=== PATIENT | male | born 1970 | race Caucasian/White ===

== ENCOUNTER 2017-03-19 20:51 | Observation (INO) | payer OTHER ==
[~2017-03-19] VITALS: Ht 180.3 cm; Wt 92.6 kg
[~2017-03-19 20:51] MED LIST: AMOX500C2; CLON0.1T; CYCL10TA9 PO; DULO30CA3; DULO30CA48; HYDR12.5; LEVO50TA6; NAPR500T4 PO; PRD20T
--- OUTSIDE RECORDS SUMMARY | 2017-03-19 20:56 | XMS REPORT ---
Author JESSICA Carreon Organization [employer] Address Unknown Phone Unavailable Care Team Providers Care Butcher Head Name Role Phone JESSICA BARBA CP Unavailable Allergies No Known Allergies Problems Problem Type Condition Code Onset Dates Condition Status Problem Hypothyroidism, unspecified type E03.9 Active Problem High blood pressure I10 Active Problem Mixed hyperlipidemia E78.2 Active Assessment Edema R60.9 Active Problem Anxiety F41.9 Active Problem Alcohol use F10.99 Active Medications Medication Code System Code Instructions Start Date End Date Status Dosage Hydrochlorothiazide [facility] [address]-97 12.5 MG Orally Once a day November 13, 2015 1 tablet Procedures Procedure Coding System Code Date Office Visit, Est Pt., Level 2 CPT-4 04487 November 13, 2015 Vital Signs Date/Time: November 13, 2015 Cardiac Monitoring Heart Rate 88 bpm Weight 198 lbs Height 71 in BMI 27.61 Index Blood Pressure Diastolic 80 mmHg Blood Pressure Systolic 110 mmHg Results No Known Results Summary Purpose eClinicalWorks Submission
--- OUTSIDE RECORDS SUMMARY | 2017-03-19 20:57 | XMS REPORT ---
Author SIERRA Kulkarni Organization [employer] Address Unknown Phone Unavailable Care Team Providers Care Rn Dialysis Name Role Phone SIERRA VANN CP Unavailable Allergies No Known Allergies Problems Problem Type Condition Code Onset Dates Condition Status Problem Anxiety F41.9 Active Problem Alcohol use F10.99 Active Problem High blood pressure I10 Active Medications No Known Medications Results No Known Results Summary Purpose [employer]ClinicalWorks Submission
--- OUTSIDE RECORDS SUMMARY | 2017-03-19 20:57 | XMS REPORT ---
Author SIERRA Kulkarni [employer] Address Unknown Phone Unavailable Care Team Providers Care Pipe Organ Technician Name Role Phone SIERRA VANN CP Unavailable Allergies, Adverse Reactions, Alerts Substance Reaction Event Type N.K.D.A. Info Not Available Non Drug Allergy Problems Problem Type Condition Code Onset Dates Condition Status Problem Anxiety F41.9 Active Problem Alcohol use F10.99 Active Problem High blood pressure I10 Active Assessment Physical exam Z00.00 Active Assessment Anxiety F41.9 Active Assessment Alcohol use F10.99 Active Medications Medication Code System Code Instructions Start Date End Date Status Dosage Clonidine HCl [facility] [address]-41 0.1 MG Orally 2 times a day as needed for anxiety 1 tablet Cymbalta [facility] [address]-25 30 MG Orally Once a day for anxiety/depression 1 capsule Procedures Procedure Coding System Code Date COMPREHEN METABOLIC PANEL CPT-4 84883 Aug 03, 2015 ASSAY THYROID STIM HORMONE CPT-4 13907 Aug 03, 2015 COMPLETE CBC W/AUTO DIFF WBC CPT-4 61089 Aug 03, 2015 VENIPUNCT, ROUTINE* CPT-4 53366 Aug 03, 2015 LIPID PANEL CPT-4 90623 Aug 03, 2015 Office Visit, Est Pt., Level 3 CPT-4 13986 Aug 03, 2015 Vital Signs Date/Time: Aug 03, 2015 Temperature 97.4 F Weight 200.2 lbs Height 71 in BMI 27.92 Index Blood Pressure Diastolic 82; repeated 134 mmHg Blood Pressure Systolic 138 mmHg Cardiac Monitoring Heart Rate 100 bpm Results Name Result Date Reference Range Unit Abnormality Flag CBC ----Lymphs 11 23009912 % ----Neutrophils 79 40249326 % ----Baso (Absolute) 0.0 20150803 0.0-0.2 x10E3/uL ----Hemoglobin 17.2 20150803 12.6-17.7 g/dL ----Eos (Absolute) 0.1 20150803 0.0-0.4 x10E3/uL ----Hematocrit 47.4 88618756 37.5-51.0 % ----Monocytes(Absolute) 0.6 15138756 0.1-0.9 x10E3/uL ----MCV 89 98897951 79-97 fL ----Lymphs (Absolute) 0.8 64552852 0.7-3.1 x10E3/uL ----MCH 32.4 73080100 26.6-33.0 pg ----Neutrophils (Absolute) 5.9 11706144 1.4-7.0 x10E3/uL ----MCHC 36.3 76001303 31.5-35.7 g/dL H ----Immature Granulocytes 0 50760599 % ----Basos 1 44217629 % ----RDW 13.3 40253146 12.3-15.4 % ----Immature Grans (Abs) 0.0 69106134 0.0-0.1 x10E3/uL ----WBC 7.5 22088317 3.4-10.8 x10E3/uL ----Platelets 233 24356378 150-379 x10E3/uL ----Eos 1 98102564 % ----RBC 5.31 29459666 4.14-5.80 x10E6/uL ----Monocytes 8 22777827 % LIPID PANEL ----LDL Cholesterol Calc 108 99250815 0-99 mg/dL H ----VLDL Cholesterol Partha 13 12046590 5-40 mg/dL ----Cholesterol, Total 259 62054207 100-199 mg/dL H ----HDL Cholesterol 138 49732144 >39 mg/dL ----Triglycerides 67 20402295 0-149 mg/dL ROUTINE VENIPUNCTURE TSH ----TSH 4.620 04619967 0.450-4.500 uIU/mL H CMP ----Potassium, Serum 3.9 21838141 3.5-5.2 mmol/L ----Sodium, Serum 136 95843371 134-144 mmol/L ----BUN/Creatinine Ratio 5 20150803 9-20 L ----eGFR If Africn Am 100 76202904 >59 mL/min/1.73 ----eGFR If NonAfricn Am 87 20150803 >59 mL/min/1.73 ----Creatinine, Serum 1.05 00783425 0.76-1.27 mg/dL ----BUN 5 20150803 6-24 mg/dL L ----Glucose, Serum 103 20150803 65-99 mg/dL H ----AST (SGOT) 88 20150803 0-40 IU/L H ----Globulin, Total 2.7 20150803 1.5-4.5 g/dL ----ALT (SGPT) 105 20150803 0-44 IU/L H ----A/G Ratio 1.7 20150803 1.1-2.5 ----Bilirubin, Total 1.1 20150803 0.0-1.2 mg/dL ----Alkaline Phosphatase, S 72 20150803 39-117 IU/L ----Carbon Dioxide, Total 25 20150803 18-29 mmol/L ----Calcium, Serum 9.4 20150803 8.7-10.2 mg/dL ----Protein, Total, Serum 7.3 20150803 6.0-8.5 g/dL ----Albumin, Serum 4.6 20150803 3.5-5.5 g/dL ----Chloride, Serum 92 20150803 97-108 mmol/L L Summary Purpose eClinicalWorks Submission
--- OUTSIDE RECORDS SUMMARY | 2017-03-19 20:57 | XMS REPORT ---
Author SIERRA Kulkarni Organization [employer] Address Unknown Phone Unavailable Care Team Providers Care Solar Energy Consultant And Designer Name Role Phone SIERRA VANN CP Unavailable Allergies, Adverse Reactions, Alerts Substance Reaction Event Type N.K.D.A. Info Not Available Non Drug Allergy Problems Problem Type Condition Code Onset Dates Condition Status Problem Anxiety F41.9 Active Problem Alcohol use F10.99 Active Problem High blood pressure I10 Active Assessment Alcohol use F10.99 Active Assessment Anxiety F41.9 Active Assessment High blood pressure I10 Active Medications Medication Code System Code Instructions Start Date End Date Status Dosage Cymbalta [facility] [address]-60 30 MG Orally Once a day for anxiety/depression 1 capsule Clonidine HCl [facility] [address]-55 0.1 MG Orally 2 times a day as needed for anxiety Jun 21, 2015 1 tablet Procedures Procedure Coding System Code Date Office Visit, Est Pt., Level 3 CPT-4 38459 Jun 21, 2015 Vital Signs Date/Time: Jun 21, 2015 Temperature 98.4 F Weight 199.1 lbs Height 71 in BMI 27.77 Index Blood Pressure Diastolic 98 mmHg Blood Pressure Systolic 130 mmHg Cardiac Monitoring Heart Rate 92 bpm Results No Known Results Summary Purpose eClinicalWorks Submission
--- OUTSIDE RECORDS SUMMARY | 2017-03-19 20:57 | XMS REPORT ---
Author JESSICA Carreon Organization [employer] Address Unknown Phone Unavailable Care Team Providers Care Ict Support And Test Engineers Name Role Phone JESSICA BARBA CP Unavailable Allergies No Known Allergies Problems Problem Type Condition Code Onset Dates Condition Status Problem Hypothyroidism, unspecified type E03.9 Active Problem High blood pressure I10 Active Problem Mixed hyperlipidemia E78.2 Active Assessment Anxiety F41.9 Active Problem Anxiety F41.9 Active Problem Alcohol use F10.99 Active Medications No Known Medications Results No Known Results Summary Purpose eClinicalWorks Submission
--- OUTSIDE RECORDS SUMMARY | 2017-03-19 20:57 | XMS REPORT ---
Author SIERRA Kulkarni Organization [employer] Address Unknown Phone Unavailable Care Team Providers Care Rn Clinical Appeals Name Role Phone SIERRA VANN CP Unavailable Allergies No Known Allergies Problems Problem Type Condition Code Onset Dates Condition Status Problem Hypothyroidism, unspecified type E03.9 Active Problem High blood pressure I10 Active Problem Mixed hyperlipidemia E78.2 Active Assessment Mixed hyperlipidemia E78.2 Active Assessment Hypothyroidism, unspecified type E03.9 Active Problem Anxiety F41.9 Active Problem Alcohol use F10.99 Active Medications Medication Code System Code Instructions Start Date End Date Status Dosage Fish Oil [facility] [address]-30 1000 MG Orally 2 times a day Aug 07, 2015 1 capsule Levothyroxine Sodium [facility] [address]-25 50 MCG Orally Once a day Aug 07, 2015 1 tablet Results No Known Results Summary Purpose eClinicalWorks Submission
--- OUTSIDE RECORDS SUMMARY | 2017-03-19 20:57 | XMS REPORT ---
Author SIERRA Kulkarni Organization [employer] Address Unknown Phone Unavailable Care Team Providers Care Drop Pit Worker Name Role Phone SIERRA VANN CP Unavailable Allergies No Known Allergies Problems Problem Type Condition Code Onset Dates Condition Status Problem Anxiety F41.9 Active Problem Alcohol use F10.99 Active Problem High blood pressure I10 Active Medications Medication Code System Code Instructions Start Date End Date Status Dosage Clonidine HCl [facility] [address]-29 0.1 MG Orally 2 times a day as needed for anxiety Jun 21, 2015 1 tablet Results No Known Results Summary Purpose eClinicalWorks Submission
[2017-03-19] MEDS ORDERED: LACTATED RINGERS 1,000 ML IV ONE (21:05)
[2017-03-19 21:09] LABS: BASOPHILS % (AUTO) 0 % (0-10); EOSINOPHILS # (AUTO) 0.1 10^3/uL (0.0-0.3); EOSINOPHILS % (AUTO) 2 % (0-10); LYMPHOCYTES % (AUTO) 13 % (12-44); MEAN CORPUSCULAR HEMOGLOBIN 32 PG (25-34); MEAN CORPUSCULAR HGB CONC 37 G/DL (32-36); MEAN CORPUSCULAR VOLUME 86 FL (80-99); MEAN PLATELET VOLUME 9.3 FL (7.4-10.4); MONOCYTES # (AUTO) 0.7 X 10^3 (0.0-1.0); MONOCYTES % (AUTO) 9 % (0-12); NEUTROPHILS # (AUTO) 5.9 X 10^3 (1.8-7.8); NEUTROPHILS % (AUTO) 76 % (42-75); PLATELET COUNT 250 10^3/uL (130-400); RED BLOOD COUNT 5.05 10^6/uL (4.35-5.85); RED CELL DISTRIBUTION WIDTH 11.8 % (10.0-14.5); WHITE BLOOD COUNT 7.7 10^3/uL (4.3-11.0)
--- NOTE | 2017-03-19 21:13 | ED General ---
General Stated Complaint: CHEST PAIN Source of Information: Patient, EMS History of Present Illness Time Seen by Provider: 20:52 Initial Comments PT ARRIVES VIA EMS FROM HOME CALLED EMS FOR CHEST PAIN THAT BEGAN 20 MINUTES PRIOR TO CALLING EMS AROUND 1948 --WHILE SITTING IN A CHAIR AT HOME PT ACTUALLY WITH MULTIPLE COMPLAINTS PT IS ALCOHOLIC AND DRINKS A MINIMUM OF 12 PACK A DAY WAS STARTED ON ANTABUSE 3-4 DAYS AGO BY TATE BARBA AT [facility] ( NO INPATIENT OR OUTPATIENT ALCOHOL TREATMENT, NO ALCOHOLICS ANONYMOUS, ETC. ), AND TOOK 1 DOSE THIS AM PT STATES HE HAD NOT HAD ANY ALCOHOL FOR 2 DAYS, BUT HAS HAD 6 BEERS TODAY PT C/O FEELING CLAMMY, SWEATY, HAVING THE SHAKES, NAUSEATED/DRY HEAVES. STATES THIS IS ACTUALLY THE MAIN REASON HE CALLED EMS PT STATES HE HAS HAD THESE SAME SYMPTOMS WHEN HE HAS TRIED TO STOP DRINKING IN THE PAST PT HAS NOT HAD ANY FOOD INTAKE SINCE 2129 LAST PM AND MINIMAL FLUID INTAKE HAS ONLY VOIDED X 1 TODAY AND WAS A SMALL AMOUNT LAST BM WAS 2 DAYS AGO DOES NOT HAVE PAIN IN CHEST NOW ( WAS 4/10 FOR EMS) STATES PAIN HAS MOVED TO THE BACK OF HIS NECK AND IN HIS RIGHT ARM ALSO NOW HAS PAIN IN EPIGASTRIC AREA STATES HE FELT "LIKE HIS HEART WAS GOING TO JUMP OUT OF HIS CHEST" THEN STARTED FEELING NUMB AND TINGLY ALL OVER, WHICH HAS GOTTEN BETTER FEELING VERY ANXIOUS NO PRIOR HISTORY OF CHEST PAIN OR CARDIAC PROBLEMS. PCP: [facility], TATE BARBA Allergies and Home Medications Allergies Coded Allergies: No Known Drug Allergies (Unverified , 01/07/16) Home Medications Clonidine HCl 0.1 Mg Tablet, #28 (Reported) Cyclobenzaprine HCl 10 Mg Tablet, 10 MG PO Q8H, #10 Prescribed by: GONZALO UMAÑA on 01/24/16 0024 Duloxetine HCl 30 Mg Capsule., #90 (Reported) Levothyroxine Sodium 50 Mcg Tablet, #14 (Reported) Constitutional: see HPI, No chills, diaphoresis, dizziness, No fever, weakness EENTM: no symptoms reported Respiratory: No cough, short of breath Cardiovascular: chest pain, No edema, palpitations, No syncope, No vascular heart diseas Gastrointestinal: see HPI, abdominal pain, constipation, loss of appetite, nausea, vomiting (DRY HEAVES) Genitourinary: see HPI, decreased output Musculoskeletal: see HPI Skin: no symptoms reported Psychiatric/Neurological: See HPI, Anxiety, Denies Headache, Paresthesia, Tingling, Denies Weakness Hematologic/Lymphatic: No Symptoms Reported Immunological/Allergic: no symptoms reported Past Nrfriya-Irkfyv-Mhzqbx Hx Patient Social History Alcohol Use: Regular Use (AT LEAST A 12 PACK OF BEER A DAY) Alcohol Beverage of Choice: Beer Recreational Drug Use: No Type Used: Smokeless Tobacco (CHEWS TOBACCO DAILY) Recent Hopitalizations: No Seasonal Allergies Seasonal Allergies: No Surgeries History of Surgeries: No Respiratory History of Respiratory Disorde: No Cardiovascular History of Cardiac Disorders: Yes Cardiac Disorders: Hypertension Neurological History of Neurological Disord: No Reproductive System Hx Reproductive Disorders: No Genitourinary History of Genitourinary Disor: No Gastrointestinal History of Gastrointestinal Di: Yes ("ULCERS" WHEN YOUNG--NO TESTS DONE) Gastrointestinal Disorders: Polyps Musculoskeletal History of Musculoskeletal Dis: Yes Musculoskeletal Disorders: Chronic Back Pain Endocrine History of Endocrine Disorders: Yes Endocrine Disorders: Hypothyroidsim HEENT History of HEENT Disorders: No Cancer History of Cancer: No Psychosocial History of Psychiatric Problem: Yes (ALCOHOLISM) Behavioral Health Disorders: Anxiety Integumentary History of Skin or Integumenta: No Blood Transfusions History of Blood Disorders: No Physical Exam Vital Signs Vital Sign - Last 12Hours 03/19/17 20:55 Temp 98.6 Pulse 86 Resp 14 B/P (MAP) 144/106 Pulse Ox 98 O2 Delivery Room Air Capillary Refill : General Appearance: WD/WN, Anxious, Other (TENSING BODY, KEEPS EYES TIGHTLY SHUT, PALE, CLAMMY. STRONG ODOR OF ETOH. SPEECH CLEAR. ) HEENT: PERRL/EOMI Neck: Full Range of Motion, Normal Inspection, Non Tender, Supple Respiratory: Normal Breath Sounds, No Accessory Muscle Use, No Respiratory Distress Cardiovascular: Regular Rate, Rhythm, No Edema, No JVD, No Murmur, Normal Peripheral Pulses Gastrointestinal: Normal Bowel Sounds, No Organomegaly, No Pulsatile Mass, Soft , Tenderness (MILD EPIGASTRIC TENDERNESS) Back: No CVA Tenderness Extremity: Normal Capillary Refill, Normal Inspection, Normal Range of Motion, Non Tender, No Calf Tenderness, No Pedal Edema Neurologic/Psychiatric: Alert, Oriented x3, No Motor/Sensory Deficits, 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 II- XII Norm as Tested Skin: Damp, Pallor, Tattoos/Piercings (TATTOOS) Progress/Results/Core Measures Results/Orders Lab Results Laboratory Tests Test 03/19/17 20:57 03/19/17 22:35 03/20/17 04:57 Range/Units White Blood Count 7.7 6.1 4.3-11.0 10^3/uL Red Blood Count 5.05 4.59 4.35-5.85 10^6/uL Hemoglobin 16.0 14.8 13.3-17.7 G/DL Hematocrit 44 41 40-54 % Mean Corpuscular Volume 86 89 80-99 FL Mean Corpuscular Hemoglobin 32 32 25-34 PG Mean Corpuscular Hemoglobin Concent 37 H 36 32-36 G/DL Red Cell Distribution Width 11.8 11.9 10.0-14.5 % Platelet Count 250 220 130-400 10^3/uL Mean Platelet Volume 9.3 9.2 7.4-10.4 FL Neutrophils (%) (Auto) 76 H 64 42-75 % Lymphocytes (%) (Auto) 13 21 12-44 % Monocytes (%) (Auto) 9 10 0-12 % Eosinophils (%) (Auto) 2 5 0-10 % Basophils (%) (Auto) 0 0 0-10 % Neutrophils # (Auto) 5.9 3.9 1.8-7.8 X 10^3 Lymphocytes # (Auto) 1.0 1.3 1.0-4.0 X 10^3 Monocytes # (Auto) 0.7 0.6 0.0-1.0 X 10^3 Eosinophils # (Auto) 0.1 0.3 0.0-0.3 10^3/uL Basophils # (Auto) 0.0 0.0 0.0-0.1 10^3/uL Prothrombin Time 12.0 L 12.2-14.7 SEC INR Comment 0.9 0.8-1.4 Activated Partial Thromboplast Time 28 24-35 SEC Sodium Level 128 L 138 135-145 MMOL/L Potassium Level 2.4 *L 4.8 3.6-5.0 MMOL/L Chloride Level 96 L 108 H 98-107 MMOL/L Carbon Dioxide Level 17 L 21 21-32 MMOL/L Anion Gap 15 H 9 5-14 MMOL/L Blood Urea Nitrogen 4 L 2 L 7-18 MG/DL Creatinine 0.75 0.70 0.60-1.30 MG/DL Estimat Glomerular Filtration Rate > 60 > 60 BUN/Creatinine Ratio 5 3 Glucose Level 134 H 104 70-105 MG/DL Calcium Level 8.8 8.4 L 8.5-10.1 MG/DL Magnesium Level 1.6 L 2.3 1.8-2.4 MG/DL Total Bilirubin 1.1 H 1.0 0.1-1.0 MG/DL Aspartate Amino Transf (AST/SGOT) 57 H 45 H 5-34 U/L Alanine Aminotransferase (ALT/SGPT) 47 39 0-55 U/L Alkaline Phosphatase 64 51 40-136 U/L Total Creatine Kinase 56 30-200 U/L Creatine Kinase MB 0.5 <6.6 NG/ML Troponin I < 0.30 < 0.30 <0.30 NG/ML B-Type Natriuretic Peptide 14.5 <100.0 PG/ML Total Protein 6.5 5.8 L 6.4-8.2 GM/DL Albumin 3.7 3.2 3.2-4.5 GM/DL Amylase Level 78 25-125 U/L Lipase 39 8-78 U/L TSH [facility] Testing 1.05 0.35-4.94 UIU/ML Serum Alcohol 90 H <10 MG/DL Urine Color YELLOW Urine Clarity CLEAR Urine pH 7 5-9 Urine Specific [place] 1.015 L 1.016-1.022 Urine Protein 2+ H NEGATIVE Urine Glucose (UA) 2+ H NEGATIVE Urine Ketones 2+ H NEGATIVE Urine Nitrite NEGATIVE NEGATIVE Urine Bilirubin NEGATIVE NEGATIVE Urine Urobilinogen 1 NORMAL MG/DL Urine Leukocyte Esterase NEGATIVE NEGATIVE Urine RBC (Auto) NEGATIVE NEGATIVE Urine RBC RARE /HPF Urine WBC RARE /HPF Urine Crystals NONE /LPF Urine Bacteria NEGATIVE /HPF Urine Casts NONE /LPF Urine Mucus MODERATE H /LPF Urine Other FEW SPERM H /HPF Urine Culture Indicated NO Urine Opiates Screen NEGATIVE NEGATIVE Urine Oxycodone Screen NEGATIVE NEGATIVE Urine Methadone Screen NEGATIVE NEGATIVE Urine Propoxyphene Screen NEGATIVE NEGATIVE Urine Barbiturates Screen NEGATIVE NEGATIVE Ur Tricyclic Antidepressants Screen NEGATIVE NEGATIVE Urine Phencyclidine Screen NEGATIVE NEGATIVE Urine Amphetamines Screen NEGATIVE NEGATIVE Urine Methamphetamines Screen NEGATIVE NEGATIVE Urine Benzodiazepines Screen NEGATIVE NEGATIVE Urine Cocaine Screen NEGATIVE NEGATIVE Urine Cannabinoids Screen NEGATIVE NEGATIVE My Orders Orders - GONZALO UMAÑA DO Saline Lock/Iv-Start (03/19/17 21:02) Ekg Tracing (03/19/17 21:02) Monitor-Rhythm Ecg Trace Only (03/19/17 21:02) Alcohol (03/19/17 21:02) Amylase (03/19/17 21:02) BNP (03/19/17 21:02) Cbc With Automated Diff (03/19/17:02) Comprehensive Metabolic Panel (03/19/17 21:02) Creatine Kinase (03/19/17:02) Creatine Kinase Mb (03/19/17:02) Drug Screen Stat (Urine) (03/19/17 21:02) Lipase (03/19/17 21:02) Magnesium (03/19/17:02) Protime With Inr (03/19/17:) Partial Thromboplastin Time (03/19/17:) Thyroid Analyzer (03/19/17 21:) Troponin I (03/19/17:02) Ua Culture If Indicated (03/19/17:) Chest 1 View, Ap/Pa Only (03/19/17 21:02) Saline Lock/Iv-Start (03/19/17 21:02) Ondansetron Injection (Zofran Injectio (03/19/17 21:15) Saline Lock/Iv-Start (03/19/17 21:05) Lactated Ringers (Lr 1000 Ml Iv Solution (03/19/17 21:05) Pantoprazole Injection (Protonix Injecti (03/19/17 21:15) Lorazepam Injection (Ativan Injection) (03/19/17 21:15) Ekg Tracing (03/19/17 21:21) Magnesium 1 Gm/100 Ml Ivpb (Magnesium Ortega (03/19/17 22:15) Saline Lock/Iv-Start (03/19/17 22:01) Ns Iv 1000 Ml (Sodium Chloride 0.9%) (03/19/17 22:01) Ns W/Kcl 40 Meq/L (Ns Iv W/Kcl 40 Meq/L) (03/19/17 22:30) Medications Given in ED Current Medications Medications Dose Ordered Sig/Kenneth Route Start Time Stop Time Status Last Admin Dose Admin Lactated Ringer's 1,000 ml @ 0 mls/hr Q0M ONCE IV 03/19/17 21:05 03/19/17 21:07 DC 03/19/17 21:29 0 MLS/HR Lorazepam 2 mg ONCE ONCE IVP 03/19/17 21:15 03/19/17 21:21 DC 03/19/17 21:38 2 MG Ondansetron HCl 4 mg ONCE ONCE IVP 03/19/17 21:15 03/19/17 21:21 DC 03/19/17 21:29 4 MG Pantoprazole 40 mg ONCE ONCE IV 03/19/17 21:15 03/19/17 21:21 DC 03/19/17 21:29 40 MG Sodium Chloride 1,000 ml @ 0 mls/hr Q0M ONCE IV 03/19/17 22:01 03/19/17 22:02 DC 03/19/17 22:20 0 MLS/HR Vital Signs/I&O Vital Sign - Last 12Hours 03/19/17 03/19/17 03/20/17 03/20/17 20:55 23:42 00:05 00:15 Temp 98.6 Pulse 86 65 64 Resp 14 14 12 B/P (MAP) 144/106 115/93 Pulse Ox 98 98 99 96 O2 Delivery Room Air Room Air Room Air Room Air 03/20/17 03/20/17 03/20/17 03/20/17 00:30 01:00 01:00 02:00 Temp 97.7 Pulse 64 67 64 73 Resp 9 11 10 B/P (MAP) 109/89 131/99 130/97 Pulse Ox 96 94 97 O2 Delivery Room Air Room Air Room Air 03/20/17 03/20/17 03/20/17 03/20/17 03:00 04:00 04:00 05:00 Pulse 70 64 58 Resp 13 15 14 B/P (MAP) 138/104 155/115 155/113 Pulse Ox 97 99 98 99 O2 Delivery Room Air Room Air Room Air Room Air 03/20/17 03/20/17 03/20/17 03/20/17 06:00 07:00 07:00 07:54 Temp 97.2 Pulse 84 78 81 73 Resp 14 15 17 B/P (MAP) 114/83 107/74 121/85 Pulse Ox 100 98 99 O2 Delivery Room Air Room Air Room Air Progress Note : Progress Note NO CHEST PAIN ON ARRIVAL TO ER PT FELL ASLEEP SHORTLY AFTER ARRIVAL AND PRIOR TO BEING GIVEN ATIVAN SLEPT FOR REMAINDER OF ER STAY NO DETERIORATION IN PT'S CONDITION DURING ER STAY ECG Initial ECG Impression Time: 20:55 Initial ECG Rate: 65 Initial ECG Impression: Nonspecific Changes (ARTIFACT FROM PT MOVEMENT) Initial ECG Comparisson: No Previous ECG Available EKG : EKG Time: 21:53 Rate: 64 Rhythm: Normal Sinus Intervals: Normal Diagnostic Imaging Comments CXR--NO ACUTE PROCESS, PER RADIOLOGIST REPORT @ 2145 Reviewed: Reviewed by Me Departure Communication (PCP) [id number]--SPOKE WITH DR. HOLCOMB, ACCEPTS PT FOR ADMIT. WILL CONSULT SEAL DELIVERY VEHICLE TEAM TECHNICIAN FOR ASSISTANCE IN ARRANGING FOR ALCOHOL ABUSE TREATMENT /COUNSELING, ETC. Impression Impression: Primary Impression: Alcohol withdrawal Additional Impressions: Dehydration Electrolyte imbalance Chest pain Anxiety Alcohol abuse ANTABUSE THERAPY Hypomagnesemia Disposition: ADMITTED INPATIENT Condition: Stable Admissions Decision to Admit Reason: Admit from ER (General) Decision to Admit/Date: Mar 19, 2017 Time/Decision to Admit Time: 22:35 Departure-Patient Inst. Referrals: [facility] (PCP/Family) Primary Care Physician GONZALO UMAÑA DO Mar 19, 2017 21:13
[2017-03-19] MEDS ORDERED: PANTOPRAZOLE 40 MG/10 ML (PROTONIX) VIAL IV ONE (21:15)
[2017-03-19] MEDS ORDERED: LORazepam INJ 2 MG/ML (ATIVAN) VIAL IVP ONE (21:15)
[2017-03-19] MEDS ORDERED: ONDANSETRON 4 MG/2 ML (SDV) Z0FRAN IVP ONE (21:15)
[2017-03-19 21:18] LABS: INR 0.9 (0.8-1.4)
--- NOTE | 2017-03-19 21:28 | Diagnostic Imaging Report ---
INDICATION: Chest pain COMPARISON: No previous study is available for comparison at this time. FINDINGS: Heart size and pulmonary vasculature are within normal limits, and the lungs are clear, bilaterally. IMPRESSION: Unremarkable chest. Dictated by: Dictated on workstation # [id number]
[2017-03-19 21:49] LABS: ALANINE AMINOTRANSFERASE 47 U/L (0-55); ALBUMIN 3.7 GM/DL (3.2-4.5); ALCOHOL 90 MG/DL (<10); AMYLASE 78 U/L (25-125); ANION GAP 15 MMOL/L (5-14); ASPARTATE AMINO TRANSFERASE 57 U/L (5-34); BILIRUBIN,TOTAL 1.1 MG/DL (0.1-1.0); BLOOD UREA NITROGEN 4 MG/DL (7-18); BUN/CREATININE RATIO 5; CALCIUM 8.8 MG/DL (8.5-10.1); CARBON DIOXIDE 17 MMOL/L (21-32); CHLORIDE 96 MMOL/L (98-107); CREATINE KINASE 56 U/L (30-200); CREATININE SERUM 0.75 MG/DL (0.60-1.30); GFR ESTIMATED > 60; GLUCOSE 134 MG/DL (70-105); LIPASE 39 U/L (8-78); MAGNESIUM 1.6 MG/DL (1.8-2.4); SODIUM 128 MMOL/L (135-145); TOTAL PROTEIN 6.5 GM/DL (6.4-8.2)
[2017-03-19] MEDS ORDERED: NS IV 1000 ML 1,000 ML IV ONE (22:01)
[2017-03-19] MEDS: MAGNESIUM 1 GM/100 ML IVPB 100 ML IV SCH (22:20)
[2017-03-19 22:21] LABS: POTASSIUM 2.4 MMOL/L (3.6-5.0)
[2017-03-19] MEDS ORDERED: NS W/KCL 40 MEQ/L 1,000 ML IV SCH (22:30)
[2017-03-19 22:33] LABS: TROPONIN I < 0.30 NG/ML (<0.30)
[2017-03-19 22:51] LABS: BILIRUBIN,URINE NEGATIVE (NEGATIVE); KETONES,URINE 2+ (NEGATIVE); LEUKOCYTE ESTERASE ,URINE NEGATIVE (NEGATIVE); NITRITE,URINE NEGATIVE (NEGATIVE); PH,URINE 7 (5-9); PROTEIN,URINE 2+ (NEGATIVE); UROBILINOGEN,URINE 1 MG/DL (NORMAL)
[2017-03-19 22:56] LABS: WBC,URINE RARE /HPF
[2017-03-20] VITALS (15 sets, daily range): BP systolic 107–155; BP diastolic 74–115
[2017-03-20] MEDS ORDERED: D5 NS W/KCL 20 MEQ/L 0 ML IV ONE (00:09)
[2017-03-20] MEDS ORDERED: D5 1/2 NS W/KCL 20 MEQ/L 1,000 ML IV ONE (00:10)
[2017-03-20] MEDS: MAGNESIUM 1 GM/100 ML IVPB 100 ML IV SCH (00:45)
[2017-03-20] MEDS: POTASSIUM CL 10MEQ/50ML IVPB 50 ML IV SCH ×5 (01:28→05:10)
[2017-03-20] MEDS ORDERED: LORazepam INJ 2 MG/ML (ATIVAN) VIAL IM PRN (03:45)
[2017-03-20] MEDS ORDERED: SENNA W/DOCUSATE (SENOKOT S) TABLET PO PRN (03:45)
[2017-03-20] MEDS ORDERED: LORazepam 1 MG (ATIVAN) TAB PO PRN ×3 (03:45→04:00)
[2017-03-20] MEDS ORDERED: ANTACID SUSP 30 ML UDC (MYLANTA) PO PRN (03:45)
[2017-03-20] MEDS ORDERED: ONDANSETRON 4 MG/2 ML (SDV) Z0FRAN IV PRN (03:45)
[2017-03-20] MEDS ORDERED: LORazepam INJ 2 MG/ML (ATIVAN) VIAL IV PRN ×4 (03:45)
[2017-03-20 05:08] LABS: BASOPHILS % (AUTO) 0 % (0-10); EOSINOPHILS # (AUTO) 0.3 10^3/uL (0.0-0.3); EOSINOPHILS % (AUTO) 5 % (0-10); LYMPHOCYTES # (AUTO) 1.3 X 10^3 (1.0-4.0); LYMPHOCYTES % (AUTO) 21 % (12-44); MEAN CORPUSCULAR HEMOGLOBIN 32 PG (25-34); MEAN CORPUSCULAR HGB CONC 36 G/DL (32-36); MEAN CORPUSCULAR VOLUME 89 FL (80-99); MEAN PLATELET VOLUME 9.2 FL (7.4-10.4); MONOCYTES # (AUTO) 0.6 X 10^3 (0.0-1.0); MONOCYTES % (AUTO) 10 % (0-12); NEUTROPHILS # (AUTO) 3.9 X 10^3 (1.8-7.8); NEUTROPHILS % (AUTO) 64 % (42-75); PLATELET COUNT 220 10^3/uL (130-400); RED BLOOD COUNT 4.59 10^6/uL (4.35-5.85); RED CELL DISTRIBUTION WIDTH 11.9 % (10.0-14.5); WHITE BLOOD COUNT 6.1 10^3/uL (4.3-11.0)
[2017-03-20] MEDS ORDERED: cloNIDine 0.1 MG (CATAPRES) TAB ONE (05:29)
[2017-03-20] MEDS ORDERED: hydrALAZINE (APESOLINE) 20 MG/ML VIAL ONE (05:29)
[2017-03-20 05:37] LABS: ALANINE AMINOTRANSFERASE 39 U/L (0-55); ALBUMIN 3.2 GM/DL (3.2-4.5); ANION GAP 9 MMOL/L (5-14); ASPARTATE AMINO TRANSFERASE 45 U/L (5-34); BLOOD UREA NITROGEN 2 MG/DL (7-18); BUN/CREATININE RATIO 3; CALCIUM 8.4 MG/DL (8.5-10.1); CARBON DIOXIDE 21 MMOL/L (21-32); CHLORIDE 108 MMOL/L (98-107); GFR ESTIMATED > 60; GLUCOSE 104 MG/DL (70-105); MAGNESIUM 2.3 MG/DL (1.8-2.4); POTASSIUM 4.8 MMOL/L (3.6-5.0); SODIUM 138 MMOL/L (135-145); TOTAL PROTEIN 5.8 GM/DL (6.4-8.2)
[2017-03-20 05:43] LABS: TROPONIN I < 0.30 NG/ML (<0.30)
[2017-03-20] MEDS ORDERED: MAGNESIUM 1 GM/100 ML IVPB 100 ML IV SCH (06:00)
[2017-03-20] MEDS ORDERED: KCL 20 MEQ TAB (K-DUR) PO SCH (06:00)
[2017-03-20] MEDS ORDERED: POTASSIUM CL 10MEQ/50ML IVPB 50 ML IV SCH (06:00)
[2017-03-20] MEDS ORDERED: NS IV 1000 ML 1,000 ML IV SCH (07:00)
[2017-03-20] MEDS ORDERED: LEVO25TA5 PO (08:32)
[2017-03-20] MEDS ORDERED: [UNRECOGNIZED DRUG - CODE] PO (08:32)
[2017-03-20] MEDS ORDERED: DULO60CA58 PO (08:32)
[2017-03-20] MEDS ORDERED: THIAMINE INJECTION 100 MG, FOLIC ACID INJECTION 1 MG, VITAMIN MULTI INJECTION 10 ML, MA... IV SCH ×5 (09:00)
[2017-03-20] MEDS ORDERED: PANTOPRAZOLE 40 MG/10 ML (PROTONIX) VIAL IV SCH (09:00)
[2017-03-20] MEDS ORDERED: LEVOTHYROXINE 25 MCG (LEVOTHROID) TAB PO SCH (10:09)
[2017-03-20] MEDS ORDERED: DULoxetine 30 MG (CYMBALTA) CAP PO SCH (10:10)
--- NOTE | 2017-03-20 11:50 | Discharge Instructions ---
Discharge Inst-[facility] Discharge Medications Continued Medications: Duloxetine HCl (Duloxetine HCl) 60 Mg Capsule.dr 60 MG PO DAILY, CAP Levothyroxine Sodium (Levothyroxine Sodium) 25 Mcg Tablet 25 MCG PO DAILY, TAB Discontinued Medications: Disulfiram (Disulfiram) 500 Mg Tablet 500 MG PO DAILY, TAB Patient Instructions Goal/Follow Up Appt: Follow up at [facility] with Taylor at 2:30 pm for intake visit for addiction treatment. Follow up with Alex Johns APRN on 04/06 at 4 pm. Return to [facility] For: Inability to keep down liquids, seizure activity, confusion Activity & Diet Discharge Diet: No Restrictions Activity as Tolerated: Yes Orders-Post D/C & Referrals Pneu Vac Indicated: Yes Copy Copies To 1: HEATHER Warren BETHANY N MD Mar 20, 2017 11:50 am
--- NOTE | 2017-03-20 11:56 | Short Stay Summary ---
HPI History of Present Illness: 46 yo male presented to ER with complaint of heart palpitations, pounding heart in his chest and not feeling well. He notes that he started taking disulfiram about 2 weeks ago, however, he has drank every day since then except for one. He also has a cough which is productive of clear sputum. He denies dizziness, confusion, hallucinations or tremor. Date seen by provider: Mar 20, 2017 Time Seen by Provider: 10:30 Attending Physician Jaz Sanford MD [place] [facility] [place] Date of Admission Mar 19, 2017 at 10:35 pm Home Medications Home Medications Reviewed patient Home Medication Reconciliation Form Allergies Coded Allergies: No Known Drug Allergies (Unverified , 01/07/16) QVH-Lusyjg-Mxniex Hx Patient Social History Alcohol Use: Regular Use Recreational Drug Use: No Type Used: Smokeless Tobacco Recent Foreign Travel: No Contact w/other who traveled: No Recent Hopitalizations: No Recent Infectious Disease Expo: No Physical Abuse Screen: No Sexual Abuse: No Past Medical History PMHx: Hypothyroidism Alcoholism Family Medical History Significant Family History: No Pertinent Family Hx Review of Systems (CHC) Constitutional: No fever EENTM: no symptoms reported Respiratory: cough Cardiovascular: chest pain Gastrointestinal: nausea Genitourinary: no symptoms reported Musculoskeletal: no symptoms reported Skin: no symptoms reported Psychiatric/Neurological: No Symptoms Reported Reviewed Test Results Reviewed Test Results Lab Laboratory Tests Test 03/19/17 20:57 03/19/17 22:35 03/20/17 04:57 Range/Units White Blood Count 7.7 6.1 4.3-11.0 10^3/uL Red Blood Count 5.05 4.59 4.35-5.85 10^6/uL Hemoglobin 16.0 14.8 13.3-17.7 G/DL Hematocrit 44 41 40-54 % Mean Corpuscular Volume 86 89 80-99 FL Mean Corpuscular Hemoglobin 32 32 25-34 PG Mean Corpuscular Hemoglobin Concent 37 H 36 32-36 G/DL Red Cell Distribution Width 11.8 11.9 10.0-14.5 % Platelet Count 250 220 130-400 10^3/uL Mean Platelet Volume 9.3 9.2 7.4-10.4 FL Neutrophils (%) (Auto) 76 H 64 42-75 % Lymphocytes (%) (Auto) 13 21 12-44 % Monocytes (%) (Auto) 9 10 0-12 % Eosinophils (%) (Auto) 2 5 0-10 % Basophils (%) (Auto) 0 0 0-10 % Neutrophils # (Auto) 5.9 3.9 1.8-7.8 X 10^3 Lymphocytes # (Auto) 1.0 1.3 1.0-4.0 X 10^3 Monocytes # (Auto) 0.7 0.6 0.0-1.0 X 10^3 Eosinophils # (Auto) 0.1 0.3 0.0-0.3 10^3/uL Basophils # (Auto) 0.0 0.0 0.0-0.1 10^3/uL Prothrombin Time 12.0 L 12.2-14.7 SEC INR Comment 0.9 0.8-1.4 Activated Partial Thromboplast Time 28 24-35 SEC Sodium Level 128 L 138 135-145 MMOL/L Potassium Level 2.4 *L 4.8 3.6-5.0 MMOL/L Chloride Level 96 L 108 H 98-107 MMOL/L Carbon Dioxide Level 17 L 21 21-32 MMOL/L Anion Gap 15 H 9 5-14 MMOL/L Blood Urea Nitrogen 4 L 2 L 7-18 MG/DL Creatinine 0.75 0.70 0.60-1.30 MG/DL Estimat Glomerular Filtration Rate > 60 > 60 BUN/Creatinine Ratio 5 3 Glucose Level 134 H 104 70-105 MG/DL Calcium Level 8.8 8.4 L 8.5-10.1 MG/DL Magnesium Level 1.6 L 2.3 1.8-2.4 MG/DL Total Bilirubin 1.1 H 1.0 0.1-1.0 MG/DL Aspartate Amino Transf (AST/SGOT) 57 H 45 H 5-34 U/L Alanine Aminotransferase (ALT/SGPT) 47 39 0-55 U/L Alkaline Phosphatase 64 51 40-136 U/L Total Creatine Kinase 56 30-200 U/L Creatine Kinase MB 0.5 <6.6 NG/ML Troponin I < 0.30 < 0.30 <0.30 NG/ML B-Type Natriuretic Peptide 14.5 <100.0 PG/ML Total Protein 6.5 5.8 L 6.4-8.2 GM/DL Albumin 3.7 3.2 3.2-4.5 GM/DL Amylase Level 78 25-125 U/L Lipase 39 8-78 U/L TSH Bradley Testing 1.05 0.35-4.94 UIU/ML Serum Alcohol 90 H <10 MG/DL Urine Color YELLOW Urine Clarity CLEAR Urine pH 7 5-9 Urine Specific Williams 1.015 L 1.016-1.022 Urine Protein 2+ H NEGATIVE Urine Glucose (UA) 2+ H NEGATIVE Urine Ketones 2+ H NEGATIVE Urine Nitrite NEGATIVE NEGATIVE Urine Bilirubin NEGATIVE NEGATIVE Urine Urobilinogen 1 NORMAL MG/DL Urine Leukocyte Esterase NEGATIVE NEGATIVE Urine RBC (Auto) NEGATIVE NEGATIVE Urine RBC RARE /HPF Urine WBC RARE /HPF Urine Crystals NONE /LPF Urine Bacteria NEGATIVE /HPF Urine Casts NONE /LPF Urine Mucus MODERATE H /LPF Urine Other FEW SPERM H /HPF Urine Culture Indicated NO Urine Opiates Screen NEGATIVE NEGATIVE Urine Oxycodone Screen NEGATIVE NEGATIVE Urine Methadone Screen NEGATIVE NEGATIVE Urine Propoxyphene Screen NEGATIVE NEGATIVE Urine Barbiturates Screen NEGATIVE NEGATIVE Ur Tricyclic Antidepressants Screen NEGATIVE NEGATIVE Urine Phencyclidine Screen NEGATIVE NEGATIVE Urine Amphetamines Screen NEGATIVE NEGATIVE Urine Methamphetamines Screen NEGATIVE NEGATIVE Urine Benzodiazepines Screen NEGATIVE NEGATIVE Urine Cocaine Screen NEGATIVE NEGATIVE Urine Cannabinoids Screen NEGATIVE NEGATIVE Radiology CXR 03/19 Unremarkable Physical Exam-(CHC) Physical Exam Vital Signs VS - Last 72 Hours, by Label 03/19/17 03/19/17 03/20/17 03/20/17 20:55 23:42 00:05 00:15 Temp 98.6 Pulse 86 65 64 Resp 14 14 12 B/P (MAP) 144/106 115/93 Pulse Ox 98 98 99 96 O2 Delivery Room Air Room Air Room Air Room Air 03/20/17 03/20/17 03/20/17 03/20/17 00:30 01:00 01:00 02:00 Temp 97.7 Pulse 64 67 64 73 Resp 9 11 10 B/P (MAP) 109/89 131/99 130/97 Pulse Ox 96 94 97 O2 Delivery Room Air Room Air Room Air 03/20/17 03/20/17 03/20/17 03/20/17 03:00 04:00 04:00 05:00 Pulse 70 64 58 Resp 13 15 14 B/P (MAP) 138/104 155/115 155/113 Pulse Ox 97 99 98 99 O2 Delivery Room Air Room Air Room Air Room Air 03/20/17 03/20/17 03/20/17 03/20/17 06:00 07:00 07:00 07:54 Temp 97.2 Pulse 84 78 81 73 Resp 14 15 17 B/P (MAP) 114/83 107/74 121/85 Pulse Ox 100 98 99 O2 Delivery Room Air Room Air Room Air 03/20/17 03/20/17 03/20/17 03/20/17 08:00 09:00 10:00 11:00 Pulse 80 81 84 Resp 17 20 16 B/P (MAP) 131/105 132/100 111/87 Pulse Ox 99 100 94 97 O2 Delivery Room Air Room Air Room Air 03/20/17 11:44 Pulse Ox 99 O2 Delivery Room Air Capillary Refill : Less Than 3 Seconds General Appearance: WD/WN, no apparent distress Respiratory: lungs clear, normal breath sounds Cardiovascular: regular rate, rhythm, no murmur Gastrointestinal: normal bowel sounds, non tender, soft Extremities: no pedal edema Neurologic/Psychiatric: alert Skin: normal color, warm/dry Short Stay Diagnosis Discharge Diagnosis-Short Stay Admission Diagnosis Alcohol abuse while taking disulfiram Hyponatremia Hypokalemia Hypomagnesemia Transaminitis/elevated bilirubin Alcoholic ketoacidosis Final Discharge Diagnosis Alcohol abuse while taking disulfiram Hyponatremia Hypokalemia Hypomagnesemia Transaminitis/elevated bilirubin Alcoholic ketoacidosis Conclusion Plan Alcohol abuse while taking disulfiram- discussed with patient that alcohol cannot be used when taking disulfiram, and he states that while he is interested in quitting, he does not feel he is ready at this time, so we will discontinue his disulfiram and he will meet with substance abuse counselor to consider further options, but he does not require inpatient stay for detox as he is not planning to stop drinking at this time Electrolyte abnormalities: Hyponatremia, Hypokalemia, Hypomagnesemia, alcoholic ketoacidosis -Resolved with IVF and replacement overnight Transaminitis/elevated bilirubin- possibly alcohol related, check hepatitis panel (results pending at d/c) Clinical Quality Measures DVT/VTE Risk/Contraindication: Risk Factor Score Per Nursin RFS Level Per Nursing on Admit: 1=Low/No VTE PPX Copy Copies To 1: HEATHER Warren BETHANY N MD Mar 20, 2017 11:56 am
== END 2017-03-20 11:48 | disposition home or self-care (01) ==
LOC: EDUNIT# 20:51 → ER 20:52 → UNDOADMOB 22:35 → ICU 22:35 → UNDODISOB 03-20 13:25
PROVIDERS: ADMIT Family Medicine; ATTEND Family Medicine
DX: F10.10 Alcohol abuse, uncomplicated (principal); E87.1 Hypo-osmolality and hyponatremia; E87.6 Hypokalemia; E83.42 Hypomagnesemia; R74.0 Nonspecific elevation of levels of transaminase and lactic acid dehydrogenase [LDH]; E80.7 Disorder of bilirubin metabolism, unspecified; E87.2 Acidosis; I10 Essential (primary) hypertension; F41.9 Anxiety disorder, unspecified; Y90.4 Blood alcohol level of 80-99 mg/100 ml; F17.220 Nicotine dependence, chewing tobacco, uncomplicated; Z79.899 Other long term (current) drug therapy
CPT/HCPCS: 36415; 71010; 80053; 80074; 80306; 80320; 81000; 82150; 82550; 82553; 83690; 83735; 83880; 84443; 84484; 85025; 85610; 85730; 87081; 93005; 93041; 96361; 96365; 96375; G0378

== ENCOUNTER 2017-04-25 19:44 | Emergency (ER) | payer SELFPAY ==
[~2017-04-25] VITALS: Ht 180.3 cm; Wt 88.0 kg
[~2017-04-25 19:44] MED LIST changes: +DULO60CA58 PO; +LEVO25TA5 PO; +NAPR500T3 PO; -NAPR500T4 PO; +[UNRECOGNIZED DRUG - CODE] PO
[2017-04-25] MEDS ORDERED: KETOROLAC 60 MG/2 ML VIAL IM STA (21:43)
--- NOTE | 2017-04-25 21:51 | ED Upper Extremity ---
General Chief Complaint: Upper Extremity Stated Complaint: SHOULDER PAIN Nursing Triage Note: pt c/o R shoulder pain x1 month, states he was seen at [facility] and had an xray done "never heard back" but is still having pain. Nursing Sepsis Screen: No Definite Risk Source: patient Exam Limitations: no limitations History of Present Illness Time seen by provider: 21:35 Initial Comments Here with report of right shoulder pain is been going on for about a month. Unsure of exact cause but states it may have been when he was helping a friend with some work and he was doing some heavy lifting. Did have evaluation at about a month ago and had an x-ray done but hasn't heard any results. Denies weakness or numbness. Does get position of comfort by relaxing the arm and the internally rotated and elbow flexed position like he would be in a sling. Pain is to the anterior and posterior portion of the shoulder but not so much on the lateral aspect. Pain is worse when arm is forward flexed and pronated and when lifting arm above head. Onset: other (one month) Severity: moderate Pain/Injury Location: right shoulder Method of Injury: unknown Modifying Factors: Improves With Immobilization, Worse With Movement Allergies and Home Medications Allergies Coded Allergies: No Known Drug Allergies (Unverified , 01/07/16) Home Medications Duloxetine HCl 60 Mg Capsule.dr, 60 MG PO DAILY, (Reported) Levothyroxine Sodium 25 Mcg Tablet, 25 MCG PO DAILY, (Reported) Constitutional: see HPI, No chills, No fever Respiratory: no symptoms reported Cardiovascular: no symptoms reported Musculoskeletal: see HPI, joint pain, muscle pain Skin: no symptoms reported Psychiatric/Neurological: No Symptoms Reported Past Sidwdik-Ugfoan-Paxhbd Hx Patient Social History Alcohol Use: Regular Use Number of Drinks Today: 5 Alcohol Beverage of Choice: Beer Recreational Drug Use: No Smoking Status: Never a Smoker Type Used: Smokeless Tobacco Recent Foreign Travel: No Contact w/Someone Who Travel: No Recent Infectious Disease Expo: No Recent Hopitalizations: No Physical Abuse: No Sexual Abuse: No Immunizations Up To Date Tetanus Booster (TDap): Unknown PED Vaccines UTD: No Seasonal Allergies Seasonal Allergies: No Surgeries History of Surgeries: No Respiratory History of Respiratory Disorde: No Cardiovascular History of Cardiac Disorders: Yes Cardiac Disorders: Hypertension Neurological History of Neurological Disord: No Reproductive System Hx Reproductive Disorders: No Genitourinary History of Genitourinary Disor: No Gastrointestinal History of Gastrointestinal Di: Yes ("ULCERS" WHEN YOUNG--NO TESTS DONE) Gastrointestinal Disorders: Polyps Musculoskeletal History of Musculoskeletal Dis: Yes Musculoskeletal Disorders: Chronic Back Pain Endocrine History of Endocrine Disorders: Yes Endocrine Disorders: Hypothyroidsim HEENT History of HEENT Disorders: No Cancer History of Cancer: No Psychosocial History of Psychiatric Problem: Yes (ALCOHOLISM) Behavioral Health Disorders: Anxiety Suicide Risk Score: 0 Integumentary History of Skin or Integumenta: No Blood Transfusions History of Blood Disorders: No Reviewed Nursing Assessment Reviewed/Agree w Nursing PMH: Yes Family Medical History Significant Family History: No Pertinent Family Hx Family Medial History: Patient reports no known family medical history. Physical Exam Vital Signs Vital Sign - Last 12Hours 04/25/17 20:35 Temp 98.0 Pulse 106 Resp 15 B/P (MAP) 122/82 Pulse Ox 96 O2 Delivery Room Air Capillary Refill : Less Than 3 Seconds General Appearance: WD/WN, no apparent distress Cardiovascular: regular rate, rhythm, no murmur Respiratory: lungs clear, normal breath sounds Shoulder: normal ROM, pain (pain with forward flexion and pronation and when lifting her arm above head. Tenderness noted to the anterior posterior aspect of the shoulder joint.), soft tissue tenderness Hand: normal ROM, Bilateral Neurologic/Tendon: normal sensation, normal motor functions, normal tendon functions Neurologic/Psychiatric: alert, oriented x 3 Skin: normal color, warm/dry Progress/Results/Core Measures Results/Orders My Orders Orders - CARON DEE MD Ketorolac Injection (Toradol Injection) (04/25/17 21:43) Shoulder, Right, 3 Views (04/25/17 21:43) Sling (04/25/17 21:43) Vital Signs/I&O Vital Sign - Last 12Hours 04/25/17 20:35 Temp 98.0 Pulse 106 Resp 15 B/P (MAP) 122/82 Pulse Ox 96 O2 Delivery Room Air Blood Pressure Mean: 95 Progress Note : Progress Note Seen and evaluated. No obvious injury or deformity. X-ray right shoulder ordered. Toradol 60 mg IM and sling ordered. 2207: No acute findings. Discharged home with return precautions. Patient verbalize understanding instructions and agreement with plan. Diagnostic Imaging Diagonstic Imaging: Xray Plain Films/CT/US/NM/MRI: other (right shoulder) Comments Right shoulder 3 view shows no acute fracture or other abnormality. Reviewed: Reviewed by Me Departure Impression Impression: Primary Impression: Right shoulder pain Qualified Codes: M25.511 - Pain in right shoulder Disposition: 01 HOME, SELF-CARE Condition: Improved Departure-Patient Inst. Decision time for Depature: 21:50 Referrals: [facility] (PCP/Family) Primary Care Physician Patient Instructions: Shoulder Sprain (DC), Shoulder Tendinopathy (DC) Add. Discharge Instructions: All discharge instructions reviewed with patient and/or family. Voiced understanding. You may take ibuprofen 800 mg every 8 hours as needed for pain. You may use the sling for the next few days to rest the shoulder and decreased pain as needed. Follow-up with your doctor for further evaluation and referral for possible orthopedic evaluation for concerns of rotator cuff injury or other internal derangement of the shoulder. Return for worse pain, weakness, swelling , numbness or other concerns as needed. CARON DEE MD Apr 25, 2017 21:51
[2017-04-25 22:13] VITALS: BP 125/85
--- NOTE | 2017-04-26 07:09 | Diagnostic Imaging Report ---
EXAMINATION: Right shoulder, 3 views. COMPARISON: None. HISTORY: 46-year-old male, right shoulder pain. FINDINGS: The acromioclavicular joint is normally aligned. There are no prominent acromioclavicular degenerative changes. The humeral head is normally positioned relative to the glenoid. Unremarkable appearance of the glenohumeral joint. There is no identified acute fracture. IMPRESSION: Unremarkable radiographs of the right shoulder. Dictated by: Dictated on workstation # [id number]
== END 2017-04-25 22:12 | disposition home or self-care (01) ==
LOC: EDUNIT# 19:44 → ER 19:47
DX: M25.511 Pain in right shoulder (principal); F41.9 Anxiety disorder, unspecified; E03.9 Hypothyroidism, unspecified; I10 Essential (primary) hypertension; F10.20 Alcohol dependence, uncomplicated
CPT/HCPCS: 73030; 96372; 99284

== ENCOUNTER 2018-05-16 00:28 | Emergency (ER) | payer OTHER ==
[~2018-05-16] VITALS: Ht 175.3 cm; Wt 90.7 kg
[~2018-05-16 00:28] MED LIST changes: +DISU500T2 PO; +NAPR-915 PO; -NAPR500T3 PO; -[UNRECOGNIZED DRUG - CODE] PO
[2018-05-16] MEDS ORDERED: LACTATED RINGERS 1,000 ML IV ONE (00:48)
[2018-05-16 01:00] LABS: BASOPHILS % (AUTO) 1 % (0-10); EOSINOPHILS # (AUTO) 0.4 10^3/uL (0.0-0.3); EOSINOPHILS % (AUTO) 6 % (0-10); HEMATOCRIT 39 % (40-54); HEMOGLOBIN 14.1 G/DL (13.3-17.7); LYMPHOCYTES # (AUTO) 1.9 X 10^3 (1.0-4.0); LYMPHOCYTES % (AUTO) 28 % (12-44); MEAN CORPUSCULAR HEMOGLOBIN 30 PG (25-34); MEAN CORPUSCULAR HGB CONC 37 G/DL (32-36); MEAN CORPUSCULAR VOLUME 83 FL (80-99); MEAN PLATELET VOLUME 9.8 FL (7.4-10.4); MONOCYTES # (AUTO) 0.4 X 10^3 (0.0-1.0); MONOCYTES % (AUTO) 7 % (0-12); NEUTROPHILS % (AUTO) 59 % (42-75); PLATELET COUNT 169 10^3/uL (130-400); RED BLOOD COUNT 4.66 10^6/uL (4.35-5.85); RED CELL DISTRIBUTION WIDTH 12.1 % (10.0-14.5); WHITE BLOOD COUNT 6.7 10^3/uL (4.3-11.0)
[2018-05-16] MEDS ORDERED: TETANUS,DIPTH,PERTUSS P/F (BOOSTRIX) 0.5 ML VIAL IM ONE (01:00)
[2018-05-16 01:11] LABS: INR 0.9 (0.8-1.4); PROTHROMBIN TIME PATIENT 12.6 SEC (12.2-14.7)
[2018-05-16 01:17] LABS: ALANINE AMINOTRANSFERASE 19 U/L (0-55); ALBUMIN 4.2 GM/DL (3.2-4.5); ALKALINE PHOSPHATASE 53 U/L (40-136); BILIRUBIN,TOTAL 0.7 MG/DL (0.1-1.0); BUN/CREATININE RATIO 10; CALCIUM 9.3 MG/DL (8.5-10.1); CARBON DIOXIDE 23 MMOL/L (21-32); CHLORIDE 95 MMOL/L (98-107); CREATININE SERUM 0.88 MG/DL (0.60-1.30); GFR ESTIMATED > 60; GLUCOSE 85 MG/DL (70-105); POTASSIUM 3.5 MMOL/L (3.6-5.0); SODIUM 129 MMOL/L (135-145); TOTAL PROTEIN 6.9 GM/DL (6.4-8.2)
[2018-05-16 01:45] LABS: AMPHETAMINE SCREEN, URINE NEGATIVE (NEGATIVE); BARBITURATE SCREEN URINE NEGATIVE (NEGATIVE); BENZODIAZEPINES SCREEN URINE NEGATIVE (NEGATIVE); CANNABINOID SCREEN, URINE NEGATIVE (NEGATIVE); COCAINE SCREEN URINE NEGATIVE (NEGATIVE); METHADONE STAT NEGATIVE (NEGATIVE); METHAMPHETAMINE SCREEN URINE S NEGATIVE (NEGATIVE); OPIATE SCREEN URINE NEGATIVE (NEGATIVE); OXYCODONE STAT NEGATIVE (NEGATIVE); PROPOXYPHENE STAT NEGATIVE (NEGATIVE); TRICYCLIC ANTIDEPRESSANTS SCRE NEGATIVE (NEGATIVE)
[2018-05-16] MEDS ORDERED: LIDOCAINE/EPI 2% 1:100,00 (XYLOCAINE) 20 ML VIAL ONE (01:56)
[2018-05-16] MEDS ORDERED: RX-TRIMETH/SULFA. 160-800 MG (BACTRIM DS) TAB PPK#2 PO STA (02:11)
[2018-05-16] MEDS ORDERED: ACETAMINOPHEN 500 MG TAB (TYLENOL) PO ONE (02:15)
[2018-05-16] MEDS ORDERED: SULF1TAB35 PO (02:16)
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
[2018-05-16 05:54] VITALS: BP 146/97
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
== END 2018-05-16 03:00 ==
LOC: EDUNIT# 00:28 → ER 00:29
DX: S09.90XA Unspecified injury of head, initial encounter (principal); S01.01XA Laceration without foreign body of scalp, initial encounter; I10 Essential (primary) hypertension; E03.9 Hypothyroidism, unspecified; F41.9 Anxiety disorder, unspecified; F32.9 Major depressive disorder, single episode, unspecified; F10.20 Alcohol dependence, uncomplicated; F17.220 Nicotine dependence, chewing tobacco, uncomplicated; R40.2142 Coma scale, eyes open, spontaneous, at arrival to emergency department; R40.2252 Coma scale, best verbal response, oriented, at arrival to emergency department; R40.2362 Coma scale, best motor response, obeys commands, at arrival to emergency department; Z23 Encounter for immunization; W01.0XXA Fall on same level from slipping, tripping and stumbling without subsequent striking against object, initial encounter; Y92.149 Unspecified place in prison as the place of occurrence of the external cause
CPT/HCPCS: 12002; 36415; 70450; 72125; 80053; 80306; 80320; 85025; 85610; 85730; 90715; 93041

== ENCOUNTER → 2018-08-23 | Outpatient (CLI) | payer SELFPAY ==
[~2018-08-23] MED LIST changes: +CATHETER FLUSH 10 ML SYR IV PRN; +IOHEXOL 350 MG/ML 100 ML (OMNIPAQUE 350) VIAL IV ONE; +NS 100 ML (IVPB) BAG IV ONE; +RECEIVED CONTRAST (Hold Metformin) IV SCH; +SULF1TAB35 PO
--- NOTE | 2018-08-23 14:28 | Diagnostic Imaging Report ---
INDICATION: Parietal headaches. Dizziness. Blurred vision. Dysphagia. TECHNIQUE: Routine pre- and postcontrast, chronic small-enhanced axial images were obtained from the skull base to the vertex. COMPARISON: 05/08/2018 FINDINGS: The ventricles and cortical sulci are stable in size and contour. Postcontrast images show no abnormal areas of enhancement There is no midline shift or mass-effect. No acute intra-axial hemorrhage is seen. There are no abnormal areas of increased or decreased density to suggest acute hemorrhage or edema. No extra-axial masses or collections are present. The bony calvarium is intact. The visualized paranasal sinuses are unremarkable. The mastoid air cells are clear. IMPRESSION: 1. No acute intracranial abnormality. No CT evidence of mass, acute infarct or intracranial hemorrhage. Dictated by: Dictated on workstation # [id number]
== END ==
LOC: RAD 13:39
PROVIDERS: ATTEND Nurse Practitioner Community Health
DX: R51 Headache (principal); R41.3 Other amnesia; R55 Syncope and collapse; F68.8 Other specified disorders of adult personality and behavior
CPT/HCPCS: 70470

== ENCOUNTER 2019-01-18 10:44 | Inpatient (IN) | payer OTHER ==
[2019-01-18] VITALS (10 sets, daily range): BP systolic 122–169; BP diastolic 83–120
[~2019-01-18] VITALS: Ht 165.1 cm; Wt 103.5 kg
[~2019-01-18 10:44] MED LIST changes: -CATHETER FLUSH 10 ML SYR IV PRN; -IOHEXOL 350 MG/ML 100 ML (OMNIPAQUE 350) VIAL IV ONE; -NS 100 ML (IVPB) BAG IV ONE; -RECEIVED CONTRAST (Hold Metformin) IV SCH
[2019-01-18] MEDS ORDERED: ONDANSETRON 4 MG/2 ML (SDV) Z0FRAN ONE (10:52)
[2019-01-18] MEDS ORDERED: LORazepam INJ 2 MG/ML (ATIVAN) VIAL ONE (10:53)
--- NOTE | 2019-01-18 10:56 | ED General ---
General Stated Complaint: AMS Source of Information: EMS Exam Limitations: No Limitations History of Present Illness Date Seen by Provider: Jan 18, 2019 Time Seen by Provider: 10:52 Initial Comments To ER per EMS from home with reports of unstable A. fib. EMS was initially called by the patient's with reports of alcohol abuse and syncope. Upon EMS arrival he was noted to be unresponsive very diaphoretic and with a poorly palpable radial pulse. EKG confirms a narrow complex regular rate in the 170s with a blood pressure of 70 systolic. He was defibrillated at 50 J with quick improvement in blood pressure and mentation and diaphoresis. On arrival to the emergency room patient denies any chest pain or shortness of breath. He states that he has no history of cardiac disease that he is aware of. Last thing he can remember is awakening this morning and then being in the ambulance. At this time he feels generally weak and nauseous. He does drink 10-12 beers daily. Timing/Duration: 1-2 Days Severity: Moderate Associated Systoms: Weakness Allergies and Home Medications Allergies Coded Allergies: No Known Drug Allergies (Unverified , 01/07/16) Home Medications Clonidine HCl 0.2 Mg Tablet, 0.2 MG PO BID, (Reported) Levothyroxine Sodium 25 Mcg Tablet, 25 MCG PO DAILY, (Reported) Patient Home Medication List Home Medication List Reviewed: Yes Review of Systems Review of Systems Constitutional: see HPI, diaphoresis, weakness EENTM: see HPI Respiratory: no symptoms reported; No short of breath Cardiovascular: see HPI; No chest pain; palpitations, syncope Genitourinary: no symptoms reported Musculoskeletal: no symptoms reported Skin: no symptoms reported Psychiatric/Neurological: No Symptoms Reported Hematologic/Lymphatic: No Symptoms Reported Immunological/Allergic: no symptoms reported Past Xzbhzce-Penkdz-Eenbrn Hx Patient Social History Alcohol Beverage of Choice: Beer Type Used: Smokeless Tobacco 2nd Hand Smoke Exposure: No Recent Hopitalizations: No Immunizations Up To Date Tetanus Booster (TDap): Unknown PED Vaccines UTD: No Seasonal Allergies Seasonal Allergies: No Past Medical History Surgeries: No Respiratory: No Cardiac: Yes Hypertension Neurological: No Reproductive Disorders: No Genitourinary: No Gastrointestinal: Yes ("ULCERS" WHEN YOUNG--NO TESTS DONE) Polyps Musculoskeletal: Yes (CHRONIC NECK PAIN ) Chronic Back Pain Endocrine: Yes Hypothyroidsim HEENT: No Cancer: No Psychosocial: Yes (ALCOHOLISM) Anxiety, Depression Integumentary: No Blood Disorders: No Family Medical History Patient reports no known family medical history. No Pertinent Family Hx Physical Exam Vital Signs Vital Signs - First Documented Capillary Refill : Height, Weight, BMI Height: 5'9.00" Weight: 200lbs. 4.0oz. 90.858427es; 28.2 BMI Method:Stated General Appearance: No Apparent Distress, WD/WN Eyes: Bilateral Eye Normal Inspection, Bilateral Eye PERRL, Bilateral Eye EOMI HEENT: PERRL/EOMI Neck: Full Range of Motion, Normal Inspection Respiratory: No Accessory Muscle Use, No Respiratory Distress Cardiovascular: Tachycardia (heart rate 130 no complex regular with preceding P waves before each QRS. Blood pressure 122/96. O2 sat 89% on 2 L. He denies shortness of breath. He is still diaphoretic and pale with delayed capillary refill of the skin) Gastrointestinal: Non Tender, Soft Extremity: No Pedal Edema, Slow Capillary Refill Neurologic/Psychiatric: Alert, Other (alert, answers questions appropriately) Skin: Cool Focused Exam Lactate Level 01/18/19 11:25: Lactic Acid Level 5.91*H Lactic Acid Level Laboratory Tests Test 01/18/19 11:25 Lactic Acid Level 5.91 MMOL/L (0.50-2.00) *H Progress/Results/Core Measures Suspected Sepsis SIRS Temperature: Pulse: Respiratory Rate: Laboratory Tests 01/18/19 10:53: White Blood Count 14.9H Blood Pressure / Mean: 01/18/19 11:25: Lactic Acid Level 5.91*H Laboratory Tests 01/18/19 10:53: INR Comment 1.1, Platelet Count 94L 01/18/19 11:25: Creatinine 1.38H, Total Bilirubin 0.5 01/18/19 11:42: Platelet Count 139 Results/Orders Lab Results Laboratory Tests Test 01/18/19 10:53 01/18/19 11:19 01/18/19 11:25 01/18/19 11:42 Range/Units White Blood Count 14.9 H 4.3-11.0 10^3/uL Red Blood Count 6.14 H 4.35-5.85 10^6/uL Hemoglobin 18.8 H 13.3-17.7 G/DL Hematocrit 55 H 40-54 % Mean Corpuscular Volume 89 80-99 FL Mean Corpuscular Hemoglobin 31 25-34 PG Mean Corpuscular Hemoglobin Concent 34 32-36 G/DL Red Cell Distribution Width 15.2 H 10.0-14.5 % Platelet Count 94 L 139 130-400 10^3/uL Mean Platelet Volume 10.8 H 7.4-10.4 FL Neutrophils (%) (Auto) 67 42-75 % Lymphocytes (%) (Auto) 24 12-44 % Monocytes (%) (Auto) 5 0-12 % Eosinophils (%) (Auto) 4 0-10 % Basophils (%) (Auto) 1 0-10 % Neutrophils # (Auto) 10.0 H 1.8-7.8 X 10^3 Lymphocytes # (Auto) 3.5 1.0-4.0 X 10^3 Monocytes # (Auto) 0.7 0.0-1.0 X 10^3 Eosinophils # (Auto) 0.6 H 0.0-0.3 10^3/uL Basophils # (Auto) 0.1 0.0-0.1 10^3/uL Neutrophils % (Manual) 75 % Lymphocytes % (Manual) 18 % Monocytes % (Manual) 4 % Eosinophils % (Manual) 2 % Basophils % (Manual) 0 % Band Neutrophils 1 % Clumped Platelets SLIGHT Prothrombin Time 14.5 12.2-14.7 SEC INR Comment 1.1 0.8-1.4 Activated Partial Thromboplast Time 24 24-35 SEC B-Type Natriuretic Peptide 15.4 <100.0 PG/ML Blood Gas Puncture Site LEFT RADIAL Blood Gas Patient Temperature 95.9 Arterial Blood pH 7.32 *L 7.37-7.43 Arterial Blood Partial Pressure CO2 32 L 35-45 MMHG Arterial Blood Partial Pressure O2 58 L 79-93 MMHG Arterial Blood HCO3 16 *L 23-27 MMOL/L Arterial Blood Total CO2 17.5 L 21.0-31.0 MMOL/L Arterial Blood Oxygen Saturation 88 L 94-100 % Arterial Blood Base Excess -8.8 L -2.5-2.5 MMOL/L Joe Test POSITIVE Blood Gas Ventilator Setting NO Blood Gas Inspired Oxygen 3 L Sodium Level 142 135-145 MMOL/L Potassium Level 4.4 3.6-5.0 MMOL/L Chloride Level 104 98-107 MMOL/L Carbon Dioxide Level 17 L 21-32 MMOL/L Anion Gap 21 H 5-14 MMOL/L Blood Urea Nitrogen 9 7-18 MG/DL Creatinine 1.38 H 0.60-1.30 MG/DL Estimat Glomerular Filtration Rate 55 BUN/Creatinine Ratio 7 Glucose Level 104 70-105 MG/DL Lactic Acid Level 5.91 *H 0.50-2.00 MMOL/L Calcium Level 9.2 8.5-10.1 MG/DL Corrected Calcium 9.1 8.5-10.1 MG/DL Magnesium Level 2.6 H 1.8-2.4 MG/DL Total Bilirubin 0.5 0.1-1.0 MG/DL Aspartate Amino Transf (AST/SGOT) 49 H 5-34 U/L Alanine Aminotransferase (ALT/SGPT) 37 0-55 U/L Alkaline Phosphatase 86 40-136 U/L Myoglobin 51.1 10.0-92.0 NG/ML Troponin I 0.085 H <0.028 NG/ML Total Protein 7.6 6.4-8.2 GM/DL Albumin 4.1 3.2-4.5 GM/DL Thyroid Stimulating Hormone (TSH) 1.55 0.35-4.94 UIU/ML Free Thyroxine 0.80 0.70-1.48 NG/DL Serum Alcohol 34 H <10 MG/DL My Orders Orders - MARNIE BRYSON [place] TILE FLOOR LAYER Cbc With Automated Diff (01/18/19 10:51) Magnesium (01/18/19 10:51) Chest 1 View, Ap/Pa Only (01/18/19 10:51) Ekg Tracing (01/18/19 10:51) Cardiac Profile 1 (01/18/19 10:51) Comprehensive Metabolic Panel (01/18/19 10:51) Myoglobin Serum (01/18/19 10:51) Protime With Inr (01/18/19 10:51) Partial Thromboplastin Time (01/18/19 10:51) O2 (01/18/19 10:51) Monitor-Rhythm Ecg Trace Only (01/18/19 10:51) Lipid Panel (01/19/19 06:00) Ed Iv/Invasive Line Start (01/18/19 10:51) BNP (01/18/19 10:51) Aspirin Chewable Tablet (Baby Aspirin Ch (01/18/19 11:00) Diltiazem Injection (Cardizem Injection) (01/18/19 11:00) Lactated Ringers (Lr 1000 Ml Iv Solution (01/18/19 11:00) Alcohol (01/18/19 10:51) Drug Screen Stat (Urine) (01/18/19 10:51) Thyroid Stimulating Hormone (01/18/19 10:51) Free T4 (Free Thyroxine) (01/18/19 10:51) Ondansetron Injection (Zofran Injectio (01/18/19 11:00) Lorazepam Injection (Ativan Injection) (01/18/19 11:00) Ondansetron Injection (Zofran Injectio (01/18/19 10:52) Lorazepam Injection (Ativan Injection) (01/18/19 10:53) Ct Angio Chest W (01/18/19 11:00) Manual Differential (01/18/19 10:53) Iohexol Injection (Omnipaque 350 Mg/Ml 1 (01/18/19 11:15) Received Contrast (Hold Metformin- Contr (01/18/19 11:15) Ns (Ivpb) (Sodium Chloride 0.9% Ivpb Bag (01/18/19 11:15) Blood Culture (01/18/19 11:17) Lactic Acid Analyzer (01/18/19 11:17) Arterial Blood Gas (01/18/19 11:20) Arterial Blood Draw (01/18/19 ) Platelet Count (01/18/19 11:33) Ct Head Wo-R/O Stroke (01/18/19 11:42) Alteplase (Activase) (Activase Injection (01/18/19 12:30) Post Thrombolytic Adminstratio (01/18/19 12:20) Medications Given in ED Current Medications Medications Dose Ordered Sig/Kenneth Route Start Time Stop Time Status Last Admin Dose Admin Aspirin 324 mg ONCE ONCE PO 01/18/19 11:00 01/18/19 11:01 DC 01/18/19 11:08 324 MG Iohexol 150 ml ONCE ONCE IV 01/18/19 11:15 01/18/19 11:16 DC 01/18/19 11:38 125 ML Lorazepam 1 mg ONCE PRN IVP 01/18/19 11:00 01/18/19 11:08 1 MG Ondansetron HCl 4 mg ONCE ONCE IVP 01/18/19 11:00 01/18/19 11:01 DC 01/18/19 11:09 4 MG Sodium Chloride 100 ml ONCE ONCE IV 01/18/19 11:15 01/18/19 11:16 DC 01/18/19 11:38 80 ML Vital Signs/I&O 01/18/19 01/18/19 10:46 10:46 Temp 95.9 Pulse 131 Resp 24 B/P (MAP) 122/96 (105) Pulse Ox 90 88 O2 Delivery Nasal Cannula Nasal Cannula O2 Flow Rate 3.00 2.00 Capillary Refill : Diagnostic Imaging Diagonstic Imaging: Xray, CT Comments NAME: LASHAWN ASHBY [facility] REC#: [id number] PT STATUS: REG ER : 1970 PHYSICIAN: MARNIE BRYSON APRN ADMIT DATE: 01/18/19/ER Draft Date of Exam:01/18/19 CHEST 1 VIEW, AP/PA ONLY INDICATION: Shortness of air, altered mental status. TECHNIQUE: Single frontal view of the chest. COMPARISON: 03/19/2017 FINDINGS: Lung volumes are normal. No focal consolidation is seen. There is no pleural effusion or pneumothorax. The cardiomediastinal silhouette is normal in size and contour. IMPRESSION: No acute pulmonary abnormality is seen. Dictated on workstation # [id number] Dict: 01/18/19 1124 Trans: 01/18/19 1129 [id number] Interpreted by: LIANET ACEVEDO MD Electronically signed by: NAME: LASHAWN ASHBY [facility] REC#: [id number] PT STATUS: REG ER : 1970 PHYSICIAN: MARNIE BRYSON APRN ADMIT DATE: 01/18/19/ER Draft Date of Exam:01/18/19 CT ANGIO CHEST W PROCEDURE: CT angiography of the chest with contrast. TECHNIQUE: Multiple contiguous axial images were obtained through the chest after uneventful bolus administration of intravenous contrast. Reconstructed CTA MIP acquisitions were also performed. Auto Exposure Controls were utilized during the CT exam to meet ALARA standards for radiation dose reduction. INDICATION: Dyspnea. COMPARISON: None available. Vasculature: Extensive bilateral acute pulmonary emboli are present. This involves a thin saddle embolus seen across the right and left pulmonary trunks. There is a large volume of thrombus extending into the lobar pulmonary arteries involving both sides. Pulmonary trunk is mildly dilated measuring 3.0 cm. Additionally, there is mild flattening of the interventricular septum suggestive of right-sided heart strain. Normal-caliber thoracic aorta without features of dissection. Heart and mediastinum: Visualized thyroid is normal. No supraclavicular, axillary, or intra-thoracic lymphadenopathy. No pericardial effusion. Pleura: No pleural effusion or pneumothorax. Lungs and airway: No endoluminal lesion in the trachea or central bronchi. No pulmonary mass or consolidation. There are scattered ground-glass opacities within the lung bases and left upper lobe. Upper abdomen: Allowing for the phase of contrast, no acute abnormality in the upper abdomen is seen. Musculoskeletal: No concerning osseous lesion. IMPRESSION: 1. Large burden of acute bilateral pulmonary emboli with a small saddle embolus present and emboli extending to all five lobes. Additionally, there are features of pulmonary hypertension and right ventricular strain. 2. Scattered ground-glass attenuation within the lungs could be due to atelectasis. Developing pulmonary infarcts could potentially have this appearance. The above critical findings were called to Marnie Bryson APRN by Dr. Abhi Saavedra at 11:57 a.m. on 01/18/2019. CRITICAL FINDINGS Dictated on workstation # [id number] Dict: 01/18/19 1153 Trans: 01/18/19 1206 [id number] Interpreted by: ABHI SAAVEDRA MD Electronically signed by: NAME: ISMALASHAWN Solis [facility] REC#: [id number] PT STATUS: REG ER : 1970 PHYSICIAN: MARNIE BRYSON APRN ADMIT DATE: 01/18/19/ER Draft Date of Exam:01/18/19 CT HEAD WO-R/O STROKE INDICATION: Seizure and altered mental status. TECHNIQUE: A noncontrast brain CT was performed. FINDINGS: There are no extra-axial fluid collections. No intracranial hemorrhage. No intracranial mass or mass effect. No midline shift. The ventricles are normal in size and position. There is contrast present from a recent CT chest. The calvarial windows appear unremarkable. IMPRESSION: No acute intracranial abnormality. Dictated on workstation # [id number] Dict: 01/18/19 1217 Trans: 01/18/19 1220 [id number] Interpreted by: CORINNE ANN MD Electronically signed by: Departure Communication (Admissions) Time/Spoke to Admitting Phy: 12:31 Time/Spoke to Consulting Phy: 12:02 1230-I discussed the risks administration of TPA including intracranial, GI or bleeding with the patient and his and mother. Also discussed the risks of not giving this including right heart strain, pulmonary hypertension, arrhythmia and . They agree to proceed with TPA administration. 12 PM-I discussed the case with Dr. Watts who has come down to see the patient. The CT scan per the radiologist shows extensive clot burden with a small saddle pulmonary embolus. Pulmonary trunk is dilated, interventricular septum is flattened suggestive of right heart strain. 119/90 blood pressure, O2 95% on 15 L nonrebreather, heart rate 130s sinus. Discussed with the , the patient has fallen and struck his head so we'll get a CT head without contrast but then we intend to proceed with TPA 100 mg over 2 hours after obtaining consent from the patient and and ensuring that he does not meet any of the exclusion criteria. Impression Primary Impression: Saddle pulmonary embolus Qualified Codes: I26.02 - Saddle embolus of pulmonary artery with acute cor pulmonale Disposition: ADMITTED INPATIENT Condition: Critical Admissions Decision to Admit Reason: Admit from ER (General) Decision to Admit/Date: Jan 18, 2019 Time/Decision to Admit Time: 12:02 Departure-Patient Inst. Referrals: [facility] (PCP/Family) Primary Care Physician MARNIE BRYSON APRN Jan 18, 2019 10:56
[2019-01-18] MEDS ORDERED: ASPIRIN 81 MG CHEW (CHILDREN'S ASA) PO ONE (11:00)
[2019-01-18] MEDS ORDERED: LACTATED RINGERS 1,000 ML IV SCH (11:00)
[2019-01-18] MEDS ORDERED: DILTIAZEM 25 MG/5 ML INJ (CARDIZEM) VIAL IVP ONE (11:00)
[2019-01-18] MEDS ORDERED: ONDANSETRON 4 MG/2 ML (SDV) Z0FRAN IVP ONE (11:00)
[2019-01-18] MEDS ORDERED: LORazepam INJ 2 MG/ML (ATIVAN) VIAL IVP PRN (11:00)
[2019-01-18 11:02] LABS: BASOPHILS # (AUTO) 0.1 10^3/uL (0.0-0.1); BASOPHILS % (AUTO) 1 % (0-10); EOSINOPHILS # (AUTO) 0.6 10^3/uL (0.0-0.3); EOSINOPHILS % (AUTO) 4 % (0-10); HEMATOCRIT 55 % (40-54); HEMOGLOBIN 18.8 G/DL (13.3-17.7); LYMPHOCYTES # (AUTO) 3.5 X 10^3 (1.0-4.0); LYMPHOCYTES % (AUTO) 24 % (12-44); MEAN CORPUSCULAR HEMOGLOBIN 31 PG (25-34); MEAN CORPUSCULAR HGB CONC 34 G/DL (32-36); MEAN CORPUSCULAR VOLUME 89 FL (80-99); MEAN PLATELET VOLUME 10.8 FL (7.4-10.4); MONOCYTES # (AUTO) 0.7 X 10^3 (0.0-1.0); MONOCYTES % (AUTO) 5 % (0-12); NEUTROPHILS % (AUTO) 67 % (42-75); PLATELET COUNT 94 10^3/uL (130-400); RED CELL DISTRIBUTION WIDTH 15.2 % (10.0-14.5); WHITE BLOOD COUNT 14.9 10^3/uL (4.3-11.0)
[2019-01-18] MEDS ORDERED: HOLD METFORMIN - RECEIVED CONTRAST 20 ML VIAL IV SCH (11:15)
[2019-01-18] MEDS ORDERED: IOHEXOL 350 MG/ML 150 ML (OMNIPAQUE 350) VIAL IV ONE (11:15)
[2019-01-18] MEDS ORDERED: NS 100 ML (IVPB) BAG IV ONE (11:15)
[2019-01-18 11:23] LABS: INR 1.1 (0.8-1.4); PROTHROMBIN TIME PATIENT 14.5 SEC (12.2-14.7)
[2019-01-18 11:26] LABS: ABG BASE EXCESS -8.8 MMOL/L (-2.5-2.5); ABG OXYGEN SATURATION 88 % (94-100); ABG PCO2 32 MMHG (35-45); ABG PO2 58 MMHG (79-93); ABG TCO2 17.5 MMOL/L (21.0-31.0)
[2019-01-18 11:26] LABS: BAND NEUTROPHILS 1 %; LYMPHOCYTES % (MANUAL) 18 %; MONOCYTES % (MANUAL) 4 %; NEUTROPHILS % (MANUAL) 75 %
[2019-01-18 11:27] LABS: BASOPHILS % (MANUAL) 0 %; EOSINOPHILS % (MANUAL) 2 %; PLATELET CLUMPS SLIGHT
[2019-01-18 11:27] LABS: ABG PH 7.32 (7.37-7.43)
[2019-01-18 11:28] LABS: ALLENS TEST POSITIVE; INSPIRED O2 3 L; PATIENT TEMP 95.9; VENTILATOR NO
--- NOTE | 2019-01-18 11:30 | Diagnostic Imaging Report ---
INDICATION: Shortness of air, altered mental status. TECHNIQUE: Single frontal view of the chest. COMPARISON: 03/19/2017 FINDINGS: Lung volumes are normal. No focal consolidation is seen. There is no pleural effusion or pneumothorax. The cardiomediastinal silhouette is normal in size and contour. IMPRESSION: No acute pulmonary abnormality is seen. Dictated by: Dictated on workstation # [id number]
[2019-01-18] MEDS ORDERED: QUET25TA73 PO (11:38)
[2019-01-18] MEDS ORDERED: CLON0.2T PO (11:38)
[2019-01-18] MEDS ORDERED: DULO20CA PO (11:38)
--- NOTE | 2019-01-18 11:50 | NUR ---
DR PHILIPPE HERE TO SPEAK WITH PT AND .
[2019-01-18 12:02] LABS: ALBUMIN 4.1 GM/DL (3.2-4.5); BILIRUBIN,TOTAL 0.5 MG/DL (0.1-1.0); CALCIUM 9.2 MG/DL (8.5-10.1); CREATININE SERUM 1.38 MG/DL (0.60-1.30); MAGNESIUM 2.6 MG/DL (1.8-2.4); POTASSIUM 4.4 MMOL/L (3.6-5.0); TOTAL PROTEIN 7.6 GM/DL (6.4-8.2)
--- NOTE | 2019-01-18 12:06 | Diagnostic Imaging Report ---
PROCEDURE: CT angiography of the chest with contrast. TECHNIQUE: Multiple contiguous axial images were obtained through the chest after uneventful bolus administration of intravenous contrast. Reconstructed CTA MIP acquisitions were also performed. Auto Exposure Controls were utilized during the CT exam to meet ALARA standards for radiation dose reduction. INDICATION: Dyspnea. COMPARISON: None available. Vasculature: Extensive bilateral acute pulmonary emboli are present. This involves a thin saddle embolus seen across the right and left pulmonary trunks. There is a large volume of thrombus extending into the lobar pulmonary arteries involving both sides. Pulmonary trunk is mildly dilated measuring 3.0 cm. Additionally, there is mild flattening of the interventricular septum suggestive of right-sided heart strain. Normal-caliber thoracic aorta without features of dissection. Heart and mediastinum: Visualized thyroid is normal. No supraclavicular, axillary, or intra-thoracic lymphadenopathy. No pericardial effusion. Pleura: No pleural effusion or pneumothorax. Lungs and airway: No endoluminal lesion in the trachea or central bronchi. No pulmonary mass or consolidation. There are scattered ground-glass opacities within the lung bases and left upper lobe. Upper abdomen: Allowing for the phase of contrast, no acute abnormality in the upper abdomen is seen. Musculoskeletal: No concerning osseous lesion. IMPRESSION: 1. Large burden of acute bilateral pulmonary emboli with a small saddle embolus present and emboli extending to all five lobes. Additionally, there are features of pulmonary hypertension and right ventricular strain. 2. Scattered ground-glass attenuation within the lungs could be due to atelectasis. Developing pulmonary infarcts could potentially have this appearance. The above critical findings were called to César Bryson APRN by Dr. Abhi Saavedra at 11:57 a.m. on 01/18/2019. CRITICAL FINDINGS Dictated by: Dictated on workstation # [id number]
--- NOTE | 2019-01-18 12:20 | Diagnostic Imaging Report ---
INDICATION: Seizure and altered mental status. TECHNIQUE: A noncontrast brain CT was performed. FINDINGS: There are no extra-axial fluid collections. No intracranial hemorrhage. No intracranial mass or mass effect. No midline shift. The ventricles are normal in size and position. There is contrast present from a recent CT chest. The calvarial windows appear unremarkable. IMPRESSION: No acute intracranial abnormality. Dictated by: Dictated on workstation # [id number]
[2019-01-18 12:23] LABS: FREE T4 (FREE THYROXINE) 0.8 NG/DL (0.70-1.48)
[2019-01-18] MEDS ORDERED: ALTEPLASE 100 MG/VIAL (ACTIVASE) IV ONE (12:30)
--- NOTE | 2019-01-18 13:50 | NUR ---
LASHAWN ASHBY admitted to room CU7-1, with an admitting diagnosis of SADDLE PE W/ ACUTE COR PULMONALE, on 01/18/19 from ER via [facility], accompanied by STAFF.LASHAWN ASHBY introduced to surroundings, call light, bed controls, phone, TV, temperature control, lights, meal times, smoking policy, visitor policy, side rail policy, bathrooms and showers. Patient Rights given to patient in the handbook. LASHAWN ASHBY verbalizes understanding that [facility] is not responsible for the loss or damage to any personal effects or valuables that are kept in the patients posession during their hospitalization. The following Patient Care Plans were discussed with the PT: Discharge Planning, IMPAIRED GAS EXCHANGE,HIGH RISK BLEEDING, and ANXIETY. LASHAWN ASHBY verbalizes understanding of Interdisciplinary Patient Education. Patient and family were informed about the Rapid Response Team and its purpose.
[2019-01-18] MEDS ORDERED: DULO60CA58 PO (14:45)
[2019-01-18] MEDS ORDERED: CYCL10TA9 PO ×2 (14:46)
[2019-01-18] MEDS ORDERED: IBUP-2055 PO (14:46)
--- NOTE | 2019-01-18 14:50 | NUR ---
SPOKE WITH PT (HE ALSO HAD HIS BOTTLE WITH HIM) AND WAS ABLE TO COMPLETE THE MED REC. ALL FILL DATES WERE WITHIN A TIME PERIOD THAT SHOWS COMPLIANCE. OTC MEDICATIONS: IBUPROFEN 400MG Q 6 H PRN
--- NOTE | 2019-01-18 15:03 | Consultation-Cardiology ---
HPI-Cardiology Cardiology Consultation: Date of Consultation 01/18/19 Time Seen by a Provider: 15:00 Date of Admission 01-17-19 Attending Physician Saloni Henderson DO Admitting Physician [place] Consulting Physician Amarjit Bermudez MD HPI: Chief Complaint: Saddle PE VWY-Bwfifb-Orjnmq Hx Patient Social History Alcohol Use: Regular Use Recreational Drug Use: No Smoking Status: Never a Smoker Type Used: Smokeless Tobacco 2nd Hand Smoke Exposure: No Recent Foreign Travel: No Recent Infectious Disease Expo: No Hospitalization with Isolation: Denies Immunizations Up To Date Tetanus Booster (TDap): Unknown Past Medical History PMH As described under Assessment. Family Medical History Family History: Patient reports no known family medical history. Allergies and Home Medications Allergies Coded Allergies: No Known Drug Allergies (Unverified , 01/07/16) Home Medications Clonidine HCl 0.2 Mg Tablet, 0.1 MG PO BID, (Reported) Cyclobenzaprine HCl 10 Mg Tablet, 10 MG PO DAILY PRN for MUSCLE SPASMS, (Reported) Cyclobenzaprine HCl 10 Mg Tablet, 20 MG PO HS PRN for MUSCLE SPASMS, (Reported) Duloxetine HCl 60 Mg Capsule.dr, 120 MG PO DAILY, (Reported) Ibuprofen 200 Mg Tablet, 400 MG PO Q6H PRN for PAIN-MILD, (Reported) Levothyroxine Sodium 25 Mcg Tablet, 25 MCG PO DAILY, (Reported) Quetiapine Fumarate 25 Mg Tablet, 25 MG PO BID, (Reported) Physical Exam-Cardiology Physical Exam Vital Signs/I&O 01/24/19 01/24/19 01/24/19 01/24/19 19:49 20:00 20:00 20:00 Temp 97.5 Pulse 110 Resp 17 B/P (MAP) 119/64 120/65 (83) Pulse Ox 96 O2 Delivery Mechanical Ventilator Mechanical Ventilator O2 Flow Rate 50.00 FiO2 60 01/24/19 01/24/19 01/24/19 01/24/19 21:00 22:00 22:29 22:34 Pulse 107 98 101 109 Resp 13 14 26 18 B/P (MAP) 124/63 (83) 122/63 (82) 116/70 (85) Pulse Ox 99 100 100 100 O2 Delivery Mechanical Ventilator Mechanical Ventilator Mechanical Ventilator O2 Flow Rate 50.00 50.00 40.00 FiO2 50 7/8/01/24/19 01/24/19 01/24/19 22:37 23:00 23:20 23:54 Temp 97.4 Pulse 102 Resp 11 B/P (MAP) 129/68 123/66 (85) Pulse Ox 100 O2 Delivery Mechanical Ventilator Mechanical Ventilator O2 Flow Rate 40.00 FiO2 40 01/25/19 01/25/19 01/25/19 01/25/19 00:00 01:00 01:00 02:00 Pulse 98 95 95 110 Resp 10 16 14 B/P (MAP) 134/72 (92) 101/64 (76) 113/63 (80) Pulse Ox 100 98 98 O2 Delivery Mechanical Ventilator Mechanical Ventilator Mechanical Ventilator O2 Flow Rate 40.00 40.00 40.00 01/25/19 01/25/19 01/25/19 01/25/19 02:33 02:36 03:00 03:46 Temp 97.8 Pulse 101 102 Resp 17 17 B/P (MAP) 111/64 110/63 (79) Pulse Ox 99 100 O2 Delivery Mechanical Ventilator O2 Flow Rate 40.00 FiO2 40 01/25/19 01/25/19 01/25/19 01/25/19 04:00 04:00 05:00 06:00 Pulse 100 99 97 Resp 10 18 15 B/P (MAP) 110/66 (81) 101/67 (78) 100/66 (77) Pulse Ox 99 99 98 O2 Delivery Mechanical Ventilator Mechanical Ventilator Mechanical Ventilator Mechanical Ventilator O2 Flow Rate 40.00 40.00 40.00 FiO2 40 01/25/19 07:19 Pulse 87 Resp 18 Pulse Ox 99 FiO2 40 01/25/19 00:00 Intake Total 1155 ml Output Total 2575 ml Balance -1420 ml Capillary Refill : Less Than 3 SecondsGreater Than 3 Seconds Data Review Labs Laboratory Tests 01/24/19 11:24: Glucometer 83 01/24/19 17:29: Glucometer 138H 01/24/19 18:50: Hemoglobin 8.1L, Hematocrit 24L 01/24/19 23:50: Glucometer 99 01/25/19 03:40: White Blood Count 6.7, Red Blood Count 2.51L, Hemoglobin 7.8L, Hematocrit 24L, Mean Corpuscular Volume 94, Mean Corpuscular Hemoglobin 31, Mean Corpuscular H emoglobin Concent 33, Red Cell Distribution Width 14.6H, Platelet Count 255, Mean Platelet Volume 9.6, Neutrophils (%) (Auto) 80H, Lymphocytes (%) (Auto) 12, Monocytes (%) (Auto) 8, Eosinophils (%) (Auto) 0, Basophils (%) (Auto) 0, Neutrophils # (Auto) 5.4, Lymphocytes # (Auto) 0.8L, Monocytes # (Auto) 0.5, Eosinophils # (Auto) 0.0, Basophils # (Auto) 0.0, Activated Partial Thromboplast Time 78H, Blood Gas Puncture Site LEFT RADIAL ARTLINE, Blood Gas Patient Temperature 97.8, Arterial Blood pH 7.42, Arterial Blood Partial Pressure CO2 36, Arterial Blood Partial Pressure O2 82, Arterial Blood HCO3 23, Arterial Blood Total CO2 24.0, Arterial Blood Oxygen Saturation 97, Arterial Blood Base Excess -1.2, Joe Test ARTLINE, Blood Gas Ventilator Setting YES, Blood Gas Inspired Oxygen 40% FIO2, Sodium Level 148H, Potassium Level 2.7L, Chloride Level 114H, Carbon Dioxide Level 22, Anion Gap 12, Blood Urea Nitrogen 7, Creatinine 0.82, Estimat Glomerular Filtration Rate > 60, BUN/Creatinine Ratio 9, Glucose Level 150H, Calcium Level 7.8L, Phosphorus Level 2.8, Magnesium Level 2.0 Microbiology 01/18/19 Blood Culture - Final, Complete Corynebacterium species 01/23/19 Gram Stain - Final, Resulted 01/23/19 Sputum Culture - Preliminary, Resulted Culture In Progress Radiology NAME: LASHAWN ASHBY [facility] REC#: [id number] PT STATUS: REG CLI : 1970 PHYSICIAN: JESSICA BARBA ADMIT DATE: 08/23/18/RAD Signed Date of Exam: 08/23/18 CT HEAD W WO INDICATION: Parietal headaches. Dizziness. Blurred vision. Dysphagia. TECHNIQUE: Routine pre- and postcontrast, chronic small-enhanced axial images were obtained from the skull base to the vertex. COMPARISON: 05/08/2018 FINDINGS: The ventricles and cortical sulci are stable in size and contour. Postcontrast images show no abnormal areas of enhancement There is no midline shift or mass-effect. No acute intra-axial hemorrhage is seen. There are no abnormal areas of increased or decreased density to suggest acute hemorrhage or edema. No extra-axial masses or collections are present. The bony calvarium is intact. The visualized paranasal sinuses are unremarkable. The mastoid air cells are clear. IMPRESSION: 1. No acute intracranial abnormality. No CT evidence of mass, acute infarct or intracranial hemorrhage. Dictated by: Dictated on workstation # [id number] Dict: 08/23/18 1424 Trans: 08/23/18 1649 Interpreted by: MARGARITA FRIEND MD Electronically signed by: MARGARITA FRIEND MD 08/23/18 1649 NAME: ISMALASHAWN Solis [facility] REC#: [id number] PT STATUS: REG ER : 1970 PHYSICIAN: MARNIE BRYSON APRN ADMIT DATE: 01/18/19/ER Signed Date of Exam: 01/18/19 CHEST 1 VIEW, AP/PA ONLY INDICATION: Shortness of air, altered mental status. TECHNIQUE: Single frontal view of the chest. COMPARISON: 03/19/2017 FINDINGS: Lung volumes are normal. No focal consolidation is seen. There is no pleural effusion or pneumothorax. The cardiomediastinal silhouette is normal in size and contour. IMPRESSION: No acute pulmonary abnormality is seen. Dictated by: Dictated on workstation # [id number] Dict: 01/18/19 1124 Trans: 01/18/19 1207 Interpreted by: LIANET ACEVEDO MD Electronically signed by: LIANET ACEVEDO MD 01/18/19 1207 NAME: ISMALASHAWN Will [facility] REC#: [id number] PT STATUS: ADM IN : 1970 PHYSICIAN: MARNIE BRYSON APRN ADMIT DATE: 01/18/19/ICU Signed Date of Exam: 01/18/19 CT ANGIO CHEST W PROCEDURE: CT angiography of the chest with contrast. TECHNIQUE: Multiple contiguous axial images were obtained through the chest after uneventful bolus administration of intravenous contrast. Reconstructed CTA MIP acquisitions were also performed. Auto Exposure Controls were utilized during the CT exam to meet ALARA standards for radiation dose reduction. INDICATION: Dyspnea. COMPARISON: None available. Vasculature: Extensive bilateral acute pulmonary emboli are present. This involves a thin saddle embolus seen across the right and left pulmonary trunks. There is a large volume of thrombus extending into the lobar pulmonary arteries involving both sides. Pulmonary trunk is mildly dilated measuring 3.0 cm. Additionally, there is mild flattening of the interventricular septum suggestive of right-sided heart strain. Normal-caliber thoracic aorta without features of dissection. Heart and mediastinum: Visualized thyroid is normal. No supraclavicular, axillary, or intra-thoracic lymphadenopathy. No pericardial effusion. Pleura: No pleural effusion or pneumothorax. Lungs and airway: No endoluminal lesion in the trachea or central bronchi. No pulmonary mass or consolidation. There are scattered ground-glass opacities within the lung bases and left upper lobe. Upper abdomen: Allowing for the phase of contrast, no acute abnormality in the upper abdomen is seen. Musculoskeletal: No concerning osseous lesion. IMPRESSION: 1. Large burden of acute bilateral pulmonary emboli with a small saddle embolus present and emboli extending to all five lobes. Additionally, there are features of pulmonary hypertension and right ventricular strain. 2. Scattered ground-glass attenuation within the lungs could be due to atelectasis. Developing pulmonary infarcts could potentially have this appearance. The above critical findings were called to Marnie Bryson APRN by Dr. Abhi Baum at 11:57 a.m. on 01/18/2019. CRITICAL FINDINGS Dictated by: Dictated on workstation # [id number] Dict: 01/18/19 1153 Trans: 01/18/19 1308 Interpreted by: ABHI BAUM MD Electronically signed by: ABHI BAUM MD 01/18/19 1308 A/P-Cardiology Assessment/Admission Diagnosis Large burden of acute bilateral pulmonary emboli with a small saddle embolus present and emboli extending to all five lobes. Additionally, there are features of pulmonary hypertension and right ventricular strain. Clinical Quality Measures DVT/VTE Risk/Contraindication: Risk Factor Score Per Nursin RFS Level Per Nursing on Admit: 4+=Very High ALLEGRA HAM Jan 18, 2019 15:03
--- NOTE | 2019-01-18 15:05 | NUR ---
PT PROJECTILE VOMITING BLOODY COFFEE GROUND EMESIS. DR PHILIPPE NOTIFIED. NEW ORDERS RECEIVED TO OBTAIN STAT CXR.
--- NOTE | 2019-01-18 15:16 | Pulmonary Consultation ---
History of Present Illness History of Present Illness Date of Consultation 01/18/19 15:10 Time Seen by Provider: 09:31 Date of Admission History of Present Illness 48 yo presented to ED via EMS after EMS found him poorly responsive , tachycardic, and hypotensive. While in the ED pt was found to have a saddle PE. While pt was in ED I recommended giving TPA if pt consents. Pt then transferred to ICU for close observation. I am consulted for pulmonary/ICU management. Allergies and Home Medications Allergies Coded Allergies: No Known Drug Allergies (Unverified , 01/07/16) Home Medications Cyclobenzaprine HCl 10 Mg Tablet, 10 MG PO DAILY PRN for MUSCLE SPASMS, (Reported) Cyclobenzaprine HCl 10 Mg Tablet, 20 MG PO HS PRN for MUSCLE SPASMS, (Reported) Dabigatran Etexilate Mesylate 150 Mg Capsule, 150 MG PO BID@0700,1900 Prescribed by: ARMIDA DEL CASTILLO on 01/31/19 1039 Duloxetine HCl 60 Mg Capsule.dr, 120 MG PO DAILY, (Reported) Levetiracetam 500 Mg Tablet, 500 MG PO BID Prescribed by: ARMIDA DEL CASTILLO on 01/31/19 1039 Levothyroxine Sodium 25 Mcg Tablet, 25 MCG PO DAILY, (Reported) Pantoprazole Sodium 40 Mg Tablet.dr, 40 MG PO DAILY Prescribed by: ARMIDA DEL CASTILLO on 01/31/19 1039 Quetiapine Fumarate 25 Mg Tablet, 25 MG PO BID, (Reported) Spironolactone 100 Mg Tablet, 100 MG PO DAILY Prescribed by: ARMIDA DEL CASTILLO on 01/31/19 1039 Past Kgjgopx-Dqibyg-Dmsabo Hx Patient Social History Alcohol Use: Regular Use Number of Drinks Today: AA Alcohol Beverage of Choice: Beer Recreational Drug Use: No Smoking Status: Never a Smoker Type Used: Smokeless Tobacco 2nd Hand Smoke Exposure: No Recent Foreign Travel: No Contact w/Someone Who Travel: No Recent Infectious Disease Expo: No Recent Hopitalizations: No Immunizations Up To Date Tetanus Booster (TDap): Unknown PED Vaccines UTD: No Seasonal Allergies Seasonal Allergies: No Past Medical History Surgeries: No Respiratory: No Cardiac: Yes Hypertension Neurological: No Reproductive Disorders: No Genitourinary: No Gastrointestinal: Yes ("ULCERS" WHEN YOUNG--NO TESTS DONE) Polyps Musculoskeletal: Yes (CHRONIC NECK PAIN ) Chronic Back Pain Endocrine: Yes Hypothyroidsim HEENT: No Cancer: No Psychosocial: Yes (ALCOHOLISM) Anxiety, Depression Integumentary: No Blood Disorders: No Family Medical History Patient reports no known family medical history. No Pertinent Family Hx Review of Systems Time Seen by Provider: 09:35 Constitutional: Sweats, Weakness, Malaise; No: Fever, Chills, Other Eyes: No: Pain, Vision change, Conjunctivae inflammation, Eyelid inflammation, Other, Redness ENT: Nose congestion; No: Ear pain, Ear discharge, Nose pain, Nose discharge, Mouth pain, Mouth swelling, Throat pain, Throat swelling, Other Respiratory: Cough, Dry, Shortness of breath, SOB with excertion, Pleuritic Pain; No: Wheezing, Hemoptysis, Sputum, Wheezing, Other Cardiovascular: Palpitations, Paroxysmal Noc. Dyspnea, Lt Headedness; No: Chest Pain, Orthopnea, Edema, Other Sepsis Event Evaluation Height, Weight, BMI Height: 5'5.00" Weight: 222lbs. 0.0oz. 100.323904kx; 36.9 BMI Method:Stated Exam Exam Vital Signs Date Time Temp Pulse Resp B/P (MAP) Pulse Ox O2 Delivery O2 Flow Rate FiO2 01/18/19 14:44 97.1 01/18/19 14:18 98 Non Rebreather 15.00 01/18/19 13:56 124 01/18/19 13:48 125 21 123/87 (99) 98 Non Rebreather 15.00 01/18/19 10:46 88 Nasal Cannula 2.00 01/18/19 10:46 95.9 131 24 122/96 (105) 90 Nasal Cannula 3.00 Height & Weight Height: 5'5.00" Weight: 222lbs. 0.0oz. 100.016576ss; 36.9 BMI Method:Stated General Appearance: No Apparent Distress, WD/WN HEENT: PERRL/EOMI Neck: Full Range of Motion, Normal Inspection Respiratory: No Accessory Muscle Use, No Respiratory Distress Cardiovascular: Tachycardia (heart rate 130 no complex regular with preceding P waves before each QRS. Blood pressure 122/96. O2 sat 89% on 2 L. He denies shortness of breath. He is still diaphoretic and pale with delayed capillary refill of the skin) Capillary Refill: Greater Than 3 Seconds Gastrointestinal: normal bowel sounds, non tender, soft Extremity: No Pedal Edema, Slow Capillary Refill Neurologic/Psychiatric: Alert, Other (alert, answers questions appropriately) Skin: Cool Results Lab Laboratory Tests 01/18/19 10:53 01/18/19 11:25 01/18/19 11:42 Assessment/Plan Assessment/Plan Acute Large PE -I discussed risk and benefits of TPA vs no TPA. César from ER also discussed with patient TPA. -Pt has decided to proceed with TPA and signed consent. He is now s/p TPA and being monitored in ICU Seizure disorder -PRN Ativan Alcohol abuse -Monitor NSTEMI - secondary to PE -Monitor KAYDEN PHILIPPE DO Jan 18, 2019 15:16
[2019-01-18] MEDS ORDERED: 1/2 NS IV SOLUTION 1,000 ML IV PRN (15:24)
[2019-01-18] MEDS ORDERED: ONDANSETRON 4 MG/2 ML (SDV) Z0FRAN IV PRN (15:30)
[2019-01-18] MEDS ORDERED: ONDANSETRON 4 MG (ZOFRAN) ORAL DISSOLVE TAB SL PRN (15:30)
[2019-01-18] MEDS ORDERED: LORazepam INJ 2 MG/ML (ATIVAN) VIAL IM/IV PRN (15:30)
[2019-01-18] MEDS ORDERED: ANTACID SUSP 30 ML UDC (MYLANTA) PO PRN (15:30)
[2019-01-18] MEDS ORDERED: D5 1/2 NS 1000 ML IV SOLUTION 1,000 ML IV PRN (15:30)
[2019-01-18] MEDS ORDERED: SENNA W/DOCUSATE (SENOKOT S) TABLET PO PRN (15:30)
--- NOTE | 2019-01-18 15:32 | Diagnostic Imaging Report ---
INDICATION: Hemoptysis, pulmonary emboli. TECHNIQUE: A frontal chest was obtained at 3:20 PM. COMPARISON: Same day at 11:11 AM. FINDINGS: The heart is normal in size. The mediastinal silhouette is unremarkable. There is minimal central vascular prominence. There is some minimal infiltrate versus atelectasis in the right base. The lungs are otherwise essentially clear. There is no pneumothorax or pleural fluid. IMPRESSION: Minimal infiltrate versus atelectasis in the right medial base; otherwise, negative chest. Dictated by: Dictated on workstation # [id number]
[2019-01-18] MEDS: D5 1/2 NS W/KCL 20 MEQ/L 1,000 ML IV SCH ×2 (15:35→22:59)
[2019-01-18] MEDS ORDERED: CATHETER FLUSH 10 ML SYR IV PRN (15:45)
[2019-01-18] MEDS: THIAMINE INJECTION 100 MG, FOLIC ACID INJECTION 1 MG, MAGNESIUM SULFATE 2 GM, VITAMIN M... IV SCH ×5 (15:49)
--- NOTE | 2019-01-18 16:00 | NUR ---
DR PHILIPPE HERE TO SEE PT. INFORMED OF ELEVATED BP. NO NEW ORDERS RECEIVED.
--- NOTE | 2019-01-18 16:25 | NUR ---
PT VOMITED MODERATE AMT OF BRIGHT RED BLOOD. FAMILY REPORTS INCREASING ABD DISTENTION IN PT FOR APPROX [address] PHILIPPE NOTIFIED.
--- NOTE | 2019-01-18 17:55 | Consultation-Cardiology ---
HPI-Cardiology Cardiology Consultation: Date of Consultation 01/18/19 Time Seen by a Provider: 17:20 Date of Admission Attending Physician Saloni Henderson DO Admitting Physician [place] Consulting Physician NIKOLE MEZA MD, MA, FACP, FACC, [facility] [place], CCDS HPI: Chief Complaint: Reason for consultation: Pulm embolism, tachycardia HPI 48 yo man whose called EMS because he was unresponsive at home. EMS found him poorly responsive and found the the heart rate to be high and bp to be in the 70s; they felt this was hemodynamically significant A Fib and tried to electrically cardiovert and gave iv fluids. Was still tachycardic in ER (sinus tach). A w/u showed large, saddle PE. Dr Watts was consulted. Pt received TPA. Has since felt somewhat better, although has had some hemoptysis/hematemesis. S hortness of breath is improved. Does not currently report cp. Denies palp. Denies leg swelling. Denies fever or chills Review of Systems-Cardiology Review of Systems Constitutional: malaise; No weight loss, No weight gain Eyes: No vision change Ears/Nose/Throat: No ear discharge, No nasal drainage, No recent hearing loss Respiratory: As described under HPI Cardiovascular: As described under HPI Gastrointestinal: No diarrhea, No nausea, No vomiting Genitourinary: No dysuria, No hematuria, No urine frequency changes Musculoskeletal: No back pain, No joint pain Skin: No rash, No ulcerations Psychiatric/Neurological: As described under HPI; No focal weakness Hematologic: As described under HPI EWQ-Ytwskf-Bqrfmk Hx Patient Social History Alcohol Use: Regular Use Recreational Drug Use: No Smoking Status: Never a Smoker Type Used: Smokeless Tobacco 2nd Hand Smoke Exposure: No Recent Foreign Travel: No Recent Infectious Disease Expo: No Hospitalization with Isolation: Denies Immunizations Up To Date Tetanus Booster (TDap): Unknown Past Medical History PMH As described under Assessment. Family Medical History Family Medical History: Does not report fam h/o of early CAD or SCD Family History: Patient reports no known family medical history. Allergies and Home Medications Allergies Coded Allergies: No Known Drug Allergies (Unverified , 01/07/16) Home Medications Clonidine HCl 0.2 Mg Tablet, 0.1 MG PO BID, (Reported) Cyclobenzaprine HCl 10 Mg Tablet, 10 MG PO DAILY PRN for MUSCLE SPASMS, (Reported) Cyclobenzaprine HCl 10 Mg Tablet, 20 MG PO HS PRN for MUSCLE SPASMS, (Reported) Duloxetine HCl 60 Mg Capsule.dr, 120 MG PO DAILY, (Reported) Ibuprofen 200 Mg Tablet, 400 MG PO Q6H PRN for PAIN-MILD, (Reported) Levothyroxine Sodium 25 Mcg Tablet, 25 MCG PO DAILY, (Reported) Quetiapine Fumarate 25 Mg Tablet, 25 MG PO BID, (Reported) Patient Home Medication List Home Medication List Reviewed: Yes Physical Exam-Cardiology Physical Exam Vital Signs/I&O 01/18/19 01/18/19 01/18/19 01/18/19 10:46 10:46 13:00 13:48 Temp 95.9 Pulse 131 124 125 Resp 24 21 B/P (MAP) 122/96 (105) 123/87 (99) Pulse Ox 90 88 98 O2 Delivery Nasal Cannula Nasal Cannula Non Rebreather O2 Flow Rate 3.00 2.00 15.00 01/18/19 01/18/19 01/18/19 01/18/19 13:56 14:00 14:18 14:44 Temp 97.1 Pulse 124 122 Resp 24 B/P (MAP) 132/98 (109) Pulse Ox 98 98 O2 Delivery Room Air Non Rebreather O2 Flow Rate 15.00 01/18/19 01/18/19 01/18/19 01/18/19 15:00 15:47 16:00 16:00 Temp 98.8 Pulse 116 118 Resp 25 27 B/P (MAP) 169/83 (111) 146/120 (129) Pulse Ox 98 96 93 O2 Delivery Room Air Non Rebreather Room Air O2 Flow Rate 15.00 01/18/19 17:00 Pulse 118 Resp 18 B/P (MAP) 141/107 (118) Pulse Ox 95 O2 Delivery Room Air Capillary Refill : Less Than 3 SecondsGreater Than 3 Seconds Constitutional: AAO x 3, well-developed, well-nourished HEENT: PERRL, EOMI, hearing is well preserved; No xanthelasmas are seen Neck: carotid pulses are 2 + bilaterally, with good upstrokes Respiratory: No accessory muscle use; other (fair to good air entry) Cardiovascular: regular rate-rhythm, S1 and S2, systolic murmur (soft EMMANUELLE at card base) Gastrointestinal: No tender; soft; No guarding, No rebound; audible bowel sounds Extremities: No clubbing, No cyanosis, No significant edema Neurologic/Psychiatric: oriented x 3, grossly intact, power is 5/5 both on sides Skin: No rash on exposed areas, No ulcerations on exposed areas Data Review Labs Laboratory Tests 01/18/19 10:53: White Blood Count 14.9H, Red Blood Count 6.14H, Hemoglobin 18.8H, Hematocrit 55H , Mean Corpuscular Volume 89, Mean Corpuscular Hemoglobin 31, Mean Corpuscular Hemoglobin Concent 34, Red Cell Distribution Width 15.2H, Platelet Count 94L, Mean Platelet Volume 10.8H, Neutrophils (%) (Auto) 67, Lymphocytes (%) (Auto) 24, Monocytes (%) (Auto) 5, Eosinophils (%) (Auto) 4, Basophils (%) (Auto) 1, Neutrophils # (Auto) 10.0H, Lymphocytes # (Auto) 3.5, Monocytes # (Auto) 0.7, Eosinophils # (Auto) 0.6H, Basophils # (Auto) 0.1, Neutrophils % (Manual) 75, Lymphocytes % (Manual) 18, Monocytes % (Manual) 4, Eosinophils % (Manual) 2, Basophils % (Manual) 0, Band Neutrophils 1, Clumped Platelets SLIGHT, Prothrombin Time 14.5, INR Comment 1.1, Activated Partial Thromboplast Time 24, B-Type Natriuretic Peptide 15.4 01/18/19 11:19: Blood Gas Puncture Site LEFT RADIAL, Blood Gas Patient Temperature 95.9, Arterial Blood pH 7.32*L, Arterial Blood Partial Pressure CO2 32L, Arterial Blood Partial Pressure O2 58L, Arterial Blood HCO3 16*L, Arterial Blood Total CO 2 17.5L, Arterial Blood Oxygen Saturation 88L, Arterial Blood Base Excess -8.8L, Joe Test POSITIVE, Blood Gas Ventilator Setting NO, Blood Gas Inspired Oxygen 3 L 01/18/19 11:25: Sodium Level 142, Potassium Level 4.4, Chloride Level 104, Carbon Dioxide Level 17L, Anion Gap 21H, Blood Urea Nitrogen 9, Creatinine 1.38H, Estimat Glomerular Filtration Rate 55, BUN/Creatinine Ratio 7, Glucose Level 104, Lactic Acid Level 5.91*H, Calcium Level 9.2, Corrected Calcium 9.1, Magnesium Level 2.6H, Total Bilirubin 0.5, Aspartate Amino Transf (AST/SGOT) 49H, Alanine Aminotransferase (ALT/SGPT) 37, Alkaline Phosphatase 86, Myoglobin 51.1, Troponin I 0.085H, Total Protein 7.6, Albumin 4.1, Thyroid Stimulating Hormone (TSH) 1.55, Free Thyroxine 0.80, Serum Alcohol 34H 01/18/19 11:42: Platelet Count 139 01/18/19 15:18: Activated Partial Thromboplast Time 85H, Lactic Acid Level 5.47*H 01/18/19 17:25: Laboratory Tests 01/18/19 10:53 01/18/19 11:25 01/18/19 11:42 A/P-Cardiology Assessment/Admission Diagnosis Large PE, hemodynamically significant (presented with hypotension) being managed by the ICU Svce Considerable hemoptysis: PE vs TPA (has been treated with TPA) Sinus tach due to PE H/o hypertension H/o heavy alcohol use Discussion and Recomendations * Continue current regimen * iv beta-sheron if bp tolerates * Monitor labs * Prognosis guarded Clinical Quality Measures DVT/VTE Risk/Contraindication: Risk Factor Score Per Nursin RFS Level Per Nursing on Admit: 4+=Very High NIKOLE MEZA MD FACP FAC CCDS Jan 18, 2019 17:55
[2019-01-18 20:59] LABS: BASOPHILS % (AUTO) 0 % (0-10); EOSINOPHILS % (AUTO) 0 % (0-10); HEMATOCRIT 46 % (40-54); HEMOGLOBIN 16.1 G/DL (13.3-17.7); LYMPHOCYTES # (AUTO) 0.7 X 10^3 (1.0-4.0); LYMPHOCYTES % (AUTO) 6 % (12-44); MEAN CORPUSCULAR HEMOGLOBIN 31 PG (25-34); MEAN CORPUSCULAR HGB CONC 35 G/DL (32-36); MEAN CORPUSCULAR VOLUME 89 FL (80-99); MEAN PLATELET VOLUME 9.6 FL (7.4-10.4); MONOCYTES # (AUTO) 0.5 X 10^3 (0.0-1.0); MONOCYTES % (AUTO) 4 % (0-12); NEUTROPHILS # (AUTO) 10.8 X 10^3 (1.8-7.8); NEUTROPHILS % (AUTO) 89 % (42-75); PLATELET COUNT 132 10^3/uL (130-400); RED CELL DISTRIBUTION WIDTH 14.5 % (10.0-14.5); WHITE BLOOD COUNT 12.1 10^3/uL (4.3-11.0)
--- NOTE | 2019-01-18 21:06 | NUR ---
2029: THIS RN CALLED DR. PHILIPPE AT THIS TIME TO REPORT PT'S CONDITION AND ASK FOR CLARIFICATION ON HEPARIN DRIP THAT IS TO BE STARTED. THIS RN REPORTED TACHYCARDIA; 115-120'S, FIRM ABD (DISTENTION THAT THE PT AND HIS FAMILY BELIEVES IS GETTING WORSE), HEMOPTYSIS, AND PROJECTILE VOMITING OF COFFEE GROUNDS ON PREVIOUS SHIFT. THIS RN ALSO REPORTED THAT PT IS A DAILY DRINKER. NEW ORDER RECEIVED FOR STAT CBC, PT WITH INR AND TO NOTIFY E-ICU WITH CONCERNS AND HAVE THEM CONTINUE CARE THE REST OF THE NIGHT. 2044: E-ICU NOTIFIED. 2104: E-ICU DOCTOR CALLED AT THIS TIME. WAITING FOR LAB RESULTS AT TIME.
[2019-01-18 21:11] LABS: INR 1.8 (0.8-1.4); PROTHROMBIN TIME PATIENT 21.7 SEC (12.2-14.7)
--- NOTE | 2019-01-18 22:04 | Diagnostic Imaging Report ---
PROCEDURE: CT abdomen and pelvis without contrast. TECHNIQUE: Multiple contiguous axial images were obtained through the abdomen and pelvis without the use of intravenous contrast. Auto Exposure Controls were utilized during the CT exam to meet ALARA standards for radiation dose reduction. INDICATION: GI bleed. No prior studies are available for comparison. Minimal atelectasis right lower lobe is seen. Fatty density in the dome of the liver measuring 19 mm. No other liver mass is seen. Gallbladder demonstrates some vicarious excretion of contrast from recent procedure. Pancreas and spleen are unremarkable. No adrenal mass is detected. No renal calculi or hydronephrosis is identified. The aorta is non-aneurysmal. Bowel loops are of normal caliber. There is no obstruction. Appendix is unremarkable. No free fluid or fluid collection is seen. There is contrast within the bladder from prior IV contrast procedure. Prostate is unremarkable. Bony structures are unremarkable. IMPRESSION: Unremarkable noncontrast CT of abdomen and pelvis. No acute feature is identified. Dictated by: Dictated on workstation # [id number]
[2019-01-18] MEDS ORDERED: HEParin DRIP 25000 UNIT/500ML 500 ML IV ONE (22:48)
[2019-01-18] MEDS: HEParin DRIP 25000 UNIT/500ML 500 ML IV SCH (23:03)
[2019-01-18] MEDS: PANTOPRAZOLE 40 MG (PROTONIX) VIAL IV SCH (23:05)
[2019-01-18] MEDS: meTOprolol 5 MG/5 ML (LOPRESSOR) VIAL IV SCH (23:06)
[2019-01-18] MEDS ORDERED: CYCLOBENZAPRINE 10 MG (FLEXERIL) TAB ONE (23:53)
[2019-01-19] VITALS (25 sets, daily range): BP systolic 72–145; BP diastolic 40–113
[2019-01-19] MEDS: meTOprolol 5 MG/5 ML (LOPRESSOR) VIAL IV SCH ×7 (00:58→23:33)
[2019-01-19 01:17] LABS: BASOPHILS # (AUTO) 0.1 10^3/uL (0.0-0.1); BASOPHILS % (AUTO) 0 % (0-10); EOSINOPHILS # (AUTO) 0.1 10^3/uL (0.0-0.3); EOSINOPHILS % (AUTO) 1 % (0-10); HEMATOCRIT 44 % (40-54); HEMOGLOBIN 15.4 G/DL (13.3-17.7); LYMPHOCYTES # (AUTO) 1.4 X 10^3 (1.0-4.0); LYMPHOCYTES % (AUTO) 11 % (12-44); MEAN CORPUSCULAR HEMOGLOBIN 32 PG (25-34); MEAN CORPUSCULAR HGB CONC 35 G/DL (32-36); MEAN CORPUSCULAR VOLUME 89 FL (80-99); MEAN PLATELET VOLUME 11.2 FL (7.4-10.4); MONOCYTES # (AUTO) 0.7 X 10^3 (0.0-1.0); MONOCYTES % (AUTO) 6 % (0-12); NEUTROPHILS # (AUTO) 10.1 X 10^3 (1.8-7.8); NEUTROPHILS % (AUTO) 82 % (42-75); PLATELET COUNT 170 10^3/uL (130-400); RED CELL DISTRIBUTION WIDTH 14.7 % (10.0-14.5); WHITE BLOOD COUNT 12.3 10^3/uL (4.3-11.0)
[2019-01-19] MEDS: LORazepam 1 MG (ATIVAN) TAB PO PRN ×4 (03:12→10:50)
[2019-01-19 03:37] LABS: BASOPHILS % (AUTO) 0 % (0-10); EOSINOPHILS # (AUTO) 0.1 10^3/uL (0.0-0.3); EOSINOPHILS % (AUTO) 1 % (0-10); HEMATOCRIT 44 % (40-54); HEMOGLOBIN 15.4 G/DL (13.3-17.7); LYMPHOCYTES # (AUTO) 1.4 X 10^3 (1.0-4.0); LYMPHOCYTES % (AUTO) 11 % (12-44); MEAN CORPUSCULAR HEMOGLOBIN 31 PG (25-34); MEAN CORPUSCULAR HGB CONC 35 G/DL (32-36); MEAN CORPUSCULAR VOLUME 90 FL (80-99); MEAN PLATELET VOLUME 10.1 FL (7.4-10.4); MONOCYTES # (AUTO) 0.7 X 10^3 (0.0-1.0); MONOCYTES % (AUTO) 5 % (0-12); NEUTROPHILS # (AUTO) 10.4 X 10^3 (1.8-7.8); NEUTROPHILS % (AUTO) 83 % (42-75); PLATELET COUNT 154 10^3/uL (130-400); RED CELL DISTRIBUTION WIDTH 14.6 % (10.0-14.5); WHITE BLOOD COUNT 12.6 10^3/uL (4.3-11.0)
[2019-01-19 03:56] LABS: ALANINE AMINOTRANSFERASE 34 U/L (0-55); ALBUMIN 3.7 GM/DL (3.2-4.5); ALKALINE PHOSPHATASE 71 U/L (40-136); BUN/CREATININE RATIO 23; CALCIUM 8.6 MG/DL (8.5-10.1); CARBON DIOXIDE 24 MMOL/L (21-32); CHLORIDE 102 MMOL/L (98-107); CHOLESTEROL 240 MG/DL (< 200); CREATININE SERUM 1.04 MG/DL (0.60-1.30); GFR ESTIMATED > 60; GLUCOSE 104 MG/DL (70-105); HDL CHOLESTEROL 77 MG/DL (40-60); MAGNESIUM 2.7 MG/DL (1.8-2.4); PHOSPHORUS 1.9 MG/DL (2.3-4.7); POTASSIUM 4.5 MMOL/L (3.6-5.0); SODIUM 139 MMOL/L (135-145); TOTAL PROTEIN 6.6 GM/DL (6.4-8.2); TRIGLYCERIDES 69 MG/DL (<150); VLDL CHOLESTEROL 14 MG/DL (5-40)
[2019-01-19] MEDS ORDERED: HEParin 1000 UNIT/ML (10ML VIAL) FOR BOLUS IV ONE (04:15)
[2019-01-19] MEDS: D5 1/2 NS W/KCL 20 MEQ/L 1,000 ML IV SCH ×4 (05:14→23:28)
--- NOTE | 2019-01-19 05:36 | Pulmonary Progress Note ---
Subjective Time Seen by a Provider: 13:51 Subjective/Events-last exam Sedated on vent. OG out put is bloody. Sepsis Event Evaluation Height, Weight, BMI Height: 5'5.00" Weight: 222lbs. 0.0oz. 100.597054ap; 36.9 BMI Method:Stated Focused Exam Lactate Level 01/18/19 11:25: Lactic Acid Level 5.91*H 01/18/19 15:18: Lactic Acid Level 5.47*H Exam Exam Vital Signs Date Time Temp Pulse Resp B/P (MAP) Pulse Ox O2 Delivery O2 Flow Rate FiO2 01/19/19 04:00 115 26 119/97 (104) 98 Room Air 01/19/19 04:00 94 Room Air 01/19/19 03:59 98.3 01/19/19 03:00 114 25 107/69 (82) 95 Room Air 01/19/19 02:00 109 27 126/86 (99) 96 Room Air 01/19/19 01:00 106 29 124/96 (105) 95 Room Air 01/19/19 01:00 103 01/19/19 00:00 95 Room Air 01/19/19 00:00 105 31 131/93 (106) 95 Room Air 01/18/19 23:45 98.8 01/18/19 23:00 115 16 138/92 (107) 95 Room Air 01/18/19 22:00 118 19 139/102 (114) 97 Room Air 01/18/19 21:00 114 16 138/95 (109) 94 Room Air 01/18/19 20:00 121 15 122/87 (99) 95 Room Air 01/18/19 20:00 96 Room Air 01/18/19 19:00 118 01/18/19 19:00 118 30 131/86 (101) 96 Room Air 01/18/19 18:00 125 30 135/98 (110) 94 Room Air 01/18/19 17:00 118 18 141/107 (118) 95 Room Air 01/18/19 16:00 98.8 01/18/19 16:00 118 27 146/120 (129) 93 Room Air 01/18/19 15:47 96 Non Rebreather 15.00 01/18/19 15:00 116 25 169/83 (111) 98 Room Air 01/18/19 14:44 97.1 01/18/19 14:18 98 Non Rebreather 15.00 01/18/19 14:00 122 24 132/98 (109) 98 Room Air 01/18/19 13:56 124 01/18/19 13:48 125 21 123/87 (99) 98 Non Rebreather 15.00 01/18/19 13:00 124 01/18/19 10:46 88 Nasal Cannula 2.00 01/18/19 10:46 95.9 131 24 122/96 (105) 90 Nasal Cannula 3.00 I & O 01/19/19 07:00 Intake Total 3850 ml Output Total 2450 ml Balance 1400 ml Height & Weight Height: 5'5.00" Weight: 222lbs. 0.0oz. 100.766627ic; 36.9 BMI Method:Stated General Appearance: No Apparent Distress, WD/WN HEENT: PERRL/EOMI Neck: Full Range of Motion, Normal Inspection Respiratory: No Accessory Muscle Use, No Respiratory Distress Cardiovascular: Tachycardia (heart rate 130 no complex regular with preceding P waves before each QRS. Blood pressure 122/96. O2 sat 89% on 2 L. He denies shortness of breath. He is still diaphoretic and pale with delayed capillary refill of the skin) Capillary Refill: Greater Than 3 Seconds Extremity: No Pedal Edema, Slow Capillary Refill Neurologic/Psychiatric: Alert, Other (alert, answers questions appropriately) Skin: Cool Results Lab Laboratory Tests 01/18/19 10:53 01/18/19 11:25 01/18/19 11:42 01/18/19 20:45 01/19/19 01:00 01/19/19 03:30 Assessment/Plan Assessment/Plan Acute Large PE -Pt is on RA now -Check Echo today -Continue Heparin and monitor H&H Q 6 Hemoptysis -resolved GIB- Occult -Hb stable -Protonix Q12 IV -Continue Hep for now Seizure disorder -PRN Ativan Alcohol abuse -Monitor NSTEMI - secondary to PE -Monitor Hypophos -Replace KAYDEN PHILIPPE DO Jan 19, 2019 05:36
[2019-01-19] MEDS ORDERED: SODIUM PHOSPHATE INJ 30 MM in NS (IVPB) 250 ML IV ONE (05:45)
[2019-01-19] MEDS: PANTOPRAZOLE 40 MG (PROTONIX) VIAL IV SCH (08:22)
[2019-01-19] MEDS: THIAMINE INJECTION 100 MG, FOLIC ACID INJECTION 1 MG, MAGNESIUM SULFATE 2 GM, VITAMIN M... IV SCH ×5 (08:23)
--- NOTE | 2019-01-19 08:30 | Progress Note - Cardiology ---
Cardiology SOAP Progress Note Subjective: Feels better than at time of presentation. Has gen malaise. Has had blood in sputum. No cp or palp. No recurrence of syncope Objective: I&O/Vital Signs 01/18/19 01/18/19 01/18/19 01/18/19 21:00 22:00 23:00 23:45 Temp 98.8 Pulse 114 118 115 Resp 16 19 16 B/P (MAP) 138/95 (109) 139/102 (114) 138/92 (107) Pulse Ox 94 97 95 O2 Delivery Room Air Room Air Room Air 01/19/19 01/19/19 01/19/19 01/19/19 00:00 00:00 01:00 01:00 Pulse 105 103 106 Resp 31 29 B/P (MAP) 131/93 (106) 124/96 (105) Pulse Ox 95 95 95 O2 Delivery Room Air Room Air Room Air 01/19/19 01/19/19 01/19/19 01/19/19 02:00 03:00 03:59 04:00 Temp 98.3 Pulse 109 114 Resp 27 25 B/P (MAP) 126/86 (99) 107/69 (82) Pulse Ox 96 95 94 O2 Delivery Room Air Room Air Room Air 01/19/19 01/19/19 01/19/19 01/19/19 04:00 05:00 05:45 06:08 Pulse 115 109 112 105 Resp 26 23 10 B/P (MAP) 119/97 (104) 110/88 (95) 127/99 (108) Pulse Ox 98 96 98 O2 Delivery Room Air Room Air Room Air Room Air 01/19/19 01/19/19 01/19/19 07:00 07:00 08:00 Pulse 115 112 109 Resp 19 23 B/P (MAP) 104/73 (83) Pulse Ox 97 O2 Delivery Room Air Room Air 01/19/19 00:00 Intake Total 4600 ml Output Total 1650 ml Balance 2950 ml Weight (Pounds): 224 Weight (Ounces): 4.0 Weight (Calculated Kilograms): 101.886416 Constitutional: AAO x 3, well-developed, well-nourished Respiratory: No accessory muscle use; other (fair to good air entry) Cardiovascular: regular rate-rhythm, S1 and S2, systolic murmur (soft EMMANUELLE at card base) Gastrointestional: No tender; soft; No guarding, No rebound; audible bowel sounds Extremities: No clubbing, No cyanosis, No significant edema Neurologic/Psychiatric: oriented x 3, grossly intact, power is 5/5 both on sides Skin: No rash on exposed areas, No ulcerations on exposed areas Results/Procedures: Labs Laboratory Tests 01/18/19 10:53: White Blood Count 14.9H, Red Blood Count 6.14H, Hemoglobin 18.8H, Hematocrit 55H , Mean Corpuscular Volume 89, Mean Corpuscular Hemoglobin 31, Mean Corpuscular Hemoglobin Concent 34, Red Cell Distribution Width 15.2H, Platelet Count 94L, Mean Platelet Volume 10.8H, Neutrophils (%) (Auto) 67, Lymphocytes (%) (Auto) 24, Monocytes (%) (Auto) 5, Eosinophils (%) (Auto) 4, Basophils (%) (Auto) 1, Neutrophils # (Auto) 10.0H, Lymphocytes # (Auto) 3.5, Monocytes # (Auto) 0.7, Eosinophils # (Auto) 0.6H, Basophils # (Auto) 0.1, Neutrophils % (Manual) 75, Lymphocytes % (Manual) 18, Monocytes % (Manual) 4, Eosinophils % (Manual) 2, Basophils % (Manual) 0, Band Neutrophils 1, Clumped Platelets SLIGHT, Prothrombin Time 14.5, INR Comment 1.1, Activated Partial Thromboplast Time 24, B-Type Natriuretic Peptide 15.4 01/18/19 11:19: Blood Gas Puncture Site LEFT RADIAL, Blood Gas Patient Temperature 95.9, Arterial Blood pH 7.32*L, Arterial Blood Partial Pressure CO2 32L, Arterial Blood Partial Pressure O2 58L, Arterial Blood HCO3 16*L, Arterial Blood Total CO2 17.5L, Arterial Blood Oxygen Saturation 88L, Arterial Blood Base Excess - 8.8L, Joe Test POSITIVE, Blood Gas Ventilator Setting NO, Blood Gas Inspired Oxygen 3 L 01/18/19 11:25: Sodium Level 142, Potassium Level 4.4, Chloride Level 104, Carbon Dioxide Level 17L, Anion Gap 21H, Blood Urea Nitrogen 9, Creatinine 1.38H, Estimat Glomerular Filtration Rate 55, BUN/Creatinine Ratio 7, Glucose Level 104, Lactic Acid Level 5.91*H, Calcium Level 9.2, Corrected Calcium 9.1, Magnesium Level 2.6H, Total Bilirubin 0.5, Aspartate Amino Transf (AST/SGOT) 49H, Alanine Aminotransferase (ALT/SGPT) 37, Alkaline Phosphatase 86, Myoglobin 51.1, Troponin I 0.085H, Total Protein 7.6, Albumin 4.1, Thyroid Stimulating Hormone (TSH) 1.55, Free Thyroxine 0.80, Serum Alcohol 34H 01/18/19 11:42: Platelet Count 139 01/18/19 15:18: Activated Partial Thromboplast Time 85H, Lactic Acid Level 5.47*H 01/18/19 17:25: Activated Partial Thromboplast Time 50H 01/18/19 19:55: Activated Partial Thromboplast Time 38H 01/18/19 20:45: Activated Partial Thromboplast Time 40H, White Blood Count 12.1H, Red Blood Count 5.18, Hemoglobin 16.1, Hematocrit 46, Mean Corpuscular Volume 89, Mean Corpuscular Hemoglobin 31, Mean Corpuscular Hemoglobin Concent 35, Red Cell Distribution Width 14.5, Platelet Count 132, Mean Platelet Volume 9.6, Neutrophils (%) (Auto) 89H, Lymphocytes (%) (Auto) 6L, Monocytes (%) (Auto) 4, Eosinophils (%) (Auto) 0, Basophils (%) (Auto) 0, Neutrophils # (Auto) 10.8H, Lymphocytes # (Auto) 0.7L, Monocytes # (Auto) 0.5, Eosinophils # (Auto) 0.0, Basophils # (Auto) 0.0, Prothrombin Time 21.7H, INR Comment 1.8H 01/19/19 01:00: White Blood Count 12.3H, Red Blood Count 4.88, Hemoglobin 15.4, Hematocrit 44, Mean Corpuscular Volume 89, Mean Corpuscular Hemoglobin 32, Mean Corpuscular Hemoglobin Concent 35, Red Cell Distribution Width 14.7H, Platelet Count 170, Mean Platelet Volume 11.2H, Neutrophils (%) (Auto) 82H, Lymphocytes (%) (Auto) 11L, Monocytes (%) (Auto) 6, Eosinophils (%) (Auto) 1, Basophils (%) (Auto) 0, Neutrophils # (Auto) 10.1H, Lymphocytes # (Auto) 1.4, Monocytes # (Auto) 0.7, Eosinophils # (Auto) 0.1, Basophils # (Auto) 0.1 01/19/19 03:30: White Blood Count 12.6H, Red Blood Count 4.91, Hemoglobin 15.4, Hematocrit 44, Mean Corpuscular Volume 90, Mean Corpuscular Hemoglobin 31, Mean Corpuscular Hemoglobin Concent 35, Red Cell Distribution Width 14.6H, Platelet Count 154, Mean Platelet Volume 10.1, Neutrophils (%) (Auto) 83H, Lymphocytes (%) (Auto) 11L, Monocytes (%) (Auto) 5, Eosinophils (%) (Auto) 1, Basophils (%) (Auto) 0, Neutrophils # (Auto) 10.4H, Lymphocytes # (Auto) 1.4, Monocytes # (Auto) 0.7, Eosinophils # (Auto) 0.1, Basophils # (Auto) 0.0, Activated Partial Thromboplast Time 53H, Sodium Level 139, Potassium Level 4.5, Chloride Level 102, Carbon Dioxide Level 24, Anion Gap 13, Blood Urea Nitrogen 24H, Creatinine 1.04, Estimat Glomerular Filtration Rate > 60, BUN/Creatinine Ratio 23, Glucose Level 104, Calcium Level 8.6, Corrected Calcium 8.8, Phosphorus Level 1.9L, Magnesium Level 2.7H, Total Bilirubin 1.0, Aspartate Amino Transf (AST/SGOT) 49H, Alanine Aminotransferase (ALT/SGPT) 34, Alkaline Phosphatase 71, Total Protein 6.6, Albumin 3.7, Triglycerides Level 69, Cholesterol Level 240H, LDL Cholesterol Direct 164H, VLDL Cholesterol 14, HDL Cholesterol 77H 01/19/19 04:00: Stool Occult Blood Immunoassay POSITIVEH A/P: Assessment: Large PE, hemodynamically significant (presented with hypotension) being managed by the ICU Svce Considerable hemoptysis: PE vs TPA (has been treated with TPA) Sinus tach due to PE H/o hypertension H/o heavy alcohol use Plan: * Continue current regimen * iv beta-sheron if bp tolerates * Monitor labs * Echo * Prognosis guarded NIKOLE MEZA MD FACP FAC CCDS Jan 19, 2019 08:30
--- NOTE | 2019-01-19 08:38 | Diagnostic Imaging Report ---
EXAMINATION: Portable erect AP chest at 3:16 AM. INDICATION: Dyspnea. FINDINGS: There is shallow inspiration when compared to the prior exam of 01/18/2019. Allowing for this technical factor, the heart size is within normal limits and the lungs remain clear. There is no sign of failure, pneumonia, or pleural effusion to indicate an acute abnormality. The mediastinum is not widened. The osseous structures are intact. IMPRESSION: Stable chest. There has been no adverse change since the prior exam. Dictated by: Dictated on workstation # [id number]
[2019-01-19 09:32] LABS: BASOPHILS # (AUTO) 0.1 10^3/uL (0.0-0.1); BASOPHILS % (AUTO) 0 % (0-10); EOSINOPHILS # (AUTO) 0.3 10^3/uL (0.0-0.3); EOSINOPHILS % (AUTO) 2 % (0-10); HEMATOCRIT 43 % (40-54); HEMOGLOBIN 14.8 G/DL (13.3-17.7); LYMPHOCYTES # (AUTO) 2.2 X 10^3 (1.0-4.0); LYMPHOCYTES % (AUTO) 17 % (12-44); MEAN CORPUSCULAR HEMOGLOBIN 31 PG (25-34); MEAN CORPUSCULAR HGB CONC 35 G/DL (32-36); MEAN CORPUSCULAR VOLUME 90 FL (80-99); MEAN PLATELET VOLUME 10.1 FL (7.4-10.4); MONOCYTES # (AUTO) 0.8 X 10^3 (0.0-1.0); MONOCYTES % (AUTO) 6 % (0-12); NEUTROPHILS # (AUTO) 9.6 X 10^3 (1.8-7.8); NEUTROPHILS % (AUTO) 74 % (42-75); PLATELET COUNT 153 10^3/uL (130-400); RED CELL DISTRIBUTION WIDTH 14.5 % (10.0-14.5); WHITE BLOOD COUNT 12.9 10^3/uL (4.3-11.0)
--- NOTE | 2019-01-19 10:14 | Diagnostic Imaging Report ---
PROCEDURE: US Venous Lower Ext Jon. TECHNIQUE: Multiple Real-time grayscale images were obtained over the lower extremities in various projections bilaterally. Additional duplex Doppler and color Doppler images were also obtained. INDICATION: Leg swelling. FINDINGS: The veins in the left leg have good color-filling and compressibility with normal phasic flow and normal augmentation to distal compression. In the right leg, the popliteal vein is noncompressible and has no flow on color Doppler. There is thrombus extending from the popliteal vein into the peroneal and posterior tibial veins. IMPRESSION: There is deep vein thrombosis in the right calf veins extending into the right popliteal vein. CRITICAL FINDING Dictated by: Dictated on workstation # [id number]
--- NOTE | 2019-01-19 10:36 | NUR ---
Dr. Watts notified of ultrasound results. Advised to continue with heparin drip.
--- NOTE | 2019-01-19 11:44 | History & Physical-Hospitalist ---
History of Present Illness HPI/Chief Complaint Chief complaint: Syncope History of present illness: This is a 48-year-old white male clinic patient of [facility] with a history of alcoholism and illicit drug abuse who presents to the ER after paramedics were called due to syncopal episode. Upon evaluation in the ER he was found to have bilateral pulmonary emboli saddle type underwent TPA administration and required cardiology and pulmonology consultati ons. After I assessed him he was in florid alcohol withdrawal requiring intubation due to such [id number]-kr-[id number] behavior placing him at risk for harming himself. He denied any current pain when I was speaking to him and he has been following the protocol with heparin drip without any evidence of bleeding complications from TPA. Source: patient, RN/MD Exam Limitations: no limitations Date Seen 01/19/19 Time Seen by a Provider: 10:15 Attending Physician Saloni Henderson DO [facility] [place] Referring Physician Date of Admission Jan 18, 2019 at 12:51 Home Medications & Allergies Home Medications Reviewed patient Home Medication Reconciliation performed by pharmacy medication reconciliations biometric fingerprinting technician and/or nursing. Patients Allergies have been reviewed. Allergies Allergies Coded Allergies No Known Drug Allergies (Unverified01/07/16) Past Dpdiyhu-Xrqbyq-Twnpxk Hx Past Med/Social Hx: Reviewed Nursing Past Med/Soc Hx, Reviewed and Corrections made Patient Social History Alcohol Use: Regular Use Number of Drinks Today: AA Alcohol Beverage of Choice: Beer Recreational Drug Use: No Smoking Status: Never a Smoker Type Used: Smokeless Tobacco 2nd Hand Smoke Exposure: No Recent Foreign Travel: No Contact w/other who traveled: No Recent Hopitalizations: No Recent Infectious Disease Expo: No Immunizations Up To Date Tetanus Booster (TDap): Unknown Pediatric: No Seasonal Allergies Seasonal Allergies: No Past Medical History Cardiac: Hypertension Reproductive: No Gastrointestinal: Polyps Musculoskeletal: Chronic Back Pain Endocrine: Hypothyroidsim Psychosocial: Anxiety, Depression History of Blood Disorders: No Family History Patient reports no known family medical history. No Pertinent Family Hx Review of Systems Constitutional: see HPI, weakness Psychiatric/Neurological: Anxiety Physical Exam Physical Exam Vital Signs Vital Signs - First Documented 01/19/19 14:15 FiO2 100 Capillary Refill : Less Than 3 SecondsGreater Than 3 Seconds Height, Weight, BMI Height: 5'5.00" Weight: 224lbs. 4.0oz. 101.519216jn; 36.9 BMI Method:Stated General Appearance: WD/WN, Anxious, Chronically ill, Moderate Distress Eyes: Right Eye Normal Inspection, Right Eye PERRL HEENT: PERRL/EOMI, Normal ENT Inspection, Pharynx Normal, Moist Mucous Membranes Neck: Full Range of Motion, Normal Inspection, Non Tender Respiratory: Chest Non Tender, Lungs Clear, Normal Breath Sounds, No Accessory Muscle Use, No Respiratory Distress Cardiovascular: Regular Rate, Rhythm, No Edema, No Gallop, No JVD, No Murmur, Normal Peripheral Pulses Gastrointestinal: Normal Bowel Sounds, No Organomegaly, No Pulsatile Mass, Non Tender, Soft Back: Normal Inspection, No CVA Tenderness, No Vertebral Tenderness Extremity: Normal Capillary Refill, Normal Inspection, Normal Range of Motion, Non Tender, No Calf Tenderness, No Pedal Edema Neurologic/Psychiatric: Alert, Oriented x3, No Motor/Sensory Deficits, Normal Mood/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 Assessment/Plan Admission Diagnosis Assessment: Syncope Bilateral saddle PE s/p TPA ETOH withdrawal severe VDRF Plan: Vent management Appreciate Cardiology and Pulmonology Admission Status: Inpatient Order (span 2 midnights) Reason for Inpatient Admission: PE s/p TPA with ETOH w/d Diagnosis/Problems Diagnosis/Problems (1) Saddle pulmonary embolus Status: Acute Qualifiers: Chronicity: acute Acute cor pulmonale presence: with acute cor pulmonale Qualified Codes: I26.02 - Saddle embolus of pulmonary artery with acute cor pulmonale (2) Received intravenous tissue plasminogen activator (tPA) in emergency department Status: Acute (3) Alcohol withdrawal Status: Acute Qualifiers: Complication of substance-induced condition: with delirium Qualified Codes: F10.231 - Alcohol dependence with withdrawal delirium Clinical Quality Measures DVT/VTE Risk/Contraindication: Risk Factor Score Per Nursin RFS Level Per Nursing on Admit: 4+=Very High SALONI HENDERSON DO Jan 19, 2019 11:44
[2019-01-19] MEDS: LORazepam INJ 2 MG/ML (ATIVAN) VIAL IV PRN (11:47)
--- NOTE | 2019-01-19 11:58 | NUR ---
PT REFUSING TO KEEP ANY MONITORS ON. ATTEMPT TO REDIRECT PT, UNSUCCESSFUL.
--- NOTE | 2019-01-19 12:17 | NUR ---
PT COMBATIVE TOWARDS STAFF. PULLING AT CORDS, IV'S, ATTEMPTING TO GET OUT OF BED UNASSISTED. PT VERY UNSTEADY ON FEET. DR PHILIPPE NOTIFIED, NEW ORDERS RECEIVED.
--- NOTE | 2019-01-19 12:17 | NUR ---
pt combative towards staff, will not stay in bed
[2019-01-19] MEDS ORDERED: NS (IVPB) 50 ML ONE (12:25)
[2019-01-19] MEDS: NICOTINE 21 MG (NICODERM) PATCH TD SCH (12:30)
[2019-01-19] MEDS ORDERED: DEXMEDETOMIDINE INJECTION 200 MCG in NS (IVPB) 50 ML IV SCH (12:30)
[2019-01-19] MEDS ORDERED: morphine INJ 10 MG/ML 1ML (SYR OR VIAL) ONE (12:36)
[2019-01-19] MEDS ORDERED: morphine INJ 10 MG/ML 1ML (SYR OR VIAL) IVP STA (12:44)
[2019-01-19] MEDS ORDERED: HALOPERIDOL 5 MG/ML (HALDOL) AMP ONE (12:44)
[2019-01-19] MEDS ORDERED: LORazepam INJ 2 MG/ML (ATIVAN) VIAL IVP ONE (12:45)
[2019-01-19] MEDS: HALOPERIDOL 5 MG/ML (HALDOL) AMP IV PRN (12:53)
[2019-01-19] MEDS: DEXMEDETOMIDINE INJECTION 1,000 MCG in NS (IVPB) 250 ML IV SCH ×2 (12:54→23:27)
[2019-01-19] MEDS ORDERED: LACTATED RINGERS 1,000 ML IV ONE (13:15)
--- NOTE | 2019-01-19 13:30 | NUR ---
pt now hypotensive. Dr. Watts notified. Orders received to notify anesthesia to intubate and place art. line. 100 of succs given by KAEL Ibrahim. Pt intubated at 1352 by KAEL Ibrahim using size 8 ET tube, 24 at lip. 5 mg of versed given at 1357, followed by 50 of neftali by KAEL. Left radial art line placed by KAEL. OG tube placed without difficulty by nursing staff. Bloody gastric contents returned, Dr. Watts notified, received orders to consult surgery. Dr. Everett then notified.
[2019-01-19] MEDS: LEVETIRACETAM INJECTION 500 MG in NS (IVPB) 100 ML IV SCH ×2 (13:33→22:29)
[2019-01-19] MEDS ORDERED: NS IV 1000 ML 1,000 ML ONE (13:40)
[2019-01-19] MEDS ORDERED: LACTATED RINGERS 1,000 ML IV NR (13:45)
[2019-01-19] MEDS ORDERED: PROPOFOL DRIP (ICU) 100 ML IV ONE (13:51)
[2019-01-19] MEDS: NOREPINEPHRINE 4 MG in NS (IVPB) 250 ML IV SCH (14:09)
--- NOTE | 2019-01-19 14:11 | Diagnostic Imaging Report ---
INDICATION: Respiratory failure Portable chest 2 PM ET tube projecting over the trachea. There are some patchy areas of infiltrate or atelectasis in the perihilar regions of both lungs. There are no effusions or pneumothoraces. IMPRESSION: Perihilar infiltrate versus atelectasis. ET tube projects over the trachea. Dictated by: Dictated on workstation # [id number]
[2019-01-19] MEDS: OCTREOTIDE INJECTION 500 MCG in NS (IVPB) 99 ML IV SCH (14:50)
[2019-01-19 14:56] LABS: ABG BASE EXCESS -1.3 MMOL/L (-2.5-2.5); ABG OXYGEN SATURATION 99 % (94-100); ABG PCO2 53 MMHG (35-45); ABG PO2 179 MMHG (79-93); ABG TCO2 26.2 MMOL/L (21.0-31.0)
[2019-01-19 14:58] LABS: ABG PH 7.28 (7.37-7.43); ALLENS TEST ARTLINE; INSPIRED O2 100%; PATIENT TEMP 98.2; VENTILATOR YES
[2019-01-19 15:03] LABS: BASOPHILS # (AUTO) 0.1 10^3/uL (0.0-0.1); BASOPHILS % (AUTO) 0 % (0-10); EOSINOPHILS # (AUTO) 0.3 10^3/uL (0.0-0.3); EOSINOPHILS % (AUTO) 2 % (0-10); HEMATOCRIT 36 % (40-54); HEMOGLOBIN 12.2 G/DL (13.3-17.7); LYMPHOCYTES # (AUTO) 3.3 X 10^3 (1.0-4.0); LYMPHOCYTES % (AUTO) 27 % (12-44); MEAN CORPUSCULAR HEMOGLOBIN 31 PG (25-34); MEAN CORPUSCULAR HGB CONC 34 G/DL (32-36); MEAN CORPUSCULAR VOLUME 91 FL (80-99); MEAN PLATELET VOLUME 9.8 FL (7.4-10.4); MONOCYTES # (AUTO) 0.7 X 10^3 (0.0-1.0); MONOCYTES % (AUTO) 6 % (0-12); NEUTROPHILS % (AUTO) 65 % (42-75); PLATELET COUNT 152 10^3/uL (130-400); RED CELL DISTRIBUTION WIDTH 14.4 % (10.0-14.5); WHITE BLOOD COUNT 12.3 10^3/uL (4.3-11.0)
[2019-01-19] MEDS: PROPOFOL DRIP (ICU) 100 ML IV SCH ×2 (15:06→22:39)
--- NOTE | 2019-01-19 15:08 | Anesthesia-Procedure Note ---
Procedures/Interventions Procedure Start/Stop/Diagnosis Date of Procedure: Jan 19, 2019 Start Time: 13:49 Referring Physician: Stefanie Brief History Called to ICU for urgent intubation. 8.[address] Watts's request, easily with Versed 5mg and Succs 100mg IV. Aguirre used and grade 1 view present. RT at bedside. Vent settings per Dr. Watts. Also requesting arterial line placement. Rocuronium 50mg IV given as patient was coughing and resisting attempts at arterial line placement. NIBP 70/30. RN started Levophed. 20g arterial line placed in patient's left radial after several attempts in his right radial. Art line secured with opsite. Good waveform noted and correlates with NIBP. Reported off to RN. Stop Time: 14:40 WILL PETERS CRNA Jan 19, 2019 15:08
--- NOTE | 2019-01-19 15:25 | Occ Therapy Progress Note ---
Therapy Progress Note Order received for OT eval and treat. Pt is currently intubated. Will monitor pt status and initiate therapy as appropriate. ARACELI GARCIA OT Jan 19, 2019 15:25
--- NOTE | 2019-01-19 15:45 | Physical Therapy Progress Note ---
Therapy Progress Note PT orders received, patient currently intubated. Will check back once patient is able to participate in physical therapy. DEVAUGHN PACE PT Jan 19, 2019 15:45
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
[2019-01-19 16:24] LABS: HEMOGLOBIN 10.9 G/DL (13.3-17.7)
--- NOTE | 2019-01-19 16:32 | Diagnostic Imaging Report ---
EXAMINATION: Single frontal view of the chest. INDICATION: Central line placement. COMPARISON: Multiple priors, most recent performed earlier today. FINDINGS: Endotracheal tube remains in place, with distal tip approximately 3.9 cm above the sraah. Interval placement of left subclavian central line, with distal tip overlying the SVC, just beyond the junction with the brachiocephalic vein. Enteric tube is unchanged in position, coiled in the proximal stomach with tip in the region of the fundus. Low lung volumes are demonstrated. Scattered areas of linear atelectasis are similar in appearance to prior exam. No pneumothorax or large pleural effusion. The cardiomediastinal silhouette is unchanged. No acute osseous abnormalities appreciated. IMPRESSION: Interval placement of left subclavian central line, with tip projecting over the SVC. Otherwise, no significant change from prior. Dictated by: Dictated on workstation # [id number]
[2019-01-19] MEDS: PANTOPRAZOLE INJECTION 200 MG in NS (IVPB) 100 ML IV SCH (17:33)
[2019-01-19 18:58] LABS: HEMOGLOBIN 11.2 G/DL (13.3-17.7)
--- NOTE | 2019-01-19 20:24 | CONSULTATION REPORT ---
DATE OF SERVICE: 01/19/2019 ADMITTING PHYSICIAN: Saloni Henderson DO. ATTENDING PRIMARY DATABASE ANALYST: [facility]. HISTORY OF PRESENT ILLNESS: The patient is a 48-year-old male who was brought in with acute onset of shortness of breath. A CT scan was performed, which did show a significantly large saddle embolus encompassing all 5 major branches of the pulmonary artery. He has been intubated and sedated and also placed on fibrinolytic therapy. He will need a central venous catheter for multiple IV medications. He also does have blood per nasogastric tube; however, this may be secondary to gastritis as well as the fibrinolytic therapy. He is also currently on a heparin drip. PAST MEDICAL HISTORY: Alcoholism, hypothyroid, anxiety, depression, hypertension, degenerative joint disease. PAST SURGICAL HISTORY: Unknown. ALLERGIES: No known drug allergies. MEDICATIONS: Clonidine 0.2 mg b.i.d., cyclobenzaprine 20 mg p.r.n., duloxetine 60 mg daily, levothyroxine 25 mcg daily, and quetiapine 45 mg b.i.d. SOCIAL HISTORY: Heavy alcohol use. Negative smoke. FAMILY HISTORY: Noncontributory. VITAL SIGNS: Temperature is 97.5, blood pressure 127/90, pulse 88, respirations 20, pulse ox 90% on a CMV ventilator on 100% FiO2. REVIEW OF SYSTEMS: A well-nourished male, intubated and sedated. He has a nasogastric tube which is aspirating dark blood. For the most part, he is unresponsive; however, was initially responsive and then developed worsening shortness of breath and was intubated. PHYSICAL EXAMINATION: CHEST: Scattered rales and rhonchi and decreased breath sounds bilaterally. HEART: Regular, no murmurs. EXTREMITIES: No lower extremity edema, negative Homans sign. HEENT: No scleral icterus. NECK: No cervical lymphadenopathy. ABDOMEN: Soft, nontender, nondistended. SKIN: Warm, dry. LABORATORY DATA: WBC is 12.3, hemoglobin 12.2, hematocrit 36, and platelets 152. Lactic acid is 5.47. BUN is 24, creatinine 1.04. ASSESSMENT AND PLAN: A 48-year-old male with respiratory failure secondary to bilateral pulmonary emboli. He also has a gastrointestinal bleed; however, is currently stable and is on octreotide as well as Protonix 40 mg b.i.d. as well as beta blockade. We will continue to monitor his hemoglobin as well as clinical status. We will also proceed with placement of a central venous catheter. Job ID: [id number] DocumentID: [id number] Dictated Date: 01/19/2019 16:28:47 Cushion Cover Inspector Date: 01/19/2019 20:23:59 Dictated By: LINDSAY PIÑA MD
[2019-01-19 20:28] LABS: BASOPHILS % (AUTO) 0 % (0-10); EOSINOPHILS # (AUTO) 0.3 10^3/uL (0.0-0.3); EOSINOPHILS % (AUTO) 4 % (0-10); HEMATOCRIT 31 % (40-54); HEMOGLOBIN 10.8 G/DL (13.3-17.7); LYMPHOCYTES # (AUTO) 2.4 X 10^3 (1.0-4.0); LYMPHOCYTES % (AUTO) 31 % (12-44); MEAN CORPUSCULAR HEMOGLOBIN 32 PG (25-34); MEAN CORPUSCULAR HGB CONC 35 G/DL (32-36); MEAN CORPUSCULAR VOLUME 91 FL (80-99); MEAN PLATELET VOLUME 9.7 FL (7.4-10.4); MONOCYTES # (AUTO) 0.4 X 10^3 (0.0-1.0); MONOCYTES % (AUTO) 5 % (0-12); NEUTROPHILS # (AUTO) 4.7 X 10^3 (1.8-7.8); NEUTROPHILS % (AUTO) 60 % (42-75); PLATELET COUNT 149 10^3/uL (130-400); RED CELL DISTRIBUTION WIDTH 14.5 % (10.0-14.5); WHITE BLOOD COUNT 7.8 10^3/uL (4.3-11.0)
[2019-01-19] MEDS: HEParin DRIP 25000 UNIT/500ML 500 ML IV SCH (20:34)
[2019-01-19] MEDS: CYCLOBENZAPRINE 10 MG (FLEXERIL) TAB PO SCH (22:29)
[2019-01-20] VITALS (34 sets, daily range): BP systolic 91–144; BP diastolic 7–108
[2019-01-20] MEDS: OCTREOTIDE INJECTION 500 MCG in NS (IVPB) 99 ML IV SCH ×3 (00:15→18:23)
[2019-01-20 00:17] LABS: HEMOGLOBIN 10.4 G/DL (13.3-17.7)
[2019-01-20] MEDS ORDERED: inSUlin ASPART (NovoLOG) 1 UNIT/0.01 ML (CHARGE PER UNIT) ONE (00:21)
[2019-01-20] MEDS: inSUlin ASPART (NovoLOG) 1 UNIT/0.01 ML (CHARGE PER UNIT) SC SCH ×4 (00:27→18:06)
--- NOTE | 2019-01-20 00:30 | OPERATIVE REPORT ---
DATE OF SERVICE: 01/19/2019 ADMITTING PHYSICIAN: Dr. Henderson. ATTENDING PRIMARY CARPET LOOM FIXER: [facility]. PREOPERATIVE DIAGNOSES: Respiratory failure and bilateral massive pulmonary embolism. POSTOPERATIVE DIAGNOSES: Respiratory failure and bilateral massive pulmonary embolism. PROCEDURE: Placement of left subclavian central venous catheter. SURGEON: Lindsay Piña MD ANESTHESIA: Local. ESTIMATED BLOOD LOSS: Minimal. DISPOSITION: The patient tolerated the procedure well. INDICATIONS: The patient is a 48-year-old male brought in with shortness of breath of acute onset. CT scan was performed, which did show significantly sized bilateral pulmonary embolism. He was started on fiber and lytic therapy. Since that time, he has developed respiratory insufficiency, requiring intubation and sedation. He will need multiple drips as well as medications and will require a central venous catheter. DESCRIPTION OF PROCEDURE: The chest and neck were prepped and draped in standard surgical fashion. The left subclavian vein was then drawing of venous blood. A guidewire was then inserted without any resistance. A skin incision was then made using 11 blade and the cannulating needle removed. A tract was then created using a venous dilator. A triple lumen central venous catheter was then placed over the guidewire using the Seldinger technique. The guidewire was removed. All three ports zoraida venous blood and saline pushed in without any resistance. The catheter was then cleaned and covered with Op-Site. The patient tolerated the procedure well. We will get a post-procedure chest x-ray once confirmation of placement of catheter may be used at any time. Job ID: [id number] DocumentID: [id number] Dictated Date: 01/19/2019 16:31:31 Float Nurse Date: 01/20/2019 00:30:18 Dictated By: LINDSAY PIÑA MD [facility]
[2019-01-20] MEDS: NOREPINEPHRINE 4 MG in NS (IVPB) 250 ML IV SCH ×3 (01:19→16:18)
[2019-01-20 02:59] LABS: ABG BASE EXCESS -1.5 MMOL/L (-2.5-2.5); ABG OXYGEN SATURATION 99 % (94-100); ABG PCO2 38 MMHG (35-45); ABG PO2 110 MMHG (79-93); BASOPHILS % (AUTO) 0 % (0-10); EOSINOPHILS # (AUTO) 0.2 10^3/uL (0.0-0.3); EOSINOPHILS % (AUTO) 4 % (0-10); HEMATOCRIT 27 % (40-54); HEMOGLOBIN 8.9 G/DL (13.3-17.7); LYMPHOCYTES # (AUTO) 1.8 X 10^3 (1.0-4.0); LYMPHOCYTES % (AUTO) 31 % (12-44); MEAN CORPUSCULAR HEMOGLOBIN 31 PG (25-34); MEAN CORPUSCULAR HGB CONC 34 G/DL (32-36); MEAN CORPUSCULAR VOLUME 92 FL (80-99); MEAN PLATELET VOLUME 9.5 FL (7.4-10.4); MONOCYTES # (AUTO) 0.3 X 10^3 (0.0-1.0); MONOCYTES % (AUTO) 6 % (0-12); NEUTROPHILS # (AUTO) 3.3 X 10^3 (1.8-7.8); NEUTROPHILS % (AUTO) 58 % (42-75); PLATELET COUNT 120 10^3/uL (130-400); RED CELL DISTRIBUTION WIDTH 14.3 % (10.0-14.5); WHITE BLOOD COUNT 5.7 10^3/uL (4.3-11.0)
[2019-01-20 03:00] LABS: ALLENS TEST ART LINE; INSPIRED O2 60%FIO2; PATIENT TEMP 97.6; VENTILATOR YES
[2019-01-20 03:13] LABS: BUN/CREATININE RATIO 18; CARBON DIOXIDE 18 MMOL/L (21-32); CHLORIDE 115 MMOL/L (98-107); CREATININE SERUM 0.74 MG/DL (0.60-1.30); GFR ESTIMATED > 60; GLUCOSE 135 MG/DL (70-105); MAGNESIUM 1.8 MG/DL (1.8-2.4); PHOSPHORUS 2.2 MG/DL (2.3-4.7); POTASSIUM 3.3 MMOL/L (3.6-5.0); SODIUM 141 MMOL/L (135-145)
[2019-01-20] MEDS: meTOprolol 5 MG/5 ML (LOPRESSOR) VIAL IV SCH ×6 (03:20→23:32)
[2019-01-20 03:22] LABS: CALCIUM 5.9 MG/DL (8.5-10.1)
[2019-01-20] MEDS: POTASSIUM CL 10MEQ/50ML IVPB 50 ML IV SCH ×4 (03:30→04:57)
[2019-01-20] MEDS: LORazepam INJ 2 MG/ML (ATIVAN) VIAL IV PRN ×4 (03:40→19:55)
[2019-01-20] MEDS ORDERED: NS (IVPB) 50 ML ONE (04:00)
[2019-01-20] MEDS ORDERED: CALCIUM GLUCONATE 10% INJ 4.65 MEQ in NS (IVPB) 50 ML IV ONE (04:15)
--- NOTE | 2019-01-20 05:24 | Pulmonary Progress Note ---
Subjective Time Seen by a Provider: 05:27 Subjective/Events-last exam PT is on ventilator Sepsis Event Evaluation Height, Weight, BMI Height: 5'5.00" Weight: 224lbs. 4.0oz. 101.492383ry; 36.9 BMI Method:Stated Focused Exam Lactate Level 01/18/19 11:25: Lactic Acid Level 5.91*H 01/18/19 15:18: Lactic Acid Level 5.47*H Exam Exam Vital Signs Date Time Temp Pulse Resp B/P (MAP) Pulse Ox O2 Delivery O2 Flow Rate FiO2 01/20/19 05:00 82 20 121/93 (102) 97 Mechanical Ventilator 55.00 01/20/19 04:00 97.6 01/20/19 04:00 92 Mechanical Ventilator 40 01/20/19 04:00 87 20 91/74 (80) 91 Mechanical Ventilator 55.00 01/20/19 03:15 Mechanical Ventilator 40.00 01/20/19 03:09 89 20 96 60 01/20/19 03:00 89 20 110/75 (87) 96 Mechanical Ventilator 60.00 01/20/19 02:00 90 19 103/72 (82) 96 Mechanical Ventilator 60.00 01/20/19 01:00 89 01/20/19 01:00 90 20 105/74 (84) 96 Mechanical Ventilator 60.00 01/20/19 00:00 98 Mechanical Ventilator 60 01/20/19 00:00 97.2 01/20/19 00:00 90 20 102/75 (84) 96 Mechanical Ventilator 60.00 01/19/19 23:07 Mechanical Ventilator 60.00 01/19/19 23:03 89 20 98 70 01/19/19 23:00 89 20 102/76 (85) 97 Mechanical Ventilator 70.00 01/19/19 22:39 102/75 01/19/19 22:00 90 19 100/75 (83) 98 Mechanical Ventilator 70.00 01/19/19 21:00 89 20 100/76 (84) 98 Mechanical Ventilator 70.00 01/19/19 20:00 98 Mechanical Ventilator 70 01/19/19 20:00 91 20 103/74 (84) 97 Mechanical Ventilator 70.00 01/19/19 19:50 97.9 01/19/19 19:00 91 01/19/19 19:00 91 20 101/73 (82) 96 Mechanical Ventilator 70.00 01/19/19 19:00 Mechanical Ventilator 70.00 01/19/19 18:50 90 20 98 80 01/19/19 18:00 88 20 116/87 (97) 96 Mechanical Ventilator 80.00 01/19/19 17:56 Mechanical Ventilator 80.00 01/19/19 17:00 88 20 120/88 (99) 96 Mechanical Ventilator 90.00 01/19/19 16:28 Mechanical Ventilator 90.00 01/19/19 16:00 88 20 127/90 (102) 96 Mechanical Ventilator 100.00 01/19/19 16:00 98 Mechanical Ventilator 90 01/19/19 15:55 90 20 96 90 01/19/19 15:30 98.0 01/19/19 15:06 125/91 01/19/19 15:00 92 17 78/52 (61) 100 Mechanical Ventilator 100.00 01/19/19 14:15 92 14 95 100 01/19/19 14:00 78 31 72/40 (51) 93 Room Air 01/19/19 13:02 87 01/19/19 13:00 87 23 86/62 (70) 100 Room Air 01/19/19 12:00 103 137/113 (121) Room Air 01/19/19 12:00 94 Room Air 01/19/19 11:30 97.5 01/19/19 11:00 103 29 96 Room Air 01/19/19 10:00 105 22 Room Air 01/19/19 09:00 105 27 132/88 (103) Room Air 01/19/19 08:00 109 23 Room Air 01/19/19 08:00 94 Room Air 01/19/19 07:00 112 19 104/73 (83) 97 Room Air 01/19/19 07:00 115 01/19/19 06:08 105 10 98 Room Air 01/19/19 05:45 112 127/99 (108) Room Air I & O 01/20/19 07:00 Intake Total 6615.2 ml Output Total 3950 ml Balance 2665.2 ml Height & Weight Height: 5'5.00" Weight: 224lbs. 4.0oz. 101.381004xx; 36.9 BMI Method:Stated General Appearance: WD/WN, Anxious, Chronically ill, Moderate Distress HEENT: PERRL/EOMI, Normal ENT Inspection, Pharynx Normal, Moist Mucous Membranes Neck: Full Range of Motion, Normal Inspection, Non Tender Respiratory: Chest Non Tender, Lungs Clear, Normal Breath Sounds, No Accessory Muscle Use, No Respiratory Distress Cardiovascular: Regular Rate, Rhythm, No Edema, No Gallop, No JVD, No Murmur, Normal Peripheral Pulses Capillary Refill: Greater Than 3 Seconds Extremity: Normal Capillary Refill, Normal Inspection, Normal Range of Motion, Non Tender, No Calf Tenderness, No Pedal Edema Neurologic/Psychiatric: Alert, Oriented x3, No Motor/Sensory Deficits, Normal Mood/Affect, machine hoop maker II-XII Norm as Tested Skin: Normal Color, Warm/Dry Lymphatic: No Adenopathy Results Lab Laboratory Tests 01/18/19 10:53 01/18/19 11:25 01/18/19 11:42 01/18/19 20:45 01/19/19 01:00 01/19/19 03:30 01/19/19 09:10 01/19/19 14:50 01/19/19 16:07 01/19/19 18:47 01/19/19 20:22 01/20/19 00:04 01/20/19 02:40 Assessment/Plan Assessment/Plan Acute respiratory failure secondary to alcohol withdrawal -Pt was intubated yesterday for airway protection Acute Large PE s/p TPA -Echo today - 50-55% - monitor H&H Q 6 -Currently on hep gtt however if repeat h&h is lower will need to stop and ask rafaela to place IVC filter. RLE DVT -IF we have to stop heparin gtt will ask Dr. Everett for IVC filter. Hemoptysis -resolved GIB- Occult -Hb monitor Q 6 -Protonix gtt/Octreotide gtt -Continue Hep for now Hypotensive -Give liter bolus of LR Seizure disorder -PRN Ativan Alcohol withdrawals -LUCINA protocol -Monitor NSTEMI - secondary to PE -Monitor Hypophos, hypokalemia -Replace KAYDEN PHILIPPE DO Jan 20, 2019 05:24
[2019-01-20] MEDS ORDERED: LACTATED RINGERS 1,000 ML IV SCH (05:30)
[2019-01-20] MEDS ORDERED: POTASSIUM PHOSPHATE INJ 30 MM in NS (IVPB) 250 ML IV ONE (05:30)
--- NOTE | 2019-01-20 05:46 | NUR ---
hold heparin drip per dr holloway.
--- NOTE | 2019-01-20 05:48 | NUR ---
Increase Precedex drip to 1.5 mcg/kg/hr per dr holloway
[2019-01-20] MEDS: PROPOFOL DRIP (ICU) 100 ML IV SCH ×3 (05:51→18:23)
[2019-01-20 05:57] LABS: HEMOGLOBIN 9.7 G/DL (13.3-17.7)
[2019-01-20] MEDS: D5 1/2 NS W/KCL 20 MEQ/L 1,000 ML IV SCH ×3 (06:14→19:55)
[2019-01-20] MEDS: NICOTINE PATCH REMOVAL TP SCH ×2 (08:18→08:19)
[2019-01-20] MEDS: LEVETIRACETAM INJECTION 500 MG in NS (IVPB) 100 ML IV SCH ×2 (08:18→20:19)
[2019-01-20] MEDS: THIAMINE INJECTION 100 MG, FOLIC ACID INJECTION 1 MG, MAGNESIUM SULFATE 2 GM, VITAMIN M... IV SCH ×5 (08:18)
[2019-01-20] MEDS: NICOTINE 21 MG (NICODERM) PATCH TD SCH (08:19)
[2019-01-20] MEDS ORDERED: SUCCINYLCHOLINE INJ 100 MG/5 ML SYR INJ ONE (08:29)
[2019-01-20] MEDS ORDERED: ROCURONIUM 10 MG/ML 5 ML SYRINGE IV ONE (08:29)
[2019-01-20] MEDS ORDERED: MIDAZOLAM 5 MG/5 ML (VERSED) VIAL IJ ONE (08:29)
--- NOTE | 2019-01-20 09:51 | Diagnostic Imaging Report ---
EXAM: Portable erect AP chest at 3:50 a.m. INDICATION: Dyspnea FINDINGS: As noted on the prior exam of 01/19/2019, there is shallow inspiration. Allowing for this technical factor, the heart is stable. The alveolar/interstitial infiltrates involving both lungs seen on the prior study are again evident and not significantly changed. The mediastinum is not widened. The osseous structures are intact. The supportive tubes and lines seen previously remain in good position. IMPRESSION: Stable chest. There has been no significant change since the prior exam. Dictated by: Dictated on workstation # [id number]
[2019-01-20] MEDS: DEXMEDETOMIDINE INJECTION 1,000 MCG in NS (IVPB) 250 ML IV SCH ×3 (09:53→23:32)
--- NOTE | 2019-01-20 11:25 | Progress Note - Cardiology ---
Cardiology SOAP Progress Note Subjective: Intubated and on mech vent, unresponsive Objective: I&O/Vital Signs 01/20/19 01/20/19 01/20/19 01/20/19 00:00 00:00 00:00 01:00 Temp 97.2 Pulse 90 90 Resp 20 20 B/P (MAP) 102/75 (84) 105/74 (84) Pulse Ox 96 98 96 O2 Delivery Mechanical Ventilator Mechanical Ventilator Mechanical Ventilator O2 Flow Rate 60.00 60.00 FiO2 60 01/20/19 01/20/19 01/20/19 01/20/19 01:00 02:00 03:00 03:09 Pulse 89 90 89 89 Resp 19 20 20 B/P (MAP) 103/72 (82) 110/75 (87) Pulse Ox 96 96 96 O2 Delivery Mechanical Ventilator Mechanical Ventilator O2 Flow Rate 60.00 60.00 FiO2 60 01/20/19 01/20/19 01/20/19 01/20/19 03:15 04:00 04:00 04:00 Temp 97.6 Pulse 87 Resp 20 B/P (MAP) 91/74 (80) Pulse Ox 91 92 O2 Delivery Mechanical Ventilator Mechanical Ventilator Mechanical Ventilator O2 Flow Rate 40.00 55.00 FiO2 40 01/20/19 01/20/19 01/20/19 01/20/19 05:00 05:51 06:00 06:45 Pulse 82 73 80 Resp 20 19 20 B/P (MAP) 121/93 (102) 140/104 144/108 (120) Pulse Ox 97 97 98 O2 Delivery Mechanical Ventilator Mechanical Ventilator O2 Flow Rate 55.00 55.00 FiO2 40 01/20/19 01/20/19 01/20/19 01/20/19 07:00 07:00 07:50 08:00 Pulse 81 81 79 80 Resp 20 20 19 B/P (MAP) 121/92 (102) 103/76 (85) Pulse Ox 96 96 93 O2 Delivery Mechanical Ventilator Mechanical Ventilator O2 Flow Rate 40.00 40.00 FiO2 30 01/20/19 01/20/19 01/20/19 01/20/19 08:00 09:00 10:00 10:57 Pulse 80 80 80 Resp 20 20 20 B/P (MAP) 103/75 (84) 104/73 (83) Pulse Ox 93 94 94 93 O2 Delivery Mechanical Ventilator Mechanical Ventilator Mechanical Ventilator O2 Flow Rate 40.00 40.00 FiO2 55 30 01/20/19 11:00 Pulse 81 Resp 20 B/P (MAP) 94/68 (77) Pulse Ox 93 O2 Delivery Mechanical Ventilator O2 Flow Rate 40.00 01/20/19 00:00 Intake Total 5805.2 ml Output Total 1600 ml Balance 4205.2 ml Weight (Pounds): 240 Weight (Ounces): 0.0 Weight (Calculated Kilograms): 108.738935 Constitutional: well-developed, well-nourished, other (on mec vent) Respiratory: No accessory muscle use; other (fair to good air entry) Cardiovascular: regular rate-rhythm, S1 and S2, systolic murmur (soft EMMANUELLE at card base) Gastrointestional: No tender; soft; No guarding, No rebound; audible bowel sounds Extremities: No clubbing, No cyanosis, No significant edema Neurologic/Psychiatric: oriented x 3, other (unresponsive, on mech vent) Skin: No rash on exposed areas, No ulcerations on exposed areas Results/Procedures: Labs Laboratory Tests 01/19/19 14:50: White Blood Count 12.3H, Red Blood Count 3.92L, Hemoglobin 12.2L, Hematocrit 36L , Mean Corpuscular Volume 91, Mean Corpuscular Hemoglobin 31, Mean Corpuscular Hemoglobin Concent 34, Red Cell Distribution Width 14.4, Platelet Count 152, Mean Platelet Volume 9.8, Neutrophils (%) (Auto) 65, Lymphocytes (%) (Auto) 27, Monocytes (%) (Auto) 6, Eosinophils (%) (Auto) 2, Basophils (%) (Auto) 0, Ne utrophils # (Auto) 8.0H, Lymphocytes # (Auto) 3.3, Monocytes # (Auto) 0.7, Eosinophils # (Auto) 0.3, Basophils # (Auto) 0.1, Blood Gas Puncture Site L ARTLINE, Blood Gas Patient Temperature 98.2, Arterial Blood pH 7.28*L, Arterial Blood Partial Pressure CO2 53H, Arterial Blood Partial Pressure O2 179H, Arterial Blood HCO3 25, Arterial Blood Total CO2 26.2, Arterial Blood Oxygen Saturation 99, Arterial Blood Base Excess -1.3, Joe Test ARTLINE, Blood Gas Ventilator Setting YES, Blood Gas Inspired Oxygen 100% 01/19/19 16:07: Hemoglobin 10.9L, Hematocrit 32L, Activated Partial Thromboplast Time 112H, Triglycerides Level 136 01/19/19 18:47: Hemoglobin 11.2L, Hematocrit 33L 01/19/19 20:22: White Blood Count 7.8, Red Blood Count 3.42L, Hemoglobin 10.8L, Hematocrit 31L, Mean Corpuscular Volume 91, Mean Corpuscular Hemoglobin 32, Mean Corpuscular Hemoglobin Concent 35, Red Cell Distribution Width 14.5, Platelet Count 149, Mean Platelet Volume 9.7, Neutrophils (%) (Auto) 60, Lymphocytes (%) (Auto) 31, Monocytes (%) (Auto) 5, Eosinophils (%) (Auto) 4, Basophils (%) (Auto) 0, Neutrophils # (Auto) 4.7, Lymphocytes # (Auto) 2.4, Monocytes # (Auto) 0.4, Eos inophils # (Auto) 0.3, Basophils # (Auto) 0.0, Activated Partial Thromboplast Time 126*H 01/20/19 00:04: Hemoglobin 10.4L, Hematocrit 30L 01/20/19 00:07: Glucometer 233H 01/20/19 02:40: Hemoglobin 8.9L, Hematocrit 27L, White Blood Count 5.7, Red Blood Count 2.88L, Mean Corpuscular Volume 92, Mean Corpuscular Hemoglobin 31, Mean Corpuscular Hemoglobin Concent 34, Red Cell Distribution Width 14.3, Platelet Count 120L, Mean Platelet Volume 9.5, Neutrophils (%) (Auto) 58, Lymphocytes (%) (Auto) 31, Monocytes (%) (Auto) 6, Eosinophils (%) (Auto) 4, Basophils (%) (Auto) 0, Neutrophils # (Auto) 3.3, Lymphocytes # (Auto) 1.8, Monocytes # (Auto) 0.3, Eosinophils # (Auto) 0.2, Basophils # (Auto) 0.0, Activated Partial Thromboplast Time 88H, Blood Gas Puncture Site L BRIGIDO, Blood Gas Patient Temperature 97.6, Arterial Blood pH 7.40, Arterial Blood Partial Pressure CO2 38, Arterial Blood Partial Pressure O2 110H, Arterial Blood HCO3 23, Arterial Blood Total CO2 24.0, Arterial Blood Oxygen Saturation 99, Arterial Blood Base Excess -1.5, Joe Test ART LINE, Blood Gas Ventilator Setting YES, Blood Gas Inspired Oxygen 60%FIO2, Sodium Level 141, Potassium Level 3.3L, Chloride Level 115#H, Carbon Dioxide Level 18L, Anion Gap 8, Blood Urea Nitrogen 13, Creatinine 0.74, Estimat Glomerular Filtration Rate > 60, BUN/Creatinine Ratio 18, Glucose Level 135H, Calcium Level 5.9#*L, Phosphorus Level 2.2L, Magnesium Level 1.8 01/20/19 05:43: Hemoglobin 9.7L, Hematocrit 29L, Lactic Acid Level 1.23 Microbiology 01/18/19 Blood Culture - Preliminary, Resulted No growth 01/19/19 Gram Stain - Final, Resulted 01/19/19 Sputum Culture, Resulted Pending Laboratory Tests 01/18/19 11:25 01/18/19 11:42 01/18/19 20:45 01/19/19 01:00 01/19/19 03:30 01/19/19 09:10 01/19/19 14:50 01/19/19 16:07 01/19/19 18:47 01/19/19 20:22 01/20/19 00:04 01/20/19 02:40 01/20/19 05:43 A/P: Assessment: Large PE on 01/18/19, hemodynamically significant (presented with hypotension) treated with thrombolytics and subsequent anticoagulation Ac resp failure on 01/19/19, related to alcohol withdrawal, necessitating intubation and mech vent Considerable hemoptysis post thrombolysis, now subsided H/o hypertension H/o heavy alcohol use Echo of 01/19/19: LVEF 50-55%, reduced RV systolic function, grade 1 randle dysfunction of LV, RVSP 28 mmHg Plan: * Replenish lytes * iv beta-sheron if bp tolerates * Monitor labs * Prognosis guarded NIKOLE MEZA MD [facility] Jan 20, 2019 11:25
--- NOTE | 2019-01-20 11:46 | Progress Note - Hospitalist ---
Subjective HPI/CC On Admission Date Seen by Provider: Jan 20, 2019 Time Seen by Provider: 10:30 Chief complaint: Syncope History of present illness: This is a 48-year-old white male clinic patient of [facility] with a history of alcoholism and illicit drug abuse who presents to the ER after paramedics were called due to syncopal episode. Upon evaluation in the ER he was found to have bilateral pulmonary emboli saddle type underwent TPA administration and required cardiology and pulmonology consultations. After I assessed him he was in florid alcohol withdrawal requiring intubation due to such [id number] behavior placing him at risk for harming himself. He denied any current pain when I was speaking to him and he has been following the protocol with heparin drip without any evidence of bleeding complications from TPA. Subjective/Events-last exam Patient maintain on the vent EGD tomorrow due to hematemesis in the gastric tube Heparin drip held due to the hematemesis Sister at the bedside who I know well Patient stable but critical Focused Exam Lactate Level 01/18/19 11:25: Lactic Acid Level 5.91*H 01/18/19 15:18: Lactic Acid Level 5.47*H 01/20/19 05:43: Lactic Acid Level 1.23 Objective Exam Vital Signs Vital Signs Date Time Temp Pulse Resp B/P (MAP) Pulse Ox O2 Delivery O2 Flow Rate FiO2 01/20/19 12:00 80 20 96/69 (78) 93 Mechanical Ventilator 40.00 01/20/19 10:57 30 01/20/19 04:00 97.6 Capillary Refill : Less Than 3 SecondsGreater Than 3 Seconds General Appearance: WD/WN, Chronically ill, Other (Intubated) Respiratory: Lungs Clear, Normal Breath Sounds, No Accessory Muscle Use, No Respiratory Distress Cardiovascular: Regular Rate, Rhythm, No Edema, No Gallop, No JVD, No Murmur, Normal Peripheral Pulses Gastrointestinal: Normal Bowel Sounds, No Organomegaly, No Pulsatile Mass Back: Normal Inspection Extremity: Normal Capillary Refill, Normal Inspection, Non Tender, No Calf Tenderness, No Pedal Edema Skin: Normal Color, Warm/Dry Lymphatic: No Adenopathy Results/Procedures Lab Laboratory Tests 01/19/19 14:50 01/19/19 16:07 01/19/19 18:47 01/19/19 20:22 01/20/19 00:04 01/20/19 02:40 01/20/19 05:43 01/20/19 12:00 Patient resulted labs reviewed. Assessment/Plan Assessment and Plan Assess & Plan/Chief Complaint Assessment: Syncope Bilateral saddle PE s/p TPA ETOH withdrawal severe VDRF Hematemesis in need of EGD tomorrow Plan: Vent management Appreciate Cardiology and Pulmonology Diagnosis/Problems Diagnosis/Problems (1) Saddle pulmonary embolus Status: Acute Qualifiers: Chronicity: acute Acute cor pulmonale presence: with acute cor pulmonale Qualified Codes: I26.02 - Saddle embolus of pulmonary artery with acute cor pulmonale (2) Received intravenous tissue plasminogen activator (tPA) in emergency department Status: Acute (3) Alcohol withdrawal Status: Acute Qualifiers: Complication of substance-induced condition: with delirium Qualified Codes: F10.231 - Alcohol dependence with withdrawal delirium Clinical Quality Measures DVT/VTE Risk/Contraindication: Risk Factor Score Per Nursin RFS Level Per Nursing on Admit: 4+=Very High ARMIDA DEL CASTILLO DO Jan 20, 2019 11:46
--- NOTE | 2019-01-20 11:47 | Conscious Sedation/ASA ---
Conscious Sedation Pre-Proced Time 11:45 ASA Score 3 For ASA 3 and 4: Consider anesthesia and medical clearance. Also, for patients with a history of failed moderate sedation consider anesthesia. Airway Lungs Heart ASA score ASA 1: a normal healthy patient ASA 2: a patient with a mild systemic disease (mid diabetes, controlled hypertension, obesity ASA 3: a patient with a severe systemic disease that limits activity (angina, COPD, prior Myocardial infarction) ASA 4: a patient with an incapacitating disease that is a constant threat to life (CHF, renal failure) ASA 5: a moribund patient not expected to survive 24 hrs. (ruptured aneurysm) ASA 6: a declared brain- patient whose organs are being harvested. For emergent operations, add the letter E after the classification Mallampati Classification Grade 2 Sedation Plan Analgesia, Amnesia, Plan communicated to team members, Discussed options with patient/fam, Discussed risks with patient/fam The patient is an appropriate candidate to undergo the planned procedure, sedation, and anesthesia. The patient immediately re-assessed prior to indication. LINDSAY PIÑA MD Jan 20, 2019 11:47
--- NOTE | 2019-01-20 11:48 | Progress Note-Pre Operative ---
Pre-Operative Progress Note H&P Reviewed The H&P was reviewed, patient examined and no changes noted. Date Seen by Provider: Jan 20, 2019 Time Seen by Provider: 11:45 Date H&P Reviewed: Jan 19, 2019 Time H&P Reviewed: 11:45 Pre-Operative Diagnosis: PE with UGI bleed LINDSAY PIÑA MD Jan 20, 2019 11:48
--- NOTE | 2019-01-20 11:59 | Physical Therapy Progress Note ---
Therapy Progress Note Orders received for therapy, patient on vent at present time. We will check patient status 01/21/19. ALLAN VICTOR PT Jan 20, 2019 11:59
[2019-01-20 12:18] LABS: HEMOGLOBIN 9.2 G/DL (13.3-17.7)
--- NOTE | 2019-01-20 12:35 | Occ Therapy Progress Note ---
Therapy Progress Note Pt continues on vent. Will follow and evaluate when he is able to participate. GEO ARROYO OT Jan 20, 2019 12:35
[2019-01-20 15:35] LABS: ABG BASE EXCESS -3.4 MMOL/L (-2.5-2.5); ABG OXYGEN SATURATION 94 % (94-100); ABG PCO2 41 MMHG (35-45); ABG PO2 75 MMHG (79-93); ABG TCO2 22.4 MMOL/L (21.0-31.0)
[2019-01-20 15:39] LABS: ABG PH 7.34 (7.37-7.43); ALLENS TEST YES; INSPIRED O2 100%; PATIENT TEMP 99.7; VENTILATOR YES
--- NOTE | 2019-01-20 16:03 | Diagnostic Imaging Report ---
EXAMINATION: Single frontal view of the chest. INDICATION: Intubated. Decreased oxygen saturation. COMPARISON: Multiple priors, most recent performed earlier today. FINDINGS: Distal tip of endotracheal tube is approximately 6.5 cm above the sarah. Left subclavian central venous catheter is unchanged in position, with distal tip overlying the SVC. Low lung volumes are demonstrated. There is improved aeration of the lungs compared to exam performed earlier today. There is mild right bibasilar atelectasis and elevation of the right hemidiaphragm. There is mild prominence of the central pulmonary vasculature, without overt edema. Cardiomediastinal silhouette is unchanged. No pneumothorax or large pleural effusion. No acute osseous abnormality is identified. IMPRESSION: Mild improvement in lung aeration. Mild right basilar atelectasis. Dictated by: Dictated on workstation # [id number]
[2019-01-20] MEDS: PANTOPRAZOLE INJECTION 200 MG in NS (IVPB) 100 ML IV SCH (16:18)
[2019-01-20 18:07] LABS: HEMOGLOBIN 9.4 G/DL (13.3-17.7)
[2019-01-20] MEDS: CYCLOBENZAPRINE 10 MG (FLEXERIL) TAB PO SCH (20:15)
[2019-01-21] VITALS (31 sets, daily range): BP systolic 95–147; BP diastolic 60–105
[2019-01-21] MEDS: PROPOFOL DRIP (ICU) 100 ML IV SCH ×4 (00:15→18:49)
[2019-01-21] MEDS: inSUlin ASPART (NovoLOG) 1 UNIT/0.01 ML (CHARGE PER UNIT) SC SCH ×4 (00:22→18:00)
[2019-01-21] MEDS: LORazepam INJ 2 MG/ML (ATIVAN) VIAL IV PRN ×4 (00:29→14:13)
[2019-01-21 00:34] LABS: HEMOGLOBIN 8.4 G/DL (13.3-17.7)
[2019-01-21] MEDS: NOREPINEPHRINE 4 MG in NS (IVPB) 250 ML IV SCH ×2 (01:22→13:25)
[2019-01-21] MEDS: D5 1/2 NS W/KCL 20 MEQ/L 1,000 ML IV SCH ×4 (02:26→22:13)
[2019-01-21 03:08] LABS: BASOPHILS % (AUTO) 0 % (0-10); EOSINOPHILS # (AUTO) 0.3 10^3/uL (0.0-0.3); EOSINOPHILS % (AUTO) 6 % (0-10); HEMATOCRIT 24 % (40-54); HEMOGLOBIN 8.3 G/DL (13.3-17.7); LYMPHOCYTES # (AUTO) 1.5 X 10^3 (1.0-4.0); LYMPHOCYTES % (AUTO) 29 % (12-44); MEAN CORPUSCULAR HEMOGLOBIN 32 PG (25-34); MEAN CORPUSCULAR HGB CONC 34 G/DL (32-36); MEAN CORPUSCULAR VOLUME 92 FL (80-99); MEAN PLATELET VOLUME 9.5 FL (7.4-10.4); MONOCYTES # (AUTO) 0.2 X 10^3 (0.0-1.0); MONOCYTES % (AUTO) 3 % (0-12); NEUTROPHILS # (AUTO) 3.1 X 10^3 (1.8-7.8); NEUTROPHILS % (AUTO) 62 % (42-75); PLATELET COUNT 106 10^3/uL (130-400); RED CELL DISTRIBUTION WIDTH 13.7 % (10.0-14.5)
[2019-01-21 03:09] LABS: ABG OXYGEN SATURATION 99 % (94-100); ABG PCO2 34 MMHG (35-45); ABG PH 7.39 (7.37-7.43); ABG PO2 105 MMHG (79-93); ABG TCO2 21.4 MMOL/L (21.0-31.0)
[2019-01-21 03:11] LABS: ALLENS TEST POSITIVE; INSPIRED O2 60% VENT; PATIENT TEMP 97.1; VENTILATOR YES
[2019-01-21 03:26] LABS: BUN/CREATININE RATIO 8; CALCIUM 6.4 MG/DL (8.5-10.1); CARBON DIOXIDE 18 MMOL/L (21-32); CHLORIDE 111 MMOL/L (98-107); CREATININE SERUM 0.73 MG/DL (0.60-1.30); GFR ESTIMATED > 60; GLUCOSE 168 MG/DL (70-105); MAGNESIUM 1.7 MG/DL (1.8-2.4); PHOSPHORUS 2.4 MG/DL (2.3-4.7); POTASSIUM 3.5 MMOL/L (3.6-5.0); SODIUM 135 MMOL/L (135-145)
[2019-01-21] MEDS ORDERED: POTASSIUM CL 10MEQ/50ML IVPB 100 ML IV ONE (03:55)
[2019-01-21] MEDS ORDERED: MAGNESIUM 1 GM/100 ML IVPB 200 ML IV ONE (03:55)
[2019-01-21] MEDS: meTOprolol 5 MG/5 ML (LOPRESSOR) VIAL IV SCH ×5 (04:05→20:09)
[2019-01-21] MEDS: OCTREOTIDE INJECTION 500 MCG in NS (IVPB) 99 ML IV SCH ×3 (04:06→22:37)
[2019-01-21] MEDS: POTASSIUM CL 10MEQ/50ML IVPB 50 ML IV SCH ×4 (04:06→06:58)
[2019-01-21] MEDS: MAGNESIUM 1 GM/100 ML IVPB 100 ML IV SCH ×2 (04:06→05:01)
[2019-01-21] MEDS: HEParin DRIP 25000 UNIT/500ML 500 ML IV SCH (05:06)
[2019-01-21 06:30] LABS: HEMOGLOBIN 8.5 G/DL (13.3-17.7)
[2019-01-21] MEDS: DEXMEDETOMIDINE INJECTION 1,000 MCG in NS (IVPB) 250 ML IV SCH ×3 (07:12→20:00)
--- NOTE | 2019-01-21 08:01 | Diagnostic Imaging Report ---
Indication: Shortness of breath. Comparison made with prior examination of 01/20/2019. Findings: There is cardiomegaly. Some right basilar atelectasis and/or pneumonitis. No pleural effusion or pneumothorax. The lines and tubes are in satisfactory position. Impression: There is cardiomegaly and some right basilar atelectasis and/or pneumonitis. Dictated by: Dictated on workstation # [id number]
--- NOTE | 2019-01-21 08:12 | Physical Therapy Progress Note ---
Therapy Progress Note Patient is currently sedated and on mechanical ventilator. PT to assess patient when medically stable and able to actively participate with therapy. EDWINA BARKER PT Jan 21, 2019 08:12
--- NOTE | 2019-01-21 08:34 | Occ Therapy Progress Note ---
Therapy Progress Note Pt currently intubated and sedated. Will continue to follow and initiate therapy evaluation when pt able to participate. ARACELI GARCIA OT Jan 21, 2019 08:34
[2019-01-21] MEDS: NICOTINE 21 MG (NICODERM) PATCH TD SCH (08:57)
[2019-01-21] MEDS: LEVETIRACETAM INJECTION 500 MG in NS (IVPB) 100 ML IV SCH ×2 (08:57→21:42)
[2019-01-21] MEDS: NICOTINE PATCH REMOVAL TP SCH (08:57)
--- NOTE | 2019-01-21 10:00 | NUR ---
CM/SS spoke with patient's (Lorelei) she was concerned of the bills that would be coming from hospital stay. Provided her with a financial assistance application and medicaid application. She felt the MIL had already began filling out the Fin. Assistance application. 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 She discussed that due to her ex- and his financial accounting manager that they are at risk of losing their home. They are working on procuring another house as a rent to own. Patient has family support. Will continue to follow.
[2019-01-21] MEDS ORDERED: fentaNYL INJECTION 100 MCG/2 ML AMP ONE (10:32)
[2019-01-21] MEDS ORDERED: MIDAZOLAM 2 MG/2 ML (VERSED) VIAL ONE ×4 (10:32→10:33)
[2019-01-21] MEDS ORDERED: LIDOCAINE JELLY 2% 6 ML SYRINGE ONE (10:32)
[2019-01-21] MEDS ORDERED: HURRICAINE EXT TUBE (BENZOCAINE) ONE (10:33)
--- NOTE | 2019-01-21 11:05 | NUR ---
Dr. Everett et 2 endo RNs at bedside. EGD performed. Dr. Everett also looked at Lt hand/arm where art line is placed per Dr. Watts's request et did not voice concern.
--- NOTE | 2019-01-21 11:10 | Progress Note-Post Operative ---
Post-Operative Progess Note Surgeon (s)/Sheet Metal Foreman (s) Surgeon LINDSAY PIÑA MD Sheet Metal Foreman: none Pre-Operative Diagnosis PE with UGI bleed Post-Operative Diagnosis grade 2 esophageal varices with previous bleed and overlying clot, mild gastritis. Procedure & Operative Findings Date of Procedure 01/21/19 Procedure Performed/Findings EGD with bx. Anesthesia Type cs Estimated Blood Loss Estimated blood loss (mL): minimal Specimens/Packing Specimens Removed antrum LINDSAY PIÑA MD Jan 21, 2019 11:10
--- NOTE | 2019-01-21 11:28 | Progress Note - Hospitalist ---
Subjective HPI/CC On Admission Date Seen by Provider: Jan 21, 2019 Time Seen by Provider: 10:30 Chief complaint: Syncope History of present illness: This is a 48-year-old white male clinic patient of [facility] with a history of alcoholism and illicit drug abuse who presents to the ER after paramedics were called due to syncopal episode. Upon evaluation in the ER he was found to have bilateral pulmonary emboli saddle type underwent TPA administration and required cardiology and pulmonology consultations. After I assessed him he was in florid alcohol withdrawal requiring intubation due to such [id number] behavior placing him at risk for harming himself. He denied any current pain when I was speaking to him and he has been following the protocol with heparin drip without any evidence of bleeding complications from TPA. Subjective/Events-last exam Patient remains intubated Heparin drip restarted Very dependent on Levophed Only on a small amount of propofol at 20 infusion rate EGD will be at [address] Everett Focused Exam Lactate Level 01/20/19 05:43: Lactic Acid Level 1.23 Objective Exam Vital Signs Vital Signs Date Time Temp Pulse Resp B/P (MAP) Pulse Ox O2 Delivery O2 Flow Rate FiO2 01/21/19 16:00 97 Mechanical Ventilator 50 01/21/19 16:00 73 20 128/88 (101) 50.00 01/21/19 12:00 98.5 Capillary Refill : Less Than 3 SecondsGreater Than 3 Seconds General Appearance: WD/WN, Chronically ill, Other (Intubated) Respiratory: Lungs Clear, Normal Breath Sounds, No Accessory Muscle Use, No Respiratory Distress Cardiovascular: Regular Rate, Rhythm, No Edema, No Gallop, No JVD, No Murmur, Normal Peripheral Pulses Gastrointestinal: Normal Bowel Sounds, No Organomegaly, No Pulsatile Mass Back: Normal Inspection Extremity: Normal Capillary Refill, Normal Inspection, Non Tender, No Calf Tenderness, No Pedal Edema Skin: Normal Color, Warm/Dry Lymphatic: No Adenopathy Results/Procedures Lab Laboratory Tests 01/20/19 17:57 01/21/19 00:23 01/21/19 03:02 01/21/19 06:17 Patient resulted labs reviewed. Assessment/Plan Assessment and Plan Assess & Plan/Chief Complaint Assessment: Syncope Bilateral saddle PE s/p TPA ETOH withdrawal severe VDRF Hematemesis in need of EGD today Hypotension requiring Levophed Plan: Vent management Appreciate Cardiology and Pulmonology Diagnosis/Problems Diagnosis/Problems (1) Saddle pulmonary embolus Status: Acute Qualifiers: Chronicity: acute Acute cor pulmonale presence: with acute cor pulmonale Qualified Codes: I26.02 - Saddle embolus of pulmonary artery with acute cor pulmonale (2) Received intravenous tissue plasminogen activator (tPA) in emergency department Status: Acute (3) Alcohol withdrawal Status: Acute Qualifiers: Complication of substance-induced condition: with delirium Qualified Codes: F10.231 - Alcohol dependence with withdrawal delirium Clinical Quality Measures DVT/VTE Risk/Contraindication: Risk Factor Score Per Nursin RFS Level Per Nursing on Admit: 4+=Very High ARMIDA DEL CASTILLO DO Jan 21, 2019 11:27
--- NOTE | 2019-01-21 12:53 | OPERATIVE REPORT ---
DATE OF SERVICE: 01/21/2019 ADMITTING PHYSICIAN: Dr. Henderson. ATTENDING BRICK OFF BEARER: [facility], [facility]. PREOPERATIVE DIAGNOSES: Extensive pulmonary embolism status post thrombolytic therapy, anticoagulation and upper gastrointestinal bleed. POSTOPERATIVE DIAGNOSES: Grade II esophageal varices with overlying clot and signs of previous bleed; however, no active bleed. Stomach and duodenum were normal. PROCEDURE: EGD with biopsy. SURGEON: Lindsay Piña MD ANESTHESIA: Conscious sedation. ESTIMATED BLOOD LOSS: Minimal. FINDINGS: Reflux grade II esophageal varices with signs of previous bleed with overlying fibrin clot and surrounding blood clot. The blood clot was also noted on the retroflex view. The remainder of the stomach appeared normal with no ulcerations of the stomach and only mild gastritis. The pylorus and duodenum appeared normal with no ulcerations or any bleeding sources. DISPOSITION: The patient tolerated the procedure well. INDICATIONS: The patient is a 48-year-old male who was brought in with acute onset of shortness of breath. A CT scan was performed, which did show significantly large saddle pulmonary embolus encompassing all 5 major branches of the pulmonary artery. He was intubated, sedated and also placed on fibrinolytic therapy as well as anticoagulation. He has had a nasogastric tube placed with previous red blood; however, this has changed to a dark blood. He also has a history of alcoholism. DESCRIPTION OF PROCEDURE: The patient remained in the ICU and intubated and sedated. The endoscope was placed in the mouth, visualizing the pharynx and hypopharyngeal region. Vocal cords, epiglottis and vallecula identified and appeared to be normal. The endoscope was gently intubated the esophageal opening and esophagus insufflated. The endoscope was then advanced to the first, second and third portion of the esophagus. At the level of the GE junction, grade II esophageal varices identified. There was an overlying fibrin clot identified with signs of previous bleed with clotted blood surrounding this region; however, no active bleeding. The endoscope was then slowly advanced in the stomach and endoscope retroflexed, visualizing again clotted blood around the gastroesophageal junction consistent with a previous bleed. The remainder of the stomach appeared normal. The body, fundus, antrum of the stomach appeared normal with mild gastritis. No formal ulcerations or any bleeding identified. A biopsy was taken of the antrum to rule out H. pylori using forceps and electrocautery with visualization of good hemostasis. The endoscope was then advanced to the pylorus and the first and second portion of the duodenum, which appeared normal with no ulcerations or any active bleeding. The endoscope was then slowly withdrawn while taking a second look and suctioning of residual air with no additional findings. The patient tolerated the procedure well. We will recommend on continued conservative therapy with octreotide drip, Protonix drip, permissive hypotension. If he does have a rebleed, he may need portal decompression and in this scenario, we would recommend transfer to a tertiary center. Job ID: [id number] DocumentID: [id number] Dictated Date: 01/21/2019 11:23:53 Street Engineer Date: 01/21/2019 12:52:52 Dictated By: LINDSAY PIÑA MD
[2019-01-21] MEDS: PANTOPRAZOLE INJECTION 200 MG in NS (IVPB) 100 ML IV SCH (13:25)
[2019-01-21] MEDS: HYDROCORTISONE 100 MG/2 ML (Solu-CORTEF) VIAL IV SCH ×2 (13:26→21:42)
--- NOTE | 2019-01-21 16:58 | Progress Note - Cardiology ---
Cardiology SOAP Progress Note Subjective: Intubated and on mech vent at time of my exam today at approx 9:15 am Objective: I&O/Vital Signs 01/21/19 01/21/19 01/21/19 01/21/19 05:00 06:00 06:53 07:00 Pulse 79 78 79 80 Resp 19 19 20 31 B/P (MAP) 101/69 (80) 103/70 (81) 95/64 (74) Pulse Ox 94 95 97 97 O2 Delivery Mechanical Ventilator Mechanical Ventilator Mechanical Ventilator O2 Flow Rate 60.00 60.00 60.00 FiO2 60 01/21/19 01/21/19 01/21/19 01/21/19 07:00 07:38 07:43 07:45 Temp 99.4 Pulse 80 B/P (MAP) 97/66 Pulse Ox 98 O2 Delivery Mechanical Ventilator FiO2 60 01/21/19 01/21/19 01/21/19 01/21/19 08:00 09:00 10:00 10:27 Pulse 80 80 80 81 Resp 19 16 20 21 B/P (MAP) 100/67 (78) 101/68 (79) 102/69 (80) Pulse Ox 97 97 98 95 O2 Delivery Mechanical Ventilator Mechanical Ventilator Mechanical Ventilator O2 Flow Rate 60.00 60.00 60.00 FiO2 60 01/21/19 01/21/19 01/21/19 01/21/19 11:00 12:00 12:00 12:00 Temp 98.5 Pulse 93 81 Resp 32 19 B/P (MAP) 147/98 (114) 110/77 (88) Pulse Ox 100 98 97 O2 Delivery Mechanical Ventilator Mechanical Ventilator Mechanical Ventilator O2 Flow Rate 60.00 60.00 FiO2 60 01/21/19 01/21/19 01/21/19 01/21/19 12:38 13:00 13:24 14:00 Pulse 80 85 78 Resp 27 20 B/P (MAP) 138/85 (102) 113/76 114/79 (91) Pulse Ox 97 97 O2 Delivery Mechanical Ventilator Mechanical Ventilator O2 Flow Rate 60.00 60.00 01/21/19 01/21/19 01/21/19 01/21/19 14:52 15:00 16:00 16:00 Pulse 76 76 73 Resp 20 19 20 B/P (MAP) 122/82 (95) 128/88 (101) Pulse Ox 99 98 97 97 O2 Delivery Mechanical Ventilator Mechanical Ventilator Mechanical Ventilator O2 Flow Rate 60.00 50.00 FiO2 60 50 01/21/19 00:00 Intake Total 2414.2 ml Output Total 1265 ml Balance 1149.2 ml Weight (Pounds): 246 Weight (Ounces): 0.0 Weight (Calculated Kilograms): 111.197283 Constitutional: well-developed, well-nourished, other (on mec vent) Respiratory: No accessory muscle use; other (fair to good air entry) Cardiovascular: regular rate-rhythm, S1 and S2, systolic murmur (soft EMMANUELLE at card base) Gastrointestional: No tender; soft; No guarding, No rebound; audible bowel sounds Extremities: No clubbing, No cyanosis, No significant edema Neurologic/Psychiatric: oriented x 3, other (unresponsive, on mech vent) Skin: No rash on exposed areas, No ulcerations on exposed areas Results/Procedures: Labs Laboratory Tests 01/20/19 17:57: Hemoglobin 9.4L, Hematocrit 28L, Activated Partial Thromboplast Time 47H 01/20/19 18:02: Glucometer 143H 01/21/19 00:22: Glucometer 161H 01/21/19 00:23: Hemoglobin 8.4L, Hematocrit 24L, Activated Partial Thromboplast Time 115*H 01/21/19 03:02: White Blood Count 5.0, Red Blood Count 2.63L, Hemoglobin 8.3L, Hematocrit 24L, Mean Corpuscular Volume 92, Mean Corpuscular Hemoglobin 32, Mean Corpuscular Hemoglobin Concent 34, Red Cell Distribution Width 13.7, Platelet Count 106L, Mean Platelet Volume 9.5, Neutrophils (%) (Auto) 62, Lymphocytes (%) (Auto) 29, Monocytes (%) (Auto) 3, Eosinophils (%) (Auto) 6, Basophils (%) (Auto) 0, Neutrophils # (Auto) 3.1, Lymphocytes # (Auto) 1.5, Monocytes # (Auto) 0.2, Eosinophils # (Auto) 0.3, Basophils # (Auto) 0.0, Blood Gas Puncture Site LEFT RADIAL ARTLINE, Blood Gas Patient Temperature 97.1, Arterial Blood pH 7.39, Arterial Blood Partial Pressure CO2 34L, Arterial Blood Partial Pressure O2 105H , Arterial Blood HCO3 20L, Arterial Blood Total CO2 21.4, Arterial Blood Oxygen Saturation 99, Arterial Blood Base Excess -4.0L, Joe Test POSITIVE, Blood Gas Ventilator Setting YES, Blood Gas Inspired Oxygen 60% VENT, Sodium Level 135, Potassium Level 3.5L, Chloride Level 111H, Carbon Dioxide Level 18L, Anion Gap 6, Blood Urea Nitrogen 6L, Creatinine 0.73, Estimat Glomerular Filtration Rate > 60, BUN/Creatinine Ratio 8, Glucose Level 168H, Calcium Level 6.4L, Phosphorus Level 2.4, Magnesium Level 1.7L 01/21/19 06:17: Hemoglobin 8.5L, Hematocrit 25L, Activated Partial Thromboplast Time 103H, Troponin I 0.037H 01/21/19 11:35: Activated Partial Thromboplast Time 71H 01/21/19 11:41: Glucometer 190H Microbiology 01/18/19 Blood Culture - Preliminary, Resulted Corynebacterium species 01/19/19 Gram Stain - Final, Resulted 01/19/19 Sputum Culture - Preliminary, Resulted Usual upper respiratory josselyn Laboratory Tests 01/19/19 18:47 01/19/19 20:22 01/20/19 00:04 01/20/19 02:40 01/20/19 05:43 01/20/19 12:00 01/20/19 17:57 01/21/19 00:23 01/21/19 03:02 01/21/19 06:17 A/P: Assessment: Large PE on 01/18/19, hemodynamically significant (presented with hypotension) treated with thrombolytics and subsequent anticoagulation Ac resp failure on 01/19/19, related to alcohol withdrawal, necessitating intubation and mech vent Considerable hemoptysis post thrombolysis, now subsided H/o hypertension H/o heavy alcohol use Echo of 01/19/19: LVEF 50-55%, reduced RV systolic function, grade 1 randle dysfunction of LV, RVSP 28 mmHg Plan: * Replenish lytes * iv beta-sheron if bp tolerates * Monitor labs * Prognosis guarded * I answered his 's CV-related questions in detail this morning NIKOLE MEZA MD [facility] CCDS Jan 21, 2019 16:57
[2019-01-21 17:58] LABS: HEMOGLOBIN 9.1 G/DL (13.3-17.7)
[2019-01-21] MEDS: CYCLOBENZAPRINE 10 MG (FLEXERIL) TAB PO SCH (21:42)
[2019-01-22] VITALS (31 sets, daily range): BP systolic 93–144; BP diastolic 49–105
[2019-01-22] MEDS: meTOprolol 5 MG/5 ML (LOPRESSOR) VIAL IV SCH ×6 (00:01→20:42)
[2019-01-22] MEDS: LORazepam INJ 2 MG/ML (ATIVAN) VIAL IV PRN ×3 (00:24→20:42)
[2019-01-22] MEDS: inSUlin ASPART (NovoLOG) 1 UNIT/0.01 ML (CHARGE PER UNIT) SC SCH ×4 (00:50→18:05)
[2019-01-22] MEDS: PROPOFOL DRIP (ICU) 100 ML IV SCH ×3 (02:07→18:05)
[2019-01-22] MEDS: HEParin DRIP 25000 UNIT/500ML 500 ML IV SCH ×2 (02:08→23:32)
[2019-01-22 03:38] LABS: ABG BASE EXCESS -4.8 MMOL/L (-2.5-2.5); ABG OXYGEN SATURATION 99 % (94-100); ABG PCO2 29 MMHG (35-45); ABG PH 7.42 (7.37-7.43); ABG PO2 114 MMHG (79-93); ABG TCO2 19.7 MMOL/L (21.0-31.0); BASOPHILS % (AUTO) 0 % (0-10); EOSINOPHILS # (AUTO) 0.1 10^3/uL (0.0-0.3); EOSINOPHILS % (AUTO) 2 % (0-10); HEMATOCRIT 26 % (40-54); HEMOGLOBIN 8.6 G/DL (13.3-17.7); LYMPHOCYTES # (AUTO) 0.4 X 10^3 (1.0-4.0); LYMPHOCYTES % (AUTO) 7 % (12-44); MEAN CORPUSCULAR HEMOGLOBIN 31 PG (25-34); MEAN CORPUSCULAR HGB CONC 34 G/DL (32-36); MEAN CORPUSCULAR VOLUME 92 FL (80-99); MEAN PLATELET VOLUME 9.9 FL (7.4-10.4); MONOCYTES # (AUTO) 0.2 X 10^3 (0.0-1.0); MONOCYTES % (AUTO) 4 % (0-12); NEUTROPHILS # (AUTO) 4.1 X 10^3 (1.8-7.8); NEUTROPHILS % (AUTO) 87 % (42-75); PLATELET COUNT 118 10^3/uL (130-400); RED CELL DISTRIBUTION WIDTH 13.9 % (10.0-14.5); WHITE BLOOD COUNT 4.7 10^3/uL (4.3-11.0)
[2019-01-22 03:39] LABS: ALLENS TEST POSITIVE; INSPIRED O2 35%; VENTILATOR YES
[2019-01-22 03:54] LABS: BUN/CREATININE RATIO 6; CALCIUM 7.6 MG/DL (8.5-10.1); CARBON DIOXIDE 17 MMOL/L (21-32); CHLORIDE 111 MMOL/L (98-107); GFR ESTIMATED > 60; GLUCOSE 185 MG/DL (70-105); MAGNESIUM 1.9 MG/DL (1.8-2.4); PHOSPHORUS 2.4 MG/DL (2.3-4.7); POTASSIUM 3.8 MMOL/L (3.6-5.0); SODIUM 136 MMOL/L (135-145)
[2019-01-22] MEDS: HYDROCORTISONE 100 MG/2 ML (Solu-CORTEF) VIAL IV SCH ×3 (06:00→22:23)
[2019-01-22] MEDS ORDERED: SODIUM BICARB 8.4% 50 MEQ/50 ML VIAL ONE (06:02)
--- NOTE | 2019-01-22 06:07 | Pulmonary Progress Note ---
Subjective Time Seen by a Provider: 06:10 Subjective/Events-last exam Sedated on vent Sepsis Event Evaluation Height, Weight, BMI Height: 5'5.00" Weight: 246lbs. 0.0oz. 111.253390gn; 36.9 BMI Method:Stated Focused Exam Lactate Level 01/20/19 05:43: Lactic Acid Level 1.23 Exam Exam Vital Signs Date Time Temp Pulse Resp B/P (MAP) Pulse Ox O2 Delivery O2 Flow Rate FiO2 01/22/19 05:00 65 20 112/67 (82) 97 Mechanical Ventilator 35.00 01/22/19 04:00 97 Mechanical Ventilator 35 01/22/19 04:00 62 20 124/75 (91) 97 Mechanical Ventilator 35.00 01/22/19 03:00 67 20 109/67 (81) 96 Mechanical Ventilator 35.00 01/22/19 02:07 71 01/22/19 02:00 70 20 102/63 (76) 97 Mechanical Ventilator 35.00 01/22/19 01:00 71 01/22/19 01:00 69 19 109/68 (82) 97 Mechanical Ventilator 40.00 01/22/19 01:00 71 20 97 40 01/22/19 00:00 69 20 108/68 (81) 97 Mechanical Ventilator 40.00 01/22/19 00:00 97 Mechanical Ventilator 50 01/21/19 23:00 75 20 97/60 (72) 97 Mechanical Ventilator 40.00 01/21/19 22:00 77 20 98/60 (73) 97 Mechanical Ventilator 40.00 01/21/19 21:47 75 20 95 40 01/21/19 21:00 73 20 97/65 (76) 95 Mechanical Ventilator 40.00 01/21/19 20:00 97 Mechanical Ventilator 50 01/21/19 20:00 75 20 99/67 (78) 95 Mechanical Ventilator 40.00 01/21/19 20:00 99.4 01/21/19 19:00 80 01/21/19 19:00 80 19 100/81 (87) 99 Mechanical Ventilator 40.00 01/21/19 18:52 74 20 97 50 01/21/19 18:49 100/74 01/21/19 18:00 73 19 117/86 (96) 97 Mechanical Ventilator 50.00 01/21/19 17:00 70 20 140/86 (104) 98 Mechanical Ventilator 50.00 01/21/19 16:00 97 Mechanical Ventilator 50 01/21/19 16:00 73 20 128/88 (101) 97 Mechanical Ventilator 50.00 01/21/19 15:00 76 19 122/82 (95) 98 Mechanical Ventilator 60.00 01/21/19 14:52 76 20 99 60 01/21/19 14:00 78 20 114/79 (91) 97 Mechanical Ventilator 60.00 01/21/19 13:24 113/76 01/21/19 13:00 85 27 138/85 (102) 97 Mechanical Ventilator 60.00 01/21/19 12:38 80 01/21/19 12:00 98.5 01/21/19 12:00 81 19 110/77 (88) 97 Mechanical Ventilator 60.00 01/21/19 12:00 98 Mechanical Ventilator 60 01/21/19 11:00 93 32 147/98 (114) 100 Mechanical Ventilator 60.00 01/21/19 10:27 81 21 95 60 01/21/19 10:00 80 20 102/69 (80) 98 Mechanical Ventilator 60.00 01/21/19 09:00 80 16 101/68 (79) 97 Mechanical Ventilator 60.00 01/21/19 08:00 80 19 100/67 (78) 97 Mechanical Ventilator 60.00 01/21/19 07:45 98 Mechanical Ventilator 60 01/21/19 07:43 99.4 01/21/19 07:38 97/66 01/21/19 07:00 80 01/21/19 07:00 80 31 95/64 (74) 97 Mechanical Ventilator 60.00 01/21/19 06:53 79 20 97 60 I & O 01/22/19 07:00 Intake Total 3679 ml Output Total 3775 ml Balance -96 ml Height & Weight Height: 5'5.00" Weight: 246lbs. 0.0oz. 111.731148fp; 36.9 BMI Method:Stated General Appearance: WD/WN, Chronically ill, Other (Intubated) Respiratory: Lungs Clear, Normal Breath Sounds, No Accessory Muscle Use, No Respiratory Distress Cardiovascular: Regular Rate, Rhythm, No Edema, No Gallop, No JVD, No Murmur, Normal Peripheral Pulses Capillary Refill: Greater Than 3 Seconds Extremity: Normal Capillary Refill, Normal Inspection, Non Tender, No Calf Tenderness, No Pedal Edema Skin: Normal Color, Warm/Dry Lymphatic: No Adenopathy Results Lab Laboratory Tests 01/20/19 12:00 01/20/19 17:57 01/21/19 00:23 01/21/19 03:02 01/21/19 06:17 01/21/19 17:31 01/22/19 03:30 Assessment/Plan Assessment/Plan Acute respiratory failure secondary to alcohol withdrawal -Pt was intubated yesterday for airway protection -LUCINA protocol -Pt appears to be doing better. Acute Large PE s/p TPA -Echo today - 50-55% RLE DVT -IF we have to stop heparin gtt will ask Dr. Everett for IVC filter. Hemoptysis -resolved Grade II esophageal varices s/p EGD -Continue Hep and Octreotide gtts. -Hb is currently stable GIB- Occult -Hb monitor Q 6 -Protonix gtt/Octreotide gtt -Continue Hep for now Hypotensive -Give liter bolus of LR Seizure disorder -PRN Ativan -Keppra Alcohol withdrawals -LUCINA protocol -Monitor NSTEMI - secondary to PE -Monitor KAYDEN PHILIPPE DO Jan 22, 2019 06:07
[2019-01-22] MEDS ORDERED: LACTATED RINGERS 1,000 ML IV SCH (06:15)
[2019-01-22] MEDS: LACTATED RINGERS 1,000 ML IV SCH ×3 (06:15→18:04)
[2019-01-22] MEDS ORDERED: SODIUM BICARB 8.4% 50 MEQ/50 ML VIAL IV ONE (06:15)
--- NOTE | 2019-01-22 07:36 | Diagnostic Imaging Report ---
Indication: Dyspnea, followup intubation. Comparison: Earlier same date. Discussion: Single portable upright view of the chest was obtained. Endotracheal tube is in good position within the midtrachea. Left-sided central venous catheter with tip in the distal SVC, stable. No pneumothorax. Low lung volumes. Normal heart size. No osseous abnormality. Impression: 1. Endotracheal tube in good position with tip in the mid trachea. Dictated by: Dictated on workstation # [id number]
[2019-01-22] MEDS: DEXMEDETOMIDINE INJECTION 1,000 MCG in NS (IVPB) 250 ML IV SCH ×2 (07:43→18:04)
[2019-01-22] MEDS: OCTREOTIDE INJECTION 500 MCG in NS (IVPB) 99 ML IV SCH ×3 (07:43→23:31)
[2019-01-22] MEDS: LEVETIRACETAM INJECTION 500 MG in NS (IVPB) 100 ML IV SCH ×2 (07:44→20:42)
[2019-01-22] MEDS: NICOTINE 21 MG (NICODERM) PATCH TD SCH (07:45)
[2019-01-22] MEDS: NOREPINEPHRINE 4 MG in NS (IVPB) 250 ML IV SCH (07:45)
[2019-01-22] MEDS: NICOTINE PATCH REMOVAL TP SCH (07:45)
--- NOTE | 2019-01-22 07:55 | Diagnostic Imaging Report ---
INDICATION: Dyspnea. COMPARISON: 01/21/2019. DISCUSSION: Single portable upright view of the chest was obtained. Persistent low lung volumes. Stable endotracheal tube, enteric tube, and left-sided central venous catheter. No pleural fluid or pneumothorax. No consolidation. No osseous abnormality. IMPRESSION: 1. Stable chest. Dictated by: Dictated on workstation # [id number]
--- NOTE | 2019-01-22 10:41 | Occ Therapy Progress Note ---
Therapy Progress Note Pt continue on vent. Will follow. GEO ARROYO OT Jan 22, 2019 10:40
--- NOTE | 2019-01-22 12:41 | Physical Therapy Progress Note ---
Therapy Progress Note Pt remains on the ventilator. Will check pt on Thursday. ELHAM LOFTON PT Jan 22, 2019 12:41
--- NOTE | 2019-01-22 12:48 | Progress Note - Hospitalist ---
Subjective HPI/CC On Admission Date Seen by Provider: Jan 22, 2019 Time Seen by Provider: 11:00 Chief complaint: Syncope History of present illness: This is a 48-year-old white male clinic patient of [facility] with a history of alcoholism and illicit drug abuse who presents to the ER after paramedics were called due to syncopal episode. Upon evaluation in the ER he was found to have bilateral pulmonary emboli saddle type underwent TPA administration and required cardiology and pulmonology consultations. After I assessed him he was in florid alcohol withdrawal requiring intubation due to such [id number] behavior placing him at risk for harming himself. He denied any current pain when I was speaking to him and he has been following the protocol with heparin drip without any evidence of bleeding complications from TPA. Subjective/Events-last exam Remains intubated Off pressor therapy at least so that is improved EGD only showed esophageal varices no intervention required Tube feedings have been started Overall prognosis still guarded Focused Exam Lactate Level 01/20/19 05:43: Lactic Acid Level 1.23 Objective Exam Vital Signs Vital Signs Date Time Temp Pulse Resp B/P (MAP) Pulse Ox O2 Delivery O2 Flow Rate FiO2 01/22/19 16:00 92 Mechanical Ventilator 100 01/22/19 15:30 96.6 01/22/19 15:00 70 22 127/76 (93) 100.00 Capillary Refill : Less Than 3 SecondsGreater Than 3 Seconds General Appearance: WD/WN, Chronically ill, Other (Intubated) Respiratory: Lungs Clear, Normal Breath Sounds, No Accessory Muscle Use, No Re spiratory Distress Cardiovascular: Regular Rate, Rhythm, No Edema, No Gallop, No JVD, No Murmur, Normal Peripheral Pulses Gastrointestinal: Normal Bowel Sounds, No Organomegaly, No Pulsatile Mass Back: Normal Inspection Extremity: Normal Capillary Refill, Normal Inspection, Non Tender, No Calf Tenderness, No Pedal Edema Skin: Normal Color, Warm/Dry Lymphatic: No Adenopathy Results/Procedures Lab Laboratory Tests 01/22/19 03:30 01/22/19 15:06 Patient resulted labs reviewed. Assessment/Plan Assessment and Plan Assess & Plan/Chief Complaint Assessment: Syncope Bilateral saddle PE s/p TPA ETOH withdrawal severe VDRF Hematemesis in need of EGD today Hypotension requiring Levophed now resolved Plan: Vent management Appreciate Cardiology and Pulmonology Critical status Diagnosis/Problems Diagnosis/Problems (1) Saddle pulmonary embolus Status: Acute Qualifiers: Chronicity: acute Acute cor pulmonale presence: with acute cor pulmonale Qualified Codes: I26.02 - Saddle embolus of pulmonary artery with acute cor pulmonale (2) Received intravenous tissue plasminogen activator (tPA) in emergency department Status: Acute (3) Alcohol withdrawal Status: Acute Qualifiers: Complication of substance-induced condition: with delirium Qualified Codes: F10.231 - Alcohol dependence with withdrawal delirium Clinical Quality Measures DVT/VTE Risk/Contraindication: Risk Factor Score Per Nursin RFS Level Per Nursing on Admit: 4+=Very High ARMIDA DEL CASTILLO DO Jan 22, 2019 12:47
--- NOTE | 2019-01-22 13:17 | Progress Note - Cardiology ---
Cardiology SOAP Progress Note Subjective: Intubated, on mech vent, unresponsive Objective: I&O/Vital Signs 01/22/19 01/22/19 01/22/19 01/22/19 02:00 02:07 03:00 04:00 Pulse 70 71 67 62 Resp 20 20 20 B/P (MAP) 102/63 (76) 109/67 (81) 124/75 (91) Pulse Ox 97 96 97 O2 Delivery Mechanical Ventilator Mechanical Ventilator Mechanical Ventilator O2 Flow Rate 35.00 35.00 35.00 01/22/19 01/22/19 01/22/19 01/22/19 04:00 05:00 06:00 06:29 Pulse 65 79 77 Resp 20 20 20 B/P (MAP) 112/67 (82) 125/76 (92) Pulse Ox 97 97 100 90 O2 Delivery Mechanical Ventilator Mechanical Ventilator Mechanical Ventilator O2 Flow Rate 35.00 35.00 FiO2 35 35 01/22/19 01/22/19 01/22/19 01/22/19 07:00 07:00 08:00 08:00 Temp 96.1 Pulse 58 58 Resp 19 B/P (MAP) 137/81 (99) Pulse Ox 96 92 O2 Delivery Mechanical Ventilator Mechanical Ventilator O2 Flow Rate 35.00 FiO2 50 01/22/19 01/22/19 01/22/19 01/22/19 08:00 08:43 09:00 10:00 Pulse 75 68 68 67 Resp 21 22 20 20 B/P (MAP) 94/56 (69) 104/63 (77) 114/70 (85) Pulse Ox 88 91 89 94 O2 Delivery Mechanical Ventilator Mechanical Ventilator Mechanical Ventilator O2 Flow Rate 35.00 35.00 50.00 FiO2 100 01/22/19 01/22/19 01/22/19 01/22/19 10:29 11:00 11:08 11:30 Temp 97.6 Pulse 64 60 60 Resp 20 20 B/P (MAP) 116/70 (85) Pulse Ox 94 93 O2 Delivery Mechanical Ventilator O2 Flow Rate 50.00 FiO2 50 01/22/19 12:00 Pulse 57 Resp 20 B/P (MAP) 111/67 (82) Pulse Ox 94 O2 Delivery Mechanical Ventilator O2 Flow Rate 50.00 01/22/19 00:00 Intake Total 1914 ml Output Total 2825 ml Balance -911 ml Weight (Pounds): 248 Weight (Ounces): 0.0 Weight (Calculated Kilograms): 112.358437 Constitutional: well-developed, well-nourished, other (on mec vent) Respiratory: No accessory muscle use; other (fair to good air entry) Cardiovascular: regular rate-rhythm, S1 and S2, systolic murmur (soft EMMANUELLE at card base) Gastrointestional: No tender; soft; No guarding, No rebound; audible bowel sounds Extremities: No clubbing, No cyanosis, No significant edema Neurologic/Psychiatric: oriented x 3, other (unresponsive, on mech vent) Skin: No rash on exposed areas, No ulcerations on exposed areas Results/Procedures: Labs Laboratory Tests 01/21/19 17:31: Hemoglobin 9.1L, Hematocrit 26L, Troponin I 0.043H, Triglycerides Level 108 01/21/19 17:49: Glucometer 148H 01/22/19 00:07: Glucometer 149H 01/22/19 03:30: Hemoglobin 8.6L, Hematocrit 26L, Troponin I < 0.028, White Blood Count 4.7, Red Blood Count 2.77L, Mean Corpuscular Volume 92, Mean Corpuscular Hemoglobin 31, Mean Corpuscular Hemoglobin Concent 34, Red Cell Distribution Width 13.9, Platelet Count 118L, Mean Platelet Volume 9.9, Neutrophils (%) (Auto) 87H, Lymphocytes (%) (Auto) 7L, Monocytes (%) (Auto) 4, Eosinophils (%) (Auto) 2, Basophils (%) (Auto) 0, Neutrophils # (Auto) 4.1, Lymphocytes # (Auto) 0.4L, Monocytes # (Auto) 0.2, Eosinophils # (Auto) 0.1, Basophils # (Auto) 0.0, Blood Gas Puncture Site ARTLINE, Blood Gas Patient Temperature 99.0, Arterial Blood pH 7.42, Arterial Blood Partial Pressure CO2 29L, Arterial Blood Partial Pressure O2 114H, Arterial Blood HCO3 19L, Arterial Blood Total CO2 19.7L, Arterial Blood Oxygen Saturation 99, Arterial Blood Base Excess -4.8L, Joe Test POSITIVE, Blood Gas Ventilator Setting YES, Blood Gas Inspired Oxygen 35%, Sodium Level 136, Potassium Level 3.8, Chloride Level 111H, Carbon Dioxide Level 17L, Anion Gap 8, Blood Urea Nitrogen 5L, Creatinine 0.80, Estimat Glomerular Filtration Rate > 60, BUN/Creatinine Ratio 6, Glucose Level 185H, Calcium Level 7.6L, Phosphorus Level 2.4, Magnesium Level 1.9 01/22/19 11:30: Activated Partial Thromboplast Time 83H 01/22/19 11:38: Glucometer 141H Microbiology 01/18/19 Blood Culture - Preliminary, Resulted Corynebacterium species 01/19/19 Gram Stain - Final, Resulted 01/19/19 Sputum Culture - Preliminary, Resulted Usual upper respiratory josselyn Laboratory Tests 01/20/19 17:57 01/21/19 00:23 01/21/19 03:02 01/21/19 06:17 01/21/19 17:31 01/22/19 03:30 A/P: Assessment: Large PE on 01/18/19, hemodynamically significant (presented with hypotension) treated with thrombolytics and subsequent anticoagulation Ac resp failure on 01/19/19, related to alcohol withdrawal, necessitating intubation and mech vent, managed by Dr Watts and Dr Henderson H/o hypertension H/o heavy alcohol use Echo of 01/19/19: LVEF 50-55%, reduced RV systolic function, grade 1 randle dysfunction of LV, RVSP 28 mmHg Plan: * iv beta-sheron if bp tolerates * Monitor labs * Prognosis guarded NIKOLE MEZA MD [facility] Jan 22, 2019 13:17
--- NOTE | 2019-01-22 13:42 | Progress Note - Surgery ---
Subjective Time Seen by a Provider: 12:30 Subjective/Events-last exam Pt seen and examined, sedated on vent. Nurse states he has not had any further bleeding and they started TF. Review of Systems Unable to assess, pt sedated on vent. Focused Exam Lactate Level 01/20/19 05:43: Lactic Acid Level 1.23 Objective Exam Vital Signs Date Time Temp Pulse Resp B/P (MAP) Pulse Ox O2 Delivery O2 Flow Rate FiO2 01/22/19 13:00 69 01/22/19 12:00 57 20 111/67 (82) 94 Mechanical Ventilator 50.00 01/22/19 11:30 97.6 01/22/19 11:08 60 01/22/19 11:00 60 20 116/70 (85) 93 Mechanical Ventilator 50.00 01/22/19 10:29 64 20 94 50 01/22/19 10:00 67 20 114/70 (85) 94 Mechanical Ventilator 50.00 01/22/19 09:00 68 20 104/63 (77) 89 Mechanical Ventilator 35.00 01/22/19 08:43 68 22 91 100 01/22/19 08:00 75 21 94/56 (69) 88 Mechanical Ventilator 35.00 01/22/19 08:00 92 Mechanical Ventilator 50 01/22/19 08:00 96.1 01/22/19 07:00 58 01/22/19 07:00 58 19 137/81 (99) 96 Mechanical Ventilator 35.00 01/22/19 06:29 77 20 90 35 01/22/19 06:00 79 20 125/76 (92) 100 Mechanical Ventilator 35.00 01/22/19 05:00 65 20 112/67 (82) 97 Mechanical Ventilator 35.00 01/22/19 04:00 97 Mechanical Ventilator 35 01/22/19 04:00 62 20 124/75 (91) 97 Mechanical Ventilator 35.00 01/22/19 03:00 67 20 109/67 (81) 96 Mechanical Ventilator 35.00 01/22/19 02:07 71 01/22/19 02:00 70 20 102/63 (76) 97 Mechanical Ventilator 35.00 01/22/19 01:00 71 01/22/19 01:00 69 19 109/68 (82) 97 Mechanical Ventilator 40.00 01/22/19 01:00 71 20 97 40 01/22/19 00:00 69 20 108/68 (81) 97 Mechanical Ventilator 40.00 01/22/19 00:00 97 Mechanical Ventilator 50 01/21/19 23:00 75 20 97/60 (72) 97 Mechanical Ventilator 40.00 01/21/19 22:00 77 20 98/60 (73) 97 Mechanical Ventilator 40.00 01/21/19 21:47 75 20 95 40 01/21/19 21:00 73 20 97/65 (76) 95 Mechanical Ventilator 40.00 01/21/19 20:00 97 Mechanical Ventilator 50 01/21/19 20:00 75 20 99/67 (78) 95 Mechanical Ventilator 40.00 01/21/19 20:00 99.4 01/21/19 19:00 80 01/21/19 19:00 80 19 100/81 (87) 99 Mechanical Ventilator 40.00 01/21/19 18:52 74 20 97 50 01/21/19 18:49 100/74 01/21/19 18:00 73 19 117/86 (96) 97 Mechanical Ventilator 50.00 01/21/19 17:00 70 20 140/86 (104) 98 Mechanical Ventilator 50.00 01/21/19 16:00 97 Mechanical Ventilator 50 01/21/19 16:00 73 20 128/88 (101) 97 Mechanical Ventilator 50.00 01/21/19 15:00 76 19 122/82 (95) 98 Mechanical Ventilator 60.00 01/21/19 14:52 76 20 99 60 01/21/19 14:00 78 20 114/79 (91) 97 Mechanical Ventilator 60.00 I & O 01/22/19 07:00 Intake Total 3679 ml Output Total 4825 ml Balance -1146 ml Capillary Refill : Less Than 3 SecondsGreater Than 3 Seconds General Appearance: WD/WN, Chronically ill, Other (Intubated) Respiratory: Lungs Clear, No Accessory Muscle Use, No Respiratory Distress, Decreased Breath Sounds (at bases) Cardiovascular: Regular Rate, Rhythm, No Murmur Gastrointestinal: soft, no organomegaly; No distended Extremity: Other (pt has swelling/edema in his arms and legs; +2) Skin: Normal Color, Warm/Dry Results Lab Laboratory Tests 01/21/19 17:31: Hemoglobin 9.1L, Hematocrit 26L, Troponin I 0.043H, Triglycerides Level 108 01/21/19 17:49: Glucometer 148H 01/22/19 00:07: Glucometer 149H 01/22/19 03:30: Hemoglobin 8.6L, Hematocrit 26L, Troponin I < 0.028, White Blood Count 4.7, Red Blood Count 2.77L, Mean Corpuscular Volume 92, Mean Corpuscular Hemoglobin 31, Mean Corpuscular Hemoglobin Concent 34, Red Cell Distribution Width 13.9, Platelet Count 118L, Mean Platelet Volume 9.9, Neutrophils (%) (Auto) 87H, Lymphocytes (%) (Auto) 7L, Monocytes (%) (Auto) 4, Eosinophils (%) (Auto) 2, Basophils (%) (Auto) 0, Neutrophils # (Auto) 4.1, Lymphocytes # (Auto) 0.4L, Monocytes # (Auto) 0.2, Eosinophils # (Auto) 0.1, Basophils # (Auto) 0.0, Blood Gas Puncture Site ARTLINE, Blood Gas Patient Temperature 99.0, Arterial Blood pH 7.42, Arterial Blood Partial Pressure CO2 29L, Arterial Blood Partial Pressure O2 114H, Arterial Blood HCO3 19L, Arterial Blood Total CO2 19.7L, Arterial Blood Oxygen Saturation 99, Arterial Blood Base Excess -4.8L, Joe Test POSITIVE, Blood Gas Ventilator Setting YES, Blood Gas Inspired Oxygen 35%, Sodium Level 136, Potassium Level 3.8, Chloride Level 111H, Carbon Dioxide Level 17L, Anion Gap 8, Blood Urea Nitrogen 5L, Creatinine 0.80, Estimat Glomerular Filtration Rate > 60, BUN/Creatinine Ratio 6, Glucose Level 185H, Calcium Level 7.6L, Phosphorus Level 2.4, Magnesium Level 1.9 01/22/19 11:30: Activated Partial Thromboplast Time 83H 01/22/19 11:38: Glucometer 141H Microbiology 01/18/19 Blood Culture - Preliminary, Resulted Corynebacterium species 01/19/19 Gram Stain - Final, Complete 01/19/19 Sputum Culture - Final, Complete Usual upper respiratory josselyn Assessment/Plan Assessment/Plan Assessment/Plan GI bleed ?? secondary to Esophageal Varice B/L PE Plan is to monitor pt; H/H and any NGT output for rebleed. Continue supportive care. Does not appear to need EGD at this time; will be available in case this changes. Clinical Quality Measures DVT/VTE Risk/Contraindication: Risk Factor Score Per Nursin RFS Level Per Nursing on Admit: 4+=Very High KAMILLA TEJEDA DO Jan 22, 2019 13:42
[2019-01-22 15:15] LABS: BASOPHILS % (AUTO) 0 % (0-10); EOSINOPHILS % (AUTO) 1 % (0-10); HEMATOCRIT 24 % (40-54); HEMOGLOBIN 8.3 G/DL (13.3-17.7); LYMPHOCYTES # (AUTO) 0.5 X 10^3 (1.0-4.0); LYMPHOCYTES % (AUTO) 11 % (12-44); MEAN CORPUSCULAR HEMOGLOBIN 31 PG (25-34); MEAN CORPUSCULAR HGB CONC 34 G/DL (32-36); MEAN CORPUSCULAR VOLUME 92 FL (80-99); MEAN PLATELET VOLUME 9.7 FL (7.4-10.4); MONOCYTES # (AUTO) 0.2 X 10^3 (0.0-1.0); MONOCYTES % (AUTO) 5 % (0-12); NEUTROPHILS # (AUTO) 3.7 X 10^3 (1.8-7.8); NEUTROPHILS % (AUTO) 83 % (42-75); PLATELET COUNT 131 10^3/uL (130-400); RED CELL DISTRIBUTION WIDTH 13.8 % (10.0-14.5); WHITE BLOOD COUNT 4.4 10^3/uL (4.3-11.0)
[2019-01-22] MEDS: PANTOPRAZOLE INJECTION 200 MG in NS (IVPB) 100 ML IV SCH (15:38)
[2019-01-22 16:52] LABS: ABG BASE EXCESS -1.6 MMOL/L (-2.5-2.5); ABG OXYGEN SATURATION 99 % (94-100); ABG PCO2 36 MMHG (35-45); ABG PO2 127 MMHG (79-93); ABG TCO2 23.8 MMOL/L (21.0-31.0)
[2019-01-22 16:54] LABS: PATIENT TEMP 96.8
--- NOTE | 2019-01-22 16:55 | Diagnostic Imaging Report ---
INDICATION: Worsening dyspnea, choking episode earlier today. COMPARISON: 01/22/2019. DISCUSSION: Single portable upright view of the chest was obtained. Endotracheal tube, enteric tube, and left-sided central venous catheter are stable. Stable normal heart size. Worsening bibasilar infiltrates, pneumonia versus atelectasis. No pleural fluid or pneumothorax. IMPRESSION: 1. Worsening bibasilar infiltrates. Dictated by: Dictated on workstation # [id number]
[2019-01-22] MEDS: CYCLOBENZAPRINE 10 MG (FLEXERIL) TAB PO SCH (20:42)
[2019-01-23] VITALS (32 sets, daily range): BP systolic 87–121; BP diastolic 52–73
[2019-01-23] MEDS: inSUlin ASPART (NovoLOG) 1 UNIT/0.01 ML (CHARGE PER UNIT) SC SCH ×4 (02:20→18:35)
[2019-01-23] MEDS: meTOprolol 5 MG/5 ML (LOPRESSOR) VIAL IV SCH ×6 (02:20→21:43)
[2019-01-23 03:57] LABS: ABG BASE EXCESS -1.3 MMOL/L (-2.5-2.5); ABG OXYGEN SATURATION 97 % (94-100); ABG PCO2 36 MMHG (35-45); ABG PH 7.42 (7.37-7.43); ABG PO2 74 MMHG (79-93); ABG TCO2 23.9 MMOL/L (21.0-31.0); HEMOGLOBIN 8.1 G/DL (13.3-17.7)
[2019-01-23 03:58] LABS: ALLENS TEST POSITIVE; INSPIRED O2 100% VENT; PATIENT TEMP 96.8; VENTILATOR YES
[2019-01-23 04:13] LABS: BUN/CREATININE RATIO 9; CARBON DIOXIDE 22 MMOL/L (21-32); CHLORIDE 112 MMOL/L (98-107); CREATININE SERUM 0.69 MG/DL (0.60-1.30); GFR ESTIMATED > 60; GLUCOSE 130 MG/DL (70-105); MAGNESIUM 1.8 MG/DL (1.8-2.4); PHOSPHORUS 3.1 MG/DL (2.3-4.7); POTASSIUM 3.2 MMOL/L (3.6-5.0); SODIUM 143 MMOL/L (135-145)
[2019-01-23] MEDS: LACTATED RINGERS 1,000 ML IV SCH ×3 (04:23→11:01)
[2019-01-23] MEDS: KCL 20 MEQ TAB (K-DUR) PO SCH (04:30)
[2019-01-23] MEDS: POTASSIUM CL 10MEQ/50ML IVPB 50 ML IV SCH ×3 (04:41→07:33)
[2019-01-23] MEDS: MAGNESIUM 1 GM/100 ML IVPB 100 ML IV SCH (04:42)
[2019-01-23 06:32] LABS: BASOPHILS % (AUTO) 0 % (0-10); EOSINOPHILS # (AUTO) 0.2 10^3/uL (0.0-0.3); EOSINOPHILS % (AUTO) 3 % (0-10); HEMATOCRIT 24 % (40-54); HEMOGLOBIN 8.1 G/DL (13.3-17.7); LYMPHOCYTES # (AUTO) 0.8 X 10^3 (1.0-4.0); LYMPHOCYTES % (AUTO) 17 % (12-44); MEAN CORPUSCULAR HEMOGLOBIN 31 PG (25-34); MEAN CORPUSCULAR HGB CONC 34 G/DL (32-36); MEAN CORPUSCULAR VOLUME 92 FL (80-99); MEAN PLATELET VOLUME 10.5 FL (7.4-10.4); MONOCYTES # (AUTO) 0.4 X 10^3 (0.0-1.0); MONOCYTES % (AUTO) 8 % (0-12); NEUTROPHILS # (AUTO) 3.5 X 10^3 (1.8-7.8); NEUTROPHILS % (AUTO) 73 % (42-75); PLATELET COUNT 134 10^3/uL (130-400); WHITE BLOOD COUNT 4.8 10^3/uL (4.3-11.0)
[2019-01-23] MEDS: HYDROCORTISONE 100 MG/2 ML (Solu-CORTEF) VIAL IV SCH ×3 (07:00→21:40)
[2019-01-23] MEDS ORDERED: PIPERACILLIN/TAZOBACTAM (BULK) 4.5 GM in NS (IVPB) 100 ML IV NR (07:30)
--- NOTE | 2019-01-23 08:11 | Diagnostic Imaging Report ---
Indication: Intubation. Comparison: 01/22/2019. Findings: Stable ET and enteric tubes. Stable left subclavian central venous catheter. Low lung volumes are similar. Basilar bandlike opacities are unchanged and likely due to atelectasis. No pleural effusion or pneumothorax. Stable cardiomediastinal silhouette. Impression: Stable exam without adverse development. Dictated by: Dictated on workstation # [id number]
[2019-01-23] MEDS: LEVETIRACETAM INJECTION 500 MG in NS (IVPB) 100 ML IV SCH ×2 (09:21→21:41)
[2019-01-23] MEDS: LORazepam INJ 2 MG/ML (ATIVAN) VIAL IV PRN (09:21)
[2019-01-23] MEDS: NICOTINE 21 MG (NICODERM) PATCH TD SCH (09:23)
[2019-01-23] MEDS: NICOTINE PATCH REMOVAL TP SCH (09:23)
[2019-01-23] MEDS: DEXMEDETOMIDINE INJECTION 1,000 MCG in NS (IVPB) 250 ML IV SCH ×2 (11:31→18:53)
[2019-01-23] MEDS ORDERED: DEXTROSE 50% 50 ML (IMS) SYR IV ONE (13:00)
[2019-01-23] MEDS ORDERED: DEXTROSE 50% 50 ML (IMS) SYR ONE (13:05)
--- NOTE | 2019-01-23 13:07 | NUR ---
PT BLOOD SUGAR WAS 75 AT 1200 AND IS NOW 67, PT UNABLE TO TAKE PO, WILL GIVE PT 1/2 AMP D50 AND CONTINUE TO MONITOR BLOOD SUGAR.
[2019-01-23] MEDS: PROPOFOL DRIP (ICU) 100 ML IV SCH ×2 (13:12→21:53)
--- NOTE | 2019-01-23 13:41 | Progress Note - Hospitalist ---
Subjective HPI/CC On Admission Date Seen by Provider: Jan 23, 2019 Time Seen by Provider: 12:30 Chief complaint: Syncope History of present illness: This is a 48-year-old white male clinic patient of [facility] with a history of alcoholism and illicit drug abuse who presents to the ER after paramedics were called due to syncopal episode. Upon evaluation in the ER he was found to have bilateral pulmonary emboli saddle type underwent TPA administration and required cardiology and pulmonology consultations. After I assessed him he was in florid alcohol withdrawal requiring intubation due to such lgd-cy-coegkdo behavior placing him at risk for harming himself. He denied any current pain when I was speaking to him and he has been following the protocol with heparin drip without any evidence of bleeding complications from TPA. Subjective/Events-last exam Patient remains intubated Very difficult to ascertain the prognosis considering the saddle pulmonary embolism status post TPA maintain on heparin drip with EGD showing esophageal varices and severe alcoholism and severe alcohol withdrawal may end up being a long-term vent patient Review of Systems General: Fatigue Objective Exam Vital Signs Vital Signs Date Time Temp Pulse Resp B/P (MAP) Pulse Ox O2 Delivery O2 Flow Rate FiO2 01/23/19 18:43 55 20 100 70 01/23/19 18:00 112/67 (82) Mechanical Ventilator 90.00 01/23/19 16:00 97.3 Capillary Refill : Less Than 3 SecondsGreater Than 3 Seconds General Appearance: WD/WN, Chronically ill, Other (Intubated) Respiratory: Lungs Clear, Normal Breath Sounds, No Accessory Muscle Use, No Respiratory Distress Cardiovascular: Regular Rate, Rhythm, No Edema, No Gallop, No JVD, No Murmur, Normal Peripheral Pulses Gastrointestinal: Normal Bowel Sounds, No Organomegaly, No Pulsatile Mass Back: Normal Inspection Extremity: Normal Capillary Refill, Normal Inspection, Non Tender, No Calf Tenderness, No Pedal Edema Skin: Normal Color, Warm/Dry Lymphatic: No Adenopathy Results/Procedures Lab Laboratory Tests 01/23/19 03:30 01/23/19 03:50 01/23/19 17:40 Patient resulted labs reviewed. Assessment/Plan Assessment and Plan Assess & Plan/Chief Complaint Assessment: Syncope Bilateral saddle PE s/p TPA ETOH withdrawal severe VDRF Hematemesis in need of EGD today Hypotension requiring Levophed now resolved Plan: Vent management Appreciate Cardiology and Pulmonology Critical status Diagnosis/Problems Diagnosis/Problems (1) Saddle pulmonary embolus Status: Acute Qualifiers: Chronicity: acute Acute cor pulmonale presence: with acute cor pulmonale Qualified Codes: I26.02 - Saddle embolus of pulmonary artery with acute cor pulmonale (2) Received intravenous tissue plasminogen activator (tPA) in emergency department Status: Acute (3) Alcohol withdrawal Status: Acute Qualifiers: Complication of substance-induced condition: with delirium Qualified Codes: F10.231 - Alcohol dependence with withdrawal delirium Clinical Quality Measures DVT/VTE Risk/Contraindication: Risk Factor Score Per Nursin RFS Level Per Nursing on Admit: 4+=Very High ARMIDA DEL CASTILLO DO Jan 23, 2019 13:41
[2019-01-23] MEDS: PIPERACILLIN/TAZOBACTAM (BULK) 4.5 GM in NS (IVPB) 100 ML IV SCH ×2 (14:37→21:41)
--- NOTE | 2019-01-23 14:38 | Progress Note - Surgery ---
Subjective Time Seen by a Provider: 13:09 Subjective/Events-last exam Pt seen and examined, sedated on vent. Review of Systems Unable to assess, pt sedated on vent. Objective Exam Vital Signs Date Time Temp Pulse Resp B/P (MAP) Pulse Ox O2 Delivery O2 Flow Rate FiO2 01/23/19 13:12 102/65 01/23/19 13:00 61 01/23/19 12:00 93 Mechanical Ventilator 70 01/23/19 11:45 97.6 01/23/19 10:28 64 20 95 70 01/23/19 10:00 70 13 102/62 (75) 93 Mechanical Ventilator 90.00 01/23/19 09:00 68 20 106/69 (81) 95 Mechanical Ventilator 90.00 01/23/19 08:00 96 Mechanical Ventilator 70 01/23/19 08:00 63 20 103/67 (79) 96 Mechanical Ventilator 90.00 01/23/19 08:00 97.4 01/23/19 07:00 57 01/23/19 07:00 57 20 99/64 (76) 95 Mechanical Ventilator 90.00 01/23/19 06:16 55 20 97 90 01/23/19 06:00 56 19 102/63 (76) 97 Mechanical Ventilator 90.00 01/23/19 05:40 Mechanical Ventilator 90.00 01/23/19 05:00 56 19 104/64 (77) 97 Mechanical Ventilator 100.00 01/23/19 04:00 92 Mechanical Ventilator 100 01/23/19 04:00 52 19 101/60 (74) 95 Mechanical Ventilator 100.00 01/23/19 04:00 97.0 01/23/19 03:38 Mechanical Ventilator 100.00 01/23/19 03:00 52 20 108/68 (81) 98 Mechanical Ventilator 55.00 01/23/19 02:16 49 20 99 50 01/23/19 02:00 50 20 111/68 (82) 99 Mechanical Ventilator 55.00 01/23/19 01:11 Mechanical Ventilator 55.00 01/23/19 01:00 51 20 119/73 (88) 100 Mechanical Ventilator 65.00 01/23/19 01:00 51 01/23/19 00:15 51 20 100 65 01/23/19 00:00 49 20 116/70 (85) 99 Mechanical Ventilator 65.00 01/23/19 00:00 92 Mechanical Ventilator 50 01/22/19 23:00 50 20 118/71 (87) 100 Mechanical Ventilator 65.00 01/22/19 22:52 Mechanical Ventilator 65.00 01/22/19 22:40 50 20 100 65 01/22/19 22:00 49 20 117/72 (87) 99 Mechanical Ventilator 75.00 01/22/19 21:00 51 20 116/71 (86) 99 Mechanical Ventilator 75.00 01/22/19 20:18 Mechanical Ventilator 75.00 01/22/19 20:10 57 20 96 75 01/22/19 20:00 92 Mechanical Ventilator 75 01/22/19 20:00 53 20 121/74 (90) 97 Mechanical Ventilator 100.00 01/22/19 19:45 96.4 01/22/19 19:00 61 22 130/76 (94) 95 Mechanical Ventilator 100.00 01/22/19 19:00 61 01/22/19 18:55 57 20 97 80 01/22/19 18:05 61 01/22/19 18:00 61 20 129/78 (95) 97 Mechanical Ventilator 100.00 01/22/19 17:00 61 20 130/81 (97) 96 Mechanical Ventilator 100.00 01/22/19 16:00 92 Mechanical Ventilator 100 01/22/19 16:00 50 20 127/73 (91) 92 Mechanical Ventilator 100.00 01/22/19 15:30 96.6 01/22/19 15:00 70 22 127/76 (93) 89 Mechanical Ventilator 100.00 I & O 01/23/19 07:00 Intake Total 230 ml Output Total 3200 ml Balance -2970 ml Capillary Refill : Less Than 3 SecondsGreater Than 3 Seconds General Appearance: WD/WN, Chronically ill, Other (Intubated) Respiratory: Lungs Clear, Normal Breath Sounds, No Accessory Muscle Use, No Respiratory Distress Cardiovascular: Regular Rate, Rhythm, No Murmur Gastrointestinal: soft, no organomegaly; No distended Extremity: Normal Capillary Refill, Normal Inspection, Other (b/l arms with +2 edema) Skin: Normal Color, Warm/Dry Results Lab Laboratory Tests 01/22/19 15:06: White Blood Count 4.4, Red Blood Count 2.64L, Hemoglobin 8.3L, Hematocrit 24L, Mean Corpuscular Volume 92, Mean Corpuscular Hemoglobin 31, Mean Corpuscular Hemoglobin Concent 34, Red Cell Distribution Width 13.8, Platelet Count 131, Mean Platelet Volume 9.7, Neutrophils (%) (Auto) 83H, Lymphocytes (%) (Auto) 11L , Monocytes (%) (Auto) 5, Eosinophils (%) (Auto) 1, Basophils (%) (Auto) 0, Neutrophils # (Auto) 3.7, Lymphocytes # (Auto) 0.5L, Monocytes # (Auto) 0.2, Eosinophils # (Auto) 0.0, Basophils # (Auto) 0.0 01/22/19 16:46: Blood Gas Puncture Site , Blood Gas Patient Temperature 96.8, Arterial Blood pH 7.40, Arterial Blood Partial Pressure CO2 36, Arterial Blood Partial Pressure O2 127H, Arterial Blood HCO3 23, Arterial Blood Total CO2 23.8, Arterial Blood Oxygen Saturation 99, Arterial Blood Base Excess -1.6, Joe Test , Blood Gas Ventilator Setting NA, Blood Gas Inspired Oxygen 01/22/19 18:05: Glucometer 158H 01/23/19 00:20: Glucometer 151H 01/23/19 03:30: White Blood Count 4.8, Red Blood Count 2.58L, Hemoglobin 8.1L, Hematocrit 24L, Mean Corpuscular Volume 92, Mean Corpuscular Hemoglobin 31, Mean Corpuscular Hemoglobin Concent 34, Red Cell Distribution Width 14.0, Platelet Count 134, Mean Platelet Volume 10.5H, Neutrophils (%) (Auto) 73, Lymphocytes (%) (Auto) 17, Monocytes (%) (Auto) 8, Eosinophils (%) (Auto) 3, Basophils (%) (Auto) 0, Neutrophils # (Auto) 3.5, Lymphocytes # (Auto) 0.8L, Monocytes # (Auto) 0.4, Eosinophils # (Auto) 0.2, Basophils # (Auto) 0.0 01/23/19 03:50: Hemoglobin 8.1L, Hematocrit 24L, Blood Gas Puncture Site ARTLINE, Blood Gas Patient Temperature 96.8, Arterial Blood pH 7.42, Arterial Blood Partial Pressure CO2 36, Arterial Blood Partial Pressure O2 74L, Arterial Blood HCO3 23, Arterial Blood Total CO2 23.9, Arterial Blood Oxygen Saturation 97, Arterial Blood Base Excess -1.3, Joe Test POSITIVE, Blood Gas Ventilator Setting YES, Blood Gas Inspired Oxygen 100% VENT, Sodium Level 143, Potassium Level 3.2L, Chloride Level 112H, Carbon Dioxide Level 22, Anion Gap 9, Blood Urea Nitrogen 6L, Creatinine 0.69, Estimat Glomerular Filtration Rate > 60, BUN/Creatinine Ratio 9, Glucose Level 130H, Calcium Level 8.0L, Phosphorus Level 3.1, Magnesium Level 1.8 01/23/19 03:55: Activated Partial Thromboplast Time 78H 01/23/19 12:00: Glucometer 75 01/23/19 12:59: Glucometer 67L Microbiology 01/18/19 Blood Culture - Preliminary, Resulted Corynebacterium species 01/19/19 Gram Stain - Final, Complete 01/19/19 Sputum Culture - Final, Complete Usual upper respiratory josselyn Assessment/Plan Assessment/Plan Assessment/Plan GI bleed ?? secondary to Esophageal Varice B/L PE Hemoglobin is basically stable; although nurse states they did get dark, possible maroone fluid out. Nothing bright red. will continue to monitor pt; H/H and any NGT output for rebleed. Continue supportive care. Does not appear to need EGD at this time; will be available in case this changes. Clinical Quality Measures DVT/VTE Risk/Contraindication: Risk Factor Score Per Nursin RFS Level Per Nursing on Admit: 4+=Very High KAMILLA TEJEDA DO Jan 23, 2019 14:38
--- NOTE | 2019-01-23 14:45 | NUR ---
PT BLOOD SUGAR RECHECKED WITH RESULTS OF 68, THIS RN NOTIFIED DR PHILIPPE OF PT BLOOD SUGARS SINCE NOON AND 1/2 AMP OF D50 HAD BEEN GIVEN. ORDERS RECEIVED TO CHANGE PT PRIMARY FLUIDS TO D5 1/2NS AT 125ML/HR.
[2019-01-23] MEDS: D5 1/2 NS 1000 ML IV SOLUTION 1,000 ML IV SCH ×2 (15:07→21:42)
[2019-01-23] MEDS: OCTREOTIDE INJECTION 500 MCG in NS (IVPB) 99 ML IV SCH (15:07)
--- NOTE | 2019-01-23 16:17 | Progress Note - Cardiology ---
Cardiology SOAP Progress Note Subjective: Intubated, on mech vent, unresponsive Objective: I&O/Vital Signs 01/23/19 01/23/19 01/23/19 01/23/19 05:00 05:40 06:00 06:16 Pulse 56 56 55 Resp 19 19 20 B/P (MAP) 104/64 (77) 102/63 (76) Pulse Ox 97 97 97 O2 Delivery Mechanical Ventilator Mechanical Ventilator Mechanical Ventilator O2 Flow Rate 100.00 90.00 90.00 FiO2 90 01/23/19 01/23/19 01/23/19 01/23/19 07:00 07:00 08:00 08:00 Temp 97.4 Pulse 57 57 63 Resp 20 20 B/P (MAP) 99/64 (76) 103/67 (79) Pulse Ox 95 96 O2 Delivery Mechanical Ventilator Mechanical Ventilator O2 Flow Rate 90.00 90.00 01/23/19 01/23/19 01/23/19 01/23/19 08:00 09:00 10:00 10:28 Pulse 68 70 64 Resp 20 13 20 B/P (MAP) 106/69 (81) 102/62 (75) Pulse Ox 96 95 93 95 O2 Delivery Mechanical Ventilator Mechanical Ventilator Mechanical Ventilator O2 Flow Rate 90.00 90.00 FiO2 70 70 01/23/19 01/23/19 01/23/19 01/23/19 11:00 11:45 12:00 12:00 Temp 97.6 Pulse 63 64 Resp 20 20 B/P (MAP) 87/52 (64) 95/62 (73) Pulse Ox 95 98 93 O2 Delivery Mechanical Ventilator Mechanical Ventilator Mechanical Ventilator O2 Flow Rate 90.00 90.00 FiO2 70 01/23/19 01/23/19 01/23/19 01/23/19 13:00 13:00 13:12 14:00 Pulse 61 63 61 Resp 20 20 B/P (MAP) 99/69 (79) 102/65 96/66 (76) Pulse Ox 92 90 O2 Delivery Mechanical Ventilator Mechanical Ventilator O2 Flow Rate 90.00 90.00 01/23/19 15:18 Pulse 63 Resp 20 Pulse Ox 96 FiO2 70 01/23/19 00:00 Output Total 1300 ml Balance -1300 ml Weight (Pounds): 266 Weight (Ounces): 0.0 Weight (Calculated Kilograms): 120.123279 Constitutional: well-developed, well-nourished, other (on mech vent) Respiratory: No accessory muscle use; other (fair to good air entry) Cardiovascular: regular rate-rhythm, S1 and S2, systolic murmur (soft EMMANUELLE at card base) Gastrointestional: No tender; soft; No guarding, No rebound; audible bowel so unds Extremities: No clubbing, No cyanosis, No significant edema Neurologic/Psychiatric: oriented x 3, other (unresponsive, on mech vent) Skin: No rash on exposed areas, No ulcerations on exposed areas Results/Procedures: Labs Laboratory Tests 01/22/19 16:46: Blood Gas Puncture Site , Blood Gas Patient Temperature 96.8, Arterial Blood pH 7.40, Arterial Blood Partial Pressure CO2 36, Arterial Blood Partial Pressure O2 127H, Arterial Blood HCO3 23, Arterial Blood Total CO2 23.8, Arterial Blood Oxygen Saturation 99, Arterial Blood Base Excess -1.6, Joe Test , Blood Gas Ventilator Setting NA, Blood Gas Inspired Oxygen 01/22/19 18:05: Glucometer 158H 01/23/19 00:20: Glucometer 151H 01/23/19 03:30: White Blood Count 4.8, Red Blood Count 2.58L, Hemoglobin 8.1L, Hematocrit 24L, Mean Corpuscular Volume 92, Mean Corpuscular Hemoglobin 31, Mean Corpuscular Hemoglobin Concent 34, Red Cell Distribution Width 14.0, Platelet Count 134, Mean Platelet Volume 10.5H, Neutrophils (%) (Auto) 73, Lymphocytes (%) (Auto) 17, Monocytes (%) (Auto) 8, Eosinophils (%) (Auto) 3, Basophils (%) (Auto) 0, Neutrophils # (Auto) 3.5, Lymphocytes # (Auto) 0.8L, Monocytes # (Auto) 0.4, Eosinophils # (Auto) 0.2, Basophils # (Auto) 0.0 01/23/19 03:50: Hemoglobin 8.1L, Hematocrit 24L, Blood Gas Puncture Site ARTLINE, Blood Gas Patient Temperature 96.8, Arterial Blood pH 7.42, Arterial Blood Partial Pressure CO2 36, Arterial Blood Partial Pressure O2 74L, Arterial Blood HCO3 23, Arterial Blood Total CO2 23.9, Arterial Blood Oxygen Saturation 97, Arterial Blood Base Excess -1.3, Joe Test POSITIVE, Blood Gas Ventilator Setting YES, Blood Gas Inspired Oxygen 100% VENT, Sodium Level 143, Potassium Level 3.2L, Chloride Level 112H, Carbon Dioxide Level 22, Anion Gap 9, Blood Urea Nitrogen 6L, Creatinine 0.69, Estimat Glomerular Filtration Rate > 60, BUN/Creatinine Ratio 9, Glucose Level 130H, Calcium Level 8.0L, Phosphorus Level 3.1, Magnesium Level 1.8 01/23/19 03:55: Activated Partial Thromboplast Time 78H 01/23/19 12:00: Glucometer 75 01/23/19 12:59: Glucometer 67L 01/23/19 14:34: Glucometer 68L Microbiology 01/18/19 Blood Culture - Preliminary, Resulted Corynebacterium species 01/19/19 Gram Stain - Final, Complete 01/19/19 Sputum Culture - Final, Complete Usual upper respiratory josselyn Laboratory Tests 01/21/19 17:31 01/22/19 03:30 01/22/19 15:06 01/23/19 03:30 01/23/19 03:50 A/P: Assessment: Large PE on 01/18/19, hemodynamically significant (presented with hypotension) treated with thrombolytics and subsequent anticoagulation Ac resp failure on 01/19/19, related to alcohol withdrawal, necessitating intubation and mech vent, managed by Dr Watts and Dr Henderson H/o hypertension H/o heavy alcohol use Echo of 01/19/19: LVEF 50-55%, reduced RV systolic function, grade 1 randle dysfunction of LV, RVSP 28 mmHg Plan: * Replenish lytes * Monitor labs * Prognosis guarded * I spoke with his today and answered CV-related questions NIKOLE MEZA MD FACP [facility] CCDS Jan 23, 2019 16:17
[2019-01-23] MEDS: PANTOPRAZOLE INJECTION 200 MG in NS (IVPB) 100 ML IV SCH (17:48)
[2019-01-23] MEDS: CYCLOBENZAPRINE 10 MG (FLEXERIL) TAB PO SCH (21:40)
[2019-01-23] MEDS: HEParin DRIP 25000 UNIT/500ML 500 ML IV SCH (21:58)
[2019-01-24] VITALS (33 sets, daily range): BP systolic 99–155; BP diastolic 53–105
[2019-01-24] MEDS: meTOprolol 5 MG/5 ML (LOPRESSOR) VIAL IV SCH (00:14)
[2019-01-24] MEDS: inSUlin ASPART (NovoLOG) 1 UNIT/0.01 ML (CHARGE PER UNIT) SC SCH ×4 (01:21→17:44)
[2019-01-24] MEDS: DEXMEDETOMIDINE INJECTION 1,000 MCG in NS (IVPB) 250 ML IV SCH (02:18)
[2019-01-24 04:27] LABS: ABG BASE EXCESS -2.4 MMOL/L (-2.5-2.5); ABG OXYGEN SATURATION 99 % (94-100); ABG PCO2 32 MMHG (35-45); ABG PH 7.44 (7.37-7.43); ABG PO2 104 MMHG (79-93); ABG TCO2 22.3 MMOL/L (21.0-31.0)
[2019-01-24 04:28] LABS: ALLENS TEST POSITIVE; BASOPHILS % (AUTO) 0 % (0-10); EOSINOPHILS # (AUTO) 0.1 10^3/uL (0.0-0.3); EOSINOPHILS % (AUTO) 1 % (0-10); HEMATOCRIT 25 % (40-54); HEMOGLOBIN 8.2 G/DL (13.3-17.7); INSPIRED O2 50%; LYMPHOCYTES # (AUTO) 0.6 X 10^3 (1.0-4.0); LYMPHOCYTES % (AUTO) 13 % (12-44); MEAN CORPUSCULAR HEMOGLOBIN 31 PG (25-34); MEAN CORPUSCULAR HGB CONC 33 G/DL (32-36); MEAN CORPUSCULAR VOLUME 93 FL (80-99); MEAN PLATELET VOLUME 10.1 FL (7.4-10.4); MONOCYTES # (AUTO) 0.4 X 10^3 (0.0-1.0); MONOCYTES % (AUTO) 9 % (0-12); NEUTROPHILS # (AUTO) 3.5 X 10^3 (1.8-7.8); NEUTROPHILS % (AUTO) 76 % (42-75); PATIENT TEMP 96.9; PLATELET COUNT 163 10^3/uL (130-400); RED CELL DISTRIBUTION WIDTH 14.5 % (10.0-14.5); VENTILATOR YES; WHITE BLOOD COUNT 4.6 10^3/uL (4.3-11.0)
[2019-01-24 04:54] LABS: BUN/CREATININE RATIO 9; CALCIUM 7.7 MG/DL (8.5-10.1); CARBON DIOXIDE 20 MMOL/L (21-32); CHLORIDE 113 MMOL/L (98-107); CREATININE SERUM 0.76 MG/DL (0.60-1.30); GFR ESTIMATED > 60; GLUCOSE 164 MG/DL (70-105); MAGNESIUM 1.8 MG/DL (1.8-2.4); PHOSPHORUS 2.7 MG/DL (2.3-4.7); POTASSIUM 3.2 MMOL/L (3.6-5.0); SODIUM 142 MMOL/L (135-145)
[2019-01-24] MEDS: PIPERACILLIN/TAZOBACTAM (BULK) 4.5 GM in NS (IVPB) 100 ML IV SCH ×3 (05:19→21:42)
[2019-01-24] MEDS: PROPOFOL DRIP (ICU) 100 ML IV SCH ×6 (05:20→22:37)
--- NOTE | 2019-01-24 06:24 | Pulmonary Progress Note ---
Subjective Time Seen by a Provider: 13:47 Subjective/Events-last exam Pt sedated on vent Sepsis Event Evaluation Height, Weight, BMI Height: 5'5.00" Weight: 266lbs. 0.0oz. 120.704285ji; 36.9 BMI Method:Stated Exam Exam Vital Signs Date Time Temp Pulse Resp B/P (MAP) Pulse Ox O2 Delivery O2 Flow Rate FiO2 01/24/19 06:00 44 20 116/81 (93) 97 Mechanical Ventilator 50.00 01/24/19 05:20 96.3 50 20 129/80 92 Mechanical Ventilator 50.00 01/24/19 05:00 51 34 149/85 (106) 94 Mechanical Ventilator 50.00 01/24/19 04:00 49 20 129/79 (96) 93 Mechanical Ventilator 50.00 01/24/19 03:53 53 20 93 50 01/24/19 03:00 45 19 118/73 (88) 96 Mechanical Ventilator 50.00 01/24/19 02:01 52 20 93 50 01/24/19 02:00 57 20 123/75 (91) 96 Mechanical Ventilator 50.00 01/24/19 01:00 48 01/24/19 01:00 48 20 119/74 (89) 96 Mechanical Ventilator 50.00 01/24/19 00:20 95 Mechanical Ventilator 70 01/24/19 00:00 45 20 114/71 (85) 97 Mechanical Ventilator 50.00 01/23/19 23:00 47 20 110/69 (83) 96 Mechanical Ventilator 50.00 01/23/19 22:00 66 23 93/58 (70) Mechanical Ventilator 50.00 01/23/19 21:56 54 20 95 50 01/23/19 21:53 97.0 51 20 116/73 99 Mechanical Ventilator 50.00 01/23/19 21:00 50 19 104/64 (77) 97 Mechanical Ventilator 50.00 01/23/19 20:08 95 Mechanical Ventilator 70 01/23/19 20:07 52 20 97 60 01/23/19 20:00 53 19 107/66 (80) 97 Mechanical Ventilator 50.00 01/23/19 19:30 97.1 01/23/19 19:00 57 01/23/19 19:00 58 19 112/68 (83) 98 Mechanical Ventilator 50.00 01/23/19 18:43 55 20 100 70 01/23/19 18:00 61 20 112/67 (82) 99 Mechanical Ventilator 90.00 01/23/19 17:00 64 22 99/68 (78) 96 Mechanical Ventilator 90.00 01/23/19 16:00 95 Mechanical Ventilator 70 01/23/19 16:00 60 19 90/61 (71) 96 Mechanical Ventilator 90.00 01/23/19 16:00 97.3 01/23/19 15:18 63 20 96 70 01/23/19 15:00 60 19 93/60 (71) 97 Mechanical Ventilator 90.00 01/23/19 14:00 61 20 96/66 (76) 90 Mechanical Ventilator 90.00 01/23/19 13:12 102/65 01/23/19 13:00 63 20 99/69 (79) 92 Mechanical Ventilator 90.00 01/23/19 13:00 61 01/23/19 12:00 93 Mechanical Ventilator 70 01/23/19 12:00 64 20 95/62 (73) 98 Mechanical Ventilator 90.00 01/23/19 11:45 97.6 01/23/19 11:00 63 20 87/52 (64) 95 Mechanical Ventilator 90.00 01/23/19 10:28 64 20 95 70 01/23/19 10:00 70 13 102/62 (75) 93 Mechanical Ventilator 90.00 01/23/19 09:00 68 20 106/69 (81) 95 Mechanical Ventilator 90.00 01/23/19 08:00 96 Mechanical Ventilator 70 01/23/19 08:00 63 20 103/67 (79) 96 Mechanical Ventilator 90.00 01/23/19 08:00 97.4 01/23/19 07:00 57 01/23/19 07:00 57 20 99/64 (76) 95 Mechanical Ventilator 90.00 I & O 01/24/19 07:00 Intake Total 4480 ml Output Total 675 ml Balance 3805 ml Height & Weight Height: 5'5.00" Weight: 266lbs. 0.0oz. 120.398065qf; 36.9 BMI Method:Stated General Appearance: WD/WN, Chronically ill, Other (Intubated) Respiratory: Lungs Clear, Normal Breath Sounds, No Accessory Muscle Use, No Respiratory Distress Cardiovascular: Regular Rate, Rhythm, No Edema, No Gallop, No JVD, No Murmur, Normal Peripheral Pulses Capillary Refill: Greater Than 3 Seconds Gastrointestinal: soft, no organomegaly; No distended Extremity: Normal Capillary Refill, Normal Inspection, Non Tender, No Calf Tenderness, No Pedal Edema Skin: Normal Color, Warm/Dry Lymphatic: No Adenopathy Results Lab Laboratory Tests 01/22/19 15:06 01/23/19 03:30 01/23/19 03:50 01/23/19 17:40 01/24/19 04:17 Assessment/Plan Assessment/Plan Acute respiratory failure secondary to alcohol withdrawal -Pt was intubated yesterday for airway protection -LUCINA protocol Acute Large PE s/p TPA -Echo today - 50-55% RLE DVT -IF we have to stop heparin gtt will ask Dr. Everett for IVC filter. Hemoptysis -resolved Grade II esophageal varices s/p EGD -Continue Hep and Octreotide gtts. -Hb is currently stable GIB- Occult -Hb monitor Q 6 -Protonix gtt/Octreotide gtt -Continue Hep for now Hypotensive -Give liter bolus of LR Seizure disorder -PRN Ativan -Keppra Alcohol withdrawals -LUCINA protocol -Monitor NSTEMI - secondary to PE -Monitor KAYDEN PHILIPPE DO Jan 24, 2019 06:24
[2019-01-24] MEDS ORDERED: RT-ALBUTEROL/IPRATROPIUM 3 ML (DUONEB) VIAL ONE (06:52)
--- NOTE | 2019-01-24 06:59 | Diagnostic Imaging Report ---
INDICATION: OG placement. FINDINGS: The OG catheter cannot be clearly visualized beyond the EG junction. Left PICC line at the SVC. ET tube mid thoracic trachea. There is some perihilar and basilar partial atelectasis, however, this is improved from the study of earlier this same date. IMPRESSION: OG catheter is in the esophagus and its tip cannot be visualized beyond the EG junction but this may be owing to underpenetration. Remaining support apparatus confirmed and stable in good position with improvements in partial atelectasis. Dictated by: Dictated on workstation # [id number]
[2019-01-24] MEDS: HYDROCORTISONE 100 MG/2 ML (Solu-CORTEF) VIAL IV SCH ×3 (07:27→21:42)
[2019-01-24] MEDS: D5 1/2 NS 1000 ML IV SOLUTION 1,000 ML IV SCH (07:34)
[2019-01-24] MEDS: KCL 20 MEQ TAB (K-DUR) PO SCH (07:41)
[2019-01-24] MEDS: MAGNESIUM 1 GM/100 ML IVPB 100 ML IV SCH (07:41)
[2019-01-24] MEDS: POTASSIUM CL 10MEQ/50ML IVPB 50 ML IV SCH ×8 (07:41→12:46)
[2019-01-24 07:42] LABS: ABG BASE EXCESS -2.6 MMOL/L (-2.5-2.5); ABG OXYGEN SATURATION 96 % (94-100); ABG PCO2 42 MMHG (35-45); ABG PO2 82 MMHG (79-93); ABG TCO2 23.7 MMOL/L (21.0-31.0)
[2019-01-24 07:46] LABS: ABG PH 7.34 (7.37-7.43); ALLENS TEST ARTLINE; INSPIRED O2 50; PATIENT TEMP 97.2; VENTILATOR YES
--- NOTE | 2019-01-24 07:57 | Diagnostic Imaging Report ---
PATIENT HISTORY: Ventilator, shortness of air, dyspnea. TECHNIQUE: Single frontal view of the chest. COMPARISON: 01/23/2019 FINDINGS: Lung volumes are low. There are bibasilar airspace opacities, which may represent atelectasis. No significant pleural effusion or pneumothorax is seen. The cardiac silhouette is normal in size. The endotracheal tube measures 5 cm from the sarah. There appears to be an enteric tube seen superiorly projecting over the cervical spine. The tip of the left central line appears stable. IMPRESSION: 1. Low lung volumes with bibasilar airspace opacities, most likely atelectasis. Aeration appears mildly decreased compared to the prior exam. 2. The endotracheal tube is in expected position. A second tube, possibly an enteric tube, is seen projecting over the cervical spine, and may have been retracted. Called and faxed to [facility] at 7:55 a.m. by cvb. Dictated by: Dictated on workstation # [id number]
--- NOTE | 2019-01-24 08:18 | Physical Therapy Progress Note ---
Therapy Progress Note Patient is currently sedated and on mechanical ventilator. PT to evaluate patient when medically stable and able to actively participate with therapy. EDWINA BARKER PT Jan 24, 2019 08:17
--- NOTE | 2019-01-24 09:00 | NUR ---
dr holloway notified of cxr.
--- NOTE | 2019-01-24 09:17 | Progress Note - Cardiology ---
Cardiology SOAP Progress Note Subjective: Intubated, on mech vent, unresponsive Objective: I&O/Vital Signs 01/23/19 01/23/19 01/23/19 01/23/19 21:53 21:56 22:00 23:00 Temp 97.0 Pulse 51 54 66 47 Resp 20 20 23 20 B/P (MAP) 116/73 93/58 (70) 110/69 (83) Pulse Ox 99 95 96 O2 Delivery Mechanical Ventilator Mechanical Ventilator Mechanical Ventilator O2 Flow Rate 50.00 50.00 50.00 FiO2 50 01/24/19 01/24/19 01/24/19 01/24/19 00:00 00:20 01:00 01:00 Pulse 45 48 48 Resp 20 20 B/P (MAP) 114/71 (85) 119/74 (89) Pulse Ox 97 95 96 O2 Delivery Mechanical Ventilator Mechanical Ventilator Mechanical Ventilator O2 Flow Rate 50.00 50.00 FiO2 70 01/24/19 01/24/19 01/24/19 01/24/19 02:00 02:01 03:00 03:53 Pulse 57 52 45 53 Resp 20 20 19 20 B/P (MAP) 123/75 (91) 118/73 (88) Pulse Ox 96 93 96 93 O2 Delivery Mechanical Ventilator Mechanical Ventilator O2 Flow Rate 50.00 50.00 FiO2 50 50 01/24/19 01/24/19 01/24/19 01/24/19 04:00 05:00 05:20 06:00 Temp 96.3 Pulse 49 51 50 44 Resp 20 34 20 20 B/P (MAP) 129/79 (96) 149/85 (106) 129/80 116/81 (93) Pulse Ox 93 94 92 97 O2 Delivery Mechanical Ventilator Mechanical Ventilator Mechanical Ventilator Mechanical Ventilator O2 Flow Rate 50.00 50.00 50.00 50.00 01/24/19 01/24/19 01/24/19 01/24/19 07:00 07:00 07:06 07:34 Temp 97.9 Pulse 46 54 53 88 Resp 16 16 20 B/P (MAP) 99/78 (85) Pulse Ox 99 98 95 O2 Delivery Mechanical Ventilator O2 Flow Rate 50.00 FiO2 50 01/24/19 01/24/19 01/24/19 01/24/19 07:41 08:00 08:30 08:43 Pulse 71 59 Resp 20 16 B/P (MAP) 133/70 (91) Pulse Ox 95 92 86 O2 Delivery Mechanical Ventilator Mechanical Ventilator Mechanical Ventilator O2 Flow Rate 50.00 60.00 FiO2 70 60 01/24/19 09:00 Pulse 62 Resp 21 B/P (MAP) 133/79 (97) Pulse Ox 92 O2 Delivery Mechanical Ventilator O2 Flow Rate 50.00 01/24/19 00:00 Intake Total 2545 ml Output Total 550 ml Balance 1995 ml Weight (Pounds): 267 Weight (Ounces): 8.0 Weight (Calculated Kilograms): 121.223495 Constitutional: well-developed, well-nourished, other (on mech vent) Respiratory: No accessory muscle use; other (fair to good air entry) Cardiovascular: regular rate-rhythm, S1 and S2, systolic murmur (soft EMMANUELLE at card base) Gastrointestional: No tender; soft; No guarding, No rebound; audible bowel sounds Extremities: No clubbing, No cyanosis, No significant edema Neurologic/Psychiatric: oriented x 3, other (unresponsive, on mech vent) Skin: No rash on exposed areas, No ulcerations on exposed areas Results/Procedures: Labs Laboratory Tests 01/23/19 12:00: Glucometer 75 01/23/19 12:59: Glucometer 67L 01/23/19 14:34: Glucometer 68L 01/23/19 17:40: Hemoglobin 8.0L, Hematocrit 24L, Triglycerides Level 127 01/23/19 18:26: Glucometer 153H 01/23/19 18:34: Glucometer 158H 01/24/19 01:15: Glucometer 219H 01/24/19 04:17: White Blood Count 4.6, Red Blood Count 2.65L, Hemoglobin 8.2L, Hematocrit 25L, Mean Corpuscular Volume 93, Mean Corpuscular Hemoglobin 31, Mean Corpuscular Hemoglobin Concent 33, Red Cell Distribution Width 14.5, Platelet Count 163, Me an Platelet Volume 10.1, Neutrophils (%) (Auto) 76H, Lymphocytes (%) (Auto) 13, Monocytes (%) (Auto) 9, Eosinophils (%) (Auto) 1, Basophils (%) (Auto) 0, Neutrophils # (Auto) 3.5, Lymphocytes # (Auto) 0.6L, Monocytes # (Auto) 0.4, Eosinophils # (Auto) 0.1, Basophils # (Auto) 0.0, Activated Partial Thromboplast Time 74H, Blood Gas Puncture Site LEFT ARTERY, Blood Gas Patient Temperature 96.9, Arterial Blood pH 7.44H, Arterial Blood Partial Pressure CO2 32L, Arterial Blood Partial Pressure O2 104H, Arterial Blood HCO3 21L, Arterial Blood Total CO2 22.3, Arterial Blood Oxygen Saturation 99, Arterial Blood Base Excess -2.4, Joe Test POSITIVE, Blood Gas Ventilator Setting YES, Blood Gas Inspired Oxygen 50%, Sodium Level 142, Potassium Level 3.2L, Chloride Level 113H, Carbon Dioxide Level 20L, Anion Gap 9, Blood Urea Nitrogen 7, Creatinine 0.76, Estimat Glomerular Filtration Rate > 60, BUN/Creatinine Ratio 9, Glucose Level 164H, Calcium Level 7.7L, Phosphorus Level 2.7, Magnesium Level 1.8 01/24/19 07:35: Blood Gas Puncture Site L ARTLINE, Blood Gas Patient Temperature 97.2, Arterial Blood pH 7.34*L, Arterial Blood Partial Pressure CO2 42, Arterial Blood Partial Pressure O2 82, Arterial Blood HCO3 22L, Arterial Blood Total CO2 23.7, Arterial Blood Oxygen Saturation 96, Arterial Blood Base Excess -2.6L, Joe Test ARTLINE, Blood Gas Ventilator Setting YES, Blood Gas Inspired Oxygen 50 Microbiology 01/18/19 Blood Culture - Final, Complete Corynebacterium species 01/23/19 Gram Stain - Final, Resulted 01/23/19 Sputum Culture, Resulted Pending Laboratory Tests 01/22/19 15:06 01/23/19 03:30 01/23/19 03:50 01/23/19 17:40 01/24/19 04:17 A/P: Assessment: Large PE on 01/18/19, hemodynamically significant (presented with hypotension) treated with thrombolytics and subsequent anticoagulation Ac resp failure on 01/19/19, related to alcohol withdrawal, necessitating intubation and mech vent, managed by Dr Watts and Dr Henderson H/o hypertension H/o heavy alcohol use Echo of 01/19/19: LVEF 50-55%, reduced RV systolic function, grade 1 randle d ysfunction of LV, RVSP 28 mmHg Plan: * Replenish lytes * Monitor labs * Prognosis guarded * I discussed his case with Dr Watts in person today NIKOLE MEZA MD FACP [facility] CCDS Jan 24, 2019 09:17
[2019-01-24] MEDS: LEVETIRACETAM INJECTION 500 MG in NS (IVPB) 100 ML IV SCH ×2 (09:22→20:47)
[2019-01-24] MEDS: NICOTINE 21 MG (NICODERM) PATCH TD SCH (10:23)
[2019-01-24] MEDS: NICOTINE PATCH REMOVAL TP SCH (10:23)
--- NOTE | 2019-01-24 11:05 | Occ Therapy Progress Note ---
Therapy Progress Note Pt is currently sedated and on mechanical ventilator. OT to evaluate patient when medically stable and able to actively participate with therapy. DINESH WALTON OT Jan 24, 2019 11:05
[2019-01-24] MEDS: RT-ALBUTEROL/IPRATROPIUM 3 ML (DUONEB) VIAL INH SCH ×4 (11:06→22:29)
[2019-01-24] MEDS: OCTREOTIDE INJECTION 500 MCG in NS (IVPB) 97.5 ML IV SCH ×2 (11:36→21:43)
[2019-01-24] MEDS ORDERED: MIDAZOLAM 2 MG/2 ML (VERSED) VIAL ONE ×2 (16:13→16:21)
[2019-01-24] MEDS ORDERED: fentaNYL INJECTION 100 MCG/2 ML AMP ONE (16:13)
[2019-01-24] MEDS ORDERED: fentaNYL INJECTION 5,000 MCG in EMPTY IV BAG (PVC) 1 EA IV SCH (16:15)
[2019-01-24] MEDS ORDERED: MIDAZOLAM 5 MG/5 ML (VERSED) VIAL IVP ONE (16:15)
[2019-01-24] MEDS ORDERED: fentaNYL INJECTION 100 MCG/2 ML AMP IVP ONE ×2 (16:15→17:00)
--- NOTE | 2019-01-24 16:30 | NUR ---
dr holloway at bedside to do bronch. total of 100mcg of fentanyl given and total of 8 mg of versed given during procedure.
[2019-01-24] MEDS ORDERED: MIDAZOLAM 2 MG/2 ML (VERSED) VIAL IVP ONE (17:00)
--- NOTE | 2019-01-24 17:14 | Pulmonary Procedures ---
Pulmonary Procedures Date of Procedure Date of Service: Jan 24, 2019 Bronch Bronchoscopy with bilateral bronchial washes . Preop DX copious amount of sputum Postop DX: same Complications: none After informed consent obtained and formal time out pt was sedated using propofol, Fentanyl and Versed. Bronchoscope was advanced through the ET tube. 1% lidocaine was used to anesthetize sarah, and left/right main stem bronchus. An anatomical tour was undertaken down to the segmental bronchi bilaterally. No endobronchial lesions noted.Bilateral bronchial washes were obtained. Pt tolerated procedure well. No complications noted. Stat CXR is pending. KAYDEN PHILIPPE DO Jan 24, 2019 17:14
[2019-01-24] MEDS: PANTOPRAZOLE INJECTION 200 MG in NS (IVPB) 100 ML IV SCH (17:25)
[2019-01-24] MEDS: HEParin DRIP 25000 UNIT/500ML 500 ML IV SCH (17:40)
[2019-01-24] MEDS: fentaNYL 1,250 MCG/NS 250 ML DRIP IV SCH ×2 (17:41)
--- NOTE | 2019-01-24 17:42 | Diagnostic Imaging Report ---
INDICATION: Post bronchoscopy. COMPARISON STUDY: Chest from this morning. FINDINGS: Supine view of the chest demonstrates an endotracheal tube and left subclavian catheter in good position. An orogastric tube has its tip near the pylorus. Some infiltrates in the right base along the left heart border are a little greater than previously. No pneumothorax or pleural effusion. IMPRESSION: 1. Post bronchoscopy with slight increase of the pulmonary infiltrates. 2. The enteric tube tip is near the pylorus. Dictated by: Dictated on workstation # [id number]
[2019-01-24 19:06] LABS: HEMOGLOBIN 8.1 G/DL (13.3-17.7)
--- NOTE | 2019-01-24 20:08 | Progress Note ---
Subjective Subjective/Events-last exam 48 yo M that presented with shortness of breath found to have large saddle PE. Patient has a history of EtOH abuse and was intubated due to withdraw. Patient currently intubated and comfortable. Had an episode this AM of increased work of breathing and was suctioned with copious amount of secretions and now looks comfortable. Review of Systems Date Seen by Provider: Jan 24, 2019 Time Seen by Provider: 09:30 Unable to perform due to sedation and intubation Objective Exam Last Set of Vital Signs Vital Signs Date Time Temp Pulse Resp B/P (MAP) Pulse Ox O2 Delivery O2 Flow Rate FiO2 01/24/19 19:49 119/64 01/24/19 18:49 Mechanical Ventilator 50.00 01/24/19 18:38 93 22 99 60 01/24/19 16:00 97.2 Capillary Refill : Less Than 3 SecondsGreater Than 3 Seconds I&O Intake and Output 01/24/19 00:00 Intake Total 4230 ml Output Total 1625 ml Balance 2605 ml Intake Oral 0 ml IV Total 4165 ml Tube Feeding 65 ml Output Urine Total 1225 ml Gastric Drainage Total 400 ml General: Other (Intubated and sedated) Lungs: Other (Course breath sounds throughout) Heart: Regular Rate, No Murmurs Abdomen: Normal Bowel Sounds, Soft, No Masses Extremities: Other (3+ pitting edema bilaterally) Results/Procedures Lab Laboratory Tests 01/24/19 01:15: Glucometer 219H 01/24/19 04:17: White Blood Count 4.6, Red Blood Count 2.65L, Hemoglobin 8.2L, Hematocrit 25L, Mean Corpuscular Volume 93, Mean Corpuscular Hemoglobin 31, Mean Corpuscular Hemoglobin Concent 33, Red Cell Distribution Width 14.5, Platelet Count 163, Mean Platelet Volume 10.1, Neutrophils (%) (Auto) 76H, Lymphocytes (%) (Auto) 13, Monocytes (%) (Auto) 9, Eosinophils (%) (Auto) 1, Basophils (%) (Auto) 0, Neutrophils # (Auto) 3.5, Lymphocytes # (Auto) 0.6L, Monocytes # (Auto) 0.4, Eosinophils # (Auto) 0.1, Basophils # (Auto) 0.0, Activated Partial Thromboplast Time 74H, Blood Gas Puncture Site LEFT ARTERY, Blood Gas Patient Temperature 96.9, Arterial Blood pH 7.44H, Arterial Blood Partial Pressure CO2 32L, Arterial Blood Partial Pressure O2 104H, Arterial Blood HCO3 21L, Arterial Blood Total CO2 22.3, Arterial Blood Oxygen Saturation 99, Arterial Blood Base Excess -2.4, Joe Test POSITIVE, Blood Gas Ventilator Setting YES, Blood Gas Inspired Oxygen 50%, Sodium Level 142, Potassium Level 3.2L, Chloride Level 113H, Carbon Dioxide Level 20L, Anion Gap 9, Blood Urea Nitrogen 7, Creatinine 0.76, Estimat Glomeru lar Filtration Rate > 60, BUN/Creatinine Ratio 9, Glucose Level 164H, Calcium Level 7.7L, Phosphorus Level 2.7, Magnesium Level 1.8 01/24/19 07:35: Blood Gas Puncture Site L ARTLINE, Blood Gas Patient Temperature 97.2, Arterial Blood pH 7.34*L, Arterial Blood Partial Pressure CO2 42, Arterial Blood Partial Pressure O2 82, Arterial Blood HCO3 22L, Arterial Blood Total CO2 23.7, Arterial Blood Oxygen Saturation 96, Arterial Blood Base Excess -2.6L, Joe Test ARTLINE, Blood Gas Ventilator Setting YES, Blood Gas Inspired Oxygen 50 01/24/19 11:24: Glucometer 83 01/24/19 17:29: Glucometer 138H 01/24/19 18:50: Hemoglobin 8.1L, Hematocrit 24L Microbiology 01/18/19 Blood Culture - Final, Complete Corynebacterium species 01/23/19 Gram Stain - Final, Resulted 01/23/19 Sputum Culture - Preliminary, Resulted Culture In Progress Radiology NAME: LASHAWN ASHBY [facility] REC#: [id number] PT STATUS: REG CLI : 1970 PHYSICIAN: JESSICA BARBA ADMIT DATE: 08/23/18/RAD Signed Date of Exam: 08/23/18 CT HEAD W WO INDICATION: Parietal headaches. Dizziness. Blurred vision. Dysphagia. TECHNIQUE: Routine pre- and postcontrast, chronic small-enhanced axial images were obtained from the skull base to the vertex. COMPARISON: 05/08/2018 FINDINGS: The ventricles and cortical sulci are stable in size and contour. Postcontrast images show no abnormal areas of enhancement There is no midline shift or mass-effect. No acute intra-axial hemorrhage is seen. There are no abnormal areas of increased or decreased density to suggest acute hemorrhage or edema. No extra-axial masses or collections are present. The bony calvarium is intact. The visualized paranasal sinuses are unremarkable. The mastoid air cells are clear. IMPRESSION: 1. No acute intracranial abnormality. No CT evidence of mass, acute infarct or intracranial hemorrhage. Dictated by: Dictated on workstation # [id number] Dict: 08/23/18 1424 Trans: 08/23/18 1649 Interpreted by: MARGARITA FRIEND MD Electronically signed by: MARGARITA FRIEND MD 08/23/18 1649 NAME: LASHAWN ASHBY [facility] REC#: [id number] PT STATUS: REG ER : 1970 PHYSICIAN: MARNIE BRYSON APRN ADMIT DATE: 01/18/19/ER Signed Date of Exam: 01/18/19 CHEST 1 VIEW, AP/PA ONLY INDICATION: Shortness of air, altered mental status. TECHNIQUE: Single frontal view of the chest. COMPARISON: 03/19/2017 FINDINGS: Lung volumes are normal. No focal consolidation is seen. There is no pleural effusion or pneumothorax. The cardiomediastinal silhouette is normal in size and contour. IMPRESSION: No acute pulmonary abnormality is seen. Dictated by: Dictated on workstation # [id number] Dict: 01/18/19 1124 Trans: 01/18/19 1207 Interpreted by: LIANET ACEVEDO MD Electronically signed by: LIANET ACEVEDO MD 01/18/19 1207 NAME: ISMALASHAWN [facility] REC#: [id number] PT STATUS: ADM IN : 1970 PHYSICIAN: MARNIE BRYSON APRN ADMIT DATE: 01/18/19/ICU Signed Date of Exam: 01/18/19 CT ANGIO CHEST W PROCEDURE: CT angiography of the chest with contrast. TECHNIQUE: Multiple contiguous axial images were obtained through the chest after uneventful bolus administration of intravenous contrast. Reconstructed CTA MIP acquisitions were also performed. Auto Exposure Controls were utilized during the CT exam to meet ALARA standards for radiation dose reduction. INDICATION: Dyspnea. COMPARISON: None available. Vasculature: Extensive bilateral acute pulmonary emboli are present. This involves a thin saddle embolus seen across the right and left pulmonary trunks. There is a large volume of thrombus extending into the lobar pulmonary arteries involving both sides. Pulmonary trunk is mildly dilated measuring 3.0 cm. Additionally, there is mild flattening of the interventricular septum suggestive of right-sided heart strain. Normal-caliber thoracic aorta without features of dissection. Heart and mediastinum: Visualized thyroid is normal. No supraclavicular, axillary, or intra-thoracic lymphadenopathy. No pericardial effusion. Pleura: No pleural effusion or pneumothorax. Lungs and airway: No endoluminal lesion in the trachea or central bronchi. No pulmonary mass or consolidation. There are scattered ground-glass opacities within the lung bases and left upper lobe. Upper abdomen: Allowing for the phase of contrast, no acute abnormality in the upper abdomen is seen. Musculoskeletal: No concerning osseous lesion. IMPRESSION: 1. Large burden of acute bilateral pulmonary emboli with a small saddle embolus present and emboli extending to all five lobes. Additionally, there are features of pulmonary hypertension and right ventricular strain. 2. Scattered ground-glass attenuation within the lungs could be due to atelectasis. Developing pulmonary infarcts could potentially have this appearance. The above critical findings were called to Marnie Bryson APRN by Dr. Abhi Saavedra at 11:57 a.m. on 01/18/2019. CRITICAL FINDINGS Dictated by: Dictated on workstation # [id number] Dict: 01/18/19 1153 Trans: 01/18/19 1308 Interpreted by: ABHI SAAVEDRA MD Electronically signed by: ABHI SAAVEDRA MD 01/18/19 1308 Assessment/Plan Assessment/Plan (1) Saddle pulmonary embolus Status: Acute Assessment & Plan: 01/24: Given tPA in ER, started on heparin, presented with hypotension Qualifiers: Qualified Codes: I26.02 - Saddle embolus of pulmonary artery with acute cor pulmonale (2) Acute respiratory failure with hypoxia Status: Acute Assessment & Plan: 01/24: intubated 2/2 to EtOH withdraw, Dr Watts managing (3) Alcohol withdrawal Status: Acute Assessment & Plan: 01/24: No longer needing Ativan Qualifiers: Qualified Codes: F10.231 - Alcohol dependence with withdrawal delirium (4) Acute upper GI bleed Status: Acute (5) Esophageal varices Status: Acute Assessment & Plan: 01/24: on protonix and Octreotide gtts Qualifiers: Qualified Codes: I85.11 - Secondary esophageal varices with bleeding (6) Right leg DVT Status: Acute Qualifiers: Qualified Codes: I82.401 - Acute embolism and thrombosis of unspecified deep veins of right lower extremity (7) NSTEMI (non-ST elevated myocardial infarction) Status: Acute Assessment & Plan: 01/24: Cardiology following, likely 2/2 large PE (8) Normocytic anemia due to blood loss Status: Acute Assessment & Plan: 01/24: Will continue to monitor as patient is on blood thinners (9) Hypokalemia Status: Acute Assessment & Plan: 01/24: Replace and repeat BMP (10) DVT prophylaxis Status: Acute Assessment & Plan: - Patient on treatment Clinical Quality Measures DVT/VTE Risk/Contraindication: Risk Factor Score Per Nursin RFS Level Per Nursing on Admit: 4+=Very High SCOTT PITTMAN MD Jan 24, 2019 20:08
[2019-01-24] MEDS: LORazepam INJ 2 MG/ML (ATIVAN) VIAL IV PRN (20:47)
[2019-01-24] MEDS: HALOPERIDOL 5 MG/ML (HALDOL) AMP IV PRN (20:47)
[2019-01-24] MEDS: CYCLOBENZAPRINE 10 MG (FLEXERIL) TAB PO SCH (20:47)
[2019-01-25] VITALS (31 sets, daily range): BP systolic 100–187; BP diastolic 63–100
[2019-01-25] MEDS: inSUlin ASPART (NovoLOG) 1 UNIT/0.01 ML (CHARGE PER UNIT) SC SCH ×5 (02:00→23:44)
[2019-01-25] MEDS: LORazepam INJ 2 MG/ML (ATIVAN) VIAL IV PRN (02:02)
[2019-01-25] MEDS: PROPOFOL DRIP (ICU) 100 ML IV SCH ×3 (02:33→19:16)
[2019-01-25] MEDS: D5 1/2 NS 1000 ML IV SOLUTION 1,000 ML IV SCH ×2 (02:35→22:15)
[2019-01-25] MEDS: RT-ALBUTEROL/IPRATROPIUM 3 ML (DUONEB) VIAL INH SCH ×6 (02:36→22:13)
[2019-01-25 03:49] LABS: ABG BASE EXCESS -1.2 MMOL/L (-2.5-2.5); ABG OXYGEN SATURATION 97 % (94-100); ABG PCO2 36 MMHG (35-45); ABG PH 7.42 (7.37-7.43); ABG PO2 82 MMHG (79-93); BASOPHILS % (AUTO) 0 % (0-10); EOSINOPHILS % (AUTO) 0 % (0-10); HEMATOCRIT 24 % (40-54); HEMOGLOBIN 7.8 G/DL (13.3-17.7); LYMPHOCYTES # (AUTO) 0.8 X 10^3 (1.0-4.0); LYMPHOCYTES % (AUTO) 12 % (12-44); MEAN CORPUSCULAR HEMOGLOBIN 31 PG (25-34); MEAN CORPUSCULAR HGB CONC 33 G/DL (32-36); MEAN CORPUSCULAR VOLUME 94 FL (80-99); MEAN PLATELET VOLUME 9.6 FL (7.4-10.4); MONOCYTES # (AUTO) 0.5 X 10^3 (0.0-1.0); MONOCYTES % (AUTO) 8 % (0-12); NEUTROPHILS # (AUTO) 5.4 X 10^3 (1.8-7.8); NEUTROPHILS % (AUTO) 80 % (42-75); PLATELET COUNT 255 10^3/uL (130-400); RED CELL DISTRIBUTION WIDTH 14.6 % (10.0-14.5); WHITE BLOOD COUNT 6.7 10^3/uL (4.3-11.0)
[2019-01-25 03:59] LABS: ALLENS TEST ARTLINE; INSPIRED O2 40% FIO2; PATIENT TEMP 97.8; VENTILATOR YES
[2019-01-25 04:16] LABS: BUN/CREATININE RATIO 9; CALCIUM 7.8 MG/DL (8.5-10.1); CARBON DIOXIDE 22 MMOL/L (21-32); CHLORIDE 114 MMOL/L (98-107); CREATININE SERUM 0.82 MG/DL (0.60-1.30); GFR ESTIMATED > 60; GLUCOSE 150 MG/DL (70-105); PHOSPHORUS 2.8 MG/DL (2.3-4.7); POTASSIUM 2.7 MMOL/L (3.6-5.0); SODIUM 148 MMOL/L (135-145)
[2019-01-25] MEDS: MAGNESIUM 1 GM/100 ML IVPB 100 ML IV SCH (04:29)
[2019-01-25] MEDS: POTASSIUM CL 10MEQ/50ML IVPB 50 ML IV SCH ×14 (04:29→23:45)
[2019-01-25] MEDS: KCL 20 MEQ TAB (K-DUR) PO SCH (04:29)
[2019-01-25] MEDS ORDERED: POTASSIUM CL 10MEQ/50ML IVPB 50 ML IV ONE (04:30)
[2019-01-25] MEDS: PIPERACILLIN/TAZOBACTAM (BULK) 4.5 GM in NS (IVPB) 100 ML IV SCH ×3 (05:17→21:25)
[2019-01-25] MEDS: HYDROCORTISONE 100 MG/2 ML (Solu-CORTEF) VIAL IV SCH ×2 (05:17→13:51)
[2019-01-25] MEDS: OCTREOTIDE INJECTION 500 MCG in NS (IVPB) 97.5 ML IV SCH ×2 (07:51→17:22)
[2019-01-25] MEDS: NICOTINE 21 MG (NICODERM) PATCH TD SCH (08:16)
[2019-01-25] MEDS: LEVETIRACETAM INJECTION 500 MG in NS (IVPB) 100 ML IV SCH ×2 (08:16→20:10)
[2019-01-25] MEDS: NICOTINE PATCH REMOVAL TP SCH (08:16)
--- NOTE | 2019-01-25 08:30 | NUR ---
CM/SS spoke with patient's . She had completed applications for Financial Assistance, requested our financial services to get the application. Faxed Medicaid application in for her.
--- NOTE | 2019-01-25 09:48 | Diagnostic Imaging Report ---
INDICATION: Shortness of air, mechanical ventilation, dyspnea.. TECHNIQUE: Single view chest 3:51 AM. CORRELATION STUDY: 01/24/2019 FINDINGS: Endotracheal tube, gastric tube, left-sided central line all remain in place. Heart size enlarged. Mediastinum prominent. There is limited depth of inspiration. Vascular slightly increased from prior study. Increasing areas of perihilar and basilar atelectasis with likely trace effusions. IMPRESSION: 1. Stable appearance about support lines and tubes. 2. Continued areas of perihilar and basilar atelectasis perhaps slightly increased. Small effusions. Vasculature slightly increased. Dictated by: Dictated on workstation # [id number]
--- NOTE | 2019-01-25 09:54 | Progress Note - Cardiology ---
Cardiology SOAP Progress Note Subjective: Intubated and sedated Objective: I&O/Vital Signs 01/25/19 01/25/19 01/25/19 01/25/19 07:00 07:00 07:19 07:52 Temp 97.8 Pulse 91 97 87 87 Resp 14 18 18 B/P (MAP) 108/69 (82) 137/78 Pulse Ox 98 99 99 O2 Delivery Mechanical Ventilator Mechanical Ventilator O2 Flow Rate 40.00 40.00 FiO2 40 01/25/19 01/25/19 01/25/19 01/25/19 07:55 08:00 09:00 09:46 Pulse 96 101 104 Resp 13 18 24 B/P (MAP) 132/74 (93) 153/87 (109) Pulse Ox 98 100 100 O2 Delivery Mechanical Ventilator Mechanical Ventilator Mechanical Ventilator O2 Flow Rate 40.00 40.00 FiO2 40 40 01/25/19 01/25/19 01/25/19 01/25/19 09:53 10:00 10:58 11:00 Pulse 109 120 114 Resp 36 32 35 B/P (MAP) 154/82 (106) 144/67 (92) Pulse Ox 97 98 93 O2 Delivery Mechanical Ventilator Mechanical Ventilator Mechanical Ventilator O2 Flow Rate 30.00 30.00 30.00 FiO2 40 01/25/19 01/25/19 01/25/19 01/25/19 11:45 12:00 12:07 12:32 Temp 98.2 Pulse 105 103 Resp 16 B/P (MAP) 153/85 (107) Pulse Ox 97 O2 Delivery Mechanical Ventilator Mechanical Ventilator O2 Flow Rate 30.00 FiO2 30 01/25/19 01/25/19 01/25/19 01/25/19 13:00 13:51 14:00 15:00 Pulse 104 101 115 105 Resp 18 29 32 29 B/P (MAP) 144/80 (101) 148/79 (102) 157/86 (109) Pulse Ox 99 100 99 99 O2 Delivery Mechanical Ventilator Mechanical Ventilator Mechanical Ventilator O2 Flow Rate 30.00 30.00 30.00 FiO2 30 01/25/19 01/25/19 01/25/19 01/25/19 15:34 16:00 16:00 16:10 Temp 98.3 Pulse 106 103 Resp 35 22 B/P (MAP) 169/91 (117) Pulse Ox 97 97 O2 Delivery Mechanical Ventilator Mechanical Ventilator O2 Flow Rate 30.00 FiO2 30 30 01/25/19 01/25/19 01/25/19 17:00 17:04 18:00 Pulse 102 108 117 Resp 31 34 25 B/P (MAP) 183/91 (121) 145/76 (99) Pulse Ox 98 98 99 O2 Delivery Mechanical Ventilator Mechanical Ventilator O2 Flow Rate 30.00 30.00 FiO2 30 01/25/19 00:00 Intake Total 1155 ml Output Total 2575 ml Balance -1420 ml Weight (Pounds): 266 Weight (Ounces): 5.0 Weight (Calculated Kilograms): 120.960016 Constitutional: well-developed, well-nourished, other (on mech vent) Respiratory: No accessory muscle use; other (fair to good air entry) Cardiovascular: regular rate-rhythm, S1 and S2, systolic murmur (soft EMMANUELLE at card base) Gastrointestional: No tender; soft; No guarding, No rebound; audible bowel sounds Extremities: No clubbing, No cyanosis, No significant edema Neurologic/Psychiatric: oriented x 3, other (unresponsive, on mech vent) Skin: No rash on exposed areas, No ulcerations on exposed areas Results/Procedures: Labs Laboratory Tests 01/24/19 18:50: Hemoglobin 8.1L, Hematocrit 24L 01/24/19 23:50: Glucometer 99 01/25/19 03:40: Hemoglobin 7.8L, Hematocrit 24L, White Blood Count 6.7, Red Blood Count 2.51L, Mean Corpuscular Volume 94, Mean Corpuscular Hemoglobin 31, Mean Corpuscular Hemoglobin Concent 33, Red Cell Distribution Width 14.6H, Platelet Count 255, Mean Platelet Volume 9.6, Neutrophils (%) (Auto) 80H, Lymphocytes (%) (Auto) 12, Monocytes (%) (Auto) 8, Eosinophils (%) (Auto) 0, Basophils (%) (Auto) 0, Neutrophils # (Auto) 5.4, Lymphocytes # (Auto) 0.8L, Monocytes # (Auto) 0.5, Eosinophils # (Auto) 0.0, Basophils # (Auto) 0.0, Activated Partial Thromboplast Time 78H, Blood Gas Puncture Site LEFT RADIAL ARTLINE, Blood Gas Patient Tem perature 97.8, Arterial Blood pH 7.42, Arterial Blood Partial Pressure CO2 36, Arterial Blood Partial Pressure O2 82, Arterial Blood HCO3 23, Arterial Blood Total CO2 24.0, Arterial Blood Oxygen Saturation 97, Arterial Blood Base Excess -1.2, Joe Test ARTLINE, Blood Gas Ventilator Setting YES, Blood Gas Inspired Oxygen 40% FIO2, Sodium Level 148H, Potassium Level 2.7L, Chloride Level 114H, Carbon Dioxide Level 22, Anion Gap 12, Blood Urea Nitrogen 7, Creatinine 0.82, Estimat Glomerular Filtration Rate > 60, BUN/Creatinine Ratio 9, Glucose Level 150H, Calcium Level 7.8L, Phosphorus Level 2.8, Magnesium Level 2.0 01/25/19 09:45: Sodium Level 147H, Potassium Level 3.0L, Chloride Level 113H, Carbon Dioxide Level 24, Anion Gap 10, Blood Urea Nitrogen 8, Creatinine 0.81, Estimat Glomerular Filtration Rate > 60, BUN/Creatinine Ratio 10, Glucose Level 136H, Calcium Level 7.8L 01/25/19 11:55: Glucometer 121H 01/25/19 16:30: Hemoglobin 8.1L, Hematocrit 25L, Sodium Level 149H, Potassium Level 3.0L, Chloride Level 115H, Carbon Dioxide Level 24, Anion Gap 10, Blood Urea Nitrogen 8, Creatinine 0.83, Estimat Glomerular Filtration Rate > 60, BUN/Creatinine Ratio 10, Glucose Level 116H, Calcium Level 8.1L, Triglycerides Level 82 01/25/19 17:46: Glucometer 101 Microbiology 01/18/19 Blood Culture - Final, Complete Corynebacterium species 01/23/19 Gram Stain - Final, Resulted 01/23/19 Sputum Culture - Preliminary, Resulted Staphylococcus aureus Haemophilus influenza Laboratory Tests 01/24/19 04:17 01/24/19 18:50 01/25/19 03:40 01/25/19 09:45 01/25/19 16:30 A/P: Assessment: Large PE on 01/18/19, hemodynamically significant (presented with hypotension) treated with thrombolytics and subsequent anticoagulation Ac resp failure on 01/19/19, related to alcohol withdrawal, necessitating intubation and mech vent, managed by Dr Watts and Dr Henderson H/o hypertension H/o heavy alcohol use Echo of 01/19/19: LVEF 50-55%, reduced RV systolic function, grade 1 randle dysfunction of LV, RVSP 28 mmHg Hypokalemia - replace Anemia - management per medical service Plan: * Replenish lytes * Monitor labs * Prognosis guarded Physician Assessment Physician Assessment Still intubated and on mec vent Lungs: good bilat air entry Cor: reg Ext: no c/c/; mild leg edema A&R * As documented in our note above that I updated (italics) and as noted below * I spoke with his and answered CV-related questions * Dr Owens covering Card Svce beginning tomorrow [facility] Jan 25, 2019 09:53 NIKOLE MEZA MD [facility] Jan 25, 2019 18:50
--- NOTE | 2019-01-25 10:02 | Physical Therapy Progress Note ---
Therapy Progress Note Patient continues to require mechanical ventilator and is sedated. PT will continue to monitor patient status and will assess when medically stable. EDWINA BARKER PT Jan 25, 2019 10:02
[2019-01-25 10:17] LABS: BUN/CREATININE RATIO 10; CALCIUM 7.8 MG/DL (8.5-10.1); CARBON DIOXIDE 24 MMOL/L (21-32); CHLORIDE 113 MMOL/L (98-107); CREATININE SERUM 0.81 MG/DL (0.60-1.30); GFR ESTIMATED > 60; GLUCOSE 136 MG/DL (70-105); SODIUM 147 MMOL/L (135-145)
--- NOTE | 2019-01-25 11:11 | Occ Therapy Progress Note ---
Therapy Progress Note Pt remains intubated and sedated. Will continue to monitor and initiate therapy when medically stable. ARACELI GARCIA OT Jan 25, 2019 11:11
[2019-01-25] MEDS ORDERED: LIDOCAINE PF 1% 2 ML AMP INJ ONE (12:31)
--- NOTE | 2019-01-25 13:45 | NUR ---
DR PHILIPPE CALLED NEW TELEPHONE ORDERS RECEIVED TO DECREASE PEEP TO [address] PROP[address]OL ON STANDBY[address] RT GUEVARA NOTIFIED.
--- NOTE | 2019-01-25 13:50 | NUR ---
Pastoral care visit w/pts at bedside.
--- NOTE | 2019-01-25 13:53 | Pulmonary Progress Note ---
Subjective Date Seen by a Provider: Jan 23, 2019 (late note for 01/23/19 today is 01/25 ) Time Seen by a Provider: 04:00 Subjective/Events-last exam PT is sedated on vent. Sepsis Event Evaluation Height, Weight, BMI Height: 5'5.00" Weight: 266lbs. 5.0oz. 120.170032rf; 36.9 BMI Method:Stated Exam Exam Vital Signs Date Time Temp Pulse Resp B/P (MAP) Pulse Ox O2 Delivery O2 Flow Rate FiO2 01/25/19 12:32 103 01/25/19 12:07 Mechanical Ventilator 30 01/25/19 12:00 105 16 153/85 (107) 97 Mechanical Ventilator 30.00 01/25/19 11:45 98.2 01/25/19 11:00 114 35 144/67 (92) 93 Mechanical Ventilator 30.00 01/25/19 10:58 120 32 98 40 01/25/19 10:00 109 36 154/82 (106) 97 Mechanical Ventilator 30.00 01/25/19 09:53 Mechanical Ventilator 30.00 01/25/19 09:46 104 24 100 40 01/25/19 09:00 101 18 153/87 (109) 100 Mechanical Ventilator 40.00 01/25/19 08:00 96 13 132/74 (93) 98 Mechanical Ventilator 40.00 01/25/19 07:55 Mechanical Ventilator 40 01/25/19 07:52 97.8 87 18 137/78 99 Mechanical Ventilator 40.00 01/25/19 07:19 87 18 99 40 01/25/19 07:00 97 01/25/19 07:00 91 14 108/69 (82) 98 Mechanical Ventilator 40.00 01/25/19 06:00 97 15 100/66 (77) 98 Mechanical Ventilator 40.00 01/25/19 05:00 99 18 101/67 (78) 99 Mechanical Ventilator 40.00 01/25/19 04:00 Mechanical Ventilator 40 01/25/19 04:00 100 10 110/66 (81) 99 Mechanical Ventilator 40.00 01/25/19 03:46 97.8 01/25/19 03:00 102 17 110/63 (79) 100 Mechanical Ventilator 40.00 01/25/19 02:36 101 17 99 40 01/25/19 02:33 111/64 01/25/19 02:00 110 14 113/63 (80) 98 Mechanical Ventilator 40.00 01/25/19 01:00 95 16 101/64 (76) 98 Mechanical Ventilator 40.00 01/25/19 01:00 95 01/25/19 00:00 98 10 134/72 (92) 100 Mechanical Ventilator 40.00 01/24/19 23:54 Mechanical Ventilator 40 01/24/19 23:20 97.4 01/24/19 23:00 102 11 123/66 (85) 100 Mechanical Ventilator 40.00 01/24/19 22:37 129/68 01/24/19 22:34 109 18 116/70 (85) 100 Mechanical Ventilator 40.00 01/24/19 22:29 101 26 100 50 01/24/19 22:00 98 14 122/63 (82) 100 Mechanical Ventilator 50.00 01/24/19 21:00 107 13 124/63 (83) 99 Mechanical Ventilator 50.00 01/24/19 20:00 97.5 01/24/19 20:00 Mechanical Ventilator 60 01/24/19 20:00 110 17 120/65 (83) 96 Mechanical Ventilator 50.00 01/24/19 19:49 119/64 01/24/19 19:12 113 01/24/19 19:00 137 11 117/61 (79) 97 Mechanical Ventilator 50.00 01/24/19 18:49 Mechanical Ventilator 50.00 01/24/19 18:38 93 22 99 60 01/24/19 18:00 96 19 123/68 (86) 98 Mechanical Ventilator 60.00 01/24/19 17:00 107 25 105/53 (70) 95 Mechanical Ventilator 60.00 01/24/19 16:22 17 01/24/19 16:10 149/75 01/24/19 16:00 94 24 138/69 (92) 99 Mechanical Ventilator 60.00 01/24/19 16:00 97.2 01/24/19 15:00 103 16 131/69 (89) 99 Mechanical Ventilator 60.00 01/24/19 15:00 Mechanical Ventilator 60 01/24/19 14:25 Mechanical Ventilator 60.00 01/24/19 14:18 87 26 100 80 01/24/19 14:00 82 20 155/85 (108) 100 Mechanical Ventilator 80.00 I & O 01/25/19 07:00 Intake Total 3200 ml Output Total 4370 ml Balance -1170 ml Height & Weight Height: 5'5.00" Weight: 266lbs. 5.0oz. 120.975443pl; 36.9 BMI Method:Stated General Appearance: No Apparent Distress, WD/WN HEENT: PERRL/EOMI Neck: Full Range of Motion, Normal Inspection Respiratory: No Accessory Muscle Use, No Respiratory Distress Cardiovascular: Tachycardia (heart rate 130 no complex regular with preceding P waves before each QRS. Blood pressure 122/96. O2 sat 89% on 2 L. He denies shortness of breath. He is still diaphoretic and pale with delayed capillary refill of the skin) Capillary Refill: Greater Than 3 Seconds Gastrointestinal: soft, no organomegaly; No distended Extremity: No Pedal Edema, Slow Capillary Refill Neurologic/Psychiatric: Alert, Other (alert, answers questions appropriately) Skin: Cool Lymphatic: No Adenopathy Results Lab Laboratory Tests 01/23/19 17:40 01/24/19 04:17 01/24/19 18:50 01/25/19 03:40 01/25/19 09:45 Assessment/Plan Assessment/Plan Acute respiratory failure secondary to alcohol withdrawal -Pt was intubated yesterday for airway protection -LUCINA protocol - still getting Ativan Acute Large PE s/p TPA -Echo today - 50-55% RLE DVT -IF we have to stop heparin gtt will ask Dr. Everett for IVC filter. Hemoptysis -resolved Grade II esophageal varices s/p EGD -Continue Hep and Octreotide gtts. -Hb is currently stable GIB- Occult -Hb monitor Q 6 -Protonix gtt/Octreotide gtt -Continue Hep for now Hypotensive -Give liter bolus of LR Seizure disorder -PRN Ativan -Keppra Alcohol withdrawals -LUCINA protocol -Monitor NSTEMI - secondary to PE -Monitor KAYDEN PHILIPPE DO Jan 25, 2019 13:53
[2019-01-25] MEDS ORDERED: LORazepam INJ 2 MG/ML (ATIVAN) VIAL IV PRN (14:00)
[2019-01-25] MEDS: HEParin DRIP 25000 UNIT/500ML 500 ML IV SCH (14:20)
--- NOTE | 2019-01-25 15:17 | Progress Note ---
Subjective Subjective/Events-last exam Patient continues to be sedated and intubated Review of Systems Date Seen by Provider: Jan 25, 2019 Time Seen by Provider: 12:15 Unable to perform due to sedation and intubation Objective Exam Last Set of Vital Signs Vital Signs Date Time Temp Pulse Resp B/P (MAP) Pulse Ox O2 Delivery O2 Flow Rate FiO2 01/25/19 15:00 105 29 157/86 (109) 99 Mechanical Ventilator 30.00 01/25/19 13:51 30 01/25/19 11:45 98.2 Capillary Refill : Less Than 3 SecondsGreater Than 3 Seconds I&O Intake and Output 01/25/19 00:00 Intake Total 3130 ml Output Total 4875 ml Balance -1745 ml IV Total 3100 ml Tube Feeding 0 ml Other 30 ml Output Urine Total 4625 ml Gastric Drainage Total 250 ml General: Other (Sedated and intubated) Lungs: Other (Crackles throughout, belly breathing) Heart: Regular Rate, No Murmurs Abdomen: Normal Bowel Sounds, Soft Extremities: Other (2+ pitting edema bilaterally) Results/Procedures Lab Laboratory Tests 01/24/19 17:29: Glucometer 138H 01/24/19 18:50: Hemoglobin 8.1L, Hematocrit 24L 01/24/19 23:50: Glucometer 99 01/25/19 03:40: Hemoglobin 7.8L, Hematocrit 24L, White Blood Count 6.7, Red Blood Count 2.51L, Mean Corpuscular Volume 94, Mean Corpuscular Hemoglobin 31, Mean Corpuscular Hemoglobin Concent 33, Red Cell Distribution Width 14.6H, Platelet Count 255, Mean Platelet Volume 9.6, Neutrophils (%) (Auto) 80H, Lymphocytes (%) (Auto) 12, Monocytes (%) (Auto) 8, Eosinophils (%) (Auto) 0, Basophils (%) (Auto) 0, Neutrophils # (Auto) 5.4, Lymphocytes # (Auto) 0.8L, Monocytes # (Auto) 0.5, Eosinophils # (Auto) 0.0, Basophils # (Auto) 0.0, Activated Partial Thromboplast Time 78H, Blood Gas Puncture Site LEFT RADIAL ARTLINE, Blood Gas Patient Temperature 97.8, Arterial Blood pH 7.42, Arterial Blood Partial Pressure CO2 36, Arterial Blood Partial Pressure O2 82, Arterial Blood HCO3 23, Arterial Blood Total CO2 24.0, Arterial Blood Oxygen Saturation 97, Arterial Blood Base Excess -1.2, Joe Test ARTLINE, Blood Gas Ventilator Setting YES, Blood Gas I nspired Oxygen 40% FIO2, Sodium Level 148H, Potassium Level 2.7L, Chloride Level 114H, Carbon Dioxide Level 22, Anion Gap 12, Blood Urea Nitrogen 7, Creatinine 0.82, Estimat Glomerular Filtration Rate > 60, BUN/Creatinine Ratio 9, Glucose Level 150H, Calcium Level 7.8L, Phosphorus Level 2.8, Magnesium Level 2.0 01/25/19 09:45: Sodium Level 147H, Potassium Level 3.0L, Chloride Level 113H, Carbon Dioxide Level 24, Anion Gap 10, Blood Urea Nitrogen 8, Creatinine 0.81, Estimat Glomerular Filtration Rate > 60, BUN/Creatinine Ratio 10, Glucose Level 136H, Calcium Level 7.8L 01/25/19 11:55: Glucometer 121H Microbiology 01/18/19 Blood Culture - Final, Complete Corynebacterium species 01/23/19 Gram Stain - Final, Resulted 01/23/19 Sputum Culture - Preliminary, Resulted Staphylococcus aureus Haemophilus influenza Radiology NAME: LASHWAN ASHBY [facility] REC#: [id number] PT STATUS: REG CLI : 1970 PHYSICIAN: JESSICA BARBA ADMIT DATE: 08/23/18/RAD Signed Date of Exam: 08/23/18 CT HEAD W WO INDICATION: Parietal headaches. Dizziness. Blurred vision. Dysphagia. TECHNIQUE: Routine pre- and postcontrast, chronic small-enhanced axial images were obtained from the skull base to the vertex. COMPARISON: 05/08/2018 FINDINGS: The ventricles and cortical sulci are stable in size and contour. Postcontrast images show no abnormal areas of enhancement There is no midline shift or mass-effect. No acute intra-axial hemorrhage is seen. There are no abnormal areas of increased or decreased density to suggest acute hemorrhage or edema. No extra-axial masses or collections are present. The bony calvarium is intact. The visualized paranasal sinuses are unremarkable. The mastoid air cells are clear. IMPRESSION: 1. No acute intracranial abnormality. No CT evidence of mass, acute infarct or intracranial hemorrhage. Dictated by: Dictated on workstation # [id number] Dict: 08/23/18 1424 Trans: 08/23/18 1649 Interpreted by: MARGARITA FRIEND MD Electronically signed by: MARGARITA FRIEND MD 08/23/18 1649 NAME: LASHAWN ASHBY [facility] REC#: [id number] PT STATUS: REG ER : 1970 PHYSICIAN: MARNIE BRYSON APRN ADMIT DATE: 01/18/19/ER Signed Date of Exam: 01/18/19 CHEST 1 VIEW, AP/PA ONLY INDICATION: Shortness of air, altered mental status. TECHNIQUE: Single frontal view of the chest. COMPARISON: 03/19/2017 FINDINGS: Lung volumes are normal. No focal consolidation is seen. There is no pleural effusion or pneumothorax. The cardiomediastinal silhouette is normal in size and contour. IMPRESSION: No acute pulmonary abnormality is seen. Dictated by: Dictated on workstation # [id number] Dict: 01/18/19 1124 Trans: 01/18/19 1207 Interpreted by: LIANET ACEVEDO MD Electronically signed by: LIANET ACEVEDO MD 01/18/19 1207 NAME: LASHAWN ASHBY [facility] REC#: [id number] PT STATUS: ADM IN : 1970 PHYSICIAN: MARNIE BRYSON APRN ADMIT DATE: 01/18/19/ICU Signed Date of Exam: 01/18/19 CT ANGIO CHEST W PROCEDURE: CT angiography of the chest with contrast. TECHNIQUE: Multiple contiguous axial images were obtained through the chest after uneventful bolus administration of intravenous contrast. Reconstructed CTA MIP acquisitions were also performed. Auto Exposure Controls were utilized during the CT exam to meet ALARA standards for radiation dose reduction. INDICATION: Dyspnea. COMPARISON: None available. Vasculature: Extensive bilateral acute pulmonary emboli are present. This involves a thin saddle embolus seen across the right and left pulmonary trunks. There is a large volume of thrombus extending into the lobar pulmonary arteries involving both sides. Pulmonary trunk is mildly dilated measuring 3.0 cm. Additionally, there is mild flattening of the interventricular septum suggestive of right-sided heart strain. Normal-caliber thoracic aorta without features of dissection. Heart and mediastinum: Visualized thyroid is normal. No supraclavicular, axillary, or intra-thoracic lymphadenopathy. No pericardial effusion. Pleura: No pleural effusion or pneumothorax. Lungs and airway: No endoluminal lesion in the trachea or central bronchi. No pulmonary mass or consolidation. There are scattered ground-glass opacities within the lung bases and left upper lobe. Upper abdomen: Allowing for the phase of contrast, no acute abnormality in the upper abdomen is seen. Musculoskeletal: No concerning osseous lesion. IMPRESSION: 1. Large burden of acute bilateral pulmonary emboli with a small saddle embolus present and emboli extending to all five lobes. Additionally, there are features of pulmonary hypertension and right ventricular strain. 2. Scattered ground-glass attenuation within the lungs could be due to atelectasis. Developing pulmonary infarcts could potentially have this appearance. The above critical findings were called to Marnie Bryson APRN by Dr. Abhi Saavedra at 11:57 a.m. on 01/18/2019. CRITICAL FINDINGS Dictated by: Dictated on workstation # [id number] Dict: 01/18/19 1153 Trans: 01/18/19 1308 Interpreted by: ABHI SAAVEDRA MD Electronically signed by: ABHI SAAVEDRA MD 01/18/19 1308 Assessment/Plan Assessment/Plan (1) Saddle pulmonary embolus Status: Acute Assessment & Plan: 01/24: Given tPA in ER, started on heparin, presented with hypotension 01/25: Hgb stable, continue heparin Qualifiers: Qualified Codes: I26.02 - Saddle embolus of pulmonary artery with acute cor pulmonale (2) Acute respiratory failure with hypoxia Status: Acute Assessment & Plan: 01/24: intubated 08/21 to EtOH withdraw, Dr Watts managing (3) Alcohol withdrawal Status: Acute Assessment & Plan: 01/24: No longer needing Ativan Qualifiers: Qualified Codes: F10.231 - Alcohol dependence with withdrawal delirium (4) Acute upper GI bleed Status: Acute Assessment & Plan: 01/25: Consider transfusion given hgb 7.8 (5) Esophageal varices Status: Acute Assessment & Plan: 01/24: on protonix and Octreotide gtts Qualifiers: Qualified Codes: I85.11 - Secondary esophageal varices with bleeding (6) Right leg DVT Status: Acute Qualifiers: Qualified Codes: I82.401 - Acute embolism and thrombosis of unspecified deep veins of right lower extremity (7) NSTEMI (non-ST elevated myocardial infarction) Status: Acute Assessment & Plan: 01/24: Cardiology following, likely 2/2 large PE (8) Normocytic anemia due to blood loss Status: Acute Assessment & Plan: 01/24: Will continue to monitor as patient is on blood thinners (9) Hypokalemia Status: Acute Assessment & Plan: 01/24: Replace and repeat BMP (10) DVT prophylaxis Status: Acute Assessment & Plan: - Patient on treatment Clinical Quality Measures DVT/VTE Risk/Contraindication: Risk Factor Score Per Nursin RFS Level Per Nursing on Admit: 4+=Very High SCOTT PITTMAN MD Jan 25, 2019 15:17
[2019-01-25 16:41] LABS: HEMOGLOBIN 8.1 G/DL (13.3-17.7)
[2019-01-25 16:56] LABS: BUN/CREATININE RATIO 10; CALCIUM 8.1 MG/DL (8.5-10.1); CARBON DIOXIDE 24 MMOL/L (21-32); CHLORIDE 115 MMOL/L (98-107); CREATININE SERUM 0.83 MG/DL (0.60-1.30); GFR ESTIMATED > 60; GLUCOSE 116 MG/DL (70-105); SODIUM 149 MMOL/L (135-145)
[2019-01-25] MEDS: PANTOPRAZOLE INJECTION 200 MG in NS (IVPB) 100 ML IV SCH (18:14)
[2019-01-25] MEDS: fentaNYL 1,250 MCG/NS 250 ML DRIP IV SCH ×4 (19:22→23:26)
[2019-01-25] MEDS: HALOPERIDOL 5 MG/ML (HALDOL) AMP IV PRN (19:40)
[2019-01-25] MEDS: CYCLOBENZAPRINE 10 MG (FLEXERIL) TAB PO SCH (20:09)
[2019-01-26] VITALS (27 sets, daily range): BP systolic 106–159; BP diastolic 67–89
[2019-01-26] MEDS ORDERED: POTASSIUM CL 10MEQ/50ML IVPB 50 ML IV ONE (01:00)
[2019-01-26] MEDS: RT-ALBUTEROL/IPRATROPIUM 3 ML (DUONEB) VIAL INH SCH ×6 (02:33→22:27)
[2019-01-26] MEDS: OCTREOTIDE INJECTION 500 MCG in NS (IVPB) 97.5 ML IV SCH ×2 (03:45→12:20)
[2019-01-26 03:46] LABS: ABG BASE EXCESS -0.4 MMOL/L (-2.5-2.5); ABG OXYGEN SATURATION 95 % (94-100); ABG PCO2 40 MMHG (35-45); ABG PH 7.39 (7.37-7.43); ABG PO2 77 MMHG (79-93); ABG TCO2 25.3 MMOL/L (21.0-31.0); BASOPHILS % (AUTO) 1 % (0-10); EOSINOPHILS # (AUTO) 0.2 10^3/uL (0.0-0.3); EOSINOPHILS % (AUTO) 3 % (0-10); HEMATOCRIT 24 % (40-54); HEMOGLOBIN 7.7 G/DL (13.3-17.7); LYMPHOCYTES % (AUTO) 27 % (12-44); MEAN CORPUSCULAR HEMOGLOBIN 31 PG (25-34); MEAN CORPUSCULAR HGB CONC 32 G/DL (32-36); MEAN CORPUSCULAR VOLUME 96 FL (80-99); MONOCYTES # (AUTO) 0.6 X 10^3 (0.0-1.0); MONOCYTES % (AUTO) 8 % (0-12); NEUTROPHILS # (AUTO) 4.6 X 10^3 (1.8-7.8); NEUTROPHILS % (AUTO) 61 % (42-75); PLATELET COUNT 331 10^3/uL (130-400); RED CELL DISTRIBUTION WIDTH 15.3 % (10.0-14.5); WHITE BLOOD COUNT 7.5 10^3/uL (4.3-11.0)
[2019-01-26 03:47] LABS: ALLENS TEST ARTLINE; INSPIRED O2 30% FIO2; PATIENT TEMP 97.3; VENTILATOR YES
[2019-01-26] MEDS: PROPOFOL DRIP (ICU) 100 ML IV SCH (03:59)
[2019-01-26 04:07] LABS: BUN/CREATININE RATIO 10; CALCIUM 7.8 MG/DL (8.5-10.1); CARBON DIOXIDE 21 MMOL/L (21-32); CHLORIDE 115 MMOL/L (98-107); CREATININE SERUM 0.87 MG/DL (0.60-1.30); GFR ESTIMATED > 60; GLUCOSE 107 MG/DL (70-105); MAGNESIUM 2.3 MG/DL (1.8-2.4); PHOSPHORUS 2.8 MG/DL (2.3-4.7); POTASSIUM 3.1 MMOL/L (3.6-5.0); SODIUM 148 MMOL/L (135-145)
[2019-01-26] MEDS: POTASSIUM CL 10MEQ/50ML IVPB 50 ML IV SCH ×9 (04:52→09:42)
[2019-01-26] MEDS: KCL 20 MEQ TAB (K-DUR) PO SCH (04:52)
[2019-01-26] MEDS: MAGNESIUM 1 GM/100 ML IVPB 100 ML IV SCH (04:52)
[2019-01-26] MEDS: inSUlin ASPART (NovoLOG) 1 UNIT/0.01 ML (CHARGE PER UNIT) SC SCH ×3 (04:53→18:11)
[2019-01-26] MEDS: PIPERACILLIN/TAZOBACTAM (BULK) 4.5 GM in NS (IVPB) 100 ML IV SCH ×3 (05:07→20:25)
[2019-01-26] MEDS ORDERED: FUROSEMIDE 40 MG/4 ML INJ (LASIX) ONE (05:26)
[2019-01-26] MEDS ORDERED: D5W 1000 ML IV SOLUTION 1,000 ML ONE (05:26)
[2019-01-26] MEDS ORDERED: FUROSEMIDE 40 MG/4 ML INJ (LASIX) IVP ONE (05:30)
[2019-01-26] MEDS: D5W 1000 ML IV SOLUTION 1,000 ML IV SCH (05:37)
--- NOTE | 2019-01-26 05:40 | Pulmonary Progress Note ---
Subjective Time Seen by a Provider: 05:31 Subjective/Events-last exam sedated on vent Sepsis Event Evaluation Height, Weight, BMI Height: 5'5.00" Weight: 266lbs. 5.0oz. 120.889334oi; 36.9 BMI Method:Stated Exam Exam Vital Signs Date Time Temp Pulse Resp B/P (MAP) Pulse Ox O2 Delivery O2 Flow Rate FiO2 01/26/19 04:34 82 16 100 30 01/26/19 04:00 97.4 01/26/19 04:00 87 19 127/74 (91) 100 Mechanical Ventilator 30.00 01/26/19 04:00 Mechanical Ventilator 30 01/26/19 03:59 127/74 01/26/19 03:00 87 16 137/79 (98) 100 Mechanical Ventilator 30.00 01/26/19 02:33 80 16 99 30 01/26/19 02:00 82 22 110/70 (83) 98 Mechanical Ventilator 30.00 01/26/19 01:00 85 22 106/68 (81) 99 Mechanical Ventilator 30.00 01/26/19 01:00 85 01/26/19 00:24 89 16 100 30 01/26/19 00:00 97.5 01/26/19 00:00 88 16 124/78 (93) 100 Mechanical Ventilator 30.00 01/26/19 00:00 Mechanical Ventilator 30 01/25/19 23:00 96 12 126/72 (90) 99 Mechanical Ventilator 30.00 01/25/19 22:15 90 24 100 30 01/25/19 22:00 89 25 129/73 (91) 100 Mechanical Ventilator 30.00 01/25/19 21:00 104 21 125/67 (86) 100 Mechanical Ventilator 30.00 01/25/19 20:00 98.3 01/25/19 20:00 98 17 143/89 (107) 100 Mechanical Ventilator 30.00 01/25/19 20:00 Mechanical Ventilator 30 01/25/19 19:16 98.3 95 20 145/76 99 Mechanical Ventilator 30.00 01/25/19 19:00 97 01/25/19 19:00 97 21 162/92 (115) 99 Mechanical Ventilator 30.00 01/25/19 18:56 95 20 99 30 01/25/19 18:00 117 25 145/76 (99) 99 Mechanical Ventilator 30.00 01/25/19 17:04 108 34 98 30 01/25/19 17:00 102 31 183/91 (121) 98 Mechanical Ventilator 30.00 01/25/19 16:10 Mechanical Ventilator 30 01/25/19 16:00 98.3 01/25/19 16:00 103 22 169/91 (117) 97 Mechanical Ventilator 30.00 01/25/19 15:34 106 35 97 30 01/25/19 15:00 105 29 157/86 (109) 99 Mechanical Ventilator 30.00 01/25/19 14:00 115 32 148/79 (102) 99 Mechanical Ventilator 30.00 01/25/19 13:51 101 29 100 30 01/25/19 13:00 104 18 144/80 (101) 99 Mechanical Ventilator 30.00 01/25/19 12:32 103 01/25/19 12:07 Mechanical Ventilator 30 01/25/19 12:00 105 16 153/85 (107) 97 Mechanical Ventilator 30.00 01/25/19 11:45 98.2 01/25/19 11:00 114 35 144/67 (92) 93 Mechanical Ventilator 30.00 01/25/19 10:58 120 32 98 40 01/25/19 10:00 109 36 154/82 (106) 97 Mechanical Ventilator 30.00 01/25/19 09:53 Mechanical Ventilator 30.00 01/25/19 09:46 104 24 100 40 01/25/19 09:00 101 18 153/87 (109) 100 Mechanical Ventilator 40.00 01/25/19 08:00 96 13 132/74 (93) 98 Mechanical Ventilator 40.00 01/25/19 07:55 Mechanical Ventilator 40 01/25/19 07:52 97.8 87 18 137/78 99 Mechanical Ventilator 40.00 01/25/19 07:19 87 18 99 40 01/25/19 07:00 97 01/25/19 07:00 91 14 108/69 (82) 98 Mechanical Ventilator 40.00 01/25/19 06:00 97 15 100/66 (77) 98 Mechanical Ventilator 40.00 I & O 01/26/19 07:00 Intake Total 1560 ml Output Total 2250 ml Balance -690 ml Height & Weight Height: 5'5.00" Weight: 266lbs. 5.0oz. 120.176337sw; 36.9 BMI Method:Stated General Appearance: No Apparent Distress, WD/WN HEENT: PERRL/EOMI Neck: Full Range of Motion, Normal Inspection Respiratory: No Accessory Muscle Use, No Respiratory Distress Cardiovascular: Tachycardia (heart rate 130 no complex regular with preceding P waves before each QRS. Blood pressure 122/96. O2 sat 89% on 2 L. He denies shortness of breath. He is still diaphoretic and pale with delayed capillary refill of the skin) Capillary Refill: Greater Than 3 Seconds Gastrointestinal: soft, no organomegaly; No distended Extremity: No Pedal Edema, Slow Capillary Refill Neurologic/Psychiatric: Alert, Other (alert, answers questions appropriately) Skin: Cool Lymphatic: No Adenopathy Results Lab Laboratory Tests 01/24/19 18:50 01/25/19 03:40 01/25/19 09:45 01/25/19 16:30 01/26/19 03:39 Assessment/Plan Assessment/Plan Acute respiratory failure secondary to alcohol withdrawal -Will try to wean vent and extubate this AM -Give lasix 60mg IV X 1 -d/c LUCINA and Ativan for now. Acute Large PE s/p TPA -Echo today - 50-55% pulmonary edema/anasarca secondary to IVF -Will give 60mg of IV Lasix x 1 now -Check BNP RLE DVT -IF we have to stop heparin gtt will ask Dr. Everett for IVC filter. Hemoptysis -resolved Grade II esophageal varices s/p EGD -Continue Hep and Octreotide gtts. -Hb is currently stable GIB- Occult -Protonix gtt/Octreotide gtt -Continue Hep for now Seizure disorder -PRN Ativan -Keppra Alcohol withdrawals -LUCINA protocol -Monitor NSTEMI - secondary to PE -Monitor KAYDEN PHILIPPE DO Jan 26, 2019 05:40
--- NOTE | 2019-01-26 07:00 | NUR ---
WHEN RT ENTERED THE PATIENTS ROOM; DR PHILIPPE WAS MAKING CHANGES TO THE VENT: HE PLACED IT ON SIMV RATE 10 PS 10 PEEP 5 30%, HE TOLD RT WHEN PATIENT IS DOING GOOD, SWITCH PATIENT OVER TO SPONT MODE WITH PS 10 AND PEEP 5 AND DO AN ABG 30 MINS AFTER CHANGING PATIENT OVER TO SPONT MODE. HE WANTS ABG RESULTS CALLED TO HIM.
--- NOTE | 2019-01-26 08:06 | Occ Therapy Progress Note ---
Therapy Progress Note Pt remains intubated. Will continue to monitor patient status and will assess when medically stable. ARACELI GARCIA OT Jan 26, 2019 08:06
[2019-01-26 08:57] LABS: ABG BASE EXCESS 3.7 MMOL/L (-2.5-2.5); ABG OXYGEN SATURATION 91 % (94-100); ABG PCO2 37 MMHG (35-45); ABG PH 7.47 (7.37-7.43); ABG PO2 56 MMHG (79-93); ABG TCO2 28.6 MMOL/L (21.0-31.0); ALLENS TEST POSITIVE
[2019-01-26 08:58] LABS: INSPIRED O2 30%; VENTILATOR YES
[2019-01-26 08:59] LABS: PATIENT TEMP 96.8
--- NOTE | 2019-01-26 09:11 | Diagnostic Imaging Report ---
INDICATION: Shortness of air. TIME OF EXAMINATION: 3:24 AM. COMPARISON: 01/25/2019. FINDINGS: The ET tube tip is above the sarah. A left-sided line has its tip overlying the SVC. The tip of the NG tube is difficult to see on this exam. The heart remains enlarged. Bibasilar atelectasis persists. The mid and upper lung salcido are clear. There is no pneumothorax. IMPRESSION: Overall stable appearance of the chest when compared with the exam of one day earlier. Dictated by: Dictated on workstation # [id number]
[2019-01-26] MEDS: METOCLOPRAMIDE INJ 10 MG/2 ML (REGLAN) IVP SCH ×2 (09:33→20:25)
[2019-01-26] MEDS: NICOTINE 21 MG (NICODERM) PATCH TD SCH (09:33)
[2019-01-26] MEDS: LEVETIRACETAM INJECTION 500 MG in NS (IVPB) 100 ML IV SCH ×2 (09:33→20:25)
[2019-01-26] MEDS: NICOTINE PATCH REMOVAL TP SCH (09:34)
--- NOTE | 2019-01-26 10:47 | Physical Therapy Progress Note ---
Therapy Progress Note Patient is currently on vent. Nurse states that he may be extubated this afternoon. Will check back. DEVAUGHN PACE PT Jan 26, 2019 10:47
--- NOTE | 2019-01-26 11:00 | NUR ---
Billie, RT at bedside at this time. Verbal order received from Dr. Watts to extubate pt at this time. Pt extubated at this time by RT. RN at bedside at this time. VSS. Pt able to speak at this time. Will continue to monitor. remains at bedside.
--- NOTE | 2019-01-26 11:03 | Physician Query Clarification ---
PQ-Conflicting Diagnosis Admission/Discharge Admission Date: Jan 18, 2019 at 12:51 Discharge Date: The medical record reflects the following clinical scenario: History/Risk Factors: Bilateral Pulmonary Emboli (Saddle type) Status post TPA Clinical Findings:01/18 Troponin I -0.085 Treatment:IV Cardizem 10 mg., Aspirin 324mg, IV Lopressor 2.5 mg. Question: Do you agree with the impression of the NSTEMI secondary to PE per Dr. Watts. Please document a response in Progress Note or Discharge Summary. 1. Yes 2. No 3. Other, with explanation of clinical findings 4. Clinically undetermined, no explanation for clinical findings. PHYSICIAN RESPONSE Do you agree w/Consulting Dx?: Yes Please remember a lack of response to the above will prompt a phone page by CDI/Coding staff. In responding to this query, please exercise your independent professional judg ment. The purpose of this communication is to more accurately reflect the complexity of your patients condition. The fact that a question is asked does not imply that any particular answer is desired or expected. Thank you for your timely response to this clarification. Requestors name: Malou Thorpe [facility] Phone # ext [phone] or [phone] THIS PHYSICIAN QUERY FORM IS A PERMANENT PART OF THE MEDICAL RECORD MALOU THORPE Jan 26, 2019 11:03 ARMIDA DEL CASTILLO DO Jan 26, 2019 20:19
[2019-01-26] MEDS: HEParin DRIP 25000 UNIT/500ML 500 ML IV SCH (11:36)
--- NOTE | 2019-01-26 13:43 | Progress Note ---
Subjective Subjective/Events-last exam Patient sedated and intubated. Doing breathing trial right now Review of Systems Date Seen by Provider: Jan 26, 2019 Time Seen by Provider: 10:00 Unable to perform due to sedation and intubation Objective Exam Last Set of Vital Signs Vital Signs Date Time Temp Pulse Resp B/P (MAP) Pulse Ox O2 Delivery O2 Flow Rate FiO2 01/26/19 12:00 Mechanical Ventilator 30 01/26/19 12:00 97.4 01/26/19 12:00 121/71 (88) 100 3.00 01/26/19 11:00 96 17 Capillary Refill : Less Than 3 SecondsGreater Than 3 Seconds I&O Intake and Output 01/26/19 00:00 Intake Total 1760 ml Output Total 2670 ml Balance -910 ml Intake Oral 0 ml IV Total 1730 ml Other 30 ml Output Urine Total 2270 ml Gastric Drainage Total 100 ml Oral Regurgitation 300 ml General: Other (Intubated and sedated) Lungs: Other (Course breath sounds, mild increased work of breathing) Heart: Regular Rate, No Murmurs Extremities: Other (2+ pitting edema to all extremities) Other physical findings Scrotal Swelling Results/Procedures Lab Laboratory Tests 01/25/19 16:30: Hemoglobin 8.1L, Hematocrit 25L, Sodium Level 149H, Potassium Level 3.0L, Chloride Level 115H, Carbon Dioxide Level 24, Anion Gap 10, Blood Urea Nitrogen 8, Creatinine 0.83, Estimat Glomerular Filtration Rate > 60, BUN/Creatinine Ratio 10, Glucose Level 116H, Calcium Level 8.1L, Triglycerides Level 82 01/25/19 17:46: Glucometer 101 01/25/19 23:30: Glucometer 140H 01/26/19 03:39: Hemoglobin 7.7L, Hematocrit 24L, Sodium Level 148H, Potassium Level 3.1L, Chloride Level 115H, Carbon Dioxide Level 21, Anion Gap 12, Blood Urea Nitrogen 9, Creatinine 0.87, Estimat Glomerular Filtration Rate > 60, BUN/Creatinine Ratio 10, Glucose Level 107H, Calcium Level 7.8L, White Blood Count 7.5, Red Blood Count 2.49L, Mean Corpuscular Volume 96, Mean Corpuscular Hemoglobin 31, Mean Corpuscular Hemoglobin Concent 32, Red Cell Distribution Width 15.3H, Platelet Count 331, Mean Platelet Volume 9.0, Neutrophils (%) (Auto) 61, Lymphocytes (%) (Auto) 27, Monocytes (%) (Auto) 8, Eosinophils (%) (Auto) 3, Basophils (%) (Auto) 1, Neutrophils # (Auto) 4.6, Lymphocytes # (Auto) 2.0, Monocytes # (Auto) 0.6, Eosinophils # (Auto) 0.2, Basophils # (Auto) 0.0, Ac tivated Partial Thromboplast Time 80H, Blood Gas Puncture Site LEFT ARTLINE, Blood Gas Patient Temperature 97.3, Arterial Blood pH 7.39, Arterial Blood Partial Pressure CO2 40, Arterial Blood Partial Pressure O2 77L, Arterial Blood HCO3 24, Arterial Blood Total CO2 25.3, Arterial Blood Oxygen Saturation 95, Arterial Blood Base Excess -0.4, Joe Test ARTLINE, Blood Gas Ventilator Setting YES, Blood Gas Inspired Oxygen 30% FIO2, Phosphorus Level 2.8, Magnesium Level 2.3, B-Type Natriuretic Peptide 250.1H 01/26/19 08:18: Blood Gas Puncture Site LEFT RADIAL, Blood Gas Patient Temperature 96.8, Arterial Blood pH 7.47H, Arterial Blood Partial Pressure CO2 37, Arterial Blood Partial Pressure O2 56L, Arterial Blood HCO3 27, Arterial Blood Total CO2 28.6, Arterial Blood Oxygen Saturation 91L, Arterial Blood Base Excess 3.7H, Joe Test POSITIVE, Blood Gas Ventilator Setting YES, Blood Gas Inspired Oxygen 30% 01/26/19 11:56: Glucometer 61L Microbiology 01/18/19 Blood Culture - Final, Complete Corynebacterium species 01/23/19 Gram Stain - Final, Complete 01/23/19 Sputum Culture - Final, Complete Staphylococcus aureus Haemophilus influenza Radiology NAME: LASHAWN ASHBY [facility] REC#: [id number] PT STATUS: REG CLI : 1970 PHYSICIAN: JESSICA BARBA ADMIT DATE: 08/23/18/RAD Signed Date of Exam: 08/23/18 CT HEAD W WO INDICATION: Parietal headaches. Dizziness. Blurred vision. Dysphagia. TECHNIQUE: Routine pre- and postcontrast, chronic small-enhanced axial images were obtained from the skull base to the vertex. COMPARISON: 05/08/2018 FINDINGS: The ventricles and cortical sulci are stable in size and contour. Postcontrast images show no abnormal areas of enhancement There is no midline shift or mass-effect. No acute intra-axial hemorrhage is seen. There are no abnormal areas of increased or decreased density to suggest acute hemorrhage or edema. No extra-axial masses or collections are present. The bony calvarium is intact. The visualized paranasal sinuses are unremarkable. The mastoid air cells are clear. IMPRESSION: 1. No acute intracranial abnormality. No CT evidence of mass, acute infarct or intracranial hemorrhage. Dictated by: Dictated on workstation # [id number] Dict: 08/23/18 1424 Trans: 08/23/18 1649 Interpreted by: MARGARITA FRIEND MD Electronically signed by: MARGARITA FRIEND MD 08/23/18 1649 NAME: ISMALASHAWN [facility] REC#: [id number] PT STATUS: REG ER : 1970 PHYSICIAN: MARNIE BRYSON APRN ADMIT DATE: 01/18/19/ER Signed Date of Exam: 01/18/19 CHEST 1 VIEW, AP/PA ONLY INDICATION: Shortness of air, altered mental status. TECHNIQUE: Single frontal view of the chest. COMPARISON: 03/19/2017 FINDINGS: Lung volumes are normal. No focal consolidation is seen. There is no pleural effusion or pneumothorax. The cardiomediastinal silhouette is normal in size and contour. IMPRESSION: No acute pulmonary abnormality is seen. Dictated by: Dictated on workstation # [id number] Dict: 01/18/19 1124 Trans: 01/18/19 1207 Interpreted by: LIANET ACEVEDO MD Electronically signed by: LIANET ACEVEDO MD 01/18/19 1207 NAME: ISMALASHAWN Will [facility] REC#: [id number] PT STATUS: ADM IN : 1970 PHYSICIAN: MARNIE BRYSON APRN ADMIT DATE: 01/18/19/ICU Signed Date of Exam: 01/18/19 CT ANGIO CHEST W PROCEDURE: CT angiography of the chest with contrast. TECHNIQUE: Multiple contiguous axial images were obtained through the chest after uneventful bolus administration of intravenous contrast. Reconstructed CTA MIP acquisitions were also performed. Auto Exposure Controls were utilized during the CT exam to meet ALARA standards for radiation dose reduction. INDICATION: Dyspnea. COMPARISON: None available. Vasculature: Extensive bilateral acute pulmonary emboli are present. This involves a thin saddle embolus seen across the right and left pulmonary trunks. There is a large volume of thrombus extending into the lobar pulmonary arteries involving both sides. Pulmonary trunk is mildly dilated measuring 3.0 cm. Additionally, there is mild flattening of the interventricular septum suggestive of right-sided heart strain. Normal-caliber thoracic aorta without features of dissection. Heart and mediastinum: Visualized thyroid is normal. No supraclavicular, axillary, or intra-thoracic lymphadenopathy. No pericardial effusion. Pleura: No pleural effusion or pneumothorax. Lungs and airway: No endoluminal lesion in the trachea or central bronchi. No pulmonary mass or consolidation. There are scattered ground-glass opacities within the lung bases and left upper lobe. Upper abdomen: Allowing for the phase of contrast, no acute abnormality in the upper abdomen is seen. Musculoskeletal: No concerning osseous lesion. IMPRESSION: 1. Large burden of acute bilateral pulmonary emboli with a small saddle embolus present and emboli extending to all five lobes. Additionally, there are features of pulmonary hypertension and right ventricular strain. 2. Scattered ground-glass attenuation within the lungs could be due to atelectasis. Developing pulmonary infarcts could potentially have this appearance. The above critical findings were called to Marnie Bryson APRN by Dr. Abhi Saavedra at 11:57 a.m. on 01/18/2019. CRITICAL FINDINGS Dictated by: Dictated on workstation # [id number] Dict: 01/18/19 1153 Trans: 01/18/19 1308 Interpreted by: ABHI SAAVEDRA MD Electronically signed by: ABHI SAAVEDRA MD 01/18/19 1308 Assessment/Plan Assessment/Plan (1) Saddle pulmonary embolus Status: Acute Assessment & Plan: 01/24: Given tPA in ER, started on heparin, presented with hypotension 01/25: Hgb stable, continue heparin Qualifiers: Qualified Codes: I26.02 - Saddle embolus of pulmonary artery with acute cor pulmonale (2) Acute respiratory failure with hypoxia Status: Acute Assessment & Plan: 01/24: intubated 2/2 to EtOH withdraw, Dr Watts managing 01/26: Breathing trial today, possible extubation per Stefanie (3) Alcohol withdrawal Status: Acute Assessment & Plan: 01/24: No longer needing Ativan Qualifiers: Qualified Codes: F10.231 - Alcohol dependence with withdrawal delirium (4) Acute upper GI bleed Status: Acute Assessment & Plan: 01/25: Consider transfusion given hgb 7.8 01/26: Hgb stable, no signs of acute bleeding (5) Esophageal varices Status: Acute Assessment & Plan: 01/24: on protonix and Octreotide gtts Qualifiers: Qualified Codes: I85.11 - Secondary esophageal varices with bleeding (6) Right leg DVT Status: Acute Qualifiers: Qualified Codes: I82.401 - Acute embolism and thrombosis of unspecified deep veins of right lower extremity (7) NSTEMI (non-ST elevated myocardial infarction) Status: Acute Assessment & Plan: 01/24: Cardiology following, likely 2/2 large PE (8) Normocytic anemia due to blood loss Status: Acute Assessment & Plan: 01/24: Will continue to monitor as patient is on blood thinner s (9) Hypokalemia Status: Acute Assessment & Plan: 01/24: Replace and repeat BMP (10) DVT prophylaxis Status: Acute Assessment & Plan: - Patient on treatment Clinical Quality Measures DVT/VTE Risk/Contraindication: Risk Factor Score Per Nursin RFS Level Per Nursing on Admit: 4+=Very High SCOTT PITTMAN MD Jan 26, 2019 13:43
--- NOTE | 2019-01-26 14:58 | Physical Therapy Evaluation ---
PT Evaluation-General Medical Diagnosis Admission Date Jan 18, 2019 at 12:51 Medical Diagnosis: bilateral PE Onset Date: Jan 18, 2019 Therapy Diagnosis Therapy Diagnosis: impaired mobility, strength, endurnace Height/Weight Height (Feet): 5 Height (Inches): 5.00 Weight (Pounds): 270 Weight (Ounces): 0.0 Precautions Precautions/Isolations: Aspiration, Seizure, Fall Prevention, Standard Precautions, Pressure Ulcer Referral Physician: Maximiliano Watts DO Reason for Referral: Evaluation/Treatment Medical History Additional Medical History Past Medical History Cardiac: Hypertension Reproductive: No Gastrointestinal: Polyps Musculoskeletal: Chronic Back Pain Endocrine: Hypothyroidsim Psychosocial: Anxiety, Depression Reviewed History: Yes Social History Home: Single Level Entry Into Home: Stairs With Railing PT Steps Into Home: 3 Unsure if he lives alone or with SO. Prior/Core FIM Prior Level of Function Therapy Code Descriptions/Definitions Functional [place] Measure: 0=Not Assessed/NA 4=Minimal Assistance 1=Total Assistance 5=Supervision or Setup 2=Maximal Assistance 6=Modified [place] 3=Moderate Assistance 7=Complete [place] Therapy Quality Codes: 6 Independent with activity with or without an assistive device 5 Patient requires set up or clean up by helper. Patient completes activity by themselves 4 Supervision or touching assist (CGA). Slick provide cues , steadying assist 3 The helper provides less than half the effort to complete the activity 2 The helper provides more than half the effort to complete the activity 1 Dependent. The helper does all the effort to complete an activity 7 Patient refused to complete or attempt activity 9 The patient did not perform the activity before the current illness or injury 88 Not attempted due to Medical conditions or safety concerns Functional Abilities and Goals: Independent: Patient completed the activities by him/herself, with or without an assistive device, with no assistance from a helper. Needed Some Help: Patient needed partial assistance from another person to complete activities. Dependent: A helper completed the activities for the patient. Unknown: Not Applicable: Bed Mobility: 7 Transfers (B,C,W/C) (FIM): 7 Gait: 7 Stairs: 7 Indoor Mobility (Ambulation): Independent Stairs: Independent PT Evaluation-Current Subjective Patient in bed pre tx, agrees to PT, has no complaints of pain. Patient was extubated earlier today and is very hard to understand speech. Orientation is hard to measure. Nurse states that she doesn't think patient should get out of bed at this time, this PT concurs because patient was extubated not too long ago. Pt/Family Goals "to get stronger" Objective Patient Orientation: Person, Unable to Assess Attachments: Oxygen, Dow Catheter, IV ROM/Strength ROM Lower Extremities limited generally due to BLE edema Strength Lower Extremities LLE (hip flexion 3-/5, knee flexion 2/5, knee extension 2/5, dorsiflexion 3/5), RLE (hip flexion 3-/5, knee flexion 2/5, knee extension 2/5, dorsiflexion 3/5) Neuromuscular (Tone, Coordination, Reflexes) NT Sensory Hearing: Functional Sensation Right Lower Extremit: Intact Sensation Left Lower Extremity: Intact Transfers Therapy Code Descriptions/Definitions Functional [place] Measure: 0=Not Assessed/NA 4=Minimal Assistance 1=Total Assistance 5=Supervision or Setup 2=Maximal Assistance 6=Modified [place] 3=Moderate Assistance 7=Complete [place] Treatment BLE AAROM x10 (AP, QS, GS, SAQ, HS, hip abd/add, SLR) Assessment/Needs Patient has impaired mobility, strength, endurance. He is very debilitated. Rehab Potential: Guarded PT Short Term Goals Short Term Goals Time Frame: Feb 02, 2019 Transfers (B,C,W/C) (FIM): 2 Gait (FIM): 1 Gait Distance Comment: 3' Gait Level of Assist: 2 Gait Assistive Device: FWW PT Plan Problem List Problem List: Activity Tolerance, Functional Strength, Safety, Balance, Gait, Transfer, Bed Mobility, ROM Treatment/Plan Treatment Plan: Continue Plan of Care Treatment Plan: Bed Mobility, Concurrent Therapy, Education, Functional Activity Austyn, Functional Strength Treatment Duration: Feb 02, 2019 Frequency: 6 times per week Estimated Hrs Per Day: .25 hour per day Patient and/or Family Agrees t: Yes Safety Risks/Education Patient Education: Correct Positioning, Safety Issues Teaching Recipient: Patient Teaching Methods: Demonstration, Discussion Response to Teaching: Reinforcement Needed Discharge Recommendations Plan Patient will perform bed mobility and transfer training, balance and endurance training, functional strengthening, gait training, and education, to improve functional mobility and independence at home. Therapy D/C Recommendations: Home w/ Family Support, Retirement (TCU/NH) Time/GCodes Time In: 1432 Time Out: 1447 Total Billed Treatment Time: 15 Total Billed Treatment 1 visit [facility] 15' [facility] PT Jan 26, 2019 14:58
[2019-01-26] MEDS: PANTOPRAZOLE INJECTION 200 MG in NS (IVPB) 100 ML IV SCH (16:58)
--- NOTE | 2019-01-26 23:01 | Cardiology Progress Note ---
Cardiology SOAP Progress Note Subjective: intubated/ventilated. Objective: I&O/Vital Signs 01/27/19 01/27/19 01/27/19 01/27/19 03:00 04:00 04:10 05:00 Pulse 87 96 83 Resp 28 30 17 B/P (MAP) 115/82 (93) 110/77 (88) 115/72 (86) Pulse Ox 99 98 97 O2 Delivery Nasal Cannula Nasal Cannula Room Air Nasal Cannula O2 Flow Rate 3.00 3.00 3.00 FiO2 30 01/27/19 01/27/19 01/27/19 01/27/19 06:00 06:48 07:00 07:00 Pulse 84 82 82 Resp 28 30 B/P (MAP) 121/74 (90) 127/87 (100) Pulse Ox 96 97 96 O2 Delivery Nasal Cannula Room Air Nasal Cannula O2 Flow Rate 3.00 3.00 01/27/19 01/27/19 01/27/19 01/27/19 08:00 08:00 08:00 09:00 Temp 97.8 Pulse 84 88 Resp 26 25 B/P (MAP) 131/82 (98) 132/79 (96) Pulse Ox 95 90 O2 Delivery Nasal Cannula Room Air Nasal Cannula O2 Flow Rate 3.00 3.00 01/27/19 01/27/19 01/27/19 01/27/19 10:00 10:48 11:00 12:00 Temp 97.3 Pulse 100 103 Resp 18 22 B/P (MAP) 136/93 (107) 125/84 (98) Pulse Ox 98 96 100 O2 Delivery Nasal Cannula Room Air Nasal Cannula O2 Flow Rate 3.00 3.00 01/27/19 01/27/19 12:00 14:14 Pulse Ox 96 O2 Delivery Room Air Room Air 01/27/19 00:00 Intake Total 647.5 ml Output Total 4225 ml Balance -3577.5 ml Weight (Pounds): 270 Weight (Ounces): 0.0 Weight (Calculated Kilograms): 122.960842 Constitutional: well-developed, well-nourished, other (on mech vent) Respiratory: No accessory muscle use; other (fair to good air entry) Cardiovascular: regular rate-rhythm, S1 and S2, systolic murmur (soft EMMANUELLE at card base) Gastrointestional: No tender; soft; No guarding, No rebound; audible bowel sounds Extremities: No clubbing, No cyanosis, No significant edema Neurologic/Psychiatric: oriented x 3, other (unresponsive, on mech vent) Skin: No rash on exposed areas, No ulcerations on exposed areas Results/Procedures: Labs Laboratory Tests 01/26/19 17:53: Glucometer 69L 01/26/19 19:19: Glucometer 78 01/27/19 01:27: Glucometer 75 01/27/19 03:30: White Blood Count 7.6, Red Blood Count 2.77L, Hemoglobin 8.5L, Hematocrit 26L, Mean Corpuscular Volume 95, Mean Corpuscular Hemoglobin 31, Mean Corpuscular Hemoglobin Concent 32, Red Cell Distribution Width 15.2H, Platelet Count 355, Mean Platelet Volume 9.0, Neutrophils (%) (Auto) 68, Lymphocytes (%) (Auto) 21, Monocytes (%) (Auto) 6, Eosinophils (%) (Auto) 6, Basophils (%) (Auto) 1, Neutrophils # (Auto) 5.1, Lymphocytes # (Auto) 1.6, Monocytes # (Auto) 0.4, Eosinophils # (Auto) 0.4H, Basophils # (Auto) 0.0, Activated Partial Thromboplast Time 56H, Sodium Level 145, Potassium Level 2.9L, Chloride Level 106, Carbon Dioxide Level 28, Anion Gap 11, Blood Urea Nitrogen 10, Creatinine 0.92, Estimat Glomerular Filtration Rate > 60, BUN/Creatinine Ratio 11, Glucose Level 86, Calcium Level 8.0L, Phosphorus Level 2.8, Magnesium Level 2.1 01/27/19 05:13: Glucometer 82 01/27/19 13:54: Glucometer 84 Microbiology 01/18/19 Blood Culture - Final, Complete Corynebacterium species 01/23/19 Gram Stain - Final, Complete 01/23/19 Sputum Culture - Final, Complete Staphylococcus aureus Haemophilus influenza A/P: Assessment/Dx: Large PE on 01/18/19, hemodynamically significant (presented with hypotension) treated with thrombolytics and subsequent anticoagulation Ac resp failure on 01/19/19, related to alcohol withdrawal, necessitating intubation and mech vent, managed by Dr Watts and Dr Henderson H/o hypertension H/o heavy alcohol use Echo of 01/19/19: LVEF 50-55%, reduced RV systolic function, grade 1 randle dysfunction of LV, RVSP 28 mmHg Hypokalemia - replace Anemia - management per medical service Plan: * Replenish lytes * Monitor labs * Prognosis guarded Thank you for your consultation. Please call me if you have any questions. Karey Owens MD, FACP, FACC, FSCAI, FHRS, CCDS Interventional Cardiology Cardiac Electrophysiology Vascular Medicine and Endovascular Interventions Angeli OWENS MD Jan 26, 2019 23:01
[2019-01-27] VITALS (17 sets, daily range): BP systolic 108–136; BP diastolic 72–101
[2019-01-27] MEDS: RT-ALBUTEROL/IPRATROPIUM 3 ML (DUONEB) VIAL INH SCH ×6 (02:19→22:07)
[2019-01-27 03:47] LABS: BASOPHILS % (AUTO) 1 % (0-10); EOSINOPHILS # (AUTO) 0.4 10^3/uL (0.0-0.3); EOSINOPHILS % (AUTO) 6 % (0-10); HEMATOCRIT 26 % (40-54); HEMOGLOBIN 8.5 G/DL (13.3-17.7); LYMPHOCYTES # (AUTO) 1.6 X 10^3 (1.0-4.0); LYMPHOCYTES % (AUTO) 21 % (12-44); MEAN CORPUSCULAR HEMOGLOBIN 31 PG (25-34); MEAN CORPUSCULAR HGB CONC 32 G/DL (32-36); MEAN CORPUSCULAR VOLUME 95 FL (80-99); MONOCYTES # (AUTO) 0.4 X 10^3 (0.0-1.0); MONOCYTES % (AUTO) 6 % (0-12); NEUTROPHILS # (AUTO) 5.1 X 10^3 (1.8-7.8); NEUTROPHILS % (AUTO) 68 % (42-75); PLATELET COUNT 355 10^3/uL (130-400); RED CELL DISTRIBUTION WIDTH 15.2 % (10.0-14.5); WHITE BLOOD COUNT 7.6 10^3/uL (4.3-11.0)
[2019-01-27 04:08] LABS: BUN/CREATININE RATIO 11; CARBON DIOXIDE 28 MMOL/L (21-32); CHLORIDE 106 MMOL/L (98-107); CREATININE SERUM 0.92 MG/DL (0.60-1.30); GFR ESTIMATED > 60; GLUCOSE 86 MG/DL (70-105); MAGNESIUM 2.1 MG/DL (1.8-2.4); PHOSPHORUS 2.8 MG/DL (2.3-4.7); POTASSIUM 2.9 MMOL/L (3.6-5.0); SODIUM 145 MMOL/L (135-145)
[2019-01-27] MEDS: inSUlin ASPART (NovoLOG) 1 UNIT/0.01 ML (CHARGE PER UNIT) SC SCH ×4 (04:21→18:26)
[2019-01-27] MEDS ORDERED: POTASSIUM CL 10MEQ/50ML IVPB 50 ML IV ONE ×3 (04:45→06:30)
[2019-01-27] MEDS: POTASSIUM CL 10MEQ/50ML IVPB 50 ML IV SCH ×10 (05:00→20:32)
[2019-01-27] MEDS: OCTREOTIDE INJECTION 500 MCG in NS (IVPB) 97.5 ML IV SCH (05:00)
[2019-01-27] MEDS: MAGNESIUM 1 GM/100 ML IVPB 100 ML IV SCH (05:05)
[2019-01-27] MEDS: KCL 20 MEQ TAB (K-DUR) PO SCH (05:05)
[2019-01-27] MEDS: PIPERACILLIN/TAZOBACTAM (BULK) 4.5 GM in NS (IVPB) 100 ML IV SCH ×3 (05:05→19:48)
[2019-01-27] MEDS: HEParin DRIP 25000 UNIT/500ML 500 ML IV SCH ×3 (05:15→20:09)
--- NOTE | 2019-01-27 06:22 | Pulmonary Progress Note ---
Subjective Time Seen by a Provider: 08:36 Subjective/Events-last exam Pt is doing well off of vent. Sepsis Event Evaluation Height, Weight, BMI Height: 5'5.00" Weight: 247lbs. 2.0oz. 112.056602en; 36.9 BMI Method:Stated Exam Exam Vital Signs Date Time Temp Pulse Resp B/P (MAP) Pulse Ox O2 Delivery O2 Flow Rate FiO2 01/27/19 06:00 84 28 121/74 (90) 96 Nasal Cannula 3.00 01/27/19 05:00 83 17 115/72 (86) 97 Nasal Cannula 3.00 01/27/19 04:10 Room Air 30 01/27/19 04:00 96 30 110/77 (88) 98 Nasal Cannula 3.00 01/27/19 03:00 87 28 115/82 (93) 99 Nasal Cannula 3.00 01/27/19 02:19 98 Room Air 01/27/19 02:00 97.4 01/27/19 02:00 80 27 122/76 (91) 97 Nasal Cannula 3.00 01/27/19 01:00 106 01/27/19 01:00 80 27 122/76 (91) 98 Nasal Cannula 3.00 01/27/19 00:20 Room Air 30 01/27/19 00:20 97.9 01/27/19 00:00 87 34 108/75 (86) 98 Nasal Cannula 3.00 01/26/19 23:00 83 28 110/76 (87) 96 Nasal Cannula 3.00 01/26/19 22:28 100 Room Air 01/26/19 22:00 86 20 126/88 (101) 99 Nasal Cannula 3.00 01/26/19 21:47 01/26/19 21:00 84 21 120/85 (97) 98 Nasal Cannula 3.00 01/26/19 20:04 Room Air 30 01/26/19 20:00 97.5 01/26/19 20:00 130 30 124/84 (97) 89 Nasal Cannula 3.00 01/26/19 19:00 90 01/26/19 19:00 89 27 159/81 (107) 92 Nasal Cannula 3.00 01/26/19 18:28 97 Nasal Cannula 01/26/19 18:00 92 24 154/85 (108) 94 Nasal Cannula 3.00 01/26/19 17:00 112 36 147/85 (105) 98 Nasal Cannula 3.00 01/26/19 16:00 103 32 138/79 (98) 97 Nasal Cannula 3.00 01/26/19 16:00 98.2 01/26/19 16:00 Mechanical Ventilator 30 01/26/19 15:00 93 20 135/80 (98) 95 Nasal Cannula 3.00 01/26/19 14:00 102 137/89 (105) 97 Nasal Cannula 3.00 01/26/19 13:37 100 Nasal Cannula 3.00 01/26/19 13:00 96 01/26/19 13:00 96 141/80 (100) 99 Nasal Cannula 3.00 01/26/19 12:00 Mechanical Ventilator 30 01/26/19 12:00 97.4 01/26/19 12:00 121/71 (88) 100 Nasal Cannula 3.00 01/26/19 11:00 Nasal Cannula 3.00 01/26/19 11:00 96 17 126/67 (86) 98 Nasal Cannula 3.00 01/26/19 10:46 92 14 98 30 01/26/19 10:00 102 17 119/68 (85) 99 Mechanical Ventilator 30.00 01/26/19 09:00 91 13 126/70 (88) 99 Mechanical Ventilator 30.00 01/26/19 08:47 91 12 99 30 01/26/19 08:00 Mechanical Ventilator 30 01/26/19 08:00 90 12 135/77 (96) 100 Mechanical Ventilator 30.00 01/26/19 08:00 96.8 01/26/19 07:15 90 13 100 30 01/26/19 07:00 87 13 129/77 (94) 100 Mechanical Ventilator 30.00 01/26/19 07:00 89 14 100 30 01/26/19 07:00 90 I & O 01/27/19 07:00 Intake Total 1395.0 ml Output Total 9125 ml Balance -7730.0 ml Height & Weight Height: 5'5.00" Weight: 247lbs. 2.0oz. 112.814157zc; 36.9 BMI Method:Stated General Appearance: No Apparent Distress, WD/WN HEENT: PERRL/EOMI Neck: Full Range of Motion, Normal Inspection Respiratory: No Accessory Muscle Use, No Respiratory Distress Cardiovascular: Tachycardia (heart rate 130 no complex regular with preceding P waves before each QRS. Blood pressure 122/96. O2 sat 89% on 2 L. He denies shortness of breath. He is still diaphoretic and pale with delayed capillary refill of the skin) Capillary Refill: Greater Than 3 Seconds Gastrointestinal: soft, no organomegaly; No distended Extremity: No Pedal Edema, Slow Capillary Refill Neurologic/Psychiatric: Alert, Other (alert, answers questions appropriately) Skin: Cool Lymphatic: No Adenopathy Results Lab Laboratory Tests 01/25/19 09:45 01/25/19 16:30 01/26/19 03:39 01/27/19 03:30 Assessment/Plan Assessment/Plan Acute Large PE s/p TPA -Echo today - 50-55% -Hep gtt - Once pt is able to take PO meds change to oral anticoagulation Acute respiratory failure - now improving -Pt extubated yesterday pulmonary edema/anasarca secondary to IVF -Monitor Anemia -Monitor Hypokalemai -replace and recheck RLE DVT Grade II esophageal varices s/p EGD -D/C Octreotide gtts and protonix gtt -Continue Protonix IV BID -Hb is currently stable GIB- Occult -Surgery is following Seizure disorder -PRN Ativan -Keppra Alcohol withdrawals -LUCINA protocol -Monitor NSTEMI - secondary to PE -Monitor Will consult choices RN to help discuss full code vs DNR vs Hospice with pt and . I have explained everything to while pt was on vent however she appears to be unsure about what to decide. Pt is still confused. KAYDEN PHILIPPE DO Jan 27, 2019 06:22
[2019-01-27] MEDS: D5W 1000 ML IV SOLUTION 1,000 ML IV SCH (09:12)
[2019-01-27] MEDS: PANTOPRAZOLE 40 MG (PROTONIX) VIAL IV SCH ×2 (09:12→19:47)
[2019-01-27] MEDS: NICOTINE 21 MG (NICODERM) PATCH TD SCH (09:12)
[2019-01-27] MEDS: METOCLOPRAMIDE INJ 10 MG/2 ML (REGLAN) IVP SCH ×2 (09:12→19:47)
[2019-01-27] MEDS: NICOTINE PATCH REMOVAL TP SCH (09:13)
[2019-01-27] MEDS: LEVETIRACETAM INJECTION 500 MG in NS (IVPB) 100 ML IV SCH ×2 (09:22→19:47)
--- NOTE | 2019-01-27 09:40 | Diagnostic Imaging Report ---
EXAMINATION: Portable erect AP chest at 3:37 AM. INDICATION: Respiratory distress. FINDINGS: In the interval since the exam performed on 01/26/2019, the patient has been extubated and the NG line has been removed. The left-sided PICC line remains in place. The appearance of the chest has improved as both lungs do seem much better aerated. There is only a very small amount of residual abnormal density in both lungs. The heart is stable in size. The mediastinum is not widened. The osseous structures are intact. IMPRESSION: 1. The appearance of the chest has improved since the prior study as both lungs are much better aerated. A A followup study should be considered for further evaluation. 2. The patient has been extubated and the NG line has been removed. Dictated by: Dictated on workstation # [id number]
--- NOTE | 2019-01-27 10:27 | ST Dysphagia Evaluation ---
Speech Evaluation-General Medical Diagnosis bilateral PE Onset Date: Jan 18, 2019 Therapy Diagnosis Therapy Diagnosis: Oropharyngeal Dysphagia Precautions Precautions: Aspiration Precautions/Isolations: Aspiration, Seizure, Fall Prevention, Standard Precautions, Pressure Ulcer Medical History Reviewed History: Yes Speech PLF/Current-Dysphagia Prior Level of Function The patient states he ate whatever he wanted prior to becoming ill. Subjective The patient was pleasant and cooperative with the Bedside Dysphagia Evaluation. Cognitive Status Patient Orientation: Person, Place, Time, Situation Oral Motor Skills Dentition: Natural Oral Expression Ability: No Impairment Oral-Facial Assessment Oral-Facial Dentition: Normal Labial Seal Description: Normal Smile: Normal Puff Cheeks: Normal Lingual Protrusion: Normal Lingual ROM: Normal Lingual Strength: Normal Gag Reflex Response: Normal Pharynx Velopharyngeal Move.: Normal Volitional Dry Swallow: Yes Dysphagia Evaluation Consistencies Presented: Regular, Thin Liquid, Mechanical Soft, Pureed Oral phase is within functional range. Pharyngeal phase is within functional range. Swallowing Precautions: Alternate Liquids/Solids, Liquids from Cup, Liquids from Straw, Sitting Upright 90 Degrees, Sitting 90 Degrees 30 Post Intake Dysphagia Evaluation Summary The patient is a 48 year old male who was hospitalized for bilateral PE. He had been intubated which was removed yesterday. He was referred for a Bedside Dysphagia Evaluation. He was presented thin liquid via 1/2 tsp x2, straw and cup without s/s of aspiration. He was presented puree, mechanical soft and regular consistencies without s/s of aspiration. The patient will be placed on a regular consistency diet with thin liquids. This information was given to his nurse as well as written on the white board in his room. Barriers to Learning Patient's medical status. Speech-Plan Patient/Family Goals Patient/Family Goals: The patient will be returning home upon discharge. Treatment Plan Speech Therapy Treatment Plan: Discontinue ST Patient does not require further dysphagia services. Treatment Duration: Jan 27, 2019 Frequency: 1 time per week Estimated Hrs Per Day: .25 hour per day Rehab Potential: Guarded Barriers to Learning: Medical status Pt/Family Agrees to Plan: Yes Safety Risks/Education Teaching Recipient: Patient Teaching Methods: Discussion Response to Teaching: Verbalize Understanding Education Topics Provided: Safety of oral intake Time Speech Therapy Time In: 10:05 Speech Therapy Time Out: 10:20 Total Billed Time: 15 Billed Treatment Time 1GREGORY BETHANIA ST Jan 27, 2019 10:27
--- NOTE | 2019-01-27 11:36 | Occupational Therapy Eval ---
OT Evaluation-General/PLF Medical Diagnosis Admission Date Jan 18, 2019 at 12:51 Medical Diagnosis: bilateral PE Onset Date: Jan 18, 2019 Therapy Diagnosis Therapy Diagnosis: impaired ADLs and mobility Height/Weight Height (Feet): 5 Height (Inches): 5.00 Weight (Pounds): 247 Weight (Ounces): 2.0 Precautions Precautions/Isolations: Aspiration, Seizure, Fall Prevention, Standard Precau tions, Pressure Ulcer Safety Interventions: Bed Exit Alarm, Reorient-Attempt, Reorient-PRN Weight Bear Status Weight Bearing Restriction: Weight Bearing/Tolerated Referral Physician: Maximiliano Watts DO Referral Reason: Activity Tolerance, Self Care, Evaluation/Treatment, [facility] Medical History Additional Medical History History of present illness: This is a 48-year-old white male clinic patient of [facility] with a history of alcoholism and illicit drug abuse who presents to the ER after paramedics were called due to syncopal episode. Upon evaluation in the ER he was found to have bilateral pulmonary emboli saddle type underwent TPA administration and required cardiology and pulmonology consultations. After I assessed him he was in [place] alcohol withdrawal requiring intubation due to such [id number] behavior placing him at risk for harming himself. He denied any current pain when I was speaking to him and he has been following the protocol with heparin drip without any evidence of bleeding complications from TPA.pt was extubated 01/26/19 Current History Cardiac: Hypertension Reproductive: No Gastrointestinal: Polyps Musculoskeletal: Chronic Back Pain Endocrine: Hypothyroidsim Psychosocial: Anxiety, Depression History of Blood Disorders: No Reviewed History: Yes Social History Home: Single Level Entry Into Home: Stairs With Railing Steps Into Home: 3 ADL-Prior Level of Function Therapy Code Descriptions/Definitions Functional [place] Measure: 0=Not Assessed/NA 4=Minimal Assistance 1=Total Assistance 5=Supervision or Setup 2=Maximal Assistance 6=Modified [place] 3=Moderate Assistance 7=Complete [place] Therapy Quality Codes: 6 Independent with activity with or without an assistive device 5 Patient requires set up or clean up by helper. Patient completes activity by themselves 4 Supervision or touching assist (CGA). [place] provide cues , steadying assist 3 The helper provides less than half the effort to complete the activity 2 The helper provides more than half the effort to complete the activity 1 Dependent. The helper does all the effort to complete an activity 7 Patient refused to complete or attempt activity 9 The patient did not perform the activity before the current illness or injury 88 Not attempted due to Medical conditions or safety concerns Functional Abilities and Goals: Independent: Patient completed the activities by him/herself, with or without an assistive device, with no assistance from a helper. Needed Some Help: Patient needed partial assistance from another person to complete activities. Dependent: A helper completed the activities for the patient. Unknown: Not Applicable: Self Care: Independent Functional Cognition: Independent DME/Equipment: Toilet/Riser Drive Self: Yes OT Current Status Subjective pt laying in bed upon OT arrival. In no apparent distress. NSG stated pt may participate in OT evaluation./ treatment session. pt only oriented to self. pt reports no pain at this time. Pain Numeric Pain Scale: 0-No Pain Mental Status/Objective Patient Orientation: Person (only orientated to name ) Attachments: Dow Catheter, IV, SCD's, Telemetry Current Glasses/Contacts: Yes Hearing Aids: No Hand Dominance: Left Upper Extremity ROM shoulder flexion approx 5 degrees elbow flexion in gravity assist plane approx 30 degrees. wrist flex/ ext trace movement. Upper Extremity Coordination decrease FMC/ GMC decrease finger to nose test, decrease opposition. Upper Extremity Sensation Jon UE WFL with light touch test. Upper Extremity Strength 2-/5 MMT ADL-Treatment Therapy Code Descriptions/Definitions Functional [place] Measure: 0=Not Assessed/NA 4=Minimal Assistance 1=Total Assistance 5=Supervision or Setup 2=Maximal Assistance 6=Modified [place] 3=Moderate Assistance 7=Complete [place] Therapy Quality Codes: 6 Independent with activity with or without an assistive device 5 Patient requires set up or clean up by helper. Patient completes activity by themselves 4 Supervision or touching assist (CGA). [place] provide cues , steadying assist 3 The helper provides less than half the effort to complete the activity 2 The helper provides more than half the effort to complete the activity 1 Dependent. The helper does all the effort to complete an activity 7 Patient refused to complete or attempt activity 9 The patient did not perform the activity before the current illness or injury 88 Not attempted due to Medical conditions or safety concerns pt is currently DEP for all ADLs and functional transfers secondary to 2-/5 UE strength. Other Treatments pt education on proper UE/LE placement to perform supine to sit. pt required TA X 2 person assist top perform supine to sit. pt able to maintain static seated balance for approx 3 seconds prior to leaning to left and required TA to corre ct. pt required TA to perform sit to supine. pt requested the use of bed carr. pt rolled R<>L with TA. NSG aware pt is on bed carr. call light within reach, all needs met. Education OT Patient Education: Energy conservation, Safety issues, Transfer techniques OT Short Term Goals Short Term Goals Eating(FIM): 3 Grooming(FIM): 3 Bathing(FIM): 3 Upper Body Dressing(FIM): 3 Lower Body Dressing(FIM): 3 Toileting(FIM): 3 Transfers (B,C,W/C) (FIM): 2 Toilet/Commode Transfer(FIM): 3 Additional Short Term Goals: 1-Demonstrate ADL Tasks, 2-Verbalize Understanding, 3-ImproveStrength/[place] 1=Demonstrate adherence to instructed precautions during ADL tasks. 2=Patient will verbalize/demonstrate understanding of assistive devices/modifications for ADL. 3=Patient will improve strength/tolerance for activity to enable patient to perform ADL's. OT Technology Professional Goals Technology Professional Goals Eating (FIM): 5 Grooming(FIM): 5 Bathing(FIM): 5 Upper Body Dressing(FIM): 5 Lower Body Dressing(FIM): 5 Toileting(FIM): 5 Transfers (B,C,W/C) (FIM): 5 Toilet/Commode Transfer(FIM): 5 Additional Goals: 1-Demonstrate ADL Tasks, 2-Verbalize Understanding, 3- ImproveStrength/[place] 1=Demonstrate adherence to instructed precautions during ADL tasks. 2=Patient will verbalize/demonstrate understanding of assistive devices/modifications for ADL. 3=Patient will improve strength/tolerance for activity to enable patient to perform ADL's. OT Education/Plan Problem List/Assessment Assessment: Decreased Activ Tolerance, Decreased Safety Aware, Decreased UE St rength, Dependent Transfers, Edema, Impaired Bed Mobility, Impaired Cognition, Impaired Coordination, Impaired Funct Balance, Impaired I ADL's, Impaired Self- Care Skills, Restricted Funct UE ROM pt presents with functional limitations affecting areas if ADLs and functional transfers with the above mention deficits. pt would benefit from OT services to increase independence with ADLS/ functional transfers. pt currently requires TA for all ADLs and functional transfers. Discharge Recommendations Plan/Recommendations: Continue POC Treatment Plan/Plan of Care Treatment,Training & Education: Yes Patient would benefit from OT for education, treatment and training to promote independence in ADL's, mobility, safety and/or upper extremity function for ADL's. Plan of Care: ADL Retraining, Caregiver Training, Cognitive Retraining, Concurrent Therapy, Functional Mobility, Group Exercise/Act as Ind, UE Funct Exercise/Act, W/C Management Training Treatment Duration: Mar 03, 2019 Frequency: 4 times per week (4-5 times per week) Estimated Hrs Per Day: .25 hour per day (0.25-0.50 per day) Agreement: Yes Rehab Potential: Guarded Time/GCodes Start Time: 11:00 Stop Time: 11:30 Billed Treatment Time EVM 20 minutes FA 10 minutes, 1 unit DINESH WALTON OT Jan 27, 2019 11:36
--- NOTE | 2019-01-27 11:51 | NUR ---
Palliative Care RN in to see patient after consult received for assist in securing a DNR/DNI. is not present in the room. He is alert and conversing but has some difficulty finding words and has some memory deficit. Patient is edematous in his upper and lower extremity with the inability to lift arms and or manipulate his fingers due to the gross fluid accumulation. Had general conversation regarding his life. But did not get involved in a heavy conversation as of yet. Have not had a complete Chem panel to see where his liver enzymes are at currently. He has has a significant documented weight increase due to the anasarca likely. I assisted the patient with his breakfast.
--- NOTE | 2019-01-27 14:04 | Physical Therapy Daily Note ---
PT Daily Note-Current Subjective Patient initially declined PT, then agreed after much encouragement. Mental Status Patient Orientation: Person, Time, Situation Attachments: SCD's, Dow Catheter, IV Transfers Therapy Code Descriptions/Definitions Functional [place] Measure: 0=Not Assessed/NA 4=Minimal Assistance 1=Total Assistance 5=Supervision or Setup 2=Maximal Assistance 6=Modified [place] 3=Moderate Assistance 7=Complete [place] Therapy Quality Codes: 6 Independent with activity with or without an assistive device 5 Patient requires set up or clean up by helper. Patient completes activity by themselves 4 Supervision or touching assist (CGA). [place] provide cues , steadying assist 3 The helper provides less than half the effort to complete the activity 2 The helper provides more than half the effort to complete the activity 1 Dependent. The helper does all the effort to complete an activity 7 Patient refused to complete or attempt activity 9 The patient did not perform the activity before the current illness or injury 88 Not attempted due to Medical conditions or safety concerns Transfers (B, C, W/C) (FIM): 1 Scootin Rollin Supine to/from Sit: 1 patient is resistance with all mobility, however, is able to maintain sitting EOB SBA x 10 min Exercises Supine Ex: Ankle pumps, Quad Set, Heel Slides Supine Reps: 15 Seated Therapy Exercises: Ankle pumps, Long arc quads Seated Reps: 15 Assessment Patient fatigues with minimal activity. PT to increase activity as tolerated by patient. PT Short Term Goals Short Term Goals Time Frame: Feb 02, 2019 Transfers (B,C,W/C) (FIM): 2 Gait (FIM): 1 Gait Distance Comment: 3' Gait Level of Assist: 2 Gait Assistive Device: FWW PT Plan Treatment/Plan Treatment Plan: Continue Plan of Care Treatment Plan: Bed Mobility, Concurrent Therapy, Education, Functional Activity [place], Functional Strength Treatment Duration: Feb 02, 2019 Frequency: 6 times per week Estimated Hrs Per Day: .25 hour per day Patient and/or Family Agrees t: Yes Time/GCodes Time In: 1230 Time Out: 1253 Total Billed Treatment Time: 23 Total Billed Treatment 1 visit EX 13 min FA 10 min EDWINA BARKER PT Jan 27, 2019 14:04
--- NOTE | 2019-01-27 14:50 | Cardiology Progress Note ---
Cardiology SOAP Progress Note Subjective: extubated today. Objective: I&O/Vital Signs 01/27/19 01/27/19 01/27/19 01/27/19 03:00 04:00 04:10 05:00 Pulse 87 96 83 Resp 28 30 17 B/P (MAP) 115/82 (93) 110/77 (88) 115/72 (86) Pulse Ox 99 98 97 O2 Delivery Nasal Cannula Nasal Cannula Room Air Nasal Cannula O2 Flow Rate 3.00 3.00 3.00 FiO2 30 01/27/19 01/27/19 01/27/19 01/27/19 06:00 06:48 07:00 07:00 Pulse 84 82 82 Resp 28 30 B/P (MAP) 121/74 (90) 127/87 (100) Pulse Ox 96 97 96 O2 Delivery Nasal Cannula Room Air Nasal Cannula O2 Flow Rate 3.00 3.00 01/27/19 01/27/19 01/27/19 01/27/19 08:00 08:00 08:00 09:00 Temp 97.8 Pulse 84 88 Resp 26 25 B/P (MAP) 131/82 (98) 132/79 (96) Pulse Ox 95 90 O2 Delivery Nasal Cannula Room Air Nasal Cannula O2 Flow Rate 3.00 3.00 01/27/19 01/27/19 01/27/19 01/27/19 10:00 10:48 11:00 12:00 Temp 97.3 Pulse 100 103 Resp 18 22 B/P (MAP) 136/93 (107) 125/84 (98) Pulse Ox 98 96 100 O2 Delivery Nasal Cannula Room Air Nasal Cannula O2 Flow Rate 3.00 3.00 01/27/19 01/27/19 12:00 14:14 Pulse Ox 96 O2 Delivery Room Air Room Air 01/27/19 00:00 Intake Total 647.5 ml Output Total 4225 ml Balance -3577.5 ml Weight (Pounds): 247 Weight (Ounces): 2.0 Weight (Calculated Kilograms): 112.596338 Constitutional: AAO x 3, well-developed, well-nourished, other Respiratory: No accessory muscle use; other (fair to good air entry) Cardiovascular: regular rate-rhythm, S1 and S2, systolic murmur (soft EMMANUELLE at card base) Gastrointestional: No tender; soft; No guarding, No rebound; audible bowel sounds Extremities: No clubbing, No cyanosis, No significant edema Neurologic/Psychiatric: no motor/sensory deficits, alert, oriented x 3, other Skin: No rash on exposed areas, No ulcerations on exposed areas Results/Procedures: Labs Laboratory Tests 01/26/19 17:53: Glucometer 69L 01/26/19 19:19: Glucometer 78 01/27/19 01:27: Glucometer 75 01/27/19 03:30: White Blood Count 7.6, Red Blood Count 2.77L, Hemoglobin 8.5L, Hematocrit 26L, Mean Corpuscular Volume 95, Mean Corpuscular Hemoglobin 31, Mean Corpuscular Hemoglobin Concent 32, Red Cell Distribution Width 15.2H, Platelet Count 355, Mean Platelet Volume 9.0, Neutrophils (%) (Auto) 68, Lymphocytes (%) (Auto) 21, Monocytes (%) (Auto) 6, Eosinophils (%) (Auto) 6, Basophils (%) (Auto) 1, Neutrophils # (Auto) 5.1, Lymphocytes # (Auto) 1.6, Monocytes # (Auto) 0.4, Eosinophils # (Auto) 0.4H, Basophils # (Auto) 0.0, Activated Partial Thromboplast Time 56H, Sodium Level 145, Potassium Level 2.9L, Chloride Level 106, Carbon Dioxide Level 28, Anion Gap 11, Blood Urea Nitrogen 10, Creatinine 0.92, Estimat Glomerular Filtration Rate > 60, BUN/Creatinine Ratio 11, Glucose Level 86, Calcium Level 8.0L, Phosphorus Level 2.8, Magnesium Level 2.1 01/27/19 05:13: Glucometer 82 01/27/19 13:54: Glucometer 84 Microbiology 01/18/19 Blood Culture - Final, Complete Corynebacterium species 01/23/19 Gram Stain - Final, Complete 01/23/19 Sputum Culture - Final, Complete Staphylococcus aureus Haemophilus influenza A/P: Assessment/Dx: Large PE on 01/18/19, hemodynamically significant (presented with hypotension) treated with thrombolytics and subsequent anticoagulation Ac resp failure on 01/19/19, related to alcohol withdrawal, necessitating intubation and mech vent, managed by Dr Watts and Dr Henderson H/o hypertension H/o heavy alcohol use Echo of 01/19/19: LVEF 50-55%, reduced RV systolic function, grade 1 randle dysfunction of LV, RVSP 28 mmHg Hypokalemia - replace Anemia - management per medical service Plan: * Replenish lytes * doing well post extubation * Monitor labs * Prognosis guarded Thank you for your consultation. Please call me if you have any questions. Karey Owens MD, FACP, FACC, FSCAI, FHRS, CCDS Interventional Cardiology Cardiac Electrophysiology Vascular Medicine and Endovascular Interventions Angeli OWENS MD Jan 27, 2019 14:50
[2019-01-27 18:30] LABS: HEMOGLOBIN 9.1 G/DL (13.3-17.7)
--- NOTE | 2019-01-27 18:33 | Progress Note ---
Subjective Subjective/Events-last exam Extubated, states that he has pain everywhere. Working with PT to help fluid mobilize Review of Systems Date Seen by Provider: Jan 27, 2019 Time Seen by Provider: 12:00 Pulmonary: Cough Cardiovascular: No: Chest Pain, Palpitations Gastrointestinal: Nausea Neurological: Weakness Unable to perform due to sedation and intubation Objective Exam Last Set of Vital Signs Vital Signs Date Time Temp Pulse Resp B/P (MAP) Pulse Ox O2 Delivery O2 Flow Rate FiO2 01/27/19 18:19 100 Room Air 01/27/19 16:00 87 28 127/93 (104) 3.00 01/27/19 12:00 97.3 01/27/19 04:10 30 Capillary Refill : Less Than 3 SecondsGreater Than 3 Seconds I&O Intake and Output 01/27/19 00:00 Intake Total 1517.5 ml Output Total 7650 ml Balance -6132.5 ml Intake Oral 50 ml IV Total 1467.5 ml Output Urine Total 7650 ml General: Alert, No Acute Distress Lungs: Clear to Auscultation, Normal Air Movement Heart: Regular Rate, No Murmurs Extremities: Other (3+ pitting edema) Results/Procedures Lab Laboratory Tests 01/26/19 19:19: Glucometer 78 01/27/19 01:27: Glucometer 75 01/27/19 03:30: White Blood Count 7.6, Red Blood Count 2.77L, Hemoglobin 8.5L, Hematocrit 26L, Mean Corpuscular Volume 95, Mean Corpuscular Hemoglobin 31, Mean Corpuscular Hemoglobin Concent 32, Red Cell Distribution Width 15.2H, Platelet Count 355, Mean Platelet Volume 9.0, Neutrophils (%) (Auto) 68, Lymphocytes (%) (Auto) 21, Monocytes (%) (Auto) 6, Eosinophils (%) (Auto) 6, Basophils (%) (Auto) 1, Neutrophils # (Auto) 5.1, Lymphocytes # (Auto) 1.6, Monocytes # (Auto) 0.4, Eosinophils # (Auto) 0.4H, Basophils # (Auto) 0.0, Activated Partial Thromboplast Time 56H, Sodium Level 145, Potassium Level 2.9L, Chloride Level 106, Carbon Dioxide Level 28, Anion Gap 11, Blood Urea Nitrogen 10, Creatinine 0 .92, Estimat Glomerular Filtration Rate > 60, BUN/Creatinine Ratio 11, Glucose Level 86, Calcium Level 8.0L, Phosphorus Level 2.8, Magnesium Level 2.1 01/27/19 05:13: Glucometer 82 01/27/19 13:54: Glucometer 84 01/27/19 18:15: Hemoglobin 9.1L, Hematocrit 28L 01/27/19 18:22: Glucometer 105 Microbiology 01/18/19 Blood Culture - Final, Complete Corynebacterium species 01/23/19 Gram Stain - Final, Complete 01/23/19 Sputum Culture - Final, Complete Staphylococcus aureus Haemophilus influenza Radiology NAME: LASHAWN ASHBY [facility] REC#: [id number] PT STATUS: REG CLI : 1970 PHYSICIAN: JESSICA BARBA ADMIT DATE: 08/23/18/RAD Signed Date of Exam: 08/23/18 CT HEAD W WO INDICATION: Parietal headaches. Dizziness. Blurred vision. Dysphagia. TECHNIQUE: Routine pre- and postcontrast, chronic small-enhanced axial images were obtained from the skull base to the vertex. COMPARISON: 05/08/2018 FINDINGS: The ventricles and cortical sulci are stable in size and contour. Postcontrast images show no abnormal areas of enhancement There is no midline shift or mass-effect. No acute intra-axial hemorrhage is seen. There are no abnormal areas of increased or decreased density to suggest acute hemorrhage or edema. No extra-axial masses or collections are present. The bony calvarium is intact. The visualized paranasal sinuses are unremarkable. The mastoid air cells are clear. IMPRESSION: 1. No acute intracranial abnormality. No CT evidence of mass, acute infarct or intracranial hemorrhage. Dictated by: Dictated on workstation # [id number] Dict: 08/23/18 1424 Trans: 08/23/18 164 Interpreted by: MARGARITA FRIEND MD Electronically signed by: MARGARITA FRIEND MD 08/23/[id number] NAME: LASHAWN ASHBY [facility] REC#: [id number] PT STATUS: REG ER : 1970 PHYSICIAN: MARNIE BRYSON APRN ADMIT DATE: 01/18/19/ER Signed Date of Exam: 01/18/19 CHEST 1 VIEW, AP/PA ONLY INDICATION: Shortness of air, altered mental status. TECHNIQUE: Single frontal view of the chest. COMPARISON: 03/19/2017 FINDINGS: Lung volumes are normal. No focal consolidation is seen. There is no pleural effusion or pneumothorax. The cardiomediastinal silhouette is normal in size and contour. IMPRESSION: No acute pulmonary abnormality is seen. Dictated by: Dictated on workstation # [id number] Dict: 01/18/19 1124 Trans: 01/18/19 1207 Interpreted by: LIANET ACEVEDO MD Electronically signed by: LIANET ACEVEDO MD 01/18/19 1207 NAME: LASHAWN ASHBY [facility] REC#: [id number] PT STATUS: ADM IN : 1970 PHYSICIAN: MARNIE BRYSON APRN ADMIT DATE: 01/18/19/ICU Signed Date of Exam: 01/18/19 CT ANGIO CHEST W PROCEDURE: CT angiography of the chest with contrast. TECHNIQUE: Multiple contiguous axial images were obtained through the chest after uneventful bolus administration of intravenous contrast. Reconstructed CTA MIP acquisitions were also performed. Auto Exposure Controls were utilized during the CT exam to meet ALARA standards for radiation dose reduction. INDICATION: Dyspnea. COMPARISON: None available. Vasculature: Extensive bilateral acute pulmonary emboli are present. This involves a thin saddle embolus seen across the right and left pulmonary trunks. There is a large volume of thrombus extending into the lobar pulmonary arteries involving both sides. Pulmonary trunk is mildly dilated measuring 3.0 cm. Additionally, there is mild flattening of the interventricular septum suggestive of right-sided heart strain. Normal-caliber thoracic aorta without features of dissection. Heart and mediastinum: Visualized thyroid is normal. No supraclavicular, axillary, or intra-thoracic lymphadenopathy. No pericardial effusion. Pleura: No pleural effusion or pneumothorax. Lungs and airway: No endoluminal lesion in the trachea or central bronchi. No pulmonary mass or consolidation. There are scattered ground-glass opacities within the lung bases and left upper lobe. Upper abdomen: Allowing for the phase of contrast, no acute abnormality in the upper abdomen is seen. Musculoskeletal: No concerning osseous lesion. IMPRESSION: 1. Large burden of acute bilateral pulmonary emboli with a small saddle embolus present and emboli extending to all five lobes. Additionally, there are features of pulmonary hypertension and right ventricular strain. 2. Scattered ground-glass attenuation within the lungs could be due to atelectasis. Developing pulmonary infarcts could potentially have this appearance. The above critical findings were called to Marnie Bryson APRN by Dr. Abhi Saavedra at 11:57 a.m. on 01/18/2019. CRITICAL FINDINGS Dictated by: Dictated on workstation # [id number] Dict: 01/18/19 1153 Trans: 01/18/19 1308 Interpreted by: ABHI SAAVEDRA MD Electronically signed by: ABHI SAAVEDRA MD 01/18/19 1308 Assessment/Plan Assessment/Plan (1) Saddle pulmonary embolus Status: Acute Assessment & Plan: 01/24: Given tPA in ER, started on heparin, presented with hypotension 01/25: Hgb stable, continue heparin 01/27: Continue anticoagulation Qualifiers: Qualified Codes: I26.02 - Saddle embolus of pulmonary artery with acute cor pulmonale (2) Acute respiratory failure with hypoxia Status: Acute Assessment & Plan: 01/24: intubated / to EtOH withdraw, Dr Watts managing 01/26: Breathing trial today, possible extubation per Stefanie 01/27: Extubated (3) Alcohol withdrawal Status: Acute Assessment & Plan: 01/24: No longer needing Ativan Qualifiers: Qualified Codes: F10.231 - Alcohol dependence with withdrawal delirium (4) Acute upper GI bleed Status: Acute Assessment & Plan: 01/25: Consider transfusion given hgb 7.8 01/26: Hgb stable, no signs of acute bleeding (5) Esophageal varices Status: Acute Assessment & Plan: 01/24: on protonix and Octreotide gtts Qualifiers: Qualified Codes: I85.11 - Secondary esophageal varices with bleeding (6) Right leg DVT Status: Acute Qualifiers: Qualified Codes: I82.401 - Acute embolism and thrombosis of unspecified deep veins of right lower extremity (7) NSTEMI (non-ST elevated myocardial infarction) Status: Acute Assessment & Plan: 01/24: Cardiology following, likely 2/2 large PE (8) Normocytic anemia due to blood loss Status: Acute Assessment & Plan: 01/24: Will continue to monitor as patient is on blood thinners (9) Hypokalemia Status: Acute Assessment & Plan: 01/24: Replace and repeat BMP (10) DVT prophylaxis Status: Acute Assessment & Plan: - Patient on treatment Clinical Quality Measures DVT/VTE Risk/Contraindication: Risk Factor Score Per Nursin RFS Level Per Nursing on Admit: 4+=Very High SCOTT PITTMAN MD Jan 27, 2019 18:33
[2019-01-27 18:44] LABS: BUN/CREATININE RATIO 11; CALCIUM 8.2 MG/DL (8.5-10.1); CARBON DIOXIDE 30 MMOL/L (21-32); CHLORIDE 105 MMOL/L (98-107); CREATININE SERUM 0.84 MG/DL (0.60-1.30); GFR ESTIMATED > 60; GLUCOSE 103 MG/DL (70-105); SODIUM 144 MMOL/L (135-145)
[2019-01-27] MEDS ORDERED: KCL 20 MEQ TAB (K-DUR) PO NR (19:15)
[2019-01-28] VITALS (11 sets, daily range): BP systolic 107–159; BP diastolic 71–84
[2019-01-28] MEDS: RT-ALBUTEROL/IPRATROPIUM 3 ML (DUONEB) VIAL INH SCH ×5 (02:21→21:26)
[2019-01-28 02:58] LABS: BASOPHILS % (AUTO) 0 % (0-10); EOSINOPHILS # (AUTO) 0.4 10^3/uL (0.0-0.3); EOSINOPHILS % (AUTO) 5 % (0-10); HEMATOCRIT 29 % (40-54); HEMOGLOBIN 9.3 G/DL (13.3-17.7); LYMPHOCYTES # (AUTO) 2.2 X 10^3 (1.0-4.0); LYMPHOCYTES % (AUTO) 26 % (12-44); MEAN CORPUSCULAR HEMOGLOBIN 30 PG (25-34); MEAN CORPUSCULAR HGB CONC 32 G/DL (32-36); MEAN CORPUSCULAR VOLUME 94 FL (80-99); MEAN PLATELET VOLUME 8.6 FL (7.4-10.4); MONOCYTES # (AUTO) 0.5 X 10^3 (0.0-1.0); MONOCYTES % (AUTO) 5 % (0-12); NEUTROPHILS # (AUTO) 5.5 X 10^3 (1.8-7.8); NEUTROPHILS % (AUTO) 64 % (42-75); PLATELET COUNT 379 10^3/uL (130-400); RED CELL DISTRIBUTION WIDTH 14.9 % (10.0-14.5); WHITE BLOOD COUNT 8.6 10^3/uL (4.3-11.0)
[2019-01-28 03:13] LABS: BUN/CREATININE RATIO 11; CALCIUM 8.4 MG/DL (8.5-10.1); CARBON DIOXIDE 25 MMOL/L (21-32); CHLORIDE 108 MMOL/L (98-107); CREATININE SERUM 0.89 MG/DL (0.60-1.30); GFR ESTIMATED > 60; GLUCOSE 98 MG/DL (70-105); MAGNESIUM 2.5 MG/DL (1.8-2.4); PHOSPHORUS 2.9 MG/DL (2.3-4.7); POTASSIUM 3.5 MMOL/L (3.6-5.0); SODIUM 146 MMOL/L (135-145)
--- NOTE | 2019-01-28 05:21 | Pulmonary Progress Note ---
Subjective Time Seen by a Provider: 07:30 Subjective/Events-last exam Still complains of SOB. Sepsis Event Evaluation Height, Weight, BMI Height: 5'5.00" Weight: 247lbs. 2.0oz. 112.944746jh; 36.9 BMI Method:Stated Exam Exam Vital Signs Date Time Temp Pulse Resp B/P (MAP) Pulse Ox O2 Delivery O2 Flow Rate FiO2 01/28/19 05:00 74 19 113/78 (90) 90 Nasal Cannula 3.00 01/28/19 04:20 Room Air 01/28/19 04:00 78 21 123/83 (96) 96 Nasal Cannula 3.00 01/28/19 03:00 90 15 100 Nasal Cannula 3.00 01/28/19 02:21 100 Room Air 01/28/19 02:00 24 117/76 (90) 100 Nasal Cannula 3.00 01/28/19 01:00 82 19 118/71 (87) 100 Nasal Cannula 3.00 01/28/19 01:00 82 01/28/19 00:03 Room Air 01/28/19 00:00 84 19 116/76 (89) 98 Nasal Cannula 3.00 01/27/19 23:00 87 18 117/76 (90) 100 Nasal Cannula 3.00 01/27/19 22:07 100 Room Air 01/27/19 22:00 95 21 125/84 (98) 100 Nasal Cannula 3.00 01/27/19 20:59 Room Air 01/27/19 20:00 83 27 135/101 (112) 100 Nasal Cannula 3.00 01/27/19 19:00 90 01/27/19 18:19 100 Room Air 01/27/19 16:00 Room Air 01/27/19 16:00 87 28 127/93 (104) 100 Nasal Cannula 3.00 01/27/19 14:14 96 Room Air 01/27/19 13:00 82 01/27/19 12:00 Room Air 01/27/19 12:00 97.3 01/27/19 12:00 26 116/87 (97) 100 Nasal Cannula 3.00 01/27/19 11:00 103 22 125/84 (98) 100 Nasal Cannula 3.00 01/27/19 10:48 96 Room Air 01/27/19 10:00 100 18 136/93 (107) 98 Nasal Cannula 3.00 01/27/19 09:00 88 25 132/79 (96) 90 Nasal Cannula 3.00 01/27/19 08:00 97.8 01/27/19 08:00 Room Air 01/27/19 08:00 84 26 131/82 (98) 95 Nasal Cannula 3.00 01/27/19 07:00 82 30 127/87 (100) 96 Nasal Cannula 3.00 01/27/19 07:00 82 01/27/19 06:48 97 Room Air 01/27/19 06:00 84 28 121/74 (90) 96 Nasal Cannula 3.00 I & O 01/28/19 07:00 Intake Total 3290 ml Output Total 6725 ml Balance -3435 ml Height & Weight Height: 5'5.00" Weight: 247lbs. 2.0oz. 112.520262rb; 36.9 BMI Method:Stated General Appearance: No Apparent Distress, WD/WN HEENT: PERRL/EOMI Neck: Full Range of Motion, Normal Inspection Respiratory: No Accessory Muscle Use, No Respiratory Distress Cardiovascular: Tachycardia (heart rate 130 no complex regular with preceding P waves before each QRS. Blood pressure 122/96. O2 sat 89% on 2 L. He denies shor tness of breath. He is still diaphoretic and pale with delayed capillary refill of the skin) Capillary Refill: Greater Than 3 Seconds Gastrointestinal: soft, no organomegaly; No distended Extremity: No Pedal Edema, Slow Capillary Refill Neurologic/Psychiatric: Alert, Other (alert, answers questions appropriately) Skin: Cool Lymphatic: No Adenopathy Results Lab Laboratory Tests 01/27/19 03:30 01/27/19 18:15 01/28/19 02:48 Assessment/Plan Assessment/Plan Acute Large PE s/p TPA -Echo today - 50-55% -Hep gtt - Once pt is able to take PO meds change to oral anticoagulation Acute respiratory failure - now improving -Pt is doing well off vent. pulmonary edema/anasarca secondary to IVF -Monitor Anemia -Monitor Hypokalemai -replace and recheck -Start spironolactone RLE DVT Grade II esophageal varices s/p EGD -D/C Octreotide gtts and protonix gtt -Continue Protonix IV BID -Hb is currently stable GIB- Occult -Surgery is following Seizure disorder -PRN Ativan -Keppra Alcohol withdrawals -LUCINA protocol -Monitor NSTEMI - secondary to PE -Monitor KAYDEN PHILIPPE DO Jan 28, 2019 05:21
[2019-01-28 06:11] LABS: HEMOGLOBIN 8.9 G/DL (13.3-17.7)
[2019-01-28] MEDS: PIPERACILLIN/TAZOBACTAM (BULK) 4.5 GM in NS (IVPB) 100 ML IV SCH ×3 (06:23→21:52)
--- NOTE | 2019-01-28 08:06 | Diagnostic Imaging Report ---
INDICATION: Dyspnea. COMPARISON: 01/27/2019. FINDINGS: Stable left subclavian central venous catheter. Visualized lungs are clear. No pleural effusion or pneumothorax. Normal cardiomediastinal silhouette. IMPRESSION: Stable exam without adverse development. Dictated by: Dictated on workstation # [id number]
[2019-01-28] MEDS: PANTOPRAZOLE 40 MG (PROTONIX) VIAL IV SCH ×2 (08:23→21:08)
[2019-01-28] MEDS: NICOTINE 21 MG (NICODERM) PATCH TD SCH (08:23)
[2019-01-28] MEDS: LEVETIRACETAM INJECTION 500 MG in NS (IVPB) 100 ML IV SCH ×2 (08:23→21:10)
[2019-01-28] MEDS: METOCLOPRAMIDE INJ 10 MG/2 ML (REGLAN) IVP SCH ×2 (08:23→21:08)
[2019-01-28] MEDS: SPIRONOLACTONE 100 MG (ALDACTONE) TABLET PO SCH (08:24)
[2019-01-28] MEDS: NICOTINE PATCH REMOVAL TP SCH (08:24)
[2019-01-28] MEDS ORDERED: KCL 20 MEQ TAB (K-DUR) PO NR (09:00)
--- NOTE | 2019-01-28 09:45 | Physical Therapy Daily Note ---
PT Daily Note-Current Subjective Patient agrees to PT. Mental Status Patient Orientation: Confused Attachments: Oxygen, Dow Catheter, IV Transfers Therapy Code Descriptions/Definitions Functional [place] Measure: 0=Not Assessed/NA 4=Minimal Assistance 1=Total Assistance 5=Supervision or Setup 2=Maximal Assistance 6=Modified [place] 3=Moderate Assistance 7=Complete [place] Therapy Quality Codes: 6 Independent with activity with or without an assistive device 5 Patient requires set up or clean up by helper. Patient completes activity by themselves 4 Supervision or touching assist (CGA). [place] provide cues , steadying assist 3 The helper provides less than half the effort to complete the activity 2 The helper provides more than half the effort to complete the activity 1 Dependent. The helper does all the effort to complete an activity 7 Patient refused to complete or attempt activity 9 The patient did not perform the activity before the current illness or injury 88 Not attempted due to Medical conditions or safety concerns Transfers (B, C, W/C) (FIM): 4 Scootin Rollin Supine to/from Sit: 5 Sit to/from Stand: 4 Bed to/from Chair: 4 patient stood to FWW x 9 min Exercises Supine Ex: Ankle pumps, Quad Set, Heel Slides, Straight leg raise Supine Reps: 10 (bilaterally) Seated Therapy Exercises: Long arc quads Seated Reps: 15 Standing: Marching Standing Reps: 15 Assessment Patient SAO2 decreased to 90% on RA with activity. Patient improving with treatment plan. PT Short Term Goals Short Term Goals Time Frame: Feb 02, 2019 Transfers (B,C,W/C) (FIM): 2 Gait (FIM): 1 Gait Distance Comment: 3' Gait Level of Assist: 2 Gait Assistive Device: FWW PT Plan Treatment/Plan Treatment Plan: Continue Plan of Care Treatment Plan: Bed Mobility, Concurrent Therapy, Education, Functional Activity Austyn, Functional Strength Treatment Duration: Feb 02, 2019 Frequency: 6 times per week Estimated Hrs Per Day: .25 hour per day Patient and/or Family Agrees t: Yes Time/GCodes Time In: 800 Time Out: 823 Total Billed Treatment Time: 23 Total Billed Treatment 1 visit EX 14 min FA 9 min EDWINA BARKER PT Jan 28, 2019 09:45
--- NOTE | 2019-01-28 11:52 | Occupational Ther Daily Note ---
OT Current Status-Daily Note Subjective pt sitting in recliner chiar upon OT Arrival in no appeant distress. pt agreed to OT TX session with focus in increasing sit to stands in prep for toileting, and UE ROM. Pain Numeric Pain Scale: 0-No Pain Mental Status/Objective Patient Orientation: Person, Confused Therapy Code Descriptions/Definitions Functional [place] Measure: 0=Not Assessed/NA 4=Minimal Assistance 1=Total Assistance 5=Supervision or Setup 2=Maximal Assistance 6=Modified [place] 3=Moderate Assistance 7=Complete [place] Attachments: Dow Catheter, Oxygen, Telemetry Other Treatment noted increase use of Jon UE this date. pt is able to flex Jon showers to approx 95 degrees and elbows WNL. noted pt continues to have jon UE edema. pt is very confused and has puzzled look on face when asked questions. pt is unable to remain on topic during conversation. pt education on increase UE ROM/ strength. pt perform 5X2 shoulder flexion to end range, 5X2 shoulder ADD/ ABD, elbow flex/ ext against gravity. noted increase HR to 117bpm with activity.. pt required demo and cuing to follow commands pt education on proper hand placement. positioning when perform sit to stands in prep for toilet transfer. pt perform 2 sit to stands with MIN A. noted increase HR to 127 BPM. NSG is aware. post OT Session pt sitting in recliner chair. call light within reach, all needs met. NSG is aware. Education OT Patient Education: Energy conservation, Exercise program, Progress toward Goal/Update tx plan, Purpose of tx/functional activities, Safety issues, Transfer techniques Teaching Recipient: Patient Teaching Methods: Demonstration, Discussion Response to Teaching: Reinforcement Needed OT Short Term Goals Short Term Goals Eating(FIM): 3 Grooming(FIM): 3 Bathing(FIM): 3 Upper Body Dressing(FIM): 3 Lower Body Dressing(FIM): 3 Toileting(FIM): 3 Transfers (B,C,W/C) (FIM): 2 Toilet/Commode Transfer(FIM): 3 Additional Short Term Goals: 1-Demonstrate ADL Tasks, 2-Verbalize Underst anding, 3-ImproveStrength/[place] 1=Demonstrate adherence to instructed precautions during ADL tasks. 2=Patient will verbalize/demonstrate understanding of assistive devices/modifications for ADL. 3=Patient will improve strength/tolerance for activity to enable patient to perform ADL's. OT Fpc Goals Fpc Goals Eating (FIM): 5 Grooming(FIM): 5 Bathing(FIM): 5 Upper Body Dressing(FIM): 5 Lower Body Dressing(FIM): 5 Toileting(FIM): 5 Transfers (B,C,W/C) (FIM): 5 Toilet/Commode Transfer(FIM): 5 Additional Goals: 1-Demonstrate ADL Tasks, 2-Verbalize Understanding, 3- ImproveStrength/[place] 1=Demonstrate adherence to instructed precautions during ADL tasks. 2=Patient will verbalize/demonstrate understanding of assistive devices/modifications for ADL. 3=Patient will improve strength/tolerance for activity to enable patient to perform ADL's. OT Education/Plan Problem List/Assessment Assessment: Decreased Activ Tolerance, Decreased Safety Aware, Decreased UE Strength, Dependent Transfers, Edema, Impaired Bed Mobility, Impaired Cognition, Impaired Coordination, Impaired Funct Balance, Impaired I ADL's, Impaired Self- Care Skills, Restricted Funct UE ROM pt presents with functional limitations affecting areas if ADLs and functional transfers with the above mention deficits. pt would benefit from OT services to increase independence with ADLS/ functional transfers. pt currently requires TA for all ADLs and functional transfers. Discharge Recommendations Plan/Recommendations: Continue POC Treatment Plan/Plan of Care Treatment,Training & Education: Yes Patient would benefit from OT for education, treatment and training to promote independence in ADL's, mobility, safety and/or upper extremity function for ADL's. Plan of Care: ADL Retraining, Caregiver Training, Cognitive Retraining, Concurrent Therapy, Functional Mobility, Group Exercise/Act as Ind, UE Funct Exercise/Act, W/C Management Training Treatment Duration: Mar 03, 2019 Frequency: 4 times per week (4-5 times per week) Estimated Hrs Per Day: .25 hour per day (0.25-0.50 per day) Agreement: Yes Rehab Potential: Guarded Time/GCodes Start Time: 11:30 Stop Time: 11:53 Billed Treatment Time EX 15 minutes, 1 unit FA 8 minutes, 1 u DINESH Christie OT Jan 28, 2019 11:52
--- NOTE | 2019-01-28 12:14 | Cardiology Progress Note ---
Cardiology SOAP Progress Note Subjective: extubated. doing well. Objective: I&O/Vital Signs 01/28/19 01/28/19 01/28/19 01/28/19 01:00 01:00 02:00 02:21 Pulse 82 82 Resp 19 24 B/P (MAP) 118/71 (87) 117/76 (90) Pulse Ox 100 100 100 O2 Delivery Nasal Cannula Nasal Cannula Room Air O2 Flow Rate 3.00 3.00 01/28/19 01/28/19 01/28/19 01/28/19 03:00 04:00 04:20 05:00 Pulse 90 78 74 Resp 15 21 19 B/P (MAP) 123/83 (96) 113/78 (90) Pulse Ox 100 96 90 O2 Delivery Nasal Cannula Nasal Cannula Room Air Nasal Cannula O2 Flow Rate 3.00 3.00 3.00 01/28/19 01/28/19 01/28/19 01/28/19 06:00 07:00 07:51 08:00 Pulse 82 81 Resp 11 B/P (MAP) 120/80 (93) Pulse Ox 100 95 O2 Delivery Nasal Cannula Nasal Cannula Room Air O2 Flow Rate 3.00 2.00 01/28/19 01/28/19 08:00 11:25 Pulse 94 Resp 19 B/P (MAP) 120/75 (90) Pulse Ox 89 95 O2 Delivery Nasal Cannula Nasal Cannula O2 Flow Rate 3.00 2.00 01/28/19 00:00 Intake Total 1670 ml Output Total 6325 ml Balance -4655 ml Weight (Pounds): 236 Weight (Ounces): 2.0 Weight (Calculated Kilograms): 107.478722 Constitutional: AAO x 3, well-developed, well-nourished, other Respiratory: No accessory muscle use; other (fair to good air entry) Cardiovascular: regular rate-rhythm, S1 and S2, systolic murmur (soft EMMANUELLE at card base) Gastrointestional: No tender; soft; No guarding, No rebound; audible bowel sounds Extremities: No clubbing, No cyanosis, No significant edema Neurologic/Psychiatric: no motor/sensory deficits, alert, oriented x 3, other Skin: No rash on exposed areas, No ulcerations on exposed areas Results/Procedures: Labs Laboratory Tests 01/27/19 13:54: Glucometer 84 01/27/19 18:15: Hemoglobin 9.1L, Hematocrit 28L, Activated Partial Thromboplast Time 54H, Sodium Level 144, Potassium Level 3.0L, Chloride Level 105, Carbon Dioxide Level 30, Anion Gap 9, Blood Urea Nitrogen 9, Creatinine 0.84, Estimat Glomerular Filtration Rate > 60, BUN/Creatinine Ratio 11, Glucose Level 103, Calcium Level 8.2L 01/27/19 18:22: Glucometer 105 01/28/19 00:18: Activated Partial Thromboplast Time 65H 01/28/19 02:48: White Blood Count 8.6, Red Blood Count 3.09L, Hemoglobin 9.3L, Hematocrit 29L, Mean Corpuscular Volume 94, Mean Corpuscular Hemoglobin 30, Mean Corpuscular Hemoglobin Concent 32, Red Cell Distribution Width 14.9H, Platelet Count 379, Mean Platelet Volume 8.6, Neutrophils (%) (Auto) 64, Lymphocytes (%) (Auto) 26, Monocytes (%) (Auto) 5, Eosinophils (%) (Auto) 5, Basophils (%) (Auto) 0, Bibi trophils # (Auto) 5.5, Lymphocytes # (Auto) 2.2, Monocytes # (Auto) 0.5, Eosinophils # (Auto) 0.4H, Basophils # (Auto) 0.0, Activated Partial Thromboplast Time 72H, Sodium Level 146H, Potassium Level 3.5L, Chloride Level 108H, Carbon Dioxide Level 25, Anion Gap 13, Blood Urea Nitrogen 10, Creatinine 0.89, Estimat Glomerular Filtration Rate > 60, BUN/Creatinine Ratio 11, Glucose Level 98, Calcium Level 8.4L, Phosphorus Level 2.9, Magnesium Level 2.5H 01/28/19 06:01: Hemoglobin 8.9L, Hematocrit 28L, Ammonia 36H Microbiology 01/18/19 Blood Culture - Final, Complete Corynebacterium species 01/23/19 Gram Stain - Final, Complete 01/23/19 Sputum Culture - Final, Complete Staphylococcus aureus Haemophilus influenza A/P: Assessment/Dx: Large PE on 01/18/19, hemodynamically significant (presented with hypotension) treated with thrombolytics and subsequent anticoagulation Ac resp failure on 01/19/19, related to alcohol withdrawal, necessitating intubation and mech vent, managed by Dr Watts and Dr Henderson H/o hypertension H/o heavy alcohol use Echo of 01/19/19: LVEF 50-55%, reduced RV systolic function, grade 1 randle dysfunction of LV, RVSP 28 mmHg Hypokalemia - replace Anemia - management per medical service Plan: * Replenish lytes * doing well post extubation * Monitor labs Thank you for your consultation. Please call me if you have any questions. Karey Owens MD, FACP, FACC, FSCAI, FHRS, CCDS Interventional Cardiology Cardiac Electrophysiology Vascular Medicine and Endovascular Interventions Angeli OWENS MD Jan 28, 2019 12:14
--- NOTE | 2019-01-28 13:05 | Progress Note ---
Subjective Subjective/Events-last exam Patient doing better this AM. Sitting up in chair. + diffuse pain. No other complaints Review of Systems Date Seen by Provider: Jan 28, 2019 Time Seen by Provider: 11:45 Pulmonary: Dyspnea, Cough Cardiovascular: Edema; No: Chest Pain, Palpitations Gastrointestinal: Abdominal Pain; No: Nausea, Vomiting Neurological: Weakness, Incoordination Objective Exam Last Set of Vital Signs Vital Signs Date Time Temp Pulse Resp B/P (MAP) Pulse Ox O2 Delivery O2 Flow Rate FiO2 01/28/19 12:00 Room Air 01/28/19 12:00 112 16 116/84 (95) 91 3.00 01/27/19 12:00 97.3 01/27/19 04:10 30 Capillary Refill : Less Than 3 SecondsGreater Than 3 Seconds I&O Intake and Output 01/28/19 00:00 Intake Total 3537.5 ml Output Total 8225 ml Balance -4687.5 ml Intake Oral 960 ml IV Total 2577.5 ml Output Urine Total 8225 ml # Bowel Movements 1 General: Alert, Cooperative, No Acute Distress Lungs: Clear to Auscultation, Normal Air Movement Heart: Regular Rate, No Murmurs Abdomen: Normal Bowel Sounds, Soft, No Tenderness, No Masses Extremities: Other (2+ pitting edema) Skin: No Rashes, No Breakdown Neuro: Other (decreased strenght) Results/Procedures Lab Laboratory Tests 01/27/19 13:54: Glucometer 84 01/27/19 18:15: Hemoglobin 9.1L, Hematocrit 28L, Activated Partial Thromboplast Time 54H, Sodium Level 144, Potassium Level 3.0L, Chloride Level 105, Carbon Dioxide Level 30, Anion Gap 9, Blood Urea Nitrogen 9, Creatinine 0.84, Estimat Glomerular Filtration Rate > 60, BUN/Creatinine Ratio 11, Glucose Level 103, Calcium Level 8.2L 01/27/19 18:22: Glucometer 105 01/28/19 00:18: Activated Partial Thromboplast Time 65H 01/28/19 02:48: White Blood Count 8.6, Red Blood Count 3.09L, Hemoglobin 9.3L, Hematocrit 29L, Mean Corpuscular Volume 94, Mean Corpuscular Hemoglobin 30, Mean Corpuscular Hemoglobin Concent 32, Red Cell Distribution Width 14.9H, Platelet Count 379, Mean Platelet Volume 8.6, Neutrophils (%) (Auto) 64, Lymphocytes (%) (Auto) 26, Monocytes (%) (Auto) 5, Eosinophils (%) (Auto) 5, Basophils (%) (Auto) 0, Neutrophils # (Auto) 5.5, Lymphocytes # (Auto) 2.2, Monocytes # (Auto) 0.5, Eosinophils # (Auto) 0.4H, Basophils # (Auto) 0.0, Activated Partial Thromboplast Time 72H, Sodium Level 146H, Potassium Level 3.5L, Chloride Level 108H, Carbon Dioxide Level 25, Anion Gap 13, Blood Urea Nitrogen 10, Creatinine 0.89, Estimat Glomerular Filtration Rate > 60, BUN/Creatinine Ratio 11, Glucose Level 98, Calcium Level 8.4L, Phosphorus Level 2.9, Magnesium Level 2.5H 01/28/19 06:01: Hemoglobin 8.9L, Hematocrit 28L, Ammonia 36H Microbiology 01/18/19 Blood Culture - Final, Complete Corynebacterium species 01/23/19 Gram Stain - Final, Complete 01/23/19 Sputum Culture - Final, Complete Staphylococcus aureus Haemophilus influenza Radiology NAME: LASHAWN ASHBY [facility] REC#: [id number] PT STATUS: REG CLI : 1970 PHYSICIAN: JESSICA BARBA ADMIT DATE: 08/23/18/RAD Signed Date of Exam: 08/23/18 CT HEAD W WO INDICATION: Parietal headaches. Dizziness. Blurred vision. Dysphagia. TECHNIQUE: Routine pre- and postcontrast, chronic small-enhanced axial images were obtained from the skull base to the vertex. COMPARISON: 05/08/2018 FINDINGS: The ventricles and cortical sulci are stable in size and contour. Postcontrast images show no abnormal areas of enhancement There is no midline shift or mass-effect. No acute intra-axial hemorrhage is seen. There are no abnormal areas of increased or decreased density to suggest acute hemorrhage or edema. No extra-axial masses or collections are present. The bony calvarium is intact. The visualized paranasal sinuses are unremarkable. The mastoid air cells are clear. IMPRESSION: 1. No acute intracranial abnormality. No CT evidence of mass, acute infarct or intracranial hemorrhage. Dictated by: Dictated on workstation # [id number] Dict: 08/23/18 1424 Trans: 08/23/18 1649 Interpreted by: MARGARITA FRIEND MD Electronically signed by: MARGARITA FRIEND MD 08/23/18 1649 NAME: LASHAWN ASHBY [facility] REC#: [id number] PT STATUS: REG ER : 1970 PHYSICIAN: MARNIE BRYSON APRN ADMIT DATE: 01/18/19/ER Signed Date of Exam: 01/18/19 CHEST 1 VIEW, AP/PA ONLY INDICATION: Shortness of air, altered mental status. TECHNIQUE: Single frontal view of the chest. COMPARISON: 03/19/2017 FINDINGS: Lung volumes are normal. No focal consolidation is seen. There is no pleural effusion or pneumothorax. The cardiomediastinal silhouette is normal in size and contour. IMPRESSION: No acute pulmonary abnormality is seen. Dictated by: Dictated on workstation # [id number] Dict: 01/18/19 1124 Trans: 01/18/19 1207 Interpreted by: LIANET ACEVEDO MD Electronically signed by: LIANET ACEVEDO MD 01/18/19 1207 NAME: LASHAWN ASHBY [facility] REC#: [id number] PT STATUS: ADM IN : 1970 PHYSICIAN: MARNIE BRYSNO APRN ADMIT DATE: 01/18/19/ICU Signed Date of Exam: 01/18/19 CT ANGIO CHEST W PROCEDURE: CT angiography of the chest with contrast. TECHNIQUE: Multiple contiguous axial images were obtained through the chest after uneventful bolus administration of intravenous contrast. Reconstructed CTA MIP acquisitions were also performed. Auto Exposure Controls were utilized during the CT exam to meet ALARA standards for radiation dose reduction. INDICATION: Dyspnea. COMPARISON: None available. Vasculature: Extensive bilateral acute pulmonary emboli are present. This involves a thin saddle embolus seen across the right and left pulmonary trunks. There is a large volume of thrombus extending into the lobar pulmonary arteries involving both sides. Pulmonary trunk is mildly dilated measuring 3.0 cm. Additionally, there is mild flattening of the interventricular septum suggestive of right-sided heart strain. Normal-caliber thoracic aorta without features of dissection. Heart and mediastinum: Visualized thyroid is normal. No supraclavicular, axillary, or intra-thoracic lymphadenopathy. No pericardial effusion. Pleura: No pleural effusion or pneumothorax. Lungs and airway: No endoluminal lesion in the trachea or central bronchi. No pulmonary mass or consolidation. There are scattered ground-glass opacities within the lung bases and left upper lobe. Upper abdomen: Allowing for the phase of contrast, no acute abnormality in the upper abdomen is seen. Musculoskeletal: No concerning osseous lesion. IMPRESSION: 1. Large burden of acute bilateral pulmonary emboli with a small saddle embolus present and emboli extending to all five lobes. Additionally, there are features of pulmonary hypertension and right ventricular strain. 2. Scattered ground-glass attenuation within the lungs could be due to atelectasis. Developing pulmonary infarcts could potentially have this appearance. The above critical findings were called to Marnie Bryson APRN by Dr. Abhi Saavedra at 11:57 a.m. on 01/18/2019. CRITICAL FINDINGS Dictated by: Dictated on workstation # [id number] Dict: 01/18/19 1153 Trans: 01/18/19 1308 Interpreted by: ABHI SAAVEDRA MD Electronically signed by: ABHI SAAVEDRA MD 01/18/19 1308 Assessment/Plan Assessment/Plan (1) Saddle pulmonary embolus Status: Acute Assessment & Plan: 01/24: Given tPA in ER, started on heparin, presented with hypotension 01/25: Hgb stable, continue heparin 01/27: Continue anticoagulation 01/28: Transition to PO anticoagulation Qualifiers: Qualified Codes: I26.02 - Saddle embolus of pulmonary artery with acute cor pulmonale (2) Acute respiratory failure with hypoxia Status: Acute Assessment & Plan: 01/24: intubated 08/21 to EtOH withdraw, Dr Watts managing 01/26: Breathing trial today, possible extubation per Stefanie 01/27: Extubated (3) Alcohol withdrawal Status: Acute Assessment & Plan: 01/24: No longer needing Ativan Qualifiers: Qualified Codes: F10.231 - Alcohol dependence with withdrawal delirium (4) Acute upper GI bleed Status: Acute Assessment & Plan: 01/25: Consider transfusion given hgb 7.8 01/26: Hgb stable, no signs of acute bleeding (5) Esophageal varices Status: Acute Assessment & Plan: 01/24: on protonix and Octreotide gtts Qualifiers: Qualified Codes: I85.11 - Secondary esophageal varices with bleeding (6) Right leg DVT Status: Acute Qualifiers: Qualified Codes: I82.401 - Acute embolism and thrombosis of unspecified deep veins of right lower extremity (7) NSTEMI (non-ST elevated myocardial infarction) Status: Acute Assessment & Plan: 01/24: Cardiology following, likely 2/2 large PE (8) Normocytic anemia due to blood loss Status: Acute Assessment & Plan: 01/24: Will continue to monitor as patient is on blood thinners (9) Hypokalemia Status: Acute Assessment & Plan: 01/24: Replace and repeat BMP (10) DVT prophylaxis Status: Acute Assessment & Plan: - Patient on treatment (11) Physical debility Status: Acute Assessment & Plan: 01/28: Discussed the importance of focusing on PT to help mobilize fluid, Dow d/arvin today Clinical Quality Measures DVT/VTE Risk/Contraindication: Risk Factor Score Per Nursin RFS Level Per Nursing on Admit: 4+=Very High SCOTT PITTMAN MD Jan 28, 2019 13:05
--- NOTE | 2019-01-28 17:38 | NUR ---
Patient report received from Hector GUPTA, patient in sitting in chair in [phone], call light within reach, family at bedside, patient oriented to room, denies any pain or discomfort at this time, will continue to monitor.
[2019-01-28] MEDS: DABIGATRAN 150 MG (PRADAXA) CAPSULE PO SCH (18:44)
[2019-01-28 19:08] LABS: HEMOGLOBIN 9.8 G/DL (13.3-17.7)
[2019-01-29] VITALS: BP 132/87
[2019-01-29] MEDS: RT-ALBUTEROL/IPRATROPIUM 3 ML (DUONEB) VIAL INH SCH ×5 (02:47→21:49)
[2019-01-29 04:05] VITALS: BP 114/77
[2019-01-29 06:10] LABS: BASOPHILS % (AUTO) 1 % (0-10); EOSINOPHILS # (AUTO) 0.6 10^3/uL (0.0-0.3); EOSINOPHILS % (AUTO) 8 % (0-10); HEMATOCRIT 28 % (40-54); LYMPHOCYTES # (AUTO) 1.4 X 10^3 (1.0-4.0); LYMPHOCYTES % (AUTO) 20 % (12-44); MEAN CORPUSCULAR HEMOGLOBIN 30 PG (25-34); MEAN CORPUSCULAR HGB CONC 32 G/DL (32-36); MEAN CORPUSCULAR VOLUME 95 FL (80-99); MEAN PLATELET VOLUME 9.1 FL (7.4-10.4); MONOCYTES # (AUTO) 0.5 X 10^3 (0.0-1.0); MONOCYTES % (AUTO) 7 % (0-12); NEUTROPHILS # (AUTO) 4.7 X 10^3 (1.8-7.8); NEUTROPHILS % (AUTO) 66 % (42-75); PLATELET COUNT 330 10^3/uL (130-400); RED CELL DISTRIBUTION WIDTH 15.2 % (10.0-14.5); WHITE BLOOD COUNT 7.2 10^3/uL (4.3-11.0)
[2019-01-29] MEDS: PIPERACILLIN/TAZOBACTAM (BULK) 4.5 GM in NS (IVPB) 100 ML IV SCH ×3 (06:17→21:08)
[2019-01-29] MEDS: DABIGATRAN 150 MG (PRADAXA) CAPSULE PO SCH ×2 (06:17→18:11)
[2019-01-29 06:30] LABS: BUN/CREATININE RATIO 10; CARBON DIOXIDE 24 MMOL/L (21-32); CHLORIDE 108 MMOL/L (98-107); CREATININE SERUM 0.98 MG/DL (0.60-1.30); POTASSIUM 3.4 MMOL/L (3.6-5.0); SODIUM 144 MMOL/L (135-145)
[2019-01-29 06:31] LABS: CALCIUM 8.7 MG/DL (8.5-10.1); GFR ESTIMATED > 60; GLUCOSE 87 MG/DL (70-105); MAGNESIUM 2.4 MG/DL (1.8-2.4); PHOSPHORUS 4.5 MG/DL (2.3-4.7)
--- NOTE | 2019-01-29 06:34 | Pulmonary Progress Note ---
Subjective Time Seen by a Provider: 07:30 Subjective/Events-last exam Pt appears to be doing much better. Sepsis Event Evaluation Height, Weight, BMI Height: 5'5.00" Weight: 229lbs. 4.0oz. 103.236424ok; 36.9 BMI Method:Stated Exam Exam Vital Signs Date Time Temp Pulse Resp B/P (MAP) Pulse Ox O2 Delivery O2 Flow Rate FiO2 01/29/19 04:05 99.6 88 18 114/77 (89) 96 Room Air 01/29/19 02:47 94 Room Air 01/29/19 00:00 99.6 88 18 132/87 (102) 93 Room Air 01/28/19 21:26 94 Room Air 01/28/19 21:00 Room Air 01/28/19 20:00 99.0 100 20 159/83 (108) 96 Room Air 01/28/19 18:50 87 Room Air 01/28/19 17:30 98.8 95 20 118/81 (93) 97 Room Air 01/28/19 16:00 Room Air 01/28/19 16:00 104 23 107/76 (86) 92 Nasal Cannula 3.00 01/28/19 13:00 105 01/28/19 12:00 Room Air 01/28/19 12:00 112 16 116/84 (95) 91 Nasal Cannula 3.00 01/28/19 11:25 95 Nasal Cannula 2.00 01/28/19 08:00 94 19 120/75 (90) 89 Nasal Cannula 3.00 01/28/19 08:00 Room Air 01/28/19 07:51 95 Nasal Cannula 2.00 01/28/19 07:00 81 I & O 01/29/19 07:00 Intake Total 1680 ml Output Total 3275 ml Balance -1595 ml Height & Weight Height: 5'5.00" Weight: 229lbs. 4.0oz. 103.340467bc; 36.9 BMI Method:Stated General Appearance: No Apparent Distress, WD/WN HEENT: PERRL/EOMI Neck: Full Range of Motion, Normal Inspection Respiratory: No Accessory Muscle Use, No Respiratory Distress Cardiovascular: Tachycardia (heart rate 130 no complex regular with preceding P waves before each QRS. Blood pressure 122/96. O2 sat 89% on 2 L. He denies shortness of breath. He is still diaphoretic and pale with delayed capillary r efill of the skin) Capillary Refill: Greater Than 3 Seconds Gastrointestinal: soft, no organomegaly; No distended Extremity: No Pedal Edema, Slow Capillary Refill Neurologic/Psychiatric: Alert, Other (alert, answers questions appropriately) Skin: Cool Lymphatic: No Adenopathy Results Lab Laboratory Tests 01/27/19 18:15 01/28/19 02:48 01/28/19 06:01 01/28/19 19:02 01/29/19 05:24 Assessment/Plan Assessment/Plan Acute Large PE s/p TPA -Echo today - 50-55% -Pradaxa Acute respiratory failure - now improving -Pt is doing well off vent. pulmonary edema/anasarca secondary to IVF -Monitor Anemia -Monitor Hypokalemai -replace -spironolactone RLE DVT Grade II esophageal varices s/p EGD -D/C Octreotide gtts and protonix gtt -Continue Protonix IV BID -Hb is currently stable GIB- Occult -Surgery is following Seizure disorder -PRN Ativan -Keppra Alcohol withdrawals -LUCINA protocol -Monitor NSTEMI - secondary to PE -Monitor KAYDEN PHILIPPE DO Jan 29, 2019 06:34
[2019-01-29] MEDS: POTASSIUM CL 10MEQ/50ML IVPB 50 ML IV SCH ×5 (07:06→08:39)
[2019-01-29] MEDS: SPIRONOLACTONE 100 MG (ALDACTONE) TABLET PO SCH (07:56)
[2019-01-29] MEDS: PANTOPRAZOLE 40 MG (PROTONIX) VIAL IV SCH ×2 (07:56→20:02)
[2019-01-29] MEDS: LEVETIRACETAM INJECTION 500 MG in NS (IVPB) 100 ML IV SCH ×2 (07:58→20:02)
[2019-01-29] MEDS: NICOTINE 21 MG (NICODERM) PATCH TD SCH (07:58)
[2019-01-29] MEDS: METOCLOPRAMIDE INJ 10 MG/2 ML (REGLAN) IVP SCH ×2 (07:59→20:02)
[2019-01-29] MEDS: NICOTINE PATCH REMOVAL TP SCH (08:03)
[2019-01-29 08:16] VITALS: BP 100/64
--- NOTE | 2019-01-29 09:12 | Physical Therapy Daily Note ---
PT Daily Note-Current Subjective Patient is very alert and agreeable to participate with PT. Spouse present. Mental Status Patient Orientation: Person, Time, Situation Attachments: IV Transfers Therapy Code Descriptions/Definitions Functional [place] Measure: 0=Not Assessed/NA 4=Minimal Assistance 1=Total Assistance 5=Supervision or Setup 2=Maximal Assistance 6=Modified [place] 3=Moderate Assistance 7=Complete [place] Therapy Quality Codes: 6 Independent with activity with or without an assistive device 5 Patient requires set up or clean up by helper. Patient completes activity by themselves 4 Supervision or touching assist (CGA). [place] provide cues , steadying assist 3 The helper provides less than half the effort to complete the activity 2 The helper provides more than half the effort to complete the activity 1 Dependent. The helper does all the effort to complete an activity 7 Patient refused to complete or attempt activity 9 The patient did not perform the activity before the current illness or injury 88 Not attempted due to Medical conditions or safety concerns Transfers (B, C, W/C) (FIM): 5 Scootin Sit to/from Stand: 5 Gait Training Gait (FIM): 4 Distance (FIM): 3=150 ft Distance: 400' Gait Level of Assist: 4 Gait Persons Needed: 1 Gait Assistive Device: FWW CGA for safety only due to patient is very impulsive and unaware of safety concerns Assessment Patient much improved with gross motor skills and is highly motivated with progress. PT Short Term Goals Short Term Goals Time Frame: Feb 02, 2019 Transfers (B,C,W/C) (FIM): 2 Gait (FIM): 1 Gait Distance Comment: 3' Gait Level of Assist: 2 Gait Assistive Device: FWW PT Plan Treatment/Plan Treatment Plan: Continue Plan of Care Treatment Plan: Bed Mobility, Concurrent Therapy, Education, Functional Activity [place], Functional Strength Treatment Duration: Feb 02, 2019 Frequency: 6 times per week Estimated Hrs Per Day: .25 hour per day Patient and/or Family Agrees t: Yes Time/GCodes Time In: 742 Time Out: 751 Total Billed Treatment Time: 9 Total Billed Treatment 1 visit GT 9 min EDWINA BARKER PT Jan 29, 2019 09:12
--- NOTE | 2019-01-29 09:35 | Diagnostic Imaging Report ---
INDICATION: Shortness of breath. Portable chest at 3:42 AM FINDINGS: Left upper extremity PICC line tip projects over the SVC. Heart size and pulmonary vascularity are normal. Lungs are clear. There are no effusions or pneumothoraces. IMPRESSION: No acute abnormalities in the chest. Dictated by: Dictated on workstation # [id number]
--- NOTE | 2019-01-29 13:48 | Cardiology Progress Note ---
Cardiology SOAP Progress Note Subjective: still has shortness of breath and bilateral lower extremity swelling. Objective: I&O/Vital Signs 01/29/19 01/29/19 01/29/19 01/29/19 02:47 04:05 06:58 08:16 Temp 99.6 98.6 Pulse 88 104 Resp 18 20 B/P (MAP) 114/77 (89) 100/64 (76) Pulse Ox 94 96 94 96 O2 Delivery Room Air Room Air Room Air Room Air 01/29/19 01/29/19 09:16 10:33 Pulse Ox 96 O2 Delivery Room Air Room Air 01/29/19 00:00 Intake Total 830 ml Output Total 1500 ml Balance -670 ml Weight (Pounds): 229 Weight (Ounces): 4.0 Weight (Calculated Kilograms): 103.073269 Constitutional: AAO x 3, well-developed, well-nourished, other Respiratory: No accessory muscle use; other (fair to good air entry) Cardiovascular: regular rate-rhythm, S1 and S2, systolic murmur (soft EMMANUELLE at card base) Gastrointestional: No tender; soft; No guarding, No rebound; audible bowel sounds Extremities: pedal edema; No clubbing, No cyanosis, No significant edema Neurologic/Psychiatric: no motor/sensory deficits, alert, normal mood/affect, oriented x 3, other Skin: No rash on exposed areas, No ulcerations on exposed areas Results/Procedures: Labs Laboratory Tests 01/28/19 19:02: Hemoglobin 9.8L, Hematocrit 31L 01/29/19 05:20: Hemoglobin 9.0L, Hematocrit 28L, White Blood Count 7.2, Red Blood Count 2.97L, Mean Corpuscular Volume 95, Mean Corpuscular Hemoglobin 30, Mean Corpuscular Hemoglobin Concent 32, Red Cell Distribution Width 15.2H, Platelet Count 330, Mean Platelet Volume 9.1, Neutrophils (%) (Auto) 66, Lymphocytes (%) (Auto) 20, Monocytes (%) (Auto) 7, Eosinophils (%) (Auto) 8, Basophils (%) (Auto) 1, Neutrophils # (Auto) 4.7, Lymphocytes # (Auto) 1.4, Monocytes # (Auto) 0.5, Eosinophils # (Auto) 0.6H, Basophils # (Auto) 0.0, Activated Partial Thromboplast Time 29 01/29/19 05:24: Sodium Level 144, Potassium Level 3.4L, Chloride Level 108H, Carbon Dioxide Level 24, Anion Gap 12, Blood Urea Nitrogen 10, Creatinine 0.98, Estimat Glomerular Filtration Rate > 60, BUN/Creatinine Ratio 10, Glucose Level 87, Calcium Level 8.7, Phosphorus Level 4.5, Magnesium Level 2.4 Microbiology 01/18/19 Blood Culture - Final, Complete Corynebacterium species 01/23/19 Gram Stain - Final, Complete 01/23/19 Sputum Culture - Final, Complete Staphylococcus aureus Haemophilus influenza A/P: Assessment/Dx: Large PE on 01/18/19, hemodynamically significant (presented with hypotension) treated with thrombolytics and subsequent anticoagulation, RV dysfunction, pulmonary pressure is not significantly elevated. Ac resp failure on 01/19/19, related to alcohol withdrawal, necessitating int ubation and mech vent, managed by Dr Watts and Dr Henderson. improved significantly. H/o hypertension H/o heavy alcohol use Echo of 01/19/19: LVEF 50-55%, reduced RV systolic function, grade 1 randle dysfunction of LV, RVSP 28 mmHg Hypokalemia - replace Anemia - management per medical service Plan: * Replenish lytes * doing well post extubation * Monitor labs Thank you for your consultation. Please call me if you have any questions. Karey Owens MD, FACP, FACC, FSCAI, FHRS, CCDS Interventional Cardiology Cardiac Electrophysiology Vascular Medicine and Endovascular Interventions Angeli OWENS MD Jan 29, 2019 13:48
--- NOTE | 2019-01-29 15:32 | Progress Note ---
Subjective Subjective/Events-last exam Patient up in chair playing with his daughters. States that he has had increased swelling in his feet bilaterally. Denies any pain. Tolerating PO diet and ambulation with staff and PT. Review of Systems Date Seen by Provider: Jan 29, 2019 Time Seen by Provider: 12:45 Pulmonary: Dyspnea Cardiovascular: No: Chest Pain, Palpitations Gastrointestinal: No: Nausea, Vomiting, Abdominal Pain Musculoskeletal: foot pain Neurological: Weakness, Incoordination Objective Exam Last Set of Vital Signs Vital Signs Date Time Temp Pulse Resp B/P (MAP) Pulse Ox O2 Delivery O2 Flow Rate FiO2 01/29/19 14:28 95 Room Air 01/29/19 08:16 98.6 104 20 100/64 (76) 01/28/19 16:00 3.00 01/27/19 04:10 30 Capillary Refill : Less Than 3 SecondsGreater Than 3 Seconds I&O Intake and Output 01/29/19 00:00 Intake Total 1680 ml Output Total 4400 ml Balance -2720 ml Intake Oral 1280 ml IV Total 400 ml Output Urine Total 4400 ml # Bowel Movements 1 General: Alert, Cooperative, Other (confused at times) Lungs: Clear to Auscultation, Normal Air Movement Heart: Regular Rate, No Murmurs Abdomen: Normal Bowel Sounds, Soft, No Tenderness, No Masses Extremities: Other (2+ pitting edema bilateral LE to knee) Results/Procedures Lab Laboratory Tests 01/28/19 19:02: Hemoglobin 9.8L, Hematocrit 31L 01/29/19 05:20: Hemoglobin 9.0L, Hematocrit 28L, White Blood Count 7.2, Red Blood Count 2.97L, Mean Corpuscular Volume 95, Mean Corpuscular Hemoglobin 30, Mean Corpuscular Hemoglobin Concent 32, Red Cell Distribution Width 15.2H, Platelet Count 330, Mean Platelet Volume 9.1, Neutrophils (%) (Auto) 66, Lymphocytes (%) (Auto) 20, Monocytes (%) (Auto) 7, Eosinophils (%) (Auto) 8, Basophils (%) (Auto) 1, Ne utrophils # (Auto) 4.7, Lymphocytes # (Auto) 1.4, Monocytes # (Auto) 0.5, Eosinophils # (Auto) 0.6H, Basophils # (Auto) 0.0, Activated Partial Thromboplast Time 29 01/29/19 05:24: Sodium Level 144, Potassium Level 3.4L, Chloride Level 108H, Carbon Dioxide Level 24, Anion Gap 12, Blood Urea Nitrogen 10, Creatinine 0.98, Estimat Glomerular Filtration Rate > 60, BUN/Creatinine Ratio 10, Glucose Level 87, Calcium Level 8.7, Phosphorus Level 4.5, Magnesium Level 2.4 Microbiology 01/18/19 Blood Culture - Final, Complete Corynebacterium species 01/23/19 Gram Stain - Final, Complete 01/23/19 Sputum Culture - Final, Complete Staphylococcus aureus Haemophilus influenza Radiology NAME: LASHAWN ASHBY [facility] REC#: [id number] PT STATUS: REG CLI : 1970 PHYSICIAN: JESSICA BARBA ADMIT DATE: 08/23/18/RAD Signed Date of Exam: 08/23/18 CT HEAD W WO INDICATION: Parietal headaches. Dizziness. Blurred vision. Dysphagia. TECHNIQUE: Routine pre- and postcontrast, chronic small-enhanced axial images were obtained from the skull base to the vertex. COMPARISON: 05/08/2018 FINDINGS: The ventricles and cortical sulci are stable in size and contour. Postcontrast images show no abnormal areas of enhancement There is no midline shift or mass-effect. No acute intra-axial hemorrhage is seen. There are no abnormal areas of increased or decreased density to suggest acute hemorrhage or edema. No extra-axial masses or collections are present. The bony calvarium is intact. The visualized paranasal sinuses are unremarkable. The mastoid air cells are clear. IMPRESSION: 1. No acute intracranial abnormality. No CT evidence of mass, acute infarct or intracranial hemorrhage. Dictated by: Dictated on workstation # [id number] Dict: 08/23/18 1424 Trans: 08/23/18 1649 Interpreted by: MARGARITA FRIEND MD Electronically signed by: MARGARITA FRIEND MD 08/23/18 1649 NAME: LASHAWN ASHBY [facility] REC#: [id number] PT STATUS: REG ER : 1970 PHYSICIAN: MARNIE BRYSON APRN ADMIT DATE: 01/18/19/ER Signed Date of Exam: 01/18/19 CHEST 1 VIEW, AP/PA ONLY INDICATION: Shortness of air, altered mental status. TECHNIQUE: Single frontal view of the chest. COMPARISON: 03/19/2017 FINDINGS: Lung volumes are normal. No focal consolidation is seen. There is no pleural effusion or pneumothorax. The cardiomediastinal silhouette is normal in size and contour. IMPRESSION: No acute pulmonary abnormality is seen. Dictated by: Dictated on workstation # [id number] Dict: 01/18/19 1124 Trans: 01/18/19 1207 Interpreted by: LIANET ACEVEDO MD Electronically signed by: LIANET ACEVEDO MD 01/18/19 1207 NAME: LASHAWN ASHBY [facility] REC#: [id number] PT STATUS: ADM IN : 1970 PHYSICIAN: MARNIE BRYSON APRN ADMIT DATE: 01/18/19/ICU Signed Date of Exam: 01/18/19 CT ANGIO CHEST W PROCEDURE: CT angiography of the chest with contrast. TECHNIQUE: Multiple contiguous axial images were obtained through the chest after uneventful bolus administration of intravenous contrast. Reconstructed CTA MIP acquisitions were also performed. Auto Exposure Controls were utilized during the CT exam to meet ALARA standards for radiation dose reduction. INDICATION: Dyspnea. COMPARISON: None available. Vasculature: Extensive bilateral acute pulmonary emboli are present. This involves a thin saddle embolus seen across the right and left pulmonary trunks. There is a large volume of thrombus extending into the lobar pulmonary arteries involving both sides. Pulmonary trunk is mildly dilated measuring 3.0 cm. Additionally, there is mild flattening of the interventricular septum suggestive of right-sided heart strain. Normal-caliber thoracic aorta without features of dissection. Heart and mediastinum: Visualized thyroid is normal. No supraclavicular, axillary, or intra-thoracic lymphadenopathy. No pericardial effusion. Pleura: No pleural effusion or pneumothorax. Lungs and airway: No endoluminal lesion in the trachea or central bronchi. No pulmonary mass or consolidation. There are scattered ground-glass opacities within the lung bases and left upper lobe. Upper abdomen: Allowing for the phase of contrast, no acute abnormality in the upper abdomen is seen. Musculoskeletal: No concerning osseous lesion. IMPRESSION: 1. Large burden of acute bilateral pulmonary emboli with a small saddle embolus present and emboli extending to all five lobes. Additionally, there are features of pulmonary hypertension and right ventricular strain. 2. Scattered ground-glass attenuation within the lungs could be due to atelectasis. Developing pulmonary infarcts could potentially have this appearance. The above critical findings were called to Marnie Bryson APRN by Dr. Abhi Saavedra at 11:57 a.m. on 01/18/2019. CRITICAL FINDINGS Dictated by: Dictated on workstation # [id number] Dict: 01/18/19 1153 Trans: 01/18/19 1308 Interpreted by: ABHI SAAVEDRA MD Electronically signed by: ABHI SAAVEDRA MD 01/18/19 1308 Assessment/Plan Assessment/Plan (1) Saddle pulmonary embolus Status: Acute Assessment & Plan: 01/24: Given tPA in ER, started on heparin, presented with hypotension 01/25: Hgb stable, continue heparin 01/27: Continue anticoagulation 01/28: Transition to PO anticoagulation Qualifiers: Qualified Codes: I26.02 - Saddle embolus of pulmonary artery with acute cor pulmonale (2) Acute respiratory failure with hypoxia Status: Acute Assessment & Plan: 01/24: intubated 08/21 to EtOH withdraw, Dr Watts managing 01/26: Breathing trial today, possible extubation per Stefanie 01/27: Extubated 01/29: Patient on RA, continue MAT protocol (3) Alcohol withdrawal Status: Acute Assessment & Plan: 01/24: No longer needing Ativan Qualifiers: Qualified Codes: F10.231 - Alcohol dependence with withdrawal delirium (4) Acute upper GI bleed Status: Acute Assessment & Plan: 01/25: Consider transfusion given hgb 7.8 01/26: Hgb stable, no signs of acute bleeding 01/29: Decrease blood draws (5) Esophageal varices Status: Acute Assessment & Plan: 01/24: on protonix and Octreotide gtts Qualifiers: Qualified Codes: I85.11 - Secondary esophageal varices with bleeding (6) Right leg DVT Status: Acute Qualifiers: Qualified Codes: I82.401 - Acute embolism and thrombosis of unspecified deep veins of right lower extremity (7) NSTEMI (non-ST elevated myocardial infarction) Status: Acute Assessment & Plan: 01/24: Cardiology following, likely 2/2 large PE (8) Normocytic anemia due to blood loss Status: Acute Assessment & Plan: 01/24: Will continue to monitor as patient is on blood thinners (9) Hypokalemia Status: Acute Assessment & Plan: 01/24: Replace and repeat BMP (10) DVT prophylaxis Status: Acute Assessment & Plan: - Patient on treatment (11) Physical debility Status: Acute Assessment & Plan: 01/28: Discussed the importance of focusing on PT to help mobilize fluid, Dow d/arvin today 01/29: IRF consult placed Clinical Quality Measures DVT/VTE Risk/Contraindication: Risk Factor Score Per Nursin RFS Level Per Nursing on Admit: 4+=Very High Other: see interventions for details SCOTT PITTMAN MD Jan 29, 2019 15:31
[2019-01-29 16:00] VITALS: BP 114/71
[2019-01-29 23:52] VITALS: BP 105/65
[2019-01-30] MEDS: RT-ALBUTEROL/IPRATROPIUM 3 ML (DUONEB) VIAL INH SCH ×6 (03:59→23:21)
[2019-01-30 05:10] LABS: BASOPHILS % (AUTO) 1 % (0-10); EOSINOPHILS # (AUTO) 0.5 10^3/uL (0.0-0.3); EOSINOPHILS % (AUTO) 8 % (0-10); HEMATOCRIT 28 % (40-54); HEMOGLOBIN 8.8 G/DL (13.3-17.7); LYMPHOCYTES # (AUTO) 1.5 X 10^3 (1.0-4.0); LYMPHOCYTES % (AUTO) 24 % (12-44); MEAN CORPUSCULAR HEMOGLOBIN 30 PG (25-34); MEAN CORPUSCULAR HGB CONC 32 G/DL (32-36); MEAN CORPUSCULAR VOLUME 94 FL (80-99); MEAN PLATELET VOLUME 9.1 FL (7.4-10.4); MONOCYTES # (AUTO) 0.4 X 10^3 (0.0-1.0); MONOCYTES % (AUTO) 7 % (0-12); NEUTROPHILS # (AUTO) 3.9 X 10^3 (1.8-7.8); NEUTROPHILS % (AUTO) 61 % (42-75); PLATELET COUNT 336 10^3/uL (130-400); RED CELL DISTRIBUTION WIDTH 15.4 % (10.0-14.5); WHITE BLOOD COUNT 6.3 10^3/uL (4.3-11.0)
[2019-01-30] MEDS: DABIGATRAN 150 MG (PRADAXA) CAPSULE PO SCH ×2 (06:01→18:29)
[2019-01-30] MEDS: PIPERACILLIN/TAZOBACTAM (BULK) 4.5 GM in NS (IVPB) 100 ML IV SCH (06:01)
[2019-01-30] MEDS ORDERED: KCL 20 MEQ TAB (K-DUR) PO NR (07:37)
[2019-01-30] MEDS: SPIRONOLACTONE 100 MG (ALDACTONE) TABLET PO SCH (07:45)
[2019-01-30] MEDS: PANTOPRAZOLE 40 MG (PROTONIX) VIAL IV SCH ×2 (07:45→20:50)
[2019-01-30] MEDS: METOCLOPRAMIDE INJ 10 MG/2 ML (REGLAN) IVP SCH ×2 (07:45→20:50)
[2019-01-30] MEDS: NICOTINE 21 MG (NICODERM) PATCH TD SCH (07:46)
[2019-01-30] MEDS: LEVETIRACETAM INJECTION 500 MG in NS (IVPB) 100 ML IV SCH ×2 (07:47→20:50)
[2019-01-30] MEDS: NICOTINE PATCH REMOVAL TP SCH (07:47)
--- NOTE | 2019-01-30 07:54 | Pulmonary Progress Note ---
Subjective Time Seen by a Provider: 07:52 Subjective/Events-last exam PT is doing much better. No complications noted. Sepsis Event Evaluation Height, Weight, BMI Height: 5'5.00" Weight: 229lbs. 4.0oz. 103.916698su; 36.9 BMI Method:Stated Exam Exam Vital Signs Date Time Temp Pulse Resp B/P (MAP) Pulse Ox O2 Delivery O2 Flow Rate FiO2 01/30/19 06:52 97 Room Air 01/29/19 23:52 98.6 95 18 105/65 (78) 94 Room Air 01/29/19 21:49 90 Room Air 01/29/19 20:00 Room Air 01/29/19 16:00 98.7 88 16 114/71 (85) 96 Room Air 01/29/19 14:28 95 Room Air 01/29/19 10:33 96 Room Air 01/29/19 09:16 Room Air 01/29/19 08:16 98.6 104 20 100/64 (76) 96 Room Air I & O 01/30/19 07:00 Intake Total 4205 ml Output Total 2800 ml Balance 1405 ml Height & Weight Height: 5'5.00" Weight: 229lbs. 4.0oz. 103.318837ex; 36.9 BMI Method:Stated General Appearance: No Apparent Distress, WD/WN HEENT: PERRL/EOMI Neck: Full Range of Motion, Normal Inspection Respiratory: No Accessory Muscle Use, No Respiratory Distress Cardiovascular: Tachycardia (heart rate 130 no complex regular with preceding P waves before each QRS. Blood pressure 122/96. O2 sat 89% on 2 L. He denies shortness of breath. He is still diaphoretic and pale with delayed capillary refill of the skin) Capillary Refill: Greater Than 3 Seconds Gastrointestinal: soft, no organomegaly; No distended Extremity: No Pedal Edema, Slow Capillary Refill Neurologic/Psychiatric: Alert, Other (alert, answers questions appropriately) Skin: Cool Lymphatic: No Adenopathy Results Lab Laboratory Tests 01/28/19 19:02 01/29/19 05:20 01/29/19 05:24 01/30/19 04:41 Assessment/Plan Assessment/Plan Acute Large PE s/p TPA -Echo today - 50-55% -Pradaxa -D/C Zosyn -PT is on RA pulmonary edema/anasarca secondary to IVF -Monitor Anemia -Monitor Hypokalemai -replace -spironolactone -Recheck labs RLE DVT Grade II esophageal varices s/p EGD - Protonix BID -Hb is currently stable GIB- Occult -Surgery is following Seizure disorder -PRN Ativan -Keppra Alcohol withdrawals -LUCINA protocol -Monitor NSTEMI - secondary to PE -Monitor PT is wanting to go home. Labs are pending. If repeat labs are ok he is fine from my standpoint for discharge. He will need at least 6 mo of anticoagulation for PE/DVT. D/C Abx. I will see him in office in 2-3 wks. KAYDEN PHILIPPE DO Jan 30, 2019 07:54
[2019-01-30 07:58] LABS: BASOPHILS # (AUTO) 0.1 10^3/uL (0.0-0.1); BASOPHILS % (AUTO) 1 % (0-10); EOSINOPHILS # (AUTO) 0.5 10^3/uL (0.0-0.3); EOSINOPHILS % (AUTO) 7 % (0-10); HEMATOCRIT 29 % (40-54); HEMOGLOBIN 9.1 G/DL (13.3-17.7); LYMPHOCYTES # (AUTO) 1.7 X 10^3 (1.0-4.0); LYMPHOCYTES % (AUTO) 25 % (12-44); MEAN CORPUSCULAR HEMOGLOBIN 30 PG (25-34); MEAN CORPUSCULAR HGB CONC 32 G/DL (32-36); MEAN CORPUSCULAR VOLUME 94 FL (80-99); MEAN PLATELET VOLUME 8.8 FL (7.4-10.4); MONOCYTES # (AUTO) 0.4 X 10^3 (0.0-1.0); MONOCYTES % (AUTO) 6 % (0-12); NEUTROPHILS # (AUTO) 4.4 X 10^3 (1.8-7.8); NEUTROPHILS % (AUTO) 62 % (42-75); PLATELET COUNT 342 10^3/uL (130-400); RED CELL DISTRIBUTION WIDTH 15.5 % (10.0-14.5); WHITE BLOOD COUNT 7.1 10^3/uL (4.3-11.0)
[2019-01-30 08:00] VITALS: BP 137/78
[2019-01-30 08:28] LABS: BUN/CREATININE RATIO 9; CALCIUM 8.6 MG/DL (8.5-10.1); CARBON DIOXIDE 21 MMOL/L (21-32); CHLORIDE 106 MMOL/L (98-107); CREATININE SERUM 0.99 MG/DL (0.60-1.30); GFR ESTIMATED > 60; GLUCOSE 85 MG/DL (70-105); MAGNESIUM 2.3 MG/DL (1.8-2.4); PHOSPHORUS 3.7 MG/DL (2.3-4.7); POTASSIUM 3.2 MMOL/L (3.6-5.0); SODIUM 142 MMOL/L (135-145)
--- NOTE | 2019-01-30 10:17 | Progress Note ---
Subjective Subjective/Events-last exam Doing better this AM. Denies any pain. States that he stills fills like he is going to fall when he is walking. Review of Systems Date Seen by Provider: Jan 30, 2019 Time Seen by Provider: 09:25 Pulmonary: Dyspnea, Cough Cardiovascular: No: Chest Pain, Palpitations Gastrointestinal: No: Nausea, Vomiting, Abdominal Pain Neurological: Weakness, Incoordination Objective Exam Last Set of Vital Signs Vital Signs Date Time Temp Pulse Resp B/P (MAP) Pulse Ox O2 Delivery O2 Flow Rate FiO2 01/30/19 09:02 Room Air 01/30/19 08:00 99.6 102 20 137/78 (97) 95 01/28/19 16:00 3.00 01/27/19 04:10 30 Capillary Refill : Less Than 3 SecondsGreater Than 3 Seconds I&O Intake and Output 01/30/19 00:00 Intake Total 4145 ml Output Total 2850 ml Balance 1295 ml Intake Oral 3600 ml IV Total 545 ml Output Urine Total 2850 ml # Voids 1 General: Alert, Cooperative, No Acute Distress Lungs: Clear to Auscultation, Normal Air Movement Heart: Regular Rate, No Murmurs Abdomen: Normal Bowel Sounds, Soft, No Tenderness, No Masses Extremities: Other (3+ Pitting edema bilaterally) Neuro: Other (unstable gait) Results/Procedures Lab Laboratory Tests 01/30/19 04:41: White Blood Count 6.3, Red Blood Count 2.93L, Hemoglobin 8.8L, Hematocrit 28L, Mean Corpuscular Volume 94, Mean Corpuscular Hemoglobin 30, Mean Corpuscular Hemoglobin Concent 32, Red Cell Distribution Width 15.4H, Platelet Count 336, Mean Platelet Volume 9.1, Neutrophils (%) (Auto) 61, Lymphocytes (%) (Auto) 24, Monocytes (%) (Auto) 7, Eosinophils (%) (Auto) 8, Basophils (%) (Auto) 1, Neutrophils # (Auto) 3.9, Lymphocytes # (Auto) 1.5, Monocytes # (Auto) 0.4, Eosinophils # (Auto) 0.5H, Basophils # (Auto) 0.0, Activated Partial Thromboplast Time 41H 01/30/19 07:50: White Blood Count 7.1, Red Blood Count 3.03L, Hemoglobin 9.1L, Hematocrit 29L, Mean Corpuscular Volume 94, Mean Corpuscular Hemoglobin 30, Mean Corpuscular Hemoglobin Concent 32, Red Cell Distribution Width 15.5H, Platelet Count 342, Mean Platelet Volume 8.8, Neutrophils (%) (Auto) 62, Lymphocytes (%) (Auto) 25, Monocytes (%) (Auto) 6, Eosinophils (%) (Auto) 7, Basophils (%) (Auto) 1, Neutrophils # (Auto) 4.4, Lymphocytes # (Auto) 1.7, Monocytes # (Auto) 0.4, Eosinophils # (Auto) 0.5H, Basophils # (Auto) 0.1, Sodium Level 142, Potassium Level 3.2L, Chloride Level 106, Carbon Dioxide Level 21, Anion Gap 15H, Blood Urea Nitrogen 9, Creatinine 0.99, Estimat Glomerular Filtration Rate > 60, BUN/Creatinine Ratio 9, Glucose Level 85, Calcium Level 8.6, Phosphorus Level 3.7, Magnesium Level 2.3, B-Type Natriuretic Peptide 39.0 Microbiology 01/18/19 Blood Culture - Final, Complete Corynebacterium species 01/23/19 Gram Stain - Final, Complete 01/23/19 Sputum Culture - Final, Complete Staphylococcus aureus Haemophilus influenza Radiology NAME: LASHAWN ASHBY [facility] REC#: [id number] PT STATUS: REG CLI : 1970 PHYSICIAN: JESSICA BARBA ADMIT DATE: 08/23/18/RAD Signed Date of Exam: 08/23/18 CT HEAD W WO INDICATION: Parietal headaches. Dizziness. Blurred vision. Dysphagia. TECHNIQUE: Routine pre- and postcontrast, chronic small-enhanced axial images were obtained from the skull base to the vertex. COMPARISON: 05/08/2018 FINDINGS: The ventricles and cortical sulci are stable in size and contour. Postcontrast images show no abnormal areas of enhancement There is no midline shift or mass-effect. No acute intra-axial hemorrhage is seen. There are no abnormal areas of increased or decreased density to suggest acute hemorrhage or edema. No extra-axial masses or collections are present. The bony calvarium is intact. The visualized paranasal sinuses are unremarkable. The mastoid air cells are clear. IMPRESSION: 1. No acute intracranial abnormality. No CT evidence of mass, acute infarct or intracranial hemorrhage. Dictated by: Dictated on workstation # [id number] Dict: 08/23/18 1424 Trans: 08/23/18 1649 Interpreted by: MARGARITA FRIEND MD Electronically signed by: MARGARITA FRIEND MD 08/23/18 1649 NAME: LASHAWN ASHBY [facility] REC#: [id number] PT STATUS: REG ER : 1970 PHYSICIAN: MARNIE BRYSON APRN ADMIT DATE: 01/18/19/ER Signed Date of Exam: 01/18/19 CHEST 1 VIEW, AP/PA ONLY INDICATION: Shortness of air, altered mental status. TECHNIQUE: Single frontal view of the chest. COMPARISON: 03/19/2017 FINDINGS: Lung volumes are normal. No focal consolidation is seen. There is no pleural effusion or pneumothorax. The cardiomediastinal silhouette is normal in size and contour. IMPRESSION: No acute pulmonary abnormality is seen. Dictated by: Dictated on workstation # [id number] Dict: 01/18/19 1124 Trans: 01/18/19 1207 Interpreted by: LIANET ACEVEDO MD Electronically signed by: LIANET ACEVEDO MD 01/18/19 1207 NAME: LASHAWN ASHBY [facility] REC#: [id number] PT STATUS: ADM IN : 1970 PHYSICIAN: MARNIE BRYSON APRN ADMIT DATE: 01/18/19/ICU Signed Date of Exam: 01/18/19 CT ANGIO CHEST W PROCEDURE: CT angiography of the chest with contrast. TECHNIQUE: Multiple contiguous axial images were obtained through the chest after uneventful bolus administration of intravenous contrast. Reconstructed CTA MIP acquisitions were also performed. Auto Exposure Controls were utilized during the CT exam to meet ALARA standards for radiation dose reduction. INDICATION: Dyspnea. COMPARISON: None available. Vasculature: Extensive bilateral acute pulmonary emboli are present. This involves a thin saddle embolus seen across the right and left pulmonary trunks. There is a large volume of thrombus extending into the lobar pulmonary arteries involving both sides. Pulmonary trunk is mildly dilated measuring 3.0 cm. Additionally, there is mild flattening of the interventricular septum suggestive of right-sided heart strain. Normal-caliber thoracic aorta without features of dissection. Heart and mediastinum: Visualized thyroid is normal. No supraclavicular, axillary, or intra-thoracic lymphadenopathy. No pericardial effusion. Pleura: No pleural effusion or pneumothorax. Lungs and airway: No endoluminal lesion in the trachea or central bronchi. No pulmonary mass or consolidation. There are scattered ground-glass opacities within the lung bases and left upper lobe. Upper abdomen: Allowing for the phase of contrast, no acute abnormality in the upper abdomen is seen. Musculoskeletal: No concerning osseous lesion. IMPRESSION: 1. Large burden of acute bilateral pulmonary emboli with a small saddle embolus present and emboli extending to all five lobes. Additionally, there are features of pulmonary hypertension and right ventricular strain. 2. Scattered ground-glass attenuation within the lungs could be due to atelectasis. Developing pulmonary infarcts could potentially have this appearance. The above critical findings were called to Marnie Bryson APRN by Dr. Abhi Saavedra at 11:57 a.m. on 01/18/2019. CRITICAL FINDINGS Dictated by: Dictated on workstation # [id number] Dict: 01/18/19 1153 Trans: 01/18/19 1308 Interpreted by: ABHI SAAVEDRA MD Electronically signed by: ABHI SAAVEDRA MD 01/18/19 1308 Assessment/Plan Assessment/Plan (1) Saddle pulmonary embolus Status: Acute Assessment & Plan: 01/24: Given tPA in ER, started on heparin, presented with hypotension 01/25: Hgb stable, continue heparin 01/27: Continue anticoagulation 01/28: Transition to PO anticoagulation 01/30: Will see Dr Watst in 1-2 weeks, per note patient will need 6 months of treatment Qualifiers: Qualified Codes: I26.02 - Saddle embolus of pulmonary artery with acute cor pulmonale (2) Acute respiratory failure with hypoxia Status: Acute Assessment & Plan: 01/24: intubated 08/21 to EtOH withdraw, Dr Watts managing 01/26: Breathing trial today, possible extubation per Stefanie 01/27: Extubated 01/29: Patient on RA, continue MAT protocol (3) Alcohol withdrawal Status: Acute Assessment & Plan: 01/24: No longer needing Ativan 01/30: Discussed resources available to patient, [facility] outpatient and AA, Patient states that he is done with drinking and wants to do it for his kids. Qualifiers: Qualified Codes: F10.231 - Alcohol dependence with withdrawal delirium (4) Acute upper GI bleed Status: Acute Assessment & Plan: 01/25: Consider transfusion given hgb 7.8 01/26: Hgb stable, no signs of acute bleeding 01/29: Decrease blood draws (5) Esophageal varices Status: Acute Assessment & Plan: 01/24: on protonix and Octreotide gtts Qualifiers: Qualified Codes: I85.11 - Secondary esophageal varices with bleeding (6) Right leg DVT Status: Acute Qualifiers: Qualified Codes: I82.401 - Acute embolism and thrombosis of unspecified deep veins of right lower extremity (7) NSTEMI (non-ST elevated myocardial infarction) Status: Acute Assessment & Plan: 01/24: Cardiology following, likely 2/2 large PE (8) Normocytic anemia due to blood loss Status: Acute Assessment & Plan: 01/24: Will continue to monitor as patient is on blood thinners (9) Hypokalemia Status: Acute Assessment & Plan: 01/24: Replace and repeat BMP (10) DVT prophylaxis Status: Acute Assessment & Plan: - Patient on treatment (11) Physical debility Status: Acute Assessment & Plan: 01/28: Discussed the importance of focusing on PT to help mobilize fluid, Dow d/arvin today 01/29: IRF consult placed Clinical Quality Measures DVT/VTE Risk/Contraindication: Risk Factor Score Per Nursin RFS Level Per Nursing on Admit: 4+=Very High Other: see interventions for details SCOTT PITTMAN MD Jan 30, 2019 10:17
--- NOTE | 2019-01-30 15:18 | Cardiology Progress Note ---
Cardiology SOAP Progress Note Subjective: Feeling much better. Objective: I&O/Vital Signs 01/30/19 01/30/19 01/30/19 01/30/19 06:52 08:00 09:02 10:54 Temp 99.6 Pulse 102 Resp 20 B/P (MAP) 137/78 (97) Pulse Ox 97 95 96 O2 Delivery Room Air Room Air Room Air Room Air 01/30/19 00:00 Intake Total 3425 ml Output Total 2075 ml Balance 1350 ml Weight (Pounds): 229 Weight (Ounces): 4.0 Weight (Calculated Kilograms): 103.892034 Constitutional: AAO x 3, well-developed, well-nourished, other Respiratory: No accessory muscle use; other (fair to good air entry) Cardiovascular: regular rate-rhythm, S1 and S2, systolic murmur (soft EMMANUELLE at card base) Gastrointestional: No tender; soft; No guarding, No rebound; audible bowel sounds Extremities: pedal edema; No clubbing, No cyanosis, No significant edema Neurologic/Psychiatric: no motor/sensory deficits, alert, normal mood/affect, oriented x 3, other Skin: No rash on exposed areas, No ulcerations on exposed areas Results/Procedures: Labs Laboratory Tests 01/30/19 04:41: White Blood Count 6.3, Red Blood Count 2.93L, Hemoglobin 8.8L, Hematocrit 28L, Mean Corpuscular Volume 94, Mean Corpuscular Hemoglobin 30, Mean Corpuscular Hemoglobin Concent 32, Red Cell Distribution Width 15.4H, Platelet Count 336, Mean Platelet Volume 9.1, Neutrophils (%) (Auto) 61, Lymphocytes (%) (Auto) 24, Monocytes (%) (Auto) 7, Eosinophils (%) (Auto) 8, Basophils (%) (Auto) 1, Neutrophils # (Auto) 3.9, Lymphocytes # (Auto) 1.5, Monocytes # (Auto) 0.4, Eosinophils # (Auto) 0.5H, Basophils # (Auto) 0.0, Activated Partial Thromboplast Time 41H 01/30/19 07:50: White Blood Count 7.1, Red Blood Count 3.03L, Hemoglobin 9.1L, Hematocrit 29L, Mean Corpuscular Volume 94, Mean Corpuscular Hemoglobin 30, Mean Corpuscular Hemoglobin Concent 32, Red Cell Distribution Width 15.5H, Platelet Count 342, Mean Platelet Volume 8.8, Neutrophils (%) (Auto) 62, Lymphocytes (%) (Auto) 25, Monocytes (%) (Auto) 6, Eosinophils (%) (Auto) 7, Basophils (%) (Auto) 1, Neutrophils # (Auto) 4.4, Lymphocytes # (Auto) 1.7, Monocytes # (Auto) 0.4, Eosinophils # (Auto) 0.5H, Basophils # (Auto) 0.1, Sodium Level 142, Potassium Level 3.2L, Chloride Level 106, Carbon Dioxide Level 21, Anion Gap 15H, Blood Urea Nitrogen 9, Creatinine 0.99, Estimat Glomerular Filtration Rate > 60, BUN/Creatinine Ratio 9, Glucose Level 85, Calcium Level 8.6, Phosphorus Level 3.7, Magnesium Level 2.3, B-Type Natriuretic Peptide 39.0 Microbiology 01/18/19 Blood Culture - Final, Complete Corynebacterium species 01/23/19 Gram Stain - Final, Complete 01/23/19 Sputum Culture - Final, Complete Staphylococcus aureus Haemophilus influenza A/P: Assessment/Dx: Large PE on 01/18/19, hemodynamically significant (presented with hypotension) treated with thrombolytics and subsequent anticoagulation, RV dysfunction, pulmonary pressure is not significantly elevated. Ac resp failure on 01/19/19, related to alcohol withdrawal, necessitating intubation and mech vent, managed by Dr Watts and Dr Henderson. improved sig nificantly. H/o hypertension H/o heavy alcohol use Echo of 01/19/19: LVEF 50-55%, reduced RV systolic function, grade 1 randle dysfunction of LV, RVSP 28 mmHg Hypokalemia - replace Anemia - management per medical service Plan: * Replenish lytes * doing well post extubation * Monitor labs Thank you for your consultation. Please call me if you have any questions. Karey Owens MD, FACP, FACC, FSCAI, FHRS, CCDS Interventional Cardiology Cardiac Electrophysiology Vascular Medicine and Endovascular Interventions Angeli OWENS MD Jan 30, 2019 3:18 pm
[2019-01-30 16:00] VITALS: BP 121/86
[2019-01-31 00:19] VITALS: BP 143/95
[2019-01-31] MEDS: RT-ALBUTEROL/IPRATROPIUM 3 ML (DUONEB) VIAL INH SCH ×4 (03:29→10:50)
[2019-01-31 05:50] LABS: BASOPHILS # (AUTO) 0.1 10^3/uL (0.0-0.1); BASOPHILS % (AUTO) 1 % (0-10); EOSINOPHILS # (AUTO) 0.4 10^3/uL (0.0-0.3); EOSINOPHILS % (AUTO) 6 % (0-10); HEMATOCRIT 31 % (40-54); HEMOGLOBIN 9.8 G/DL (13.3-17.7); LYMPHOCYTES # (AUTO) 1.7 X 10^3 (1.0-4.0); LYMPHOCYTES % (AUTO) 26 % (12-44); MEAN CORPUSCULAR HEMOGLOBIN 30 PG (25-34); MEAN CORPUSCULAR HGB CONC 32 G/DL (32-36); MEAN CORPUSCULAR VOLUME 95 FL (80-99); MEAN PLATELET VOLUME 9.2 FL (7.4-10.4); MONOCYTES # (AUTO) 0.4 X 10^3 (0.0-1.0); MONOCYTES % (AUTO) 7 % (0-12); NEUTROPHILS # (AUTO) 3.9 X 10^3 (1.8-7.8); NEUTROPHILS % (AUTO) 61 % (42-75); PLATELET COUNT 329 10^3/uL (130-400); RED CELL DISTRIBUTION WIDTH 15.4 % (10.0-14.5); WHITE BLOOD COUNT 6.4 10^3/uL (4.3-11.0)
[2019-01-31 06:12] LABS: ALANINE AMINOTRANSFERASE 69 U/L (0-55); ALBUMIN 3.8 GM/DL (3.2-4.5); ALKALINE PHOSPHATASE 55 U/L (40-136); BILIRUBIN,TOTAL 0.5 MG/DL (0.1-1.0); BUN/CREATININE RATIO 8; CALCIUM 9.4 MG/DL (8.5-10.1); CARBON DIOXIDE 23 MMOL/L (21-32); CHLORIDE 106 MMOL/L (98-107); CREATININE SERUM 0.96 MG/DL (0.60-1.30); GFR ESTIMATED > 60; GLUCOSE 82 MG/DL (70-105); MAGNESIUM 2.5 MG/DL (1.8-2.4); PHOSPHORUS 4.8 MG/DL (2.3-4.7); POTASSIUM 3.6 MMOL/L (3.6-5.0); SODIUM 143 MMOL/L (135-145); TOTAL PROTEIN 6.7 GM/DL (6.4-8.2)
[2019-01-31] MEDS: DABIGATRAN 150 MG (PRADAXA) CAPSULE PO SCH (06:30)
[2019-01-31 08:00] VITALS: BP 123/76
--- NOTE | 2019-01-31 08:04 | Pulmonary Progress Note ---
Sepsis Event Evaluation Height, Weight, BMI Height: 5'5.00" Weight: 228lbs. 4.0oz. 103.761180rw; 36.9 BMI Method:Stated Exam Exam Vital Signs Date Time Temp Pulse Resp B/P (MAP) Pulse Ox O2 Delivery O2 Flow Rate FiO2 01/31/19 03:29 86 Room Air 01/31/19 00:19 98.3 83 20 143/95 (111) 97 Room Air 01/30/19 20:45 Room Air 01/30/19 16:00 98.9 100 20 121/86 (98) 98 Room Air 01/30/19 10:54 96 Room Air 01/30/19 09:02 Room Air I & O 01/31/19 07:00 Intake Total 2600 ml Output Total 2375 ml Balance 225 ml Height & Weight Height: 5'5.00" Weight: 228lbs. 4.0oz. 103.423814pm; 36.9 BMI Method:Stated General Appearance: No Apparent Distress, WD/WN HEENT: PERRL/EOMI Neck: Full Range of Motion, Normal Inspection Respiratory: No Accessory Muscle Use, No Respiratory Distress Cardiovascular: Tachycardia (heart rate 130 no complex regular with preceding P waves before each QRS. Blood pressure 122/96. O2 sat 89% on 2 L. He denies shortness of breath. He is still diaphoretic and pale with delayed capillary refill of the skin) Capillary Refill: Greater Than 3 Seconds Gastrointestinal: soft, no organomegaly; No distended Extremity: No Pedal Edema, Slow Capillary Refill Neurologic/Psychiatric: Alert, Other (alert, answers questions appropriately) Skin: Cool Lymphatic: No Adenopathy Results Lab Laboratory Tests 01/30/19 04:41 01/30/19 07:50 01/31/19 05:28 Assessment/Plan Assessment/Plan Acute Large PE s/p TPA -Echo today - 50-55% -Pradaxa -D/C Zosyn -PT is on RA pulmonary edema/anasarca secondary to IVF -Monitor Anemia -Monitor Hypokalemia -replace -spironolactone RLE DVT Grade II esophageal varices s/p EGD - Protonix BID -Hb is currently stable GIB- Occult -Surgery is following Seizure disorder -PRN Ativan -Keppra Alcohol withdrawals -Monitor NSTEMI - secondary to PE -Monitor Ok from my standpoint for discharge. He will need at least 6 mo of anticoagulation for PE/DVT. D/C Abx. I will see him in office in 2-3 wks. KAYDEN PHILIPPE DO Jan 31, 2019 08:04
[2019-01-31] MEDS ORDERED: KCL 20 MEQ TAB (K-DUR) PO NR (08:15)
[2019-01-31] MEDS: PANTOPRAZOLE 40 MG (PROTONIX) VIAL IV SCH (08:19)
[2019-01-31] MEDS: SPIRONOLACTONE 100 MG (ALDACTONE) TABLET PO SCH (08:19)
[2019-01-31] MEDS: METOCLOPRAMIDE INJ 10 MG/2 ML (REGLAN) IVP SCH (08:19)
[2019-01-31] MEDS: NICOTINE 21 MG (NICODERM) PATCH TD SCH (08:20)
[2019-01-31] MEDS: NICOTINE PATCH REMOVAL TP SCH (08:20)
[2019-01-31] MEDS: LEVETIRACETAM INJECTION 500 MG in NS (IVPB) 100 ML IV SCH (09:14)
--- NOTE | 2019-01-31 10:15 | Physical Therapy Daily Note ---
PT Daily Note-Current Subjective Patient is very agreeable to participate with PT. He report compliance with independent exercise program. Mental Status Patient Orientation: Normal For Age Attachments: IV Transfers Therapy Code Descriptions/Definitions Functional [place] Measure: 0=Not Assessed/NA 4=Minimal Assistance 1=Total Assistance 5=Supervision or Setup 2=Maximal Assistance 6=Modified [place] 3=Moderate Assistance 7=Complete [place] Therapy Quality Codes: 6 Independent with activity with or without an assistive device 5 Patient requires set up or clean up by helper. Patient completes activity by themselves 4 Supervision or touching assist (CGA). [place] provide cues , steadying assist 3 The helper provides less than half the effort to complete the activity 2 The helper provides more than half the effort to complete the activity 1 Dependent. The helper does all the effort to complete an activity 7 Patient refused to complete or attempt activity 9 The patient did not perform the activity before the current illness or injury 88 Not attempted due to Medical conditions or safety concerns Transfers (B, C, W/C) (FIM): 7 Scootin Rollin Supine to/from Sit: 7 Sit to/from Stand: 7 Bed to/from Chair: 7 Gait Training Gait (FIM): 6 Distance (FIM): 3=150 ft Distance: >800' Gait Level of Assist: 6 Gait Assistive Device: FWW steady, safe and functional Assessment Patient is up in recliner with needs met. PT to continue with POC. PT Short Term Goals Short Term Goals Time Frame: Feb 02, 2019 Transfers (B,C,W/C) (FIM): 2 Gait (FIM): 1 Gait Distance Comment: 3' Gait Level of Assist: 2 Gait Assistive Device: FWW PT Plan Treatment/Plan Treatment Plan: Continue Plan of Care Treatment Plan: Bed Mobility, Concurrent Therapy, Education, Functional Activity Austyn, Functional Strength Treatment Duration: Feb 02, 2019 Frequency: 6 times per week Estimated Hrs Per Day: .25 hour per day Patient and/or Family Agrees t: Yes Time/GCodes Time In: 925 Time Out: 935 Total Billed Treatment Time: 10 Total Billed Treatment 1 visit FA 10 min EDWINA BARKER PT Jan 31, 2019 10:14
--- NOTE | 2019-01-31 10:36 | NUR ---
CM/SS spoke with the patient for discharge planning. He has all medical equipment he will need ie) walker, shower chair, bedside commode. He stated that he will be staying with his parents at [address], [place] for recovery time still before returning to his home with his . He and his just got a new rent to own home and he stated that it is in process of some remodeling. Patient agreeable to HHC at discharge. Preference for HHC was [facility].
[2019-01-31] MEDS ORDERED: LEVE500T6 PO (10:39)
[2019-01-31] MEDS ORDERED: DABI150C5 PO (10:39)
[2019-01-31] MEDS ORDERED: SPIR100T4 PO (10:39)
[2019-01-31] MEDS ORDERED: PANT40TA2 PO (10:39)
--- NOTE | 2019-01-31 10:41 | D/C HH Face to Face Order ---
D/C Face to Face Orders Instructions for Patient Via [facility], Patient Instructions/FollowUp: [facility] in 1 week Physician to follow Patient: [facility] Discharge Diet for Home: No Restrictions Patient Problems: Saddle PE ETOHism Patient Data-Allergies,Ht & Wt Patient Allergies: Coded Allergies: No Known Drug Allergies (Unverified , 01/07/16) Height (Feet): 5 Height (Inches): 5.00 Weight (Pounds): 228 Weight (Ounces): 4.0 Home Health Need/Face to Face Date of Face to Face: Jan 31, 2019 Clinical Findings: Generalized weakness and fatigue, Instability, Muscle weakness, Unsteady gait I have seen Pt [id number]: Yes Discharged To: Home Diagnosis/Conditions: Saddle PE ETOHism Patient is Homebound due to: Ab fall risk due to instabilty, Muscle weakness Homebound Status Due to the above stated illness, injury or surgical procedure (medical condition or diagnosis) and associated clinical findings, the patient is homebound because of his/her inability to leave home except with aid of a supportive device and/or person AND leaving the home requires a considerable and taxing effort or is medically contraindicated. Pt req the following assistanc: Walker Home Health Nursing Orders Home Health Services Order: Nursing Services, Clinical Account Liaison-Evaluate & Treat, Physical Therapy-Evaluate & Treat Home Health Infusion Therapy Line Start Date: Jan 19, 2019 Certify Stmt I certify that this patient is under my care and that I, a nurse practitioner or a physician; a geological survey field assistant working with me, had a face to face encounter that - meets the physician face to face encounter requirements with this patient as dated. ARMIDA DEL CASTILLO DO Jan 31, 2019 10:41
--- NOTE | 2019-01-31 10:42 | Discharge Summary ---
Diagnosis/Chief Complaint Date of Admission Jan 18, 2019 at 12:51 Date of Discharge Discharge Date: Jan 31, 2019 Admission Diagnosis Assessment: Syncope Bilateral saddle PE s/p TPA ETOH withdrawal severe VDRF Plan: Vent management Appreciate Cardiology and Pulmonology Discharge Diagnosis (1) Saddle pulmonary embolus Status: Acute (2) Received intravenous tissue plasminogen activator (tPA) in emergency department Status: Acute (3) Alcohol withdrawal Status: Acute Discharge Summary Discharge Physical Exam Allergies: Coded Allergies: No Known Drug Allergies (Unverified , 01/07/16) Vitals & I&Os Vital Signs Date Time Temp Pulse Resp B/P (MAP) Pulse Ox O2 Delivery O2 Flow Rate FiO2 01/31/19 13:30 94 18 123/76 92 Room Air 3.00 01/31/19 08:00 98.3 01/27/19 04:10 30 General Appearance: No Apparent Distress, WD/WN, Chronically ill Respiratory: Chest Non Tender, Lungs Clear, Normal Breath Sounds, No Accessory Muscle Use, No Respiratory Distress Cardiovascular: Regular Rate, Rhythm, No Edema, No Gallop, No JVD, No Murmur, Normal Peripheral Pulses Neurologic/Psychiatric: Alert, Oriented x3, No Motor/Sensory Deficits, Normal Mood/Affect Hospital Course Was the Problem List Reviewed?: Yes Hospital course: Pt had a lengthy hospital course, most of it in the ICU intubated when he was admitted after a syncopal episode at home found to have saddle pulmonary emboli and required TPA administration but alcohol withdrawal required intubation for many days, managed by Dr. Watts. Pt had no significant organ dysfunction or decompensation while intubated but overall had significant issues considering his chronic debility with alcoholism. He lives at home with his new . He had a bowel movement yesterday, diuresis has really helped the lower extremity edema and social work consulted recommending home health at discharge. He will have a close follow-up at [facility] as scheduled. Labs (last 24 hrs) Laboratory Tests 01/31/19 05:28: White Blood Count 6.4, Red Blood Count 3.28L, Hemoglobin 9.8L, Hematocrit 31L, Mean Corpuscular Volume 95, Mean Corpuscular Hemoglobin 30, Mean Corpuscular Hemoglobin Concent 32, Red Cell Distribution Width 15.4H, Platelet Count 329, Mean Platelet Volume 9.2, Neutrophils (%) (Auto) 61, Lymphocytes (%) (Auto) 26, Monocytes (%) (Auto) 7, Eosinophils (%) (Auto) 6, Basophils (%) (Auto) 1, Neutrophils # (Auto) 3.9, Lymphocytes # (Auto) 1.7, Monocytes # (Auto) 0.4, Eosinophils # (Auto) 0.4H, Basophils # (Auto) 0.1, Activated Partial Thrombo plast Time 37H, Sodium Level 143, Potassium Level 3.6, Chloride Level 106, Carbon Dioxide Level 23, Anion Gap 14, Blood Urea Nitrogen 8, Creatinine 0.96, Estimat Glomerular Filtration Rate > 60, BUN/Creatinine Ratio 8, Glucose Level 82, Calcium Level 9.4, Corrected Calcium 9.6, Phosphorus Level 4.8H, Magnesium Level 2.5H, Iron Level 33L, Total Iron Binding Capacity 308, Unsaturated Iron Binding Capacity 275, Transferrin % Saturation 11L, Total Bilirubin 0.5, Aspartate Amino Transf (AST/SGOT) 50H, Alanine Aminotransferase (ALT/SGPT) 69H, Alkaline Phosphatase 55, Total Protein 6.7, Albumin 3.8 Microbiology 01/18/19 Blood Culture - Final, Complete Corynebacterium species 01/23/19 Gram Stain - Final, Complete 01/23/19 Sputum Culture - Final, Complete Staphylococcus aureus Haemophilus influenza Patient resulted labs reviewed. Pending Labs Discussion & Recommendations Discharge Planning: <30 minutes discharge planning Discharge Home Medications: Active Scripts Active Protonix (Pantoprazole Sodium) 40 Mg Tablet.dr 40 Mg PO DAILY Levetiracetam 500 Mg Tablet 500 Mg PO BID Spironolactone 100 Mg Tablet 100 Mg PO DAILY Pradaxa (Dabigatran Etexilate Mesylate) 150 Mg Capsule 150 Mg PO BID@0700,1900 Reported Cyclobenzaprine HCl 10 Mg Tablet 20 Mg PO HS PRN Cyclobenzaprine HCl 10 Mg Tablet 10 Mg PO DAILY PRN Duloxetine HCl 60 Mg Capsule.dr 120 Mg PO DAILY Quetiapine Fumarate 25 Mg Tablet 25 Mg PO BID Levothyroxine Sodium 25 Mcg Tablet 25 Mcg PO DAILY Instructions to patient/family Please see electronic discharge instructions given to patient. Clinical Quality Measures DVT/VTE Risk/Contraindication: Risk Factor Score Per Nursin RFS Level Per Nursing on Admit: 4+=Very High Other: see interventions for details Problem Qualifiers (1) Saddle pulmonary embolus: Chronicity: acute Acute cor pulmonale presence: with acute cor pulmonale Qualified Codes: I26.02 - Saddle embolus of pulmonary artery with acute cor pulmonale (2) Alcohol withdrawal: Complication of substance-induced condition: with delirium Qualified Codes: F10.231 - Alcohol dependence with withdrawal delirium ARMIDA DEL CASTILLO DO Jan 31, 2019 10:42
--- NOTE | 2019-01-31 10:45 | NUR ---
ARU order for eval received. Patient is ambulating 800ft with modified independence and discharge orders are placed for patient to return home. Per therapy, it appears patient is appropriate to return home safely. Thank you for this referral.
--- NOTE | 2019-01-31 11:40 | Occupational Ther Daily Note ---
OT Current Status-Daily Note Subjective PT SITTING in recliner chair upon OT arrival. pt stated he plans to d/c home with parents who's house is handicap accessible. pt reports no pain. Mental Status/Objective Patient Orientation: Normal For Age Therapy Code Descriptions/Definitions Functional [place] Measure: 0=Not Assessed/NA 4=Minimal Assistance 1=Total Assistance 5=Supervision or Setup 2=Maximal Assistance 6=Modified [place] 3=Moderate Assistance 7=Complete [place] ADL-Treatment Eating (FIM): 7 Grooming (FIM): 6 Lower Body Dressing (FIM): 5 (maria luisa socks. seated ) Toileting (FIM): 5 (SBA for safety/ balance, noted use of GB ) Transfers (B, C, W/C) (FIM): 5 (SBA for safety/ balance. use of RW ) Toilet/Commode Transfer (FIM): 5 (SBA for safety/ balance. use of RW) pt demo ability to ambulate from chair to bathroom 10 ft with use of RW and SBA for safety/ balance. noted pt required cuing for safety as pats began to fall down during mobility. Education OT Patient Education: Modified ADL techniques, Progress toward Goal/Update tx plan, Purpose of tx/functional activities, Reviewed precautions, Safety issues, Transfer techniques Teaching Recipient: Patient Teaching Methods: Demonstration, Discussion Response to Teaching: Verbalize Understanding, Return Demonstration OT Short Term Goals Short Term Goals Eating(FIM): 3 Grooming(FIM): 3 Bathing(FIM): 3 Upper Body Dressing(FIM): 3 Lower Body Dressing(FIM): 3 Toileting(FIM): 3 Transfers (B,C,W/C) (FIM): 2 Toilet/Commode Transfer(FIM): 3 Additional Short Term Goals: 1-Demonstrate ADL Tasks, 2-Verbalize Understanding, 3-ImproveStrength/Aust[place] 1=Demonstrate adherence to instructed precautions during ADL tasks. 2=Patient will verbalize/demonstrate understanding of assistive devices/modifications for ADL. 3=Patient will improve strength/tolerance for activity to enable patient to perform ADL's. OT Traffic Inspector Goals Traffic Inspector Goals Eating (FIM): 5 Grooming(FIM): 5 Bathing(FIM): 5 Upper Body Dressing(FIM): 5 Lower Body Dressing(FIM): 5 Toileting(FIM): 5 Transfers (B,C,W/C) (FIM): 5 Toilet/Commode Transfer(FIM): 5 Additional Goals: 1-Demonstrate ADL Tasks, 2-Verbalize Understanding, 3- ImproveStrength/Aust[place] 1=Demonstrate adherence to instructed precautions during ADL tasks. 2=Patient will verbalize/demonstrate understanding of assistive devices/modifications for ADL. 3=Patient will improve strength/tolerance for activity to enable patient to perform ADL's. OT Education/Plan Problem List/Assessment Assessment: Decreased Activ Tolerance, Decreased Safety Aware, Impaired Funct Balance, Impaired I ADL's pt presents with functional limitations affecting areas if ADLs and functional transfers with the above mention deficits. pt would benefit from OT services to increase independence with ADLS/ functional transfers. pt demo ability to complete FULL ROM and 4-/5 MMT maria luisa UE. pt mannitan static/ dyn seated balance with SBA for safety. pt would benefit from ARU however, pt stated his plan is to go home. therefore, recommend OT HH to continue address deficits and for safe transition to home. Discharge Recommendations Plan/Recommendations: Continue POC Therapy D/C Recommendations: 24 hr Supervision, Acute Rehab, Occupational Therapy Home Care Barriers to Progress cognition/ attention to task. Treatment Plan/Plan of Care Treatment,Training & Education: Yes Patient would benefit from OT for education, treatment and training to promote independence in ADL's, mobility, safety and/or upper extremity function for ADL's. Plan of Care: ADL Retraining, Caregiver Training, Cognitive Retraining, Concurrent Therapy, Functional Mobility, Group Exercise/Act as Ind, UE Funct Exercise/Act, W/C Management Training Treatment Duration: Mar 03, 2019 Frequency: 4 times per week (4-5 times per week) Estimated Hrs Per Day: .25 hour per day (0.25-0.50 per day) Agreement: Yes Rehab Potential: Guarded Time/GCodes Start Time: 11:20 Stop Time: 11:45 Billed Treatment Time ADL 25 minutes, 2 units DINESH WALTON OT Jan 31, 2019 11:40
[2019-01-31 13:30] VITALS: BP 123/76
[2019-01-31] MEDS ORDERED: PANTOPRAZOLE 40 MG (PROTONIX) TAB PO SCH (17:00)
--- NOTE | 2019-01-31 18:04 | Cardiology Progress Note ---
Cardiology SOAP Progress Note Subjective: Significantly improved shortness of breath. Objective: I&O/Vital Signs 01/31/19 01/31/19 01/31/19 01/31/19 08:00 08:04 10:45 13:30 Temp 98.3 Pulse 94 94 Resp 18 18 B/P (MAP) 123/76 (92) 123/76 Pulse Ox 98 92 92 O2 Delivery Room Air Room Air Room Air Room Air O2 Flow Rate 3.00 01/31/19 00:00 Intake Total 2260 ml Output Total 1725 ml Balance 535 ml Weight (Pounds): 228 Weight (Ounces): 4.0 Weight (Calculated Kilograms): 103.305545 Constitutional: AAO x 3, well-developed, well-nourished, other Respiratory: No accessory muscle use; other (fair to good air entry) Cardiovascular: regular rate-rhythm, S1 and S2, systolic murmur (soft EMMANUELLE at card base) Gastrointestional: No tender; soft; No guarding, No rebound; audible bowel sounds Extremities: pedal edema; No clubbing, No cyanosis, No significant edema Neurologic/Psychiatric: no motor/sensory deficits, alert, normal mood/affect, oriented x 3, other Skin: No rash on exposed areas, No ulcerations on exposed areas Results/Procedures: Labs Laboratory Tests 01/31/19 05:28: White Blood Count 6.4, Red Blood Count 3.28L, Hemoglobin 9.8L, Hematocrit 31L, Mean Corpuscular Volume 95, Mean Corpuscular Hemoglobin 30, Mean Corpuscular Hemoglobin Concent 32, Red Cell Distribution Width 15.4H, Platelet Count 329, Mean Platelet Volume 9.2, Neutrophils (%) (Auto) 61, Lymphocytes (%) (Auto) 26, Monocytes (%) (Auto) 7, Eosinophils (%) (Auto) 6, Basophils (%) (Auto) 1, Neutrophils # (Auto) 3.9, Lymphocytes # (Auto) 1.7, Monocytes # (Auto) 0.4, Eosinophils # (Auto) 0.4H, Basophils # (Auto) 0.1, Activated Partial Thromboplast Time 37H, Sodium Level 143, Potassium Level 3.6, Chloride Level 106, Carbon Dioxide Level 23, Anion Gap 14, Blood Urea Nitrogen 8, Creatinine 0.96, Estimat Glomerular Filtration Rate > 60, BUN/Creatinine Ratio 8, Glucose Level 82, Calcium Level 9.4, Corrected Calcium 9.6, Phosphorus Level 4.8H, Magnesium Level 2.5H, Iron Level 33L, Total Iron Binding Capacity 308, Unsaturated Iron Binding Capacity 275, Transferrin % Saturation 11L, Total Bilirubin 0.5, Aspartate Amino Transf (AST/SGOT) 50H, Alanine Aminotransferase (ALT/SGPT) 69H, Alkaline Phosphatase 55, Total Protein 6.7, Albumin 3.8 Microbiology 01/18/19 Blood Culture - Final, Complete Corynebacterium species 01/23/19 Gram Stain - Final, Complete 01/23/19 Sputum Culture - Final, Complete Staphylococcus aureus Haemophilus influenza A/P: Assessment/Dx: Large PE on 01/18/19, hemodynamically significant (presented with hypotension) treated with thrombolytics and subsequent anticoagulation, RV dysfunction, pulmonary pressure is not significantly elevated. Ac resp failure on 01/19/19, related to alcohol withdrawal, necessitating intubation and mech vent, managed by Dr Watts and Dr Henderson. improved significantly. H/o hypertension H/o heavy alcohol use Echo of 01/19/19: LVEF 50-55%, reduced RV systolic function, grade 1 randle dysfunction of LV, RVSP 28 mmHg Hypokalemia - replace Anemia - management per medical service Plan: * Replenish lytes * Getting ready to be discharged. * Monitor labs Thank you for your consultation. Please call me if you have any questions. Karey Owens MD, FACP, FACC, FSCAI, FHRS, CCDS Interventional Cardiology Cardiac Electrophysiology Vascular Medicine and Endovascular Interventions Angeli OWENS MD Jan 31, 2019 18:04
[2019-01-31] MEDS ORDERED: LEVETIRACETAM 500 MG (KEPPRA) TAB PO SCH (21:00)
== END 2019-01-31 13:30 | disposition home health service (06) | DRG 207 ==
LOC: EDUNIT# 10:44 → ER 10:45 → ICU 12:51 → 4TH 01-28 17:38
PROVIDERS: ADMIT Internal Medicine; ATTEND Internal Medicine
PROC: 3E03317 Introduction of Other Thrombolytic into Peripheral Vein, Percutaneous Approach (ICD-10-PCS; 2019-01-18)
PROC: 5A1955Z Respiratory Ventilation, Greater than 96 Consecutive Hours (ICD-10-PCS; principal; 2019-01-19)
PROC: 0BH17EZ Insertion of Endotracheal Airway into Trachea, Via Natural or Artificial Opening (ICD-10-PCS; 2019-01-19)
PROC: 0DB78ZX Excision of Stomach, Pylorus, Via Natural or Artificial Opening Endoscopic, Diagnostic (ICD-10-PCS; 2019-01-21)
PROC: 0B938ZX Drainage of Right Main Bronchus, Via Natural or Artificial Opening Endoscopic, Diagnostic (ICD-10-PCS; 2019-01-24)
PROC: 0B978ZX Drainage of Left Main Bronchus, Via Natural or Artificial Opening Endoscopic, Diagnostic (ICD-10-PCS; 2019-01-24)
DX: I26.02 Saddle embolus of pulmonary artery with acute cor pulmonale (principal); I21.4 Non-ST elevation (NSTEMI) myocardial infarction; F10.231 Alcohol dependence with withdrawal delirium; J96.00 Acute respiratory failure, unspecified whether with hypoxia or hypercapnia; I82.431 Acute embolism and thrombosis of right popliteal vein; I82.441 Acute embolism and thrombosis of right tibial vein; I82.491 Acute embolism and thrombosis of other specified deep vein of right lower extremity; K29.71 Gastritis, unspecified, with bleeding; R04.2 Hemoptysis; I85.11 Secondary esophageal varices with bleeding; J81.0 Acute pulmonary edema; I10 Essential (primary) hypertension; E03.9 Hypothyroidism, unspecified; M54.9 Dorsalgia, unspecified; E87.6 Hypokalemia; F41.9 Anxiety disorder, unspecified; F32.9 Major depressive disorder, single episode, unspecified; D50.0 Iron deficiency anemia secondary to blood loss (chronic); R00.0 Tachycardia, unspecified; G40.909 Epilepsy, unspecified, not intractable, without status epilepticus; E83.39 Other disorders of phosphorus metabolism; I95.9 Hypotension, unspecified; Z72.0 Tobacco use
CPT/HCPCS: 36415; 36600; 70450; 71045; 71275; 74176; 80048; 80053; 80061; 80320; 82140; 82274; 82728; 82805; 82962; 83540; 83605; 83735; 83874; 83880; 84100; 84439; 84443; 84478; 84484; 85007; 85014; 85018; 85025; 85027; 85049; 85610; 85730; 87040; 87070; 87077; 87081; 87185; 87186; 87205; 88305; 93005; 93041; 93306; 93970; 94002; 94003; 94640; 94760; 94799; 96361; 96365; 96375; 99291

== ENCOUNTER 2019-03-08 10:22 | Emergency (ER) | payer SELFPAY ==
[~2019-03-08] VITALS: Ht 180.3 cm; Wt 97.5 kg
[~2019-03-08 10:22] MED LIST changes: +CLON0.2T PO; +DABI150C5 PO; +DULO20CA PO; -DULO30CA48; +DULO30CA49; -DULO60CA58 PO; +DULO60CA59 PO; +IBUP-2055 PO; +LEVE500T6 PO; +PANT40TA2 PO; +QUET25TA73 PO; +SPIR100T4 PO
--- NOTE | 2019-03-08 10:37 | NUR ---
NOTIFIED OF BUSY ER WITH POSSIBLE LONG WAIT TIME.
--- NOTE | 2019-03-08 10:51 | ED Lower Extremity ---
General Chief Complaint: Lower Extremity Stated Complaint: BLOOD CLOTS Nursing Triage Note: TO TRIAGE USING A WALKER. STATES 3 WEEKS AGO HE HAD A STROKE AND WAS IN THIS HOSPITAL X9 DAYS. STATES HE WAS TOLD THEN HE HAD BLOOD CLOTS IN HIS LEGS. TODAY COMPLAINS OF HIS LEFT LEG HURTING FOR THE PAST 4-5 DAYS. Nursing Sepsis Screen: No Definite Risk Source: patient Exam Limitations: no limitations History of Present Illness Date Seen by Provider: Mar 08, 2019 Time Seen by Provider: 10:51 Initial Comments To ER with reports of pain in the left calf. Patient was admitted to the hospital in early January or stroke, had blood clots identified in his left leg, he is on Pradaxa he states. Presents today because of the pain. Severity: moderate Pain/Injury Location: left leg Method of Injury: unknown Allergies and Home Medications Allergies Coded Allergies: No Known Drug Allergies (Unverified , 01/07/16) Home Medications Cyclobenzaprine HCl 10 Mg Tablet, 10 MG PO DAILY PRN for MUSCLE SPASMS, (Reported) Cyclobenzaprine HCl 10 Mg Tablet, 20 MG PO HS PRN for MUSCLE SPASMS, (Reported) Dabigatran Etexilate Mesylate 150 Mg Capsule, 150 MG PO BID@0700,1900 Prescribed by: ARMIDA DEL CASTILLO on 01/31/19 1039 Duloxetine HCl 60 Mg Capsule.dr, 120 MG PO DAILY, (Reported) Levetiracetam 500 Mg Tablet, 500 MG PO BID Prescribed by: ARMIDA DEL CASTILLO on 01/31/19 1039 Levothyroxine Sodium 25 Mcg Tablet, 25 MCG PO DAILY, (Reported) Pantoprazole Sodium 40 Mg Tablet.dr, 40 MG PO DAILY Prescribed by: ARMIDA DEL CASTILLO on 01/31/19 1039 Quetiapine Fumarate 25 Mg Tablet, 25 MG PO BID, (Reported) Spironolactone 100 Mg Tablet, 100 MG PO DAILY Prescribed by: ARMIDA DEL CASTILLO on 01/31/19 1039 Patient Home Medication List Home Medication List Reviewed: Yes Review of Systems Constitutional: see HPI EENTM: see HPI Respiratory: no symptoms reported Cardiovascular: no symptoms reported Genitourinary: no symptoms reported Musculoskeletal: see HPI Skin: no symptoms reported Past Vjzjmjf-Muuawa-Oxgtpq Hx Patient Social History Alcohol Use: Denies Use Number of Drinks Today: AA Alcohol Beverage of Choice: Beer Recreational Drug Use: No Type Used: Smokeless Tobacco 2nd Hand Smoke Exposure: No Recent Foreign Travel: No Contact w/Someone Who Travel: No Recent Infectious Disease Expo: No Recent Hopitalizations: No Immunizations Up To Date Tetanus Booster (TDap): Unknown PED Vaccines UTD: No Seasonal Allergies Seasonal Allergies: No Past Medical History Surgeries: No Respiratory: No Cardiac: Yes Hypertension Neurological: Yes Stroke Reproductive Disorders: No Genitourinary: No Gastrointestinal: Yes ("ULCERS" WHEN YOUNG--NO TESTS DONE) Polyps Musculoskeletal: Yes (CHRONIC NECK PAIN ) Chronic Back Pain Endocrine: Yes Hypothyroidsim HEENT: No Cancer: No Psychosocial: Yes (ALCOHOLISM) Anxiety, Depression Integumentary: No Blood Disorders: No Family Medical History Patient reports no known family medical history. No Pertinent Family Hx Physical Exam Vital Signs Vital Signs - First Documented 03/08/19 10:25 Temp 98.5 Pulse 105 Resp 16 B/P (MAP) 134/110 (118) Pulse Ox 98 O2 Delivery Room Air Capillary Refill : Less Than 3 Seconds Height, Weight, BMI Height: 5'11.00" Weight: 215lbs. 4.0oz. [id number]; 36.9 BMI Method:Stated General Appearance: WD/WN, no apparent distress HEENT: PERRL/EOMI, normal ENT inspection Respiratory: no respiratory distress, no accessory muscle use Hips: bilateral hip non-tender, bilateral hip normal inspection, bilateral hip normal range of motion Legs: left leg pain, left leg swelling, left leg other Knees: bilateral knee non-tender, bilateral knee normal inspection, bilateral knee normal range of motion Ankles: bilateral ankle non-tender, bilateral ankle normal inspection, bilateral ankle normal range of motion Feet: bilateral foot non-tender, bilateral foot normal inspection, bilateral foot normal range of motion Neurologic/Psychiatric: alert, normal mood/affect, oriented x 3 Skin: normal color, warm/dry No erythema to the left lower extremity Procedures/Interventions Date of ETT Placement: Jan 19, 2019 Time of ETT Placement: 1352 Progress/Results/Core Measures Results/Orders My Orders Orders - MARNIE CAMPOS APRN Venous Lower Ext Lt (03/08/19 11:06) Vital Signs/I&O 03/08/19 10:25 Temp 98.5 Pulse 105 Resp 16 B/P (MAP) 134/110 (118) Pulse Ox 98 O2 Delivery Room Air Blood Pressure Mean: 118 Departure Impression Primary Impression: Left leg pain Disposition: 01 HOME, SELF-CARE Condition: Stable Departure-Patient Inst. Decision time for Depature: 11:48 Referrals: [facility] (PCP/Family) Primary Care Physician Patient Instructions: NO INSTRUCTIONS GIVEN Add. Discharge Instructions: 1. Return to ER for any concerns 2. Elevate as much as possible 3. All discharge instructions reviewed with patient and/or family. Voiced understanding. Scripts Hydrocodone/Acetaminophen (Thomson 5-325 Tablet) 1 Each Tablet 1 TAB PO Q4-6HR for Pain MDD 10 TABS for 7 Days, #10 TAB Prov: MARNIE CAMPOS [employer] HANDLING SUPERVISOR 03/08/19 MARNIE CAMPOS COAL HANDLING SUPERVISOR Mar 08, 2019 10:51
[2019-03-08] MEDS ORDERED: HYDR-4226 PO (11:49)
--- NOTE | 2019-03-08 11:57 | Diagnostic Imaging Report ---
PROCEDURE: US left lower extremity venous. TECHNIQUE: Multiple real-time grayscale images were obtained over the left lower extremity in various projections. Additional duplex Doppler and color Doppler images were also obtained. INDICATION: Left lower extremity pain. EXAMINATION: Grayscale and color Doppler evaluation of the deep veins of the left lower extremity were performed with waveform analysis. FINDINGS: Continuous venous flow is present. No intraluminal filling defect is identified. There is normal compressibility and response to augmentation. No abnormal perivascular fluid collection is identified. IMPRESSION: No ultrasound evidence of left lower extremity deep venous thrombosis. Dictated by: Dictated on workstation # [id number]
[2019-03-08 12:03] VITALS: BP 134/110
== END 2019-03-08 12:02 | disposition home or self-care (01) ==
LOC: EDUNIT# 10:22 → ER 10:23
DX: M79.662 Pain in left lower leg (principal); I10 Essential (primary) hypertension; E03.9 Hypothyroidism, unspecified; F41.9 Anxiety disorder, unspecified; F32.9 Major depressive disorder, single episode, unspecified; F10.20 Alcohol dependence, uncomplicated; Z86.010 Personal history of colon polyps; Z86.73 Personal history of transient ischemic attack (TIA), and cerebral infarction without residual deficits; Z79.01 Long term (current) use of anticoagulants

== ENCOUNTER 2019-03-24 20:31 | Outpatient (CLI) | payer SELFPAY ==
[~2019-03-24 20:31] MED LIST changes: +HYDR-4226 PO
== END 2019-03-25 06:27 | disposition home or self-care (01) ==
LOC: SLEEP 20:31
PROVIDERS: ATTEND Nurse Practitioner Family
DX: G47.10 Hypersomnia, unspecified (principal); R06.00 Dyspnea, unspecified; R06.83 Snoring
CPT/HCPCS: 95810

== ENCOUNTER → 2019-04-13 | Outpatient (CLI) | payer OTHER ==
[~2019-04-13] MED LIST changes: +RT-ALBUTEROL SULF 2.5 MG/3 ML PRE-MIX VIAL INH ONE
== END ==
LOC: RT 12:17
PROVIDERS: ATTEND Nurse Practitioner Family
DX: J30.9 Allergic rhinitis, unspecified (principal); G47.10 Hypersomnia, unspecified; I26.99 Other pulmonary embolism without acute cor pulmonale; Z72.0 Tobacco use; Z86.718 Personal history of other venous thrombosis and embolism
CPT/HCPCS: 94060; 94726; 94729

== ENCOUNTER 2019-12-12 18:17 | Emergency (ER) | payer SELFPAY ==
[~2019-12-12] VITALS: Ht 180 cm; Wt 109.8 kg
[~2019-12-12 18:17] MED LIST changes: -IBUP-2055 PO; +IBUP-2473 PO; -RT-ALBUTEROL SULF 2.5 MG/3 ML PRE-MIX VIAL INH ONE
--- NOTE | 2019-12-12 18:20 | NUR ---
MET PT IN Waiting room. PT COMPLAINS OF COUGH AND SOA FOR X2 DAYS AND WENT TO THE DR AND WAS TOLD IT WAS ALLERGIES. PULSE OX 100% ROOM AIR. PT IN NO DISTRESS AT THIS TIME. DR DEE NOTIFIED.
--- NOTE | 2019-12-12 19:20 | ED Respiratory ---
General Chief Complaint: Respiratory Problems Stated Complaint: SOA Source: patient Exam Limitations: no limitations History of Present Illness Date Seen by Provider: December 12, 2019 Time Seen by Provider: 19:02 Initial Comments Here with report of shortness of breath over the last few days that has worsened. [facility] and thought to likely have allergy symptoms. Denies recent travel or contact exposure with other people are sick including COVID-19 exposure. Denies leaving town. States he only done some shopping. Does have history of pulmonary embolism last year and is on Pradaxa BID. States he takes that as directed. Has not missed any doses. Denies fever, chills, nausea, vomiting or diarrhea. Mostly concerned about the increasing shortness of breath. Timing/Duration: getting worse, other (2 days ago) Severity: mild, moderate Prior Episodes/Possible Cause: occasional episodes Modifying Factors: Worse With Activity; Improves With Rest Associated Symptoms: No chest pain/soreness, No cough, No earache, No fever/chills, No muscle aches, No nasal congestion; shortness of breath; No sore throat, No wheezing Allergies and Home Medications Allergies Coded Allergies: No Known Drug Allergies (Unverified , 01/07/16) Home Medications Cyclobenzaprine HCl 10 Mg Tablet, 10 MG PO DAILY PRN for MUSCLE SPASMS, (Reported) Cyclobenzaprine HCl 10 Mg Tablet, 20 MG PO HS PRN for MUSCLE SPASMS, (Reported) Dabigatran Etexilate Mesylate 150 Mg Capsule, 150 MG PO BID@0700,1900 Prescribed by: ARMIDA DEL CASTILLO on 01/31/19 1039 Duloxetine HCl 60 Mg Capsule., 120 MG PO DAILY, (Reported) Hydrocodone/Acetaminophen 1 Each Tablet, 1 TAB PO Q4-6HR Prescribed by: MARNIE CAMPOS on 03/08/19 1149 Levetiracetam 500 Mg Tablet, 500 MG PO BID Prescribed by: ARMIDA DEL CASTILLO on 01/31/19 1039 Levothyroxine Sodium 25 Mcg Tablet, 25 MCG PO DAILY, (Reported) Pantoprazole Sodium 40 Mg Tablet., 40 MG PO DAILY Prescribed by: ARMIDA DEL CASTILLO on 01/31/19 1039 Prednisone 20 Mg Tab, 40 MG PO DAILY Prescribed by: CARON DEE on 12/12/192031 Quetiapine Fumarate 25 Mg Tablet, 25 MG PO BID, (Reported) Spironolactone 100 Mg Tablet, 100 MG PO DAILY Prescribed by: ARMIDA DEL CASTILLO on 01/31/19 1039 Patient Home Medication List Home Medication List Reviewed: Yes Review of Systems Review of Systems Constitutional: no symptoms reported EENTM: no symptoms reported Respiratory: No cough; short of breath; No wheezing Cardiovascular: No chest pain, No palpitations Gastrointestinal: no symptoms reported Genitourinary: no symptoms reported Musculoskeletal: no symptoms reported All Other Systems Reviewed Negative Unless Noted: Yes Past Brkrbid-Jrrafr-Qgwggp Hx Past Med/Social Hx: Reviewed Nursing Past Med/Soc Hx Patient Social History Alcohol Use: Occasionally Uses Alcohol Beverage of Choice: Beer Recreational Drug Use: No Smoking Status: Never a Smoker Type Used: Smokeless Tobacco 2nd Hand Smoke Exposure: No Recent Hopitalizations: No Immunizations Up To Date Tetanus Booster (TDap): Unknown PED Vaccines UTD: No Seasonal Allergies Seasonal Allergies: No Past Medical History Surgeries: No Respiratory: No Cardiac: Yes Hypertension Neurological: Yes Stroke Reproductive Disorders: No Genitourinary: No Gastrointestinal: Yes ("ULCERS" WHEN YOUNG--NO TESTS DONE) Polyps Musculoskeletal: Yes (CHRONIC NECK PAIN ) Chronic Back Pain Endocrine: Yes Hypothyroidsim HEENT: No Cancer: No Psychosocial: Yes (ALCOHOLISM) Anxiety, Depression Integumentary: No Blood Disorders: No Family Medical History Reviewed Nursing Family Hx Patient reports no known family medical history. No Pertinent Family Hx Physical Exam Vital Signs - First Documented 12/12/19 18:52 Temp 36.8 Pulse 87 Resp 18 B/P (MAP) 125/73 (90) O2 Delivery Room Air Capillary Refill : Height: 5'11.00" Weight: 215lbs. 4.0oz. 97.709138xe; 36.9 BMI Method:Stated General Appearance: WD/WN, no apparent distress HEENT: PERRL/EOMI, pharynx normal Neck: full range of motion, supple Respiratory: lungs clear, normal breath sounds Cardiovascular: regular rate, rhythm, no murmur Gastrointestinal: non tender, soft Extremities: non-tender, normal inspection Neurologic/Psychiatric: alert, oriented x 3 Skin: normal color, warm/dry Focused Exam Lactate Level 12/12/19 19:07: Lactic Acid Level 1.22 Lactic Acid Level Laboratory Tests Test 12/12/19 19:07 Lactic Acid Level 1.22 MMOL/L (0.50-2.00) Procedures/Interventions Date of ETT Placement: Jan 19, 2019 Time of ETT Placement: 1352 Progress/Results/Core Measures Suspected Sepsis SIRS Temperature: Pulse: Respiratory Rate: Laboratory Tests 12/12/19 19:07: White Blood Count 6.1 Blood Pressure / Mean: 12/12/19 19:07: Lactic Acid Level 1.22 Laboratory Tests 12/12/19 19:07: Creatinine 1.20, INR Comment 1.1, Platelet Count 264, Total Bilirubin 0.4 Results/Orders Lab Results Laboratory Tests Test 12/12/19 19:07 12/12/19 19:19 Range/Units White Blood Count 6.1 4.3-11.0 10^3/uL Red Blood Count 5.16 4.35-5.85 10^6/uL Hemoglobin 13.7 13.3-17.7 G/DL Hematocrit 41 40-54 % Mean Corpuscular Volume 79 L 80-99 FL Mean Corpuscular Hemoglobin 27 25-34 PG Mean Corpuscular Hemoglobin Concent 34 32-36 G/DL Red Cell Distribution Width 14.6 H 10.0-14.5 % Platelet Count 264 130-400 10^3/uL Mean Platelet Volume 10.3 7.4-10.4 FL Neutrophils (%) (Auto) 51 42-75 % Lymphocytes (%) (Auto) 37 12-44 % Monocytes (%) (Auto) 8 0-12 % Eosinophils (%) (Auto) 4 0-10 % Basophils (%) (Auto) 1 0-10 % Neutrophils # (Auto) 3.1 1.8-7.8 X 10^3 Lymphocytes # (Auto) 2.2 1.0-4.0 X 10^3 Monocytes # (Auto) 0.5 0.0-1.0 X 10^3 Eosinophils # (Auto) 0.3 0.0-0.3 10^3/uL Basophils # (Auto) 0.0 0.0-0.1 10^3/uL Prothrombin Time 14.6 12.2-14.7 SEC INR Comment 1.1 0.8-1.4 Activated Partial Thromboplast Time 42 H 24-35 SEC D-Dimer 0.32 0.00-0.49 UG/ML Sodium Level 137 135-145 MMOL/L Potassium Level 3.8 3.6-5.0 MMOL/L Chloride Level 103 98-107 MMOL/L Carbon Dioxide Level 24 21-32 MMOL/L Anion Gap 10 5-14 MMOL/L Blood Urea Nitrogen 10 7-18 MG/DL Creatinine 1.20 0.60-1.30 MG/DL Estimat Glomerular Filtration Rate > 60 BUN/Creatinine Ratio 8 Glucose Level 84 70-105 MG/DL Lactic Acid Level 1.22 0.50-2.00 MMOL/L Calcium Level 9.5 8.5-10.1 MG/DL Corrected Calcium 9.1 8.5-10.1 MG/DL Total Bilirubin 0.4 0.1-1.0 MG/DL Aspartate Amino Transf (AST/SGOT) 19 5-34 U/L Alanine Aminotransferase (ALT/SGPT) 18 0-55 U/L Alkaline Phosphatase 53 40-136 U/L Lactate Dehydrogenase 158 125-220 U/L C-Reactive Protein High Sensitivity 0.19 0.00-0.50 MG/DL B-Type Natriuretic Peptide < 10.0 <100.0 PG/ML Total Protein 7.6 6.4-8.2 GM/DL Albumin 4.5 3.2-4.5 GM/DL Urine Color YELLOW Urine Clarity CLEAR Urine pH 6.0 5-9 Urine Specific [place] <=1.005 1.016-1.022 Urine Protein NEGATIVE NEGATIVE Urine Glucose (UA) NEGATIVE NEGATIVE Urine Ketones NEGATIVE NEGATIVE Urine Nitrite NEGATIVE NEGATIVE Urine Bilirubin NEGATIVE NEGATIVE Urine Urobilinogen 0.2 < = 1.0 MG/DL Urine Leukocyte Esterase NEGATIVE NEGATIVE Urine RBC (Auto) NEGATIVE NEGATIVE Urine RBC NONE /HPF Urine WBC RARE /HPF Urine Crystals NONE /LPF Urine Bacteria TRACE /HPF Urine Casts NONE /LPF Urine Mucus NEGATIVE /LPF Urine Culture Indicated NO My Orders Orders - CARON DEE MD Cbc With Automated Diff (12/12/19 19:14) Comprehensive Metabolic Panel (12/12/19 19:14) Blood Culture (12/12/19 19:14) Sputum Culture (12/12/19 19:14) Urinalysis (12/12/19 19:14) Urine Culture (12/12/19 19:14) Protime With Inr (12/12/19 19:14) Partial Thromboplastin Time (12/12/19 19:14) Chest 1 View, Ap/Pa Only (12/12/19 19:14) Ed Iv/Invasive Line Start (12/12/19 19:14) Vital Signs Adult Sepsis Patie Q15M (12/12/19 19:14) Remove Rings In Anticipation O (12/12/19 19:14) Lactic Acid Analyzer (12/12/19 19:14) Ferritin (12/12/19 19:14) LDH (12/12/19 19:14) Hs C Reactive Protein (12/12/19 19:14) BNP (12/12/19 19:14) Fibrin Degradation Products (12/12/19 19:41) Coronavirus Sars-Cov-2 So 2018 (12/12/19 20:11) Prednisone Tablet (Deltasone Tablet) (12/12/19 20:30) Rx-Albuterol Inhaler (Rx-Proair) (12/12/19 20:28) Vital Signs/I&O 12/12/19 18:52 Temp 36.8 Pulse 87 Resp 18 B/P (MAP) 125/73 (90) O2 Delivery Room Air Capillary Refill : Progress Note : Progress Note Seen and evaluated. IV, labs, chest x-ray, blood cultures, lactic acid and COVID-19 swab ordered. Patient allowed to take nightly meds including Pradaxa. Monitor patient. 2028: No acute findings and no findings suspicious for COVID-19 although swab pending. Likely more related to bronchitis allergic versus infectious. Prednisone 40 mg by mouth. Albuterol MDI given. Discharged home with return precautions. Patient verbalize understanding instructions and agreement with plan. Diagnostic Imaging Diagonstic Imaging: Xray Plain Films/CT/US/NM/MRI: chest Comments [facility] [place], [place] NAME: LASHAWN ASHBY [facility] REC#: [id number] PT STATUS: REG ER : 1970 PHYSICIAN: CARON DEE MD ADMIT DATE: 12/12/19/ER Draft Date of Exam:12/12/19 CHEST 1 VIEW, AP/PA ONLY INDICATION: Shortness of air COMPARISON: 01/29/2019 FINDINGS: No focal consolidation, failure, effusion or pneumothorax. IMPRESSION: No acute appearing abnormality. Dictated on workstation # [id number] Dict: 12/12/192001 Trans: 12/12/192003 [facility] [id number] Interpreted by: THERESA GREGORY Electronically signed by: Departure Impression Primary Impression: Bronchitis Additional Impression: COVID-19 evaluation Disposition: 01 HOME, SELF-CARE Condition: Improved Departure-Patient Inst. Decision time for Depature: 20:30 Referrals: [facility] [place] (PCP/Family) Primary Care Physician Patient Instructions: Acute Bronchitis, Adult (DC), Coronavirus Disease 2019 (COVID-19) (DC) Add. Discharge Instructions: All discharge instructions reviewed with patient and/or family. Voiced understanding. Take medications as directed. You may use the inhaler 2 puffs every 4 hours as needed for wheezing or shortness of breath. Follow-up with your Dr. in a few days for recheck. Tele-visit is appropriate You will be called regarding the COVID-19 swab that was done. You should remain quarantine until results noted. If positive, you will be notified by the health department and further quarantine instructions will be given by them. Return for worse pain, fever, vomiting, weakness, breathing problems or other concerns as needed. Scripts Prednisone (Prednisone) 20 Mg Tab 40 MG PO DAILY, #8 TAB 0 Refills Prov: CARON DEE MD 12/12/19 Copy Copies To 1: AGUILA JAMES TIMOTHY D MD December 12, 2019 19:20
[2019-12-12 19:24] LABS: BASOPHILS % (AUTO) 1 % (0-10); EOSINOPHILS # (AUTO) 0.3 10^3/uL (0.0-0.3); EOSINOPHILS % (AUTO) 4 % (0-10); HEMATOCRIT 41 % (40-54); HEMOGLOBIN 13.7 G/DL (13.3-17.7); LYMPHOCYTES # (AUTO) 2.2 X 10^3 (1.0-4.0); LYMPHOCYTES % (AUTO) 37 % (12-44); MEAN CORPUSCULAR HEMOGLOBIN 27 PG (25-34); MEAN CORPUSCULAR HGB CONC 34 G/DL (32-36); MEAN CORPUSCULAR VOLUME 79 FL (80-99); MEAN PLATELET VOLUME 10.3 FL (7.4-10.4); MONOCYTES # (AUTO) 0.5 X 10^3 (0.0-1.0); MONOCYTES % (AUTO) 8 % (0-12); NEUTROPHILS # (AUTO) 3.1 X 10^3 (1.8-7.8); NEUTROPHILS % (AUTO) 51 % (42-75); PLATELET COUNT 264 10^3/uL (130-400); RED CELL DISTRIBUTION WIDTH 14.6 % (10.0-14.5); WHITE BLOOD COUNT 6.1 10^3/uL (4.3-11.0)
[2019-12-12 19:30] LABS: BILIRUBIN,URINE NEGATIVE (NEGATIVE); CLARITY,URINE CLEAR; COLOR,URINE YELLOW; GLUCOSE, URINE (UA) NEGATIVE (NEGATIVE); KETONES,URINE NEGATIVE (NEGATIVE); LEUKOCYTE ESTERASE ,URINE NEGATIVE (NEGATIVE); NITRITE,URINE NEGATIVE (NEGATIVE); PROTEIN,URINE NEGATIVE (NEGATIVE)
[2019-12-12 19:36] LABS: ALBUMIN 4.5 GM/DL (3.2-4.5); CHLORIDE 103 MMOL/L (98-107); POTASSIUM 3.8 MMOL/L (3.6-5.0); SODIUM 137 MMOL/L (135-145)
[2019-12-12 19:37] LABS: CALCIUM 9.5 MG/DL (8.5-10.1)
[2019-12-12 19:38] LABS: GLUCOSE 84 MG/DL (70-105); INR 1.1 (0.8-1.4); PROTHROMBIN TIME PATIENT 14.6 SEC (12.2-14.7)
[2019-12-12 19:39] LABS: TOTAL PROTEIN 7.6 GM/DL (6.4-8.2)
[2019-12-12 19:40] LABS: BILIRUBIN,TOTAL 0.4 MG/DL (0.1-1.0); CARBON DIOXIDE 24 MMOL/L (21-32)
[2019-12-12 19:40] LABS: BACTERIA,URINE TRACE /HPF; WBC,URINE RARE /HPF
[2019-12-12 19:42] LABS: ALKALINE PHOSPHATASE 53 U/L (40-136); GFR ESTIMATED > 60
[2019-12-12 19:43] LABS: BUN/CREATININE RATIO 8
[2019-12-12 19:45] LABS: ALANINE AMINOTRANSFERASE 18 U/L (0-55)
--- NOTE | 2019-12-12 20:04 | Diagnostic Imaging Report ---
INDICATION: Shortness of air COMPARISON: 01/29/2019 FINDINGS: No focal consolidation, failure, effusion or pneumothorax. IMPRESSION: No acute appearing abnormality. Dictated by: Dictated on workstation # [id number]
[2019-12-12] MEDS ORDERED: RX-ALBUTEROL INHALER (PROAIR) 8.5 GM IH STA (20:28)
[2019-12-12] MEDS ORDERED: predniSONE 20 MG TAB PO ONE (20:30)
[2019-12-12] MEDS ORDERED: PRD20T PO (20:32)
[2019-12-12 20:43] VITALS: BP 150/86
== END 2019-12-12 20:43 | disposition home or self-care (01) ==
LOC: EDUNIT# 18:17 → ER 18:18
DX: J40 Bronchitis, not specified as acute or chronic (principal); I10 Essential (primary) hypertension; F41.9 Anxiety disorder, unspecified; F32.9 Major depressive disorder, single episode, unspecified; E03.9 Hypothyroidism, unspecified; Z86.73 Personal history of transient ischemic attack (TIA), and cerebral infarction without residual deficits; Z11.59 Encounter for screening for other viral diseases; Z86.711 Personal history of pulmonary embolism; Z79.01 Long term (current) use of anticoagulants
CPT/HCPCS: 36415; 71045; 80053; 81000; 82728; 83605; 83615; 83880; 85025; 85379; 85610; 85730; 86141; 87040; 87088; 87635

== ENCOUNTER 2021-03-06 09:44 | Outpatient (RCR) | payer OTHER ==
[~2021-03-06 09:44] MED LIST changes: +CLN.1T; +CLN.2T PO; -CLON0.1T; -CLON0.2T PO; +PRD20T PO; +QUET25TA34 PO; -QUET25TA73 PO; -SULF1TAB35 PO; +SULF1TAB38 PO
== END 2021-03-06 17:00 | disposition home or self-care (01) ==
PROVIDERS: ATTEND Family Medicine
DX: Z02.71 Encounter for disability determination (principal); M25.562 Pain in left knee; M25.561 Pain in right knee; M54.9 Dorsalgia, unspecified; I69.323 Fluency disorder following cerebral infarction; I69.311 Memory deficit following cerebral infarction; I69.398 Other sequelae of cerebral infarction

== ENCOUNTER 2021-06-12 12:08 | Outpatient (CLI) | payer SELFPAY ==
[~2021-06-12] VITALS: Ht 180.3 cm; Wt 90.9 kg
[~2021-06-12 12:08] MED LIST changes: +CYCL10TA25 PO; -CYCL10TA9 PO; -DISU500T2 PO; -QUET25TA34 PO; +QUET25TA35 PO; +[UNRECOGNIZED DRUG - CODE] PO
[2021-06-12 12:20] VITALS: BP 115/71
[2021-06-12] MEDS ORDERED: EPINEPHrine INJECTION 1 MG/ML AMP IM PRN (12:30)
[2021-06-12] MEDS ORDERED: ACETAMINOPHEN 500 MG TAB (TYLENOL) PO PRN (12:30)
[2021-06-12] MEDS ORDERED: diphenhydrAMINE 50 MG/ML INJ (BENADRYL) IV PRN (12:30)
[2021-06-12] MEDS ORDERED: ONDANSETRON 4 MG/2 ML (SDV) Z0FRAN IV PRN (12:30)
[2021-06-12] MEDS ORDERED: CASIRIVIMAB/IMDEVIMAB 1,200 MG in NS (IVPB) 250 ML IV ONE (12:30)
[2021-06-12 13:52] VITALS: BP 107/68
== END 2021-06-12 14:17 | disposition home or self-care (01) ==
LOC: INFUSION 12:08
PROVIDERS: ATTEND Physician Assistant
DX: U07.1 COVID-19 (principal)

== ENCOUNTER 2022-11-19 15:27 | Emergency (ER) | payer SELFPAY ==
[~2022-11-19] VITALS: Ht 180 cm; Wt 102.0 kg
[2022-11-19] MEDS ORDERED: NS IV 1000 ML 1,000 ML IV SCH (16:30)
[2022-11-19] MEDS ORDERED: LORazepam INJ 2 MG/ML (ATIVAN) VIAL IVP ONE (16:30)
[2022-11-19] MEDS ORDERED: THIAMINE 100 MG (VITAMIN B-1) TAB PO ONE (16:30)
--- NOTE | 2022-11-19 16:31 | ED General ---
General Chief Complaint: Detox Stated Complaint: PO ORDERED DETOX Nursing Triage Note: SENT HERE BY HIS FRANCHISE BROKER FOR DETOX. PT LAST DRINK OF BEER WAS YESTERDAY. Source of Information: Patient Exam Limitations: No Limitations (ANNE MARIE ORTEGA) History of Present Illness Date Seen by Provider: November 19, 2022 Time Seen by Provider: 16:26 Initial Comments Patient is a 52-year-old male with a history of CVA, PE who presents to ED for alcohol detox. Patient was sent by his chief contract officer for medical detox. States he has been drinking daily for the past 6 months. Around 8 tall boys daily. States when he wakes up he starts to have nausea with vomiting and then starts drinking throughout the day. Patient states he does feel anxious with tremors. Patient had an episode early this morning around 1 AM where he collapsed. According to patient fell on the ground and was out for about 1 to 2 minutes. She got patient up and took him to bed. Patient cannot recall the episode. Patient states he has frequent episodes. Patient reports history of seizures. Currently on Keppra. He states seizures started after a injury that he suffered 5 to 6 years ago while in [facility]. Patient was reports dark urine today. History of electrolyte abnormalities. States he has not been eating. chief contract officer states if he does not do detox he will go to penitentiary under felony charge. History of DUI. Only complaint is lightheadedness at this time. Denies headache, visual changes, chest pain, cough, shortness of breath, abdominal pain. Denies of any drug use. Patient is currently on Pradaxa (ANNE MARIE ORTEGA) Allergies and Home Medications Allergies Coded Allergies: No Known Drug Allergies (Unverified , 06/12/21) Patient Home Medication List Home Medication List Reviewed: Yes (ANNE MARIE ORTEGA) Cyclobenzaprine HCl (Cyclobenzaprine HCl) 10 Mg Tablet, 10 MG PO DAILY PRN for MUSCLE SPASMS, (Reported) Entered as Reported by: BRANDON BRIAN on 01/18/19 1446 Cyclobenzaprine HCl (Cyclobenzaprine HCl) 10 Mg Tablet, 20 MG PO HS PRN for MU SCLE SPASMS, (Reported) Entered as Reported by: BRANDON BRIAN on 01/18/19 144 Dabigatran Etexilate Mesylate (Pradaxa) 150 Mg Capsule, 150 MG PO BID@0700,1900 Prescribed by: ARMIDA DEL CASTILLO on 01/31/19 103 Duloxetine HCl (Duloxetine HCl) 60 Mg Capsule.dr, 120 MG PO DAILY, (Reported) Entered as Reported by: BRANDON BRIAN on 01/18/19 1445 Hydrocodone/Acetaminophen (Hydrocodone/Acetaminophen 5 MG/325 MG TAB) 1 Each Tablet, 1 TAB PO Q4-6HR Prescribed by: MARNIE CAMPOS on 03/08/19 1149 Levetiracetam (Levetiracetam) 500 Mg Tablet, 500 MG PO BID Prescribed by: ARMIDA DEL CASTILLO on 01/31/19 103 Levothyroxine Sodium (Levothyroxine Sodium) 25 Mcg Tablet, 25 MCG PO DAILY, (Reported) Entered as Reported by: CHITO LYMAN on 03/20/17 0832 Lorazepam (Ativan) 0.5 Mg Tablet, 0.5 MG PO TID PRN for ANXIETY Prescribed by: TATIANNA KIM on 11/19/222107 Ondansetron (Ondansetron Odt) 4 Mg Tab.rapdis, 4 MG SL Q4H PRN for NAUSEA/VOMITING Prescribed by: TATIANNA KIM on 11/19/222107 Pantoprazole Sodium (Protonix) 40 Mg Tablet.dr, 40 MG PO DAILY Prescribed by: ARMIDA DEL CASTILLO on 01/31/19 103 Prednisone (Prednisone) 20 Mg Tab, 40 MG PO DAILY Prescribed by: CARON DEE on 12/12/192031 Quetiapine Fumarate (Quetiapine Fumarate) 25 Mg Tablet, 25 MG PO BID, (Reported) Entered as Reported by: STEPH FARRIS on 01/18/19 1138 Spironolactone (Spironolactone) 100 Mg Tablet, 100 MG PO DAILY Prescribed by: ARMIDA DEL CASTILLO on 01/31/19 1039 Review of Systems Review of Systems Constitutional: No chills, No diaphoresis, No fever, No malaise, No weakness EENTM: No ear pain, No blurred vision, No double vision Respiratory: No cough, No dyspnea on exertion Cardiovascular: No chest pain, No edema Gastrointestinal: No abdominal pain, No diarrhea; nausea, vomiting Genitourinary: No decreased output, No discharge, No dysuria, No frequency Musculoskeletal: No back pain, No joint pain Skin: No change in color, No change in hair/nails (ANNE MARIE ORTEGA) All Other Systems Reviewed Negative Unless Noted: Yes (ANNE MARIE ORTEGA) Past Cjbsfgp-Ipfhyr-Zyswun Hx Patient Social History Tobacco Use?: Yes Smoking Status: Never a Smoker Substance use?: No Alcohol Use?: Yes Alcohol type: Beer Alcohol Frequency: Daily (ANNE MARIE ORTEGA) Immunizations Up To Date Tetanus Booster (TDap): Unknown PED Vaccines UTD: No (ANNE MARIE ORTEGA) Seasonal Allergies Seasonal Allergies: No (ANNE MARIE ORTEGA) Past Medical History Surgeries: No Respiratory: No Cardiac: Yes Hypertension Neurological: Yes Stroke Reproductive Disorders: No Genitourinary: No Gastrointestinal: Yes ("ULCERS" WHEN YOUNG--NO TESTS DONE) Polyps Musculoskeletal: Yes (CHRONIC NECK PAIN ) Chronic Back Pain Endocrine: Yes Hypothyroidsim HEENT: No Cancer: No Psychosocial: Yes (ALCOHOLISM) Anxiety, Depression Integumentary: No Blood Disorders: No (ANNE MARIE ORTEGA) Family Medical History Patient reports no known family medical history. No Pertinent Family Hx (ANNE MARIE ORTEGA) Physical Exam Vital Signs Vital Signs - First Documented 11/19/22 15:41 Temp 36.3 Pulse 124 Resp 16 B/P (MAP) 118/88 (98) Pulse Ox 98 O2 Delivery Room Air (TRISH STEVENS MD) Vital Signs Capillary Refill : Less Than 3 Seconds (ANNE MARIE ORTEGA) Height, Weight, BMI Height: 5'11.00" Weight: 215lbs. 4.0oz. 97.758306sm; 31.00 BMI Method:Stated General Appearance: No Apparent Distress, WD/WN Eyes: Bilateral Eye Normal Inspection, Bilateral Eye PERRL, Bilateral Eye EOMI HEENT: PERRL/EOMI, TMs Normal, Normal ENT Inspection Neck: Full Range of Motion, Normal Inspection, Non Tender, Supple Respiratory: Chest Non Tender, Lungs Clear, Normal Breath Sounds, No Accessory Muscle Use, No Respiratory Distress Cardiovascular: Regular Rate, Rhythm, No Edema, No Gallop, No JVD Gastrointestinal: Normal Bowel Sounds, No Organomegaly, No Pulsatile Mass, Non Tender, Soft Back: Normal Inspection, No CVA Tenderness, No Vertebral Tenderness Extremity: Normal Capillary Refill, Normal Inspection, Normal Range of Motion, Non Tender Neurologic/Psychiatric: Alert, Oriented x3, No Motor/Sensory Deficits, Normal Mood/Affect, cooler tender II-XII Norm as Tested Skin: Normal Color, Warm/Dry (ANNE MARIE ORTEGA) Focused Exam Lactate Level 11/19/22 17:34: Lactic Acid Level 2.73*H 11/19/22 19:54: Lactic Acid Level 2.21*H (TRISH STEVENS MD) Lactic Acid Level Laboratory Tests Test 11/19/22 17:34 11/19/22 19:54 Lactic Acid Level 2.73 MMOL/L (0.50-2.00) *H 2.21 MMOL/L (0.50-2.00) *H (TRISH STEVENS MD) Procedures/Interventions Date of ETT Placement: Jan 19, 2019 Time of ETT Placement: 1352 (ANNE MARIE ORTEGA) Progress/Results/Core Measures Suspected Sepsis SIRS Temperature: Pulse: 124 Respiratory Rate: 16 Laboratory Tests 11/19/22 14:33: White Blood Count 5.3 Blood Pressure 118 /88 Mean: 98 11/19/22 17:34: Lactic Acid Level 2.73*H 11/19/22 19:54: Lactic Acid Level 2.21*H Laboratory Tests 11/19/22 14:33: Creatinine 0.88, Platelet Count 155, Total Bilirubin 1.2H 11/19/22 17:34: INR Comment 1.5H (ANNE MARIE ORTEGA) Results/Orders Lab Results Laboratory Tests Test 11/19/22 14:33 11/19/22 17:34 11/19/22 17:53 11/19/22 19:54 Range/Units White Blood Count 5.3 4.3-11.0 10^3/uL Red Blood Count 5.37 4.30-5.52 10^6/uL Hemoglobin 17.4 13.3-17.7 g/dL Hematocrit 48 40-54 % Mean Corpuscular Volume 89 80-99 fL Mean Corpuscular Hemoglobin 32 25-34 pg Mean Corpuscular Hemoglobin Concent 36 32-36 g/dL Red Cell Distribution Width 12.2 10.0-14.5 % Platelet Count 155 130-400 10^3/uL Mean Platelet Volume 9.4 9.0-12.2 fL Immature Granulocyte % (Auto) 0 % Neutrophils (%) (Auto) 84 H 42-75 % Lymphocytes (%) (Auto) 7 L 12-44 % Monocytes (%) (Auto) 6 0-12 % Eosinophils (%) (Auto) 2 0-10 % Basophils (%) (Auto) 1 0-10 % Neutrophils # (Auto) 4.5 1.8-7.8 10^3/uL Lymphocytes # (Auto) 0.4 L 1.0-4.0 10^3/uL Monocytes # (Auto) 0.3 0.0-1.0 10^3/uL Eosinophils # (Auto) 0.1 0.0-0.3 10^3/uL Basophils # (Auto) 0.0 0.0-0.1 10^3/uL Immature Granulocyte # (Auto) 0.0 0.0-0.1 10^3/uL Neutrophils % (Manual) 84 % Lymphocytes % (Manual) 7 % Monocytes % (Manual) 6 % Eosinophils % (Manual) 1 % Band Neutrophils 2 % Platelet Estimate NORMAL Blood Morphology Comment NORMAL Sodium Level 131 L 135-145 MMOL/L Potassium Level 4.3 3.6-5.0 MMOL/L Chloride Level 92 L 98-107 MMOL/L Carbon Dioxide Level 17 L 21-32 MMOL/L Anion Gap 22 H 5-14 MMOL/L Blood Urea Nitrogen 5 L 7-18 MG/DL Creatinine 0.88 0.60-1.30 MG/DL Estimat Glomerular Filtration Rate 104 BUN/Creatinine Ratio 6 Glucose Level 90 70-105 MG/DL Calcium Level 9.8 8.5-10.1 MG/DL Corrected Calcium 9.4 8.5-10.1 MG/DL Magnesium Level 2.1 1.6-2.4 MG/DL Total Bilirubin 1.2 H 0.1-1.0 MG/DL Aspartate Amino Transf (AST/SGOT) 141 H 5-34 U/L Alanine Aminotransferase (ALT/SGPT) 145 H 0-55 U/L Alkaline Phosphatase 69 40-136 U/L Troponin I < 0.028 <0.028 NG/ML Total Protein 8.1 6.4-8.2 GM/DL Albumin 4.5 3.2-4.5 GM/DL Lipase 34 8-78 U/L TSH [place] Testing 4.29 0.35-4.94 UIU/ML Salicylates Level < 5.0 L 5.0-20.0 MG/DL Acetaminophen Level < 10 L 10-30 UG/ML Serum Alcohol 17 H <10 MG/DL Prothrombin Time 18.6 H 12.2-14.7 SEC INR Comment 1.5 H 0.8-1.4 Activated Partial Thromboplast Time 58 H 24-35 SEC D-Dimer <= 0.27 0.00-0.49 UG/ML Lactic Acid Level 2.73 *H 2.21 *H 0.50-2.00 MMOL/L Urine Color YELLOW Urine Clarity CLEAR Urine pH 6.0 5-9 Urine Specific Kevin 1.020 1.016-1.022 Urine Protein TRACE H NEGATIVE Urine Glucose (UA) NEGATIVE NEGATIVE Urine Ketones 2+ H NEGATIVE Urine Nitrite NEGATIVE NEGATIVE Urine Bilirubin NEGATIVE NEGATIVE Urine Urobilinogen 1.0 < = 1.0 MG/DL Urine Leukocyte Esterase NEGATIVE NEGATIVE Urine RBC (Auto) TRACE-I H NEGATIVE Urine RBC 0-2 /HPF Urine WBC NONE /HPF Urine Squamous Epithelial Cells 0-2 /HPF Urine Crystals NONE /LPF Urine Bacteria TRACE /HPF Urine Casts NONE /LPF Urine Mucus SMALL H /LPF Urine Culture Indicated NO Urine Opiates Screen NEGATIVE NEGATIVE Urine Oxycodone Screen NEGATIVE NEGATIVE Urine Methadone Screen NEGATIVE NEGATIVE Urine Propoxyphene Screen NEGATIVE NEGATIVE Urine Barbiturates Screen NEGATIVE NEGATIVE Ur Tricyclic Antidepressants Screen POSITIVE H NEGATIVE Urine Phencyclidine Screen NEGATIVE NEGATIVE Urine Amphetamines Screen NEGATIVE NEGATIVE Urine Methamphetamines Screen NEGATIVE NEGATIVE Urine Benzodiazepines Screen NEGATIVE NEGATIVE Urine Cocaine Screen NEGATIVE NEGATIVE Urine Cannabinoids Screen NEGATIVE NEGATIVE (TRISH STEVENS MD) Vital Signs/I&O 11/19/22 11/19/22 15:41 21:12 Temp 36.3 36.3 Pulse 124 89 Resp 16 16 B/P (MAP) 118/88 (98) 120/89 Pulse Ox 98 99 O2 Delivery Room Air Room Air (TRISH STEVENS MD) Vital Signs/I&O Capillary Refill : Less Than 3 Seconds (ANNE MARIE ORTEGA) Blood Pressure Mean: 98 ECG Comment Sinus tachycardia, 107 bpm, QRS duration 90 MS, QTc 402 MS (ANNE MARIE ORTEGA) Departure Communication (PCP) Reviewed previous ER visits, H&P, lab testing . patient was sent to the ER by his p.o. officer for alcohol detox. Patient on arrival reports history of seizures. 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 Takes Keppra 500 mg twice daily. History of syncope. Last syncopal episode was around 1:00 this morning. Significant other states patient collapsed fell on the ground woke up in about 1 to 2 minutes. No convulsions or seizure-like activity. Similar type episodes in the past and reports 2 or 3 episodes a day according to significant other. Differential diagnosis of EtOH abuse, alcohol withdrawal, syncope, DT, arrhythmia, ACS. On arrival CIWA score of 5. Slight tremoring, vomiting, headache, anxiety. Due to the syncopal episode CT scan of the head was ordered which was unremarkable. Cardiac work-up, psych panel, chest x-ray was ordered. EKG did not show any evidence of arrhythmia, ST elevation or depression. Patient is currently on Pradaxa secondary to PE. History of CVA. Due to the syncopal episode history of PE D-dimer and coags was ordered. Patient states he vomits every morning. Typically drinks about 8 tall boys daily. Patient has been drinking daily for the past 6 months. Patient states his primary care physician [facility] recommended a medical detox and recommended to go to ER 1 month ago. Did not follow-up. Concerning for electrolyte abnormality. Patient was started on a liter of fluid as patient was tachycardic. Patient was given 100 mg of thiamine oral. Patient was given Ativan for the mild tremoring and anxiety. Patient sodium was 131, chloride 92, anion gap of 22, BUN of 5. Normal creatinine. Due to the elevated anion gap concerning for metabolic acidosis, lactic acid was ordered which read 2.75. Likely secondary to EtOH abuse. Patient received a second liter of fluid improvement of his heart rate. Chest x-ray was negative for pleural effusion, pneumonia. Patient had a negative D-dimer. CT angio of the chest was held. Urine did note ketones. Concerning for alcoholic ketoacidosis. Second lactic acid 2 hours from the previous 1 was 2.21. Patient did vomit once here was given a IV Zofran. Due to the metabolic acidosis, syncopal episode, dehydration I recommended admission. Did not typically perform alcohol detox here however due to his abnormal lab work and syncopal episodes and decrease in his alcohol intake I feel that his symptoms will likely worsen. Patient was discussed with Dr. Del Castillo hospitalist who did not feel comfortable admitting patient for alcohol detox. Recommended outpatient follow-up to [facility]. Discussed these results with family. States will give a few days worth of Ativan to take for the anxiety and tremoring. Zofran for nausea. Do not consume alcohol with the Ativan as this may cause drowsiness, dizziness, loss of coordination. Patient knowledges. If any worsening symptoms to return back to ED for further evaluation. Did offer a 3 L of fluid due to the slight elevated lactic acid but patient was wanting to leave (ANNE MARIE ORTEGA) Impression Primary Impression: ETOH abuse Additional Impression: Metabolic acidosis Disposition: HOME, SELF-CARE Condition: Stable Departure-Patient Inst. Decision time for Depature: 21:06 (ANNE MARIE ORTEGA) Referrals: YESY JOINER DO (PCP) Primary Care Physician Patient Instructions: Effects of Alcohol on Your Health Add. Discharge Instructions: Need to follow-up [facility]. Ativan as needed. Do not drink with the Ativan. Ativan helps with anxiety, tremoring. Zofran for nausea All discharge instructions reviewed with patient and/or family. Voiced understanding. Scripts Lorazepam (Ativan) 0.5 Mg Tablet 0.5 MG PO TID PRN for ANXIETY, #6 TAB Prov: ANNE MARIE ORTEGA 11/19/22 Ondansetron (Ondansetron Odt) 4 Mg Tab.rapdis 4 MG SL Q4H PRN for NAUSEA/VOMITING, #8 TAB Prov: ANNE MARIE ORTEGA 11/19/22 ATTENDING PHYSICIAN NOTE: I was physically present as attending physician in the emergency department during the care of this patient, but I was not directly involved in the decision making or delivery of care for this patient. (TRISH STEVENS MD) ANNE MARIE ORTEGA November 19, 2022 16:31 TRISH STEVENS MD November 21, 2022 06:30
[2022-11-19 16:47] LABS: BASOPHILS % (AUTO) 1 % (0-10); EOSINOPHILS # (AUTO) 0.1 10^3/uL (0.0-0.3); EOSINOPHILS % (AUTO) 2 % (0-10); HEMATOCRIT 48 % (40-54); HEMOGLOBIN 17.4 g/dL (13.3-17.7); LYMPHOCYTES # (AUTO) 0.4 10^3/uL (1.0-4.0); LYMPHOCYTES % (AUTO) 7 % (12-44); MEAN CORPUSCULAR HEMOGLOBIN 32 pg (25-34); MEAN CORPUSCULAR HGB CONC 36 g/dL (32-36); MEAN CORPUSCULAR VOLUME 89 fL (80-99); MEAN PLATELET VOLUME 9.4 fL (9.0-12.2); MONOCYTES # (AUTO) 0.3 10^3/uL (0.0-1.0); MONOCYTES % (AUTO) 6 % (0-12); NEUTROPHILS # (AUTO) 4.5 10^3/uL (1.8-7.8); NEUTROPHILS % (AUTO) 84 % (42-75); PLATELET COUNT 155 10^3/uL (130-400); WHITE BLOOD COUNT 5.3 10^3/uL (4.3-11.0)
[2022-11-19 16:57] LABS: ALBUMIN 4.5 GM/DL (3.2-4.5); CHLORIDE 92 MMOL/L (98-107); POTASSIUM 4.3 MMOL/L (3.6-5.0); SODIUM 131 MMOL/L (135-145)
[2022-11-19 16:58] LABS: CALCIUM 9.8 MG/DL (8.5-10.1)
--- NOTE | 2022-11-19 16:58 | Diagnostic Imaging Report ---
Indication: Altered mental status Portable chest 5:04 PM Heart size and pulmonary vascularity are normal. Lungs are clear. There are no effusions or pneumothoraces. IMPRESSION: No acute abnormalities in the chest Dictated by: Dictated on workstation # [id number]
[2022-11-19 17:00] LABS: GLUCOSE 90 MG/DL (70-105); TOTAL PROTEIN 8.1 GM/DL (6.4-8.2)
[2022-11-19 17:01] LABS: BILIRUBIN,TOTAL 1.2 MG/DL (0.1-1.0); CARBON DIOXIDE 17 MMOL/L (21-32)
[2022-11-19 17:03] LABS: ALKALINE PHOSPHATASE 69 U/L (40-136); CREATININE SERUM 0.88 MG/DL (0.60-1.30); GFR ESTIMATED 104
--- NOTE | 2022-11-19 17:03 | Diagnostic Imaging Report ---
PROCEDURE: CT head and CT cervical spine without contrast. TECHNIQUE: Multiple contiguous axial images were obtained through the brain and cervical spine without the use of intravenous contrast. Sagittal and coronal reformations through the cervical spine were then performed. Auto Exposure Controls were utilized during the CT exam to meet ALARA standards for radiation dose reduction. INDICATION: Headache after fall, neck pain. COMPARISON: CT of the head on 01/18/2019 FINDINGS: No acute intracranial hemorrhage. The tamayo-white differentiation is preserved. No intracranial mass or fluid collection. The ventricles and cortical sulci are normal. No midline shift or mass effect. The subarachnoid cisterns are patent. The sella is normal. The paranasal sinuses and mastoids are clear. The skull is intact. The globes and orbits are normal. There is straightening of the cervical lordosis. Moderate multilevel disc height loss. Mild to moderate multilevel facet arthritis. No acute fracture or dislocation of the cervical spine. Mild to moderate multilevel spinal canal narrowing due to disc osteophyte complex and uncovertebral and facet arthropathy worst at C5-C6. Visualized soft tissues of the neck demonstrate no neck mass or lymphadenopathy. The lung apices are normal. IMPRESSION: No acute intracranial hemorrhage. No large vascular territory phillip-white loss. No intracranial mass, midline shift, or hydrocephalus. No acute fracture or dislocation of the cervical spine. Dictated by: Dictated on workstation # [id number]
[2022-11-19 17:05] LABS: BUN/CREATININE RATIO 6
[2022-11-19 17:06] LABS: ALANINE AMINOTRANSFERASE 145 U/L (0-55); SALICYLATE < 5.0 MG/DL (5.0-20.0)
[2022-11-19 17:07] LABS: MAGNESIUM 2.1 MG/DL (1.6-2.4)
[2022-11-19 17:09] LABS: ACETAMINOPHEN < 10 UG/ML (10-30)
[2022-11-19 17:13] LABS: BAND NEUTROPHILS 2 %; EOSINOPHILS % (MANUAL) 1 %; LYMPHOCYTES % (MANUAL) 7 %; MONOCYTES % (MANUAL) 6 %; NEUTROPHILS % (MANUAL) 84 %; PLATELET ESTIMATE NORMAL; RBC MORPH NORMAL
[2022-11-19 18:04] LABS: BILIRUBIN,URINE NEGATIVE (NEGATIVE); CLARITY,URINE CLEAR; COLOR,URINE YELLOW; GLUCOSE, URINE (UA) NEGATIVE (NEGATIVE); KETONES,URINE 2+ (NEGATIVE); LEUKOCYTE ESTERASE ,URINE NEGATIVE (NEGATIVE); NITRITE,URINE NEGATIVE (NEGATIVE); PROTEIN,URINE TRACE (NEGATIVE)
[2022-11-19 18:12] LABS: FIBRIN DEGRADATION PRODUCTS <= 0.27 UG/ML (0.00-0.49); INR 1.5 (0.8-1.4); PARTIAL THROMBOPLASTIN TIME 58 SEC (24-35); PROTHROMBIN TIME PATIENT 18.6 SEC (12.2-14.7)
[2022-11-19 18:24] LABS: AMPHETAMINE SCREEN, URINE NEGATIVE (NEGATIVE); BARBITURATE SCREEN URINE NEGATIVE (NEGATIVE); BENZODIAZEPINES SCREEN URINE NEGATIVE (NEGATIVE); CANNABINOID SCREEN, URINE NEGATIVE (NEGATIVE); COCAINE SCREEN URINE NEGATIVE (NEGATIVE); METHADONE STAT NEGATIVE (NEGATIVE); OPIATE SCREEN URINE NEGATIVE (NEGATIVE); OXYCODONE STAT NEGATIVE (NEGATIVE); PROPOXYPHENE STAT NEGATIVE (NEGATIVE); TRICYCLIC ANTIDEPRESSANTS SCRE POSITIVE (NEGATIVE)
[2022-11-19 18:31] LABS: BACTERIA,URINE TRACE /HPF; RBC,URINE 0-2 /HPF
[2022-11-19 18:32] LABS: SQUAMOUS EPITHELIAL CELL,UR 0-2 /HPF
[2022-11-19] MEDS ORDERED: NS IV 1000 ML 1,000 ML IV STA (18:32)
[2022-11-19] MEDS ORDERED: ONDANSETRON 4 MG/2 ML (SDV) Z0FRAN IVP ONE (19:15)
[2022-11-19] MEDS ORDERED: LORA-404 PO (21:08)
[2022-11-19] MEDS ORDERED: ONDA4TAB11 SL (21:08)
[2022-11-19 21:12] VITALS: BP 120/89
== END 2022-11-19 21:12 | disposition home or self-care (01) ==
LOC: EDUNIT# 15:27 → ER 15:33
DX: F10.10 Alcohol abuse, uncomplicated (principal); E87.20 Acidosis, unspecified; G40.909 Epilepsy, unspecified, not intractable, without status epilepticus; I26.99 Other pulmonary embolism without acute cor pulmonale; F41.9 Anxiety disorder, unspecified; R25.1 Tremor, unspecified; Z79.899 Other long term (current) drug therapy; Z79.01 Long term (current) use of anticoagulants
CPT/HCPCS: 70450; 71045; 72125; 80053; 80306; 81000; 83605; 83690; 83735; 84443; 84484; 85007; 85027; 85379; 85610; 85730; 93005; 99284; G0480 ×3; 36415; 80320; 80329

== ENCOUNTER 2022-12-24 19:39 | Emergency (ER) | payer SELFPAY ==
[~2022-12-24 19:39] MED LIST changes: +LORA-404 PO; +ONDA4TAB11 SL
[2022-12-24] MEDS ORDERED: BENZONATATE 100 MG (TESSALON) CAPSULE PO ONE (20:15)
--- NOTE | 2022-12-24 20:17 | ED Cough/URI ---
General Chief Complaint: Cough/Cold/Flu Symptoms Stated Complaint: COUGH/CHILLS Source: patient Exam Limitations: no limitations History of Present Illness Date Seen by Provider: Dec 24, 2022 Time Seen by Provider: 20:01 Initial Comments 52-year-old male presents to the ER with complaints of cough, chest congestion, trouble breathing since yesterday. States that his symptoms have become worse today. He reports he used an inhaler which he states did not provide relief. He denies fevers, chest pain, abdominal pain, nausea, vomiting, diarrhea, and sore throat. Allergies and Home Medications Allergies Coded Allergies: No Known Drug Allergies (Unverified , 06/12/21) Patient Home Medication List Home Medication List Reviewed: Yes Cyclobenzaprine HCl (Cyclobenzaprine HCl) 10 Mg Tablet, 10 MG PO DAILY PRN for MUSCLE SPASMS, (Reported) Entered as Reported by: BRANDON BRIAN on 01/18/19 1446 Cyclobenzaprine HCl (Cyclobenzaprine HCl) 10 Mg Tablet, 20 MG PO HS PRN for MUSCLE SPASMS, (Reported) Entered as Reported by: BRANDON BRIAN on 01/18/19 1446 Dabigatran Etexilate Mesylate (Pradaxa) 150 Mg Capsule, 150 MG PO BID@0700,1900 Prescribed by: ARMIDA DEL CASTILLO on 01/31/19 1039 Duloxetine HCl (Duloxetine HCl) 60 Mg Capsule.dr, 120 MG PO DAILY, (Reported) Entered as Reported by: BRANDON BRIAN on 01/18/19 1445 Hydrocodone/Acetaminophen (Hydrocodone/Acetaminophen 5 MG/325 MG TAB) 1 Each Tablet, 1 TAB PO Q4-6HR Prescribed by: MARNIE CAMPOS on 03/08/19 1149 Levetiracetam (Levetiracetam) 500 Mg Tablet, 500 MG PO BID Prescribed by: ARMIDA DEL CASTILLO on 01/31/19 1039 Levothyroxine Sodium (Levothyroxine Sodium) 25 Mcg Tablet, 25 MCG PO DAILY, (Reported) Entered as Reported by: CHITO LYMAN on 03/20/17 0832 Lorazepam (Ativan) 0.5 Mg Tablet, 0.5 MG PO TID PRN for ANXIETY Prescribed by: TATIANNA KIM on 11/19/22 2108 Ondansetron (Ondansetron Odt) 4 Mg Tab.rapdis, 4 MG SL Q4H PRN for NAUSEA/VOMITING Prescribed by: TATIANNA KIM on 11/19/222107 Pantoprazole Sodium (Protonix) 40 Mg Tablet.dr, 40 MG PO DAILY Prescribed by: ARMIDA DEL CASTILLO on 01/31/19 1039 Prednisone (Prednisone) 20 Mg Tab, 40 MG PO DAILY Prescribed by: CARON DEE on 12/12/192031 Quetiapine Fumarate (Quetiapine Fumarate) 25 Mg Tablet, 25 MG PO BID, (Reported) Entered as Reported by: STEPH FARRIS on 01/18/19 1138 Spironolactone (Spironolactone) 100 Mg Tablet, 100 MG PO DAILY Prescribed by: ARMIDA DEL CASTILLO on 01/31/19 1039 Review of Systems Review of Systems Constitutional: see HPI Past Pfuqxgs-Wovwyk-Bezxpg Hx Patient Social History Smokeless Tobacco Frequency: Current Everyday User Additional substance use comme: DENIES Immunizations Up To Date Tetanus Booster (TDap): Unknown PED Vaccines UTD: No COVID19 Vaccine Bisque Finisher: STATES HAS HAD BOOSTER Seasonal Allergies Seasonal Allergies: No Past Medical History Surgeries: No Respiratory: No Cardiac: Yes Hypertension Neurological: Yes Stroke Reproductive Disorders: No Genitourinary: No Gastrointestinal: Yes ("ULCERS" WHEN YOUNG--NO TESTS DONE) Polyps Musculoskeletal: Yes (CHRONIC NECK PAIN ) Chronic Back Pain Endocrine: Yes Hypothyroidsim HEENT: No Cancer: No Psychosocial: Yes (ALCOHOLISM) Anxiety, Depression Integumentary: No Blood Disorders: No Family Medical History Patient reports no known family medical history. No Pertinent Family Hx Physical Exam Vital Signs - First Documented Capillary Refill : Height: 5'11.00" Weight: 215lbs. 4.0oz. 97.597074uk; 31.00 BMI Method:Stated General Appearance: WD/WN, no apparent distress HEENT: pharynx normal, other (Unable to visualize TMs due to cerumen) Neck: supple, normal inspection Respiratory: lungs clear, normal breath sounds, no respiratory distress, no accessory muscle use Cardiovascular: regular rate, rhythm Neurologic/Psychiatric: alert, normal mood/affect Skin: normal color, warm/dry Procedures/Interventions Date of ETT Placement: Jan 19, 2019 Time of ETT Placement: 1352 Progress/Results/Core Measures Suspected Sepsis SIRS Temperature: Pulse: Respiratory Rate: Blood Pressure / Mean: Results/Orders Lab Results Laboratory Tests Test 12/24/22 20:13 Range/Units SARS-CoV-2 RNA (RT-PCR) Not Detected Not Detecte My Orders Orders - CRISTINA OSEI APRN Covid 19 Inhouse Test (12/24/22 20:07) Benzonatate Capsule (Tessalon Perles) (12/24/22 20:15) Medications Given in ED Current Medications Medications Dose Ordered Sig/Kenneth Route Start Time Stop Time Status Last Admin Dose Admin Benzonatate 100 mg ONCE ONCE PO 12/24/22 20:15 12/24/22 20:16 DC 12/24/22 20:13 100 MG Vital Signs/I&O 12/24/22 12/24/22 19:57 19:57 Temp 36.9 Pulse 96 Resp 16 B/P (MAP) 109/77 (88) Pulse Ox 100 O2 Delivery Room Air Room Air Capillary Refill : Progress Note : Progress Note Patient seen and evaluated, resting comfortably in recliner, no acute distress. Based on exam and symptoms, this is likely in upper respiratory tract infection. We will test him for COVID. Lung sounds are clear, he is in no acute respiratory distress, I considered a chest x-ray, but deferred due to this. He is not hypoxic, oxygen saturation is 100% on room air. COVID swab was negative. Results discussed with patient. Patient reports his cough improved greatly after getting the Tessalon Perles. Will prescribe Tessalon Perles for patient. Discharge instructions and return precautions provided. Departure Impression Primary Impression: Upper respiratory infection Qualified Codes: J06.9 - Acute upper respiratory infection, unspecified Disposition: HOME, SELF-CARE Condition: Stable Departure-Patient Inst. Decision time for Depature: 20:55 Referrals: SAUL RICHEY APRN (PCP/Family) Primary Care Physician Patient Instructions: Viral Upper Respiratory Infection, Adult (DC) Add. Discharge Instructions: Take Tessalon Perles up to 3 times a day as needed for cough. Follow-up with primary care provider. Return for severe shortness of breath, fever, or any other new, concerning, or worsening symptoms. All discharge instructions reviewed with patient and/or family. Voiced understanding. Scripts Benzonatate (TESSALON PERLES) 100 Mg Capsule 100 MG PO TID, #21 CAP 0 Refills Prov: CRISTINA OSEI APRN 12/24/22 CRISTINA OSEI APRN Dec 24, 2022 20:16
[2022-12-24] MEDS ORDERED: BENZ100C18 PO (20:56)
[2022-12-24 21:00] VITALS: BP 111/78
== END 2022-12-24 21:00 | disposition home or self-care (01) ==
LOC: EDUNIT# 19:39 → ER 19:42
DX: J06.9 Acute upper respiratory infection, unspecified (principal); F17.290 Nicotine dependence, other tobacco product, uncomplicated; Z20.822 Contact with and (suspected) exposure to COVID-19
CPT/HCPCS: 87636; 99283

== ENCOUNTER 2023-03-04 06:23 | Outpatient (CLI) | payer MEDICAID ==
[~2023-03-04] VITALS: Ht 180.3 cm; Wt 90.7 kg
[~2023-03-04 06:23] MED LIST changes: +BENZ100C18 PO
[2023-03-04] MEDS ORDERED: BUSP10TA95 PO (16:01)
[2023-03-04] MEDS ORDERED: ACET-575 PO (16:01)
[2023-03-04] MEDS ORDERED: ATOR40TA70 PO (16:01)
[2023-03-04] MEDS ORDERED: THIA100T80 PO (16:01)
[2023-03-04] MEDS ORDERED: LEVE10006 PO (16:01)
[2023-03-04] MEDS ORDERED: LOSA100T58 PO (16:01)
== END 2023-03-04 16:08 | disposition home or self-care (01) ==
LOC: PREOP 06:23
PROVIDERS: ATTEND Surgery
DX: Z01.818 Encounter for other preprocedural examination (principal)

== ENCOUNTER 2023-03-17 10:52 | Day surgery (SDC) | payer MEDICAID ==
[~2023-03-17] VITALS: Ht 180.3 cm; Wt 90.7 kg
[~2023-03-17 10:52] MED LIST changes: +ACET-575 PO; +ATOR40TA70 PO; +BUSP10TA95 PO; +LEVE10006 PO; +LOSA100T58 PO; +THIA100T80 PO
[2023-03-17] MEDS ORDERED: HURRICAINE EXT TUBE (BENZOCAINE) XX PRN (11:00)
[2023-03-17] MEDS ORDERED: LACTATED RINGERS 1,000 ML 1,000 ML IV STA (11:00)
--- NOTE | 2023-03-17 11:13 | Progress Note-Pre Operative ---
Pre-Operative Progress Note Date H&P Reviewed: Mar 17, 2023 Time H&P Reviewed: 11:12 History & Physical: H&P Reviewed, Patient Examed, No changes noted Pre-Operative Diagnosis: unintentional weight loss ANTONIO DIAZ DO Mar 17, 2023 11:13
[2023-03-17 11:21] VITALS: BP 123/89
[2023-03-17] MEDS ORDERED: MIDAZOLAM INJ 2 MG/2 ML VIAL ONE (12:23)
--- NOTE | 2023-03-17 13:27 | Progress Note-Post Operative ---
Post-Operative Progess Note Surgeon (s)/Auto Air Conditioning Installer (s) Surgeon ANTONIO DIAZ DO Auto Air Conditioning Installer: none Pre-Operative Diagnosis unintentional weight loss Post-Operative Diagnosis hiatial hernia, gastritis, normal colon Procedure & Operative Findings Date of Procedure 03/17/23 Procedure Performed/Findings egd with biopsies, colonoscopy Anesthesia Type per PROTOCOL MANAGER Estimated Blood Loss Estimated blood loss (mL): none Specimens/Packing Specimens Removed antrum, ge junction ANTONIO DIAZ DO Mar 17, 2023 13:27
[2023-03-17 13:30] VITALS: BP 109/78
[2023-03-17] MEDS ORDERED: PANT40TA2 PO (13:30)
--- NOTE | 2023-03-17 13:30 | Discharge Inst-Simple/Standard ---
Discharge Inst-Standard Discharge Medications New, Converted or Re-Newed RX: Transmitted to Pharmacy Patient Instructions/Follow Up Plan of Care/Instructions/FU: natalie 2 weeks Activity as Tolerated: Yes Discharge Diet: Regular Diet ANTONIO DIAZ DO Mar 17, 2023 13:30
--- NOTE | 2023-03-17 13:32 | Anesthesia-General Post-Op ---
MAC Patient Condition Mental Status/LOC: Same as Preop Cardiovascular: Satisfactory Nausea/Vomiting: Absent Respiratory: Satisfactory Pain: Controlled Complications: Absent Post Op Complications Complications None Follow Up Care/Instructions Patient Instructions None needed. Anesthesiology Discharge Order Discharge Order Patient is doing well, no complaints, stable vital signs, no apparent adverse anesthesia problems. No complications reported per nursing. ERIKA BUCKLEY CRNA Mar 17, 2023 13:32
[2023-03-17 13:35] VITALS: BP 108/78
[2023-03-17 13:57] VITALS: BP 108/78
--- NOTE | 2023-03-17 20:20 | OPERATIVE REPORT ---
DATE OF SERVICE: 03/17/2023 PREOPERATIVE DIAGNOSIS: Weight loss. POSTOPERATIVE DIAGNOSES: Small hiatal hernia, slight gastritis, normal colon. PROCEDURES: EGD with biopsies, colonoscopy. SURGEON: Antonio Kim DO ANESTHESIA: Per OIL BURNER REPAIRER. ESTIMATED BLOOD LOSS: None. COMPLICATIONS: None. INDICATIONS: The patient is a 52-year-old male with weight loss. He understands risks and benefits of procedure and wished to proceed. Consent was signed in chart. DESCRIPTION OF PROCEDURE: The patient was taken to endoscopy suite, placed in the left lateral recumbent position. Timeout was performed. Scope was inserted in the mouth, down the esophagus, stomach, into the duodenum without difficulty. No polyps, masses or ulcerations. Scope was slowly retracted back into stomach, where it was further insufflated. There was slight gastritis appearance. Biopsy of the antrum was obtained. No polyps, masses or ulcerations. Scope was retroflexed, noting no other pathology except for a small hiatal hernia, no other pathology. Scope was returned to its normal position, slowly withdrawn to the distal esophagus. Biopsy of GE junction was obtained. Scope was then slowly retracted back until completely removed, noting no other pathology. Digital rectal exam was performed. No palpable polyps, masses or ulcerations. Scope was inserted in the rectum, advanced all the way to the cecum with minimal difficulty. Prep was adequate with irrigation and suction. Scope was slowly retracted back. No polyps, masses or ulcerations in the cecum, ascending, transverse, descending and sigmoid colon. Once in the rectum, the scope was retroflexed, noting no other pathology. Scope was returned to its normal position, slowly withdrawn until completely removed. The patient tolerated the procedure well without complications, taken to recovery room in stable condition. RECOMMENDATIONS: The patient will need repeat colonoscopy in 10 years, unless family history of colon cancer, which would then be 5 years. Any changes before that, he will be seen at that time. The patient, if has not had a recent CT of the chest, abdomen and pelvis, we would consider getting this also and we would consider workup the gallbladder, if he still has his gallbladder. No further causes of weight loss. We will start him on Protonix 40 mg daily, and if this does not help his symptoms, follow up in two weeks. Job ID: [id number] DocumentID: [id number] Dictated Date: 03/17/2023 13:33:12 Bone Density Technician Date: 03/17/2023 20:18:00 Dictated By: ANTONIO KIM DO
== END 2023-03-17 13:57 | disposition home or self-care (01) ==
LOC: ENDO 10:52
PROVIDERS: ATTEND Surgery
DX: R63.4 Abnormal weight loss (principal); K29.70 Gastritis, unspecified, without bleeding; K44.9 Diaphragmatic hernia without obstruction or gangrene; F17.220 Nicotine dependence, chewing tobacco, uncomplicated; Z28.310 Unvaccinated for COVID-19

== ENCOUNTER → 2023-05-27 | Outpatient (CLI) | payer MEDICAID ==
[~2023-05-27] MED LIST changes: +[UNRECOGNIZED DRUG - CODE] PO; -[UNRECOGNIZED DRUG - CODE] PO
--- NOTE | 2023-05-27 15:40 | Diagnostic Imaging Report ---
PROCEDURE: MR imaging of the brain without contrast. TECHNIQUE: Multiplanar, multisequence MR imaging of the brain was performed without contrast. INDICATION: Memory difficulty. Ventricles and sulci are within normal limits. There are occasional periventricular white matter changes noted consistent with chronic microvascular ischemia. No diffusion restriction is identified to suggest acute ischemia. The normal expected flow-voids within the carotid siphons are seen. No acute intra-axial or extra-axial hemorrhage is detected. Corpus callosum is unremarkable. The sella and parasellar structures are unremarkable. IMPRESSION: Minimal periventricular white matter changes, perhaps on the basis of chronic microvascular ischemia. The study is otherwise unremarkable. No acute feature is detected. Dictated by: Dictated on workstation # [id number]
== END ==
LOC: RAD 12:44
PROVIDERS: ATTEND Nurse Practitioner
DX: R41.3 Other amnesia (principal)
CPT/HCPCS: 70551